=== PATIENT | female | born 1945 | race Caucasian/White ===

== ENCOUNTER 2018-11-12 18:05 | Inpatient (IN) | payer MEDICARE, OTHER ==
--- NOTE | 2018-11-12 19:01 | ED ---
Complex/Multi-Sys Presentation - HPI Summary HPI Summary: This pt is a 72 y/o female presenting [facility] c/o increased fatigue, weakness, nausea, and vomiting. Pt reports she began to feel ill since 4 days ago with an ear ache that radiated down her jaw and with fatigue. Pt saw her PCP 3 days ago where she was told it was viral syndrome and was sent home with Tylenol and ear saline solution. Since then she has been having nausea, vomiting, persistent fatigue. Today she noted to have increased nausea, vomiting, generalized weakness, fatigue. Per daughter, pt has had decreased PO intake. Denies chest pain, SOB, hematuria, bloody stools, pain with urination. PMHx includes DM, HTN. - History Of Current Complaint Chief Complaint: EDWeakness Hx Obtained From: Patient Onset/Duration: Lasting Days, Still Present Timing: Days Severity Initially: Moderate Aggravating Factor(s): nothing Alleviating Factor(s): nothing Associated Signs And Symptoms: Positive: Weakness - generalized, Nausea, Vomiting, Decreased Oral Intake, Other - POS: fatigue, ear ache. NEG: bloody stools, hematuria, painful urination.. Negative: SOB, Chest Pain, Fever - Allergies/Home Medications Allergies/Adverse Reactions: Allergies Allergy/AdvReac Type Severity Reaction Status Date / Time No Known Allergies Allergy Verified 09/30/13 07:41 Home Medications: Home Medications Furosemide TAB* [Lasix TAB*] 20 mg PO DAILY 11/12/18 [History Confirmed 11/12/18 ] Lisinopril TAB* [Prinivil TAB*] 20 mg PO DAILY 11/12/18 [History Confirmed 11/12] Metformin ER (NF) 1,000 mg PO DAILY 11/12/18 [History Confirmed 11/12/18] Metoprolol Succinate XL TAB* [Toprol XL TAB*] 25 mg PO DAILY 11/12/18 [History Confirmed 11/12/18] PMH/Surg Hx/FS Hx/Imm Hx Endocrine/Hematology History: Denies: Hx Anticoagulant Therapy, Hx Thyroid Disease Comment Only: Hx Diabetes - TYPE 2 Cardiovascular History: Reports: Hx Hypertension Denies: Hx Pacemaker/ICD, Other Cardiovascular Problems/Disorders Respiratory History: Denies: Hx Asthma, Hx Chronic Obstructive Pulmonary Disease (COPD), Other Respiratory Problems/Disorders History: Reports: Hx Kidney Stones - PASSED ON THEIR OWN Denies: Hx Renal Disease Musculoskeletal History: Reports: Hx Arthritis - LOW BACK Sensory History: Reports: Hx Cataracts - KARRIE, Hx Contacts or Glasses - GLASSES Denies: Hx Hearing Aid Opthamlomology History: Reports: Hx Cataracts - KARRIE, Hx Contacts or Glasses - GLASSES Neurological History: Denies: Hx Dementia, Hx Seizures Psychiatric History: Denies: Hx Substance Abuse - Surgical History Surgery Procedure, Year, and Place: 1974, 1978, C SECTION, [facility]. 1979, HYSTERECTOMY, [facility]. 1984, TONSILECTOMY, [facility]. 1998, LEFT HAND [facility]. 1999, RIGHT HAND CTR, [facility]. Hx Anesthesia Reactions: Yes - NAUSEA Infectious Disease History: No Infectious Disease History: Denies: Hx Hepatitis, Hx Human Immunodeficiency Virus (HIV), Traveled Outside the [place] in Last 30 Days - Social History Alcohol Use: None Substance Use Type: Reports: None Review of Systems Constitutional: Other - POS: decreased oral intake Positive: Fatigue. Negative: Fever Positive: Ear Ache Negative: Chest Pain Negative: Shortness Of Breath Positive: Vomiting, Nausea. Negative: Other - bloody stools Positive: no symptoms reported. Negative: hematuria, pain Positive: Weakness - generalized All Other Systems Reviewed And Are Negative: Yes Physical Exam - Summary Physical Exam Summary: Appearance: Patient is quite pale but no acute distress. Skin: Warm, dry, no obvious rash Eyes: sclera anicteric, no conjunctival pallor ENT: mucous membranes moist, pharynx appears normal Neck: Supple, nontender Respiratory: Clear to auscultation, no signs of respiratory distress Cardiovascular: Bradycardia. No murmurs. Normal distal pulses in tibial and radial bilaterally. Abdomen: Soft, nontender, normal active bowel sounds present Musculoskeletal: Normal, Strength/ROM Intact Neurological: A&Ox3, awake and alert, mentation is normal, speech is fluent and appropriate Psychiatric: affect is normal, does not appear anxious or depressed Triage Information Reviewed: Yes Vital Signs On Initial Exam: Initial Vitals Temp Pulse Resp BP Pulse Ox 97.4 F 37 17 121/51 99 11/12/18 18:21 11/12/18 18:21 11/12/18 18:21 11/12/18 18:21 11/12/18 18:21 Vital Signs Reviewed: Yes Diagnostics - Vital Signs Vital Signs Temp Pulse Resp BP Pulse Ox 11/12/18 18:21 97.4 F 37 17 121/51 99 - Laboratory Result Diagrams: 11/13/18 05:01 11/13/18 05:01 Lab Statement: Any lab studies that have been ordered have been reviewed, and results considered in the medical decision making process. - EKG 18:49 Cardiac Rate: Bradycardia - at 36 bpm EKG Rhythm: Sinus Bradycardia Summary of EKG Findings: acute STEMI inf/post Re-Evaluation - Re-Evaluation First Eval Re-Evaluation Time: 19:59 Comment: Pt taken to optical lab technician. Complex Multi-Symp Course/Dx Assessment/Plan: pt is a 72 y/o female who presents to the ED with increased fatigue, weakness, nausea, and vomiting. Pt reports she began to feel ill since 4 days ago with an ear ache that radiated down her jaw and with fatigue. Per daughter, pt has had decreased PO intake. Denies chest pain, SOB, hematuria, bloody stools, pain with urination. Labs remarkable for WBC of 14.8, BUN of 62 , creatinine 2.89, glucose of 196, AST of 105, ALT of 67, CPK of 502, troponin of 32.62. Discussed the case with Dr. Castellanos, interventionalist, who reports EKG shows STEMI. In the ED course the pt received aspirin, heparin, morphine, Brilinta. Pt was transported to the optical lab technician. This patient's presentation with several days of nausea, weakness and some vomiting in the absence of chest pain or other typical anginal symptoms is quite atypical, which accounted for the delay in obtaining an EKG. Once that was obtained, workup and consultation proceeded expeditiously. - Diagnoses Provider Diagnoses: STEMI (ST elevation myocardial infarction) During the Visit The Following Alert/Code Occurred: STEMI - at 19:19 - Physician Notifications Discussed Care Of Patient With: Parisa Castellanos Time Discussed With Above Provider: 19:11 Instructed by Provider To: Other - Discussed pt's case with Dr. Castellanos, interventionalist. [19:19] Dr. Castellanos reports STEMI. - Critical Care Time Critical Care Time: 30-74 min Discharge - Sign-Out/Discharge Documenting (check all that apply): Patient Departure - Admit to [facility] All imaging exams completed and their final reports reviewed: No Studies Patient Received Moderate/Deep Sedation with Procedure: No - Discharge Plan Condition: Stable Disposition: ADMITTED TO [facility] - Billing Disposition and Condition Condition: STABLE Disposition: Admitted to [facility] - Attestation Statements Document Initiated by Nigel: Yes Documenting Scribe: Johana Bravo Provider For Whom Nigel is Documenting (Include Credential): Scott Porter MD Scribe Attestation: Johana Gonzalez scribed for Scott Porter MD on 11/13/18 at 1419. Scribe Documentation Reviewed: Yes Provider Attestation: The documentation as recorded by the Johana johnston accurately reflects the service I personally performed and the decisions made by me, Scott Porter MD Status of Scribe Document: Viewed
[2018-11-12] MEDS ORDERED: Heparin for STEMI(*) 5,000 UNITS/ML 1 ML VIAL IV ONE (19:24)
[2018-11-12] MEDS ORDERED: Ticagrelor* 90 MG TAB PO ONE ×2 (19:24→19:26)
[2018-11-12] MEDS ORDERED: Aspirin 81 mg CHEW TAB* 81 MG TAB.CHEW PO ONE (19:24)
[2018-11-12] MEDS ORDERED: Heparin VIAL(*) 5000 UNITS/ML VIAL (FIVE THOUSAND) ONE (19:26)
[2018-11-12] MEDS ORDERED: Morphine 4 MG/ML VIAL (1 ml) 4 MG/ML VIAL ONE (19:26)
[2018-11-12] MEDS ORDERED: Aspirin 81 mg CHEW TAB* 81 MG TAB.CHEW ONE (19:27)
[2018-11-12 19:31] LABS: ABS Basophils 0.1 10^3/ul (0-0.2); ABS Eosinophils 0 10^3/ul (0-0.6); ABS Lymphocytes 0.6 10^3/ul (1.0-4.8); ABS Monocytes 0.9 10^3/ul (0-0.8); ABS Neutrophils 13.2 10^3/ul (1.5-7.7); ABS Nucleated RBC 0 10^3/ul; Eosinophil % 0 %; Hematocrit 33 % (33-41); Hemoglobin 10.7 g/dL (12.0-16.0); Mean Corpuscular HGB Conc 33 g/dL (31-36); Mean Corpuscular Hemoglobin 28 pg (27-31); Mean Corpuscular Volume 85 fL (80-97); Mean Platelet Volume 10.7 fL (7.4-10.4); Nucleated Red Blood Cells % 0; Platelet Count 160 10^3/uL (150-450); Red Blood Count 3.84 10^6 /uL (3.70-4.87); Red Cell Distribution Width 14 % (10.5-15); White Blood Count 14.8 10^3/uL (3.5-10.8)
[2018-11-12] MEDS ORDERED: Midazolam* 1 MG/ML 5 ML VIAL (5 MG) ONE (19:41)
[2018-11-12] MEDS ORDERED: fentaNYL* 50 MCG/ML 2 ML VIAL (100 MCG VIAL) ONE (19:41)
[2018-11-12] MEDS ORDERED: VERAPAMIL 2.5 MG/ML 2 ML VIAL ** 5 mg/2 ml ONE (19:42)
[2018-11-12] MEDS ORDERED: nitroGLYCERIN DRIP* 25,000 MCG/250 ML BTL ONE (19:42)
[2018-11-12] MEDS ORDERED: Heparin 2 UNITS/ML IVPREMIX* 2,000 UNIT/1,000 ML BAG IV ONE (19:42)
[2018-11-12] MEDS ORDERED: Iohexol 350 (CONTRAST) 200 ML MDV IV ONE (19:42)
[2018-11-12] MEDS ORDERED: Lidocaine 1% INJ* 10 MG/ML 30 ML SDV ONE ×2 (19:42→19:44)
[2018-11-12] MEDS ORDERED: Heparin(*) 1000 UNIT/ML 10 ML VIAL CATH LAB IV ONE (19:42)
[2018-11-12] MEDS ORDERED: Morphine 4 MG/ML VIAL (1 ml) 4 MG/ML VIAL IV PRN (19:45)
[2018-11-12 19:48] LABS: ALT 67 U/L (7-52); AST 105 U/L (13-39); Albumin/Globulin Ratio 1.3 (1-3); Alkaline Phosphatase 58 U/L (34-104); Anion Gap 13 mmol/L (2-11); BUN/Creatinine Ratio 21.5 (8-20); Blood Urea Nitrogen 62 mg/dL (6-24); CO2 Carbon Dioxide 21 mmol/L (22-32); Calcium 9.5 mg/dL (8.6-10.3); Chloride 103 mmol/L (101-111); Creatine Kinase 502 U/L (10-223); EGFR African American 19.3 (>60); EGFR Non-African American 15.9 (>60); Glucose 196 mg/dL (70-100); LDL Cholesterol Direct 63 mg/dL; Potassium 4.6 mmol/L (3.5-5.0); Sodium 137 mmol/L (135-145)
[2018-11-12] MEDS ORDERED: Iodixanol 320 (CONTRAST) 100 ML SDV ONE (19:52)
[2018-11-12 19:53] LABS: Myoglobin 333.5 ng/mL (14.3-65.8)
[2018-11-12 19:54] LABS: CKMB ng/mL 24.2 ng/mL (0.6-6.3)
[2018-11-12 19:59] LABS: Troponin I 32.62 ng/mL (<0.04)
[2018-11-12 20:16] LABS: INR 1.17 (0.77-1.02)
[2018-11-12 20:34] LABS: TSH (Thyroid Stimulating Horm) 2.47 mcIU/mL (0.34-5.60)
[2018-11-12 20:48] LABS: Activated Partial Thrombo Time > 212.0 seconds (26.0-36.3)
[2018-11-12] MEDS ORDERED: Eptifibatide IV (Load dose)(*) 2 MG/ML 10 ml VIAL ONE (21:41)
[2018-11-12] MEDS ORDERED: Ondansetron INJ* 2 MG/ML VIAL ONE (22:04)
[2018-11-12] MEDS ORDERED: Acetaminophen TAB* 325 MG PO PRN (22:10)
[2018-11-12] MEDS ORDERED: Nitroglycerin TAB 0.4 MG* 0.4 MG TAB SL PRN (22:10)
[2018-11-12] MEDS ORDERED: NS 0.9% 1000 ML** 1,000 ML IV SCH (22:15)
--- NOTE | 2018-11-13 00:36 | HP ---
CC: Dr. Kennedy * HISTORY AND PHYSICAL: DATE OF ADMISSION: 11/12/18 PRIMARY CARE PHYSICIAN: Dr. Kennedy. HISTORY OF PRESENT ILLNESS: A 72-year-old woman presenting to the ER with weakness and nausea, ST-elevation infarct was called because of an abnormal electrocardiogram. She has no previous cardiac history. She lives independently, is moderately active, but does not exercise regularly. She in retrospect describes significant ear and jaw pain bilaterally last and Monday, 3 days ago, that was pretty continuous for 2 days, worsened when walked in the cold, and then it resolved. Subsequently, she has continued with nausea, is profoundly weak, but has not had any recurrence of her jaw or tooth pain. She has not had chest pain, denies heart failure symptoms, palpitations or syncope. When she presented in the ER, EKG at 1849 hours reveals sinus bradycardia at 36, with injury current in III and aVF with terminal T-wave changes, no significant Q waves, poor R-wave progression, and reciprocal ST depression in I, aVL, V2 through V5. She received heparin, aspirin, and Brilinta loading dose in the ER , which brought her to the cathead worker. Even in the hindsight she has had not had any change and exercise tolerance prior to last week. She has type 2 diabetes, treated with metformin as well as hypertension. PAST MEDICAL HISTORY: Diabetes type 2, hypertension, chronic pain for which she takes Motrin. PREHOSPITAL MEDICATIONS: 1. Advil 200 q.6 p.r.n. 2. Lasix 20 mg daily. 3. Metformin 1 g daily. 4. Lisinopril 20 mg daily. 5. Toprol-XL 25 mg daily. Last dose for each today. FAMILY HISTORY: Positive for coronary disease. SOCIAL HISTORY: Nonsmoker. She is a . She is retired. REVIEW OF SYSTEMS: General: No weight loss. No fevers. CLINICAL SPECIALTY REP: No history of TI or CVA. GI: She denies any history of peptic ulcer disease or bleeding. Heme: No history of malignancy or anemia. Circulatory: No claudication. Remainder all negative. PHYSICAL EXAMINATION VITAL SIGNS: Presenting BP 121/51 in the ER with a heart rate of 37. She is afebrile. HEENT: Without xanthelasma, scleral injection or jaundice. EOMs normal. NECK: JVP not visible. Carotids palpable without bruits. LUNGS: Without rales or wheezes. CARDIAC: RV and apex not palpable, slow heart rate, no audible gallop, murmur, or rub. ABDOMEN: Soft, nontender. No bruit, I cannot feel the aorta. No masses. Femoral pulses palpable. No bruits. EXTREMITIES: Radial pulses 2+, pedal pulses 2+. She has no cyanosis, clubbing , or edema. NEUROLOGIC: Cranial nerves grossly intact. SKIN: Warm and perfused. DIAGNOSTIC STUDIES/LAB DATA: EKG as above. When she was in the cathead worker, today 's labs returned with hemoglobin of 10.7 with normal indices with a history of prior anemia, white count 14,800, consistent with her infarct. INR 1.17. Sodium 137, potassium normal at 4.6, BUN 62, creatinine 2.89, with calculated GFR 15.9. Her bilirubin is normal, her AST is high at 105, ALT is 67 with normal alkaline phospate. Her CPK is high at 502 with MB of 24.2, troponin is 32.6, BNP is high at 755. LDL 63. TSH normal. Her last creatinine available to me was 0.5 in 2010. Urinalysis in 2013 was positive for protein. IMPRESSION: 1. Inferior wall ST-elevation infract. Even though her symptoms were 3 to 4 days ago, she has Q'ed out, she has inferior ST elevation with a reciprocal ST depression, possible posterior involvement. She is persisting with weakness, nausea. We discussed catheterization and possible revascularization in an effort to salvage myocardium at jeopardy. In the cathead worker her, creatinine returned elevated, we minimized contrast loading. 2. Renal insufficiency, at least in part due to volume depletion. She has had very poor intake for the last 3 to 4 days. 3. Diabetes type 2. 4. Hypertension. 5. Sinus bradycardia vs 2:1 2nd degree AV block, consistent with her infarct, currently asymptomatic. We will hold her beta nel, observe on telemetry. [id number]/[facility] #: [id number] [facility]
[2018-11-13] MEDS: DOPamine 800 MG/250 ML IVPREM* 800 MG/250 ML ML CENTR SCH (01:28)
[2018-11-13] MEDS: Ondansetron INJ* 2 MG/ML VIAL IV PRN ×2 (01:30→06:34)
[2018-11-13] MEDS: Famotidine IV* 10 MG/ML 2 ML (20 mg) IV SLOW PU SCH (03:23)
[2018-11-13] MEDS: Pantoprazole IV* 40 MG IV SCH ×2 (03:23→07:25)
[2018-11-13 03:59] LABS: Creatine Kinase 439 U/L (10-223); Magnesium 2.2 mg/dL (1.9-2.7)
[2018-11-13 04:04] LABS: CKMB ng/mL 22.7 ng/mL (0.6-6.3)
[2018-11-13 05:12] LABS: ABS Basophils 0 10^3/ul (0-0.2); ABS Eosinophils 0 10^3/ul (0-0.6); ABS Lymphocytes 0.6 10^3/ul (1.0-4.8); ABS Monocytes 0.9 10^3/ul (0-0.8); ABS Neutrophils 14.4 10^3/ul (1.5-7.7); ABS Nucleated RBC 0 10^3/ul; Eosinophil % 0 %; Hematocrit 32 % (33-41); Hemoglobin 10.1 g/dL (12.0-16.0); Lymphocyte % 3.5 %; Mean Corpuscular HGB Conc 32 g/dL (31-36); Mean Corpuscular Hemoglobin 28 pg (27-31); Mean Corpuscular Volume 87 fL (80-97); Mean Platelet Volume 11.1 fL (7.4-10.4); Nucleated Red Blood Cells % 0; Platelet Count 153 10^3/uL (150-450); Red Blood Count 3.67 10^6 /uL (3.70-4.87); Red Cell Distribution Width 14 % (10.5-15); White Blood Count 15.9 10^3/uL (3.5-10.8)
[2018-11-13 05:29] LABS: Anion Gap 12 mmol/L (2-11); BUN/Creatinine Ratio 23.8 (8-20); Blood Urea Nitrogen 72 mg/dL (6-24); CO2 Carbon Dioxide 19 mmol/L (22-32); Calcium 8.9 mg/dL (8.6-10.3); Chloride 104 mmol/L (101-111); Cholesterol 108 mg/dL; Creatine Kinase 411 U/L (10-223); EGFR African American 18.3 (>60); EGFR Non-African American 15.1 (>60); Glucose 194 mg/dL (70-100); HDL Cholesterol 37.7 mg/dL; LDL Cholesterol 51 mg/dL; Potassium 4.8 mmol/L (3.5-5.0); Sodium 135 mmol/L (135-145); Triglycerides 97 mg/dL
[2018-11-13 05:34] LABS: CKMB ng/mL 26.3 ng/mL (0.6-6.3)
[2018-11-13 05:38] LABS: Troponin I 34.98 ng/mL (<0.04)
[2018-11-13] MEDS: Aspirin 81 mg CHEW TAB* 81 MG TAB.CHEW PO SCH (07:25)
[2018-11-13] MEDS: Ticagrelor* 90 MG TAB PO SCH ×2 (07:25→21:07)
[2018-11-13] MEDS ORDERED: Dextrose 50% Syringe 50 ML* 25 GM/50 ML SYRINGE IV PUSH PRN (08:17)
[2018-11-13] MEDS ORDERED: NS 0.9% 1000 ML** 1,000 ML IV SCH (08:30)
--- NOTE | 2018-11-13 08:31 | PN ---
<Greg Lernerlin - Last Filed: 11/13/18 08:25> Subjective Date of Service: 11/13/18 - s/p Inferior ID with symptomatic bradycardia Interval History: Patient reports ongoing nausea despite zofran, denies c/o chest pain, jaw pain, dizziness, lightheadedness, sob, right radial access pain. Last night around 0100 she was bradycardic ECG at that time revealed high degree AVB concerning for complete heart block. IV Dopamine was started. Medications Active Medications: Acetaminophen (Tylenol Tab*) 650 mg PO Q4H PRN PRN Reason: HEADACHE/PAIN Aspirin (Aspirin 81 Mg Chew Tab*) 81 mg PO DAILY [facility] Last Admin: 11/13/18 07:25 Dose: 81 mg Atorvastatin Calcium (Lipitor*) 80 mg PO 1700 [facility] Dextrose (D50w Syringe 50 Ml*) 12.5 gm IV PUSH .FOR FS < 60 - SS PRN PRN Reason: FS < 60 Famotidine (Pepcid Iv*) 20 mg IV SLOW PU DAILY [facility] Last Admin: 11/13/18 03:23 Dose: 20 mg Hydralazine HCl (Apresoline Tab*) 25 mg PO TID [facility] Dopamine HCl/Dextrose (Dopamine 800 Mg/250 Ml Ivprem*) 800 mg in 250 mls @ 6.656 mls/hr CENTR Q24H [facility]; Protocol Last Admin: 11/13/18 01:28 Dose: 6.656 mls/hr Sodium Chloride (Ns 0.9% 1000 Ml) 1,000 mls @ 100 mls/hr IV PER RATE [facility] Stop: 11/13/18 18:00 Insulin Human Lispro (Humalog*) 0 units SUBCUT FS Q6 ICU [facility]; Protocol Morphine Sulfate (Morphine 4 Mg/Ml Vial (1 Ml)) 4 mg IV Q4H PRN PRN Reason: PAIN Last Admin: 11/12/18 19:49 Dose: 4 mg Nitroglycerin (Nitroglycerin Tab 0.4 Mg*) 0.4 mg SL Q5M PRN PRN Reason: ANGINA Ondansetron HCl (Zofran Inj*) 4 mg IV Q4H PRN PRN Reason: NAUSEA Last Admin: 11/13/18 06:34 Dose: 4 mg Pantoprazole Sodium (Protonix Iv*) 40 mg IV DAILY [facility] Last Admin: 11/13/18 07:25 Dose: 40 mg Prochlorperazine Edisylate (Compazine Inj*) 5 mg IV Q6H PRN PRN Reason: NAUSEA/VOMITING Ticagrelor (Brilinta*) 90 mg PO BID [facility] Last Admin: 11/13/18 07:25 Dose: 90 mg Objective Vital Signs: Temp Pulse Resp BP Pulse Ox 97.5 F 49 18 160/78 97 11/13/18 08:03 11/13/18 08:01 11/13/18 08:01 11/13/18 08:01 11/13/18 08:01 Oxygen Devices in Use Now: None, Nasal Cannula Appearance: A+O X3, cooperative with exam, NAD Ears/Nose/Mouth/Throat: NL Teeth, Lips, Gums, Mucous Membranes Moist Neck: NL Appearance and Movements; NL JVP Respiratory: Symmetrical Chest Expansion and Respiratory Effort, Clear to Auscultation Cardiovascular: NL Sounds; No Murmurs; No JVD, RRR, No Edema, - - right radial access site is intact, strong bounding pulse, cap refill < 3 seconds. Abdominal: NL Sounds; No Tenderness; No Distention Extremities: No Edema Neurological: Alert and Oriented x 3 Lines/Tubes/Other Access: Clean, Dry and Intact Peripheral IV Laboratory Results: 11/13/18 05:01 11/13/18 05:01 INR (Anticoag Therapy) 1.17 (0.77-1.02) H 11/12/18 19:49 APTT > 212.0 seconds (26.0-36.3) H* 11/12/18 19:49 Total Bilirubin 0.40 mg/dL (0.2-1.0) 11/12/18 19:21 AST 105 U/L (13-39) H 11/12/18 19:21 ALT 67 U/L (7-52) H 11/12/18 19:21 Alkaline Phosphatase 58 U/L (34-104) 11/12/18 19:21 CK-MB (CK-2) 26.3 ng/mL (0.6-6.3) H 11/13/18 05:01 B-Natriuretic Peptide 755 pg/mL (<=100) H 11/12/18 19:21 Total Protein 7.0 g/dL (6.4-8.9) 11/12/18 19:21 Albumin 4.0 g/dL (3.2-5.2) 11/12/18 19:21 Globulin 3.0 g/dL (2-4) 11/12/18 19:21 Albumin/Globulin Ratio 1.3 (1-3) 11/12/18 19:21 Triglycerides 97 mg/dL 11/13/18 05:01 Cholesterol 108 mg/dL 11/13/18 05:01 LDL Cholesterol 51 mg/dL 11/13/18 05:01 HDL Cholesterol 37.7 mg/dL 11/13/18 05:01 TSH 2.47 mcIU/mL (0.34-5.60) 11/12/18 19:21 11/12/18 11/12/18 11/13/18 19:21 22:29 05:01 Troponin I 32.62 H* 37.60 H* 34.98 H* Laboratory Results - last 24 hr 11/12/18 11/12/18 11/12/18 19:21 19:21 19:21 WBC 14.8 H RBC 3.84 Hgb 10.7 L Hct 33 MCV 85 MCH 28 MCHC 33 RDW 14 Plt Count 160 MPV 10.7 H Neut % (Auto) 89.0 Lymph % (Auto) 4.0 [place] % (Auto) 6.3 Eos % (Auto) 0 Baso % (Auto) 0.7 Absolute Neuts (auto) 13.2 H Absolute Lymphs (auto) 0.6 L Absolute Monos (auto) 0.9 H Absolute Eos (auto) 0 Absolute Basos (auto) 0.1 Absolute Nucleated RBC 0 Nucleated RBC % 0 INR (Anticoag Therapy) APTT POC Activ Clotting Time Sodium 137 Potassium 4.6 Chloride 103 Carbon Dioxide 21 L Anion Gap 13 H BUN 62 H Creatinine 2.89 H Est GFR ( Amer) 19.3 Est GFR (Non-Af Amer) 15.9 BUN/Creatinine Ratio 21.5 H Glucose 196 H POC Glucose (mg/dL) Lactic Acid 1.6 Calcium 9.5 Magnesium Total Bilirubin 0.40 AST 105 H ALT 67 H Alkaline Phosphatase 58 Total Creatine Kinase 502 H CK-MB (CK-2) 24.2 H Myoglobin 333.5 H Troponin I 32.62 H* B-Natriuretic Peptide Total Protein 7.0 Albumin 4.0 Globulin 3.0 Albumin/Globulin Ratio 1.3 Triglycerides Cholesterol LDL Cholesterol LDL Cholesterol Direct 63 HDL Cholesterol TSH 2.47 Blood Type Antibody Screen 11/12/18 11/12/18 11/12/18 19:21 19:21 19:49 WBC RBC Hgb Hct MCV MCH MCHC RDW Plt Count MPV Neut % (Auto) Lymph % (Auto) [place] % (Auto) Eos % (Auto) Baso % (Auto) Absolute Neuts (auto) Absolute Lymphs (auto) Absolute Monos (auto) Absolute Eos (auto) Absolute Basos (auto) Absolute Nucleated RBC Nucleated RBC % INR (Anticoag Therapy) 1.17 H APTT > 212.0 H* POC Activ Clotting Time Sodium Potassium Chloride Carbon Dioxide Anion Gap BUN Creatinine Est GFR ( Amer) Est GFR (Non-Af Amer) BUN/Creatinine Ratio Glucose POC Glucose (mg/dL) Lactic Acid Calcium Magnesium Total Bilirubin AST ALT Alkaline Phosphatase Total Creatine Kinase CK-MB (CK-2) Myoglobin Troponin I B-Natriuretic Peptide 755 H Total Protein Albumin Globulin Albumin/Globulin Ratio Triglycerides Cholesterol LDL Cholesterol LDL Cholesterol Direct HDL Cholesterol TSH Blood Type A Negative Antibody Screen Negative 11/12/18 11/12/18 11/12/18 20:25 20:38 20:57 WBC RBC Hgb Hct MCV MCH MCHC RDW Plt Count MPV Neut % (Auto) Lymph % (Auto) [place] % (Auto) Eos % (Auto) Baso % (Auto) Absolute Neuts (auto) Absolute Lymphs (auto) Absolute Monos (auto) Absolute Eos (auto) Absolute Basos (auto) Absolute Nucleated RBC Nucleated RBC % INR (Anticoag Therapy) APTT POC Activ Clotting Time 184 221 241 Sodium Potassium Chloride Carbon Dioxide Anion Gap BUN Creatinine Est GFR ( Amer) Est GFR (Non-Af Amer) BUN/Creatinine Ratio Glucose POC Glucose (mg/dL) Lactic Acid Calcium Magnesium Total Bilirubin AST ALT Alkaline Phosphatase Total Creatine Kinase CK-MB (CK-2) Myoglobin Troponin I B-Natriuretic Peptide Total Protein Albumin Globulin Albumin/Globulin Ratio Triglycerides Cholesterol LDL Cholesterol LDL Cholesterol Direct HDL Cholesterol TSH Blood Type Antibody Screen 11/12/18 11/12/18 11/13/18 21:10 22:29 01:41 WBC RBC Hgb Hct MCV MCH MCHC RDW Plt Count MPV Neut % (Auto) Lymph % (Auto) [place] % (Auto) Eos % (Auto) Baso % (Auto) Absolute Neuts (auto) Absolute Lymphs (auto) Absolute Monos (auto) Absolute Eos (auto) Absolute Basos (auto) Absolute Nucleated RBC Nucleated RBC % INR (Anticoag Therapy) APTT POC Activ Clotting Time 266 Sodium Potassium Chloride Carbon Dioxide Anion Gap BUN Creatinine Est GFR ( Amer) Est GFR (Non-Af Amer) BUN/Creatinine Ratio Glucose POC Glucose (mg/dL) 199 H Lactic Acid Calcium Magnesium 2.2 Total Bilirubin AST ALT Alkaline Phosphatase Total Creatine Kinase 439 H CK-MB (CK-2) 22.7 H Myoglobin Troponin I 37.60 H* B-Natriuretic Peptide Total Protein Albumin Globulin Albumin/Globulin Ratio Triglycerides Cholesterol LDL Cholesterol LDL Cholesterol Direct HDL Cholesterol TSH Blood Type Antibody Screen 11/13/18 11/13/18 11/13/18 05:01 05:01 08:03 WBC 15.9 H RBC 3.67 L Hgb 10.1 L Hct 32 L MCV 87 MCH 28 MCHC 32 RDW 14 Plt Count 153 MPV 11.1 H Neut % (Auto) 90.6 Lymph % (Auto) 3.5 [place] % (Auto) 5.7 Eos % (Auto) 0 Baso % (Auto) 0.2 Absolute Neuts (auto) 14.4 H Absolute Lymphs (auto) 0.6 L Absolute Monos (auto) 0.9 H Absolute Eos (auto) 0 Absolute Basos (auto) 0 Absolute Nucleated RBC 0 Nucleated RBC % 0 INR (Anticoag Therapy) APTT POC Activ Clotting Time Sodium 135 Potassium 4.8 Chloride 104 Carbon Dioxide 19 L Anion Gap 12 H BUN 72 H Creatinine 3.02 H Est GFR ( Amer) 18.3 Est GFR (Non-Af Amer) 15.1 BUN/Creatinine Ratio 23.8 H Glucose 194 H POC Glucose (mg/dL) 193 H Lactic Acid Calcium 8.9 Magnesium Total Bilirubin AST ALT Alkaline Phosphatase Total Creatine Kinase 411 H CK-MB (CK-2) 26.3 H Myoglobin Troponin I 34.98 H* B-Natriuretic Peptide Total Protein Albumin Globulin Albumin/Globulin Ratio Triglycerides 97 Cholesterol 108 LDL Cholesterol 51 LDL Cholesterol Direct HDL Cholesterol 37.7 TSH Blood Type Antibody Screen Diagnostic Imaging: Echo pending today. EKG Data: EKG 11/13/2018; High degree AVB concerning for third degree AVB rate 43. with isolated PVC. Assessment/Plan #1 Inferior Stemi 11/12/2018 s/p DESx3 to RCA with known residual 90% Lcx with distal disease. She has no had recurrent jaw pain however nausea has persisted but this is likely due to bradycardia. Will continue ASA 81/day, Brilinta 90mg PO BID. No Bblocker due to bradycardia on high statin therapy. Troponin peaked 37 on 11/12/2018. Echo pending read. #2 Symptomatic bradycardia; ECG at 0100 demonstrated third degree AVB. She is on Dopamine gtt which we will up titrate given nausea is persisting with HR in 40's. She had recurrent high degree AVB at 0700 on lower dose of Dopamine but none since dose was increased. bblocker on hold. temp pacer at bedside. #3 Acute Kidney Injury, creat continues to trend up. Will D/c ACEI which was home medication. She is off of Metformin. This is likely related to volume contraction from lack of PO intake since Monday in addition to bradycardia. Will consult nephrology. Continue gentle hydration. String Intake and output. #4 HTN; Will S/C ACEI and start Hydralazine at 25mg PO TID and uptitrate as needed. Avoid AV rigoberto agents due to above #2. #5 Disposition pending course, await echo, consult nephrology. Monitor closely given ongoing symptomatic bradycardia with third degree AVB last night. Patient is full code. D/W Dr. Castellanos who agrees with plan of care. Attending: Parisa Castellanos <Parisa Castellanos - Last Filed: 11/13/18 10:20> Medications Active Medications: Acetaminophen (Tylenol Tab*) 650 mg PO Q4H PRN PRN Reason: HEADACHE/PAIN Aspirin (Aspirin 81 Mg Chew Tab*) 81 mg PO DAILY [facility] Last Admin: 11/13/18 07:25 Dose: 81 mg Atorvastatin Calcium (Lipitor*) 80 mg PO 1700 [facility] Dextrose (D50w Syringe 50 Ml*) 12.5 gm IV PUSH .FOR FS < 60 - SS PRN PRN Reason: FS < 60 Famotidine (Pepcid Iv*) 20 mg IV SLOW PU DAILY [facility] Last Admin: 11/13/18 03:23 Dose: 20 mg Hydralazine HCl (Apresoline Tab*) 25 mg PO TID [facility] Last Admin: 11/13/18 08:36 Dose: 25 mg Dopamine HCl/Dextrose (Dopamine 800 Mg/250 Ml Ivprem*) 800 mg in 250 mls @ 6.656 mls/hr CENTR Q24H [facility]; Protocol Last Admin: 11/13/18 01:28 Dose: 6.656 mls/hr Sodium Chloride (Ns 0.9% 1000 Ml) 1,000 mls @ 100 mls/hr IV PER RATE [facility] Stop: 11/13/18 18:00 Last Admin: 11/13/18 08:46 Dose: 100 mls/hr Insulin Human Lispro (Humalog*) 0 units SUBCUT FS Q6 ICU [facility]; Protocol Morphine Sulfate (Morphine 4 Mg/Ml Vial (1 Ml)) 4 mg IV Q4H PRN PRN Reason: PAIN Last Admin: 11/12/18 19:49 Dose: 4 mg Nitroglycerin (Nitroglycerin Tab 0.4 Mg*) 0.4 mg SL Q5M PRN PRN Reason: ANGINA Ondansetron HCl (Zofran Inj*) 4 mg IV Q4H PRN PRN Reason: NAUSEA Last Admin: 11/13/18 06:34 Dose: 4 mg Pantoprazole Sodium (Protonix Iv*) 40 mg IV DAILY [facility] Last Admin: 11/13/18 07:25 Dose: 40 mg Prochlorperazine Edisylate (Compazine Inj*) 5 mg IV Q6H PRN PRN Reason: NAUSEA/VOMITING Last Admin: 11/13/18 08:35 Dose: 5 mg Ticagrelor (Brilinta*) 90 mg PO BID [facility] Last Admin: 11/13/18 07:25 Dose: 90 mg Objective Vital Signs: Temp Pulse Resp BP Pulse Ox 97.5 F 49 19 153/49 98 11/13/18 08:03 11/13/18 10:01 11/13/18 10:01 11/13/18 10:01 11/13/18 10:01 Laboratory Results: 11/13/18 05:01 11/13/18 05:01 INR (Anticoag Therapy) 1.17 (0.77-1.02) H 11/12/18 19:49 APTT > 212.0 seconds (26.0-36.3) H* 04/15/19 19:49 Total Bilirubin 0.40 mg/dL (0.2-1.0) 11/12/18 19:21 AST 105 U/L (13-39) H 11/12/18 19:21 ALT 67 U/L (7-52) H 11/12/18 19:21 Alkaline Phosphatase 58 U/L (34-104) 11/12/18 19:21 CK-MB (CK-2) 26.3 ng/mL (0.6-6.3) H 11/13/18 05:01 B-Natriuretic Peptide 755 pg/mL (<=100) H 11/12/18 19:21 Total Protein 7.0 g/dL (6.4-8.9) 11/12/18 19:21 Albumin 4.0 g/dL (3.2-5.2) 11/12/18 19:21 Globulin 3.0 g/dL (2-4) 11/12/18 19:21 Albumin/Globulin Ratio 1.3 (1-3) 11/12/18 19:21 Triglycerides 97 mg/dL 11/13/18 05:01 Cholesterol 108 mg/dL 11/13/18 05:01 LDL Cholesterol 51 mg/dL 11/13/18 05:01 HDL Cholesterol 37.7 mg/dL 11/13/18 05:01 TSH 2.47 mcIU/mL (0.34-5.60) 11/12/18 19:21 11/12/18 11/12/18 11/13/18 19:21 22:29 05:01 Troponin I 32.62 H* 37.60 H* 34.98 H* Assessment/Plan Nausea better, ate some lunch. Now c/o ? orthopnea. CXR 2nd degree AV block persists but VR 50's Enzymes c/w late ID presaentation w likely recurring ischemia p ID
[2018-11-13] MEDS ORDERED: PROCHLORPERAZINE INJ 5 MG/ML 2 ML VIAL ONE (08:34)
[2018-11-13] MEDS ORDERED: hydrALAZINE TAB* 25 MG ONE (08:34)
[2018-11-13] MEDS: PROCHLORPERAZINE INJ 5 MG/ML 2 ML VIAL IV PRN (08:35)
[2018-11-13] MEDS: hydrALAZINE TAB* 25 MG PO SCH ×3 (08:36→21:07)
[2018-11-13] MEDS ORDERED: Pantoprazole IV* 40 MG IV SCH (09:00)
[2018-11-13] MEDS ORDERED: Famotidine IV* 10 MG/ML 2 ML (20 mg) IV SLOW PU SCH (09:00)
[2018-11-13] MEDS ORDERED: Lisinopril TAB* 10 MG PO SCH (09:00)
[2018-11-13 10:49] LABS: Creatine Kinase 231 U/L (10-223)
[2018-11-13] MEDS ORDERED: LORazepam INJ* 2 MG/ML 1 ML VIAL IV PUSH ONE (10:53)
[2018-11-13] MEDS ORDERED: LORazepam INJ* 2 MG/ML 1 ML VIAL ONE (10:55)
[2018-11-13 10:56] LABS: CKMB ng/mL 15.9 ng/mL (0.6-6.3)
[2018-11-13 10:58] LABS: Troponin I 20.63 ng/mL (<0.04)
[2018-11-13] MEDS: Insulin LISPRO* 1 UNITS UNIT SUBCUT SCH ×3 (11:55→21:16)
--- NOTE | 2018-11-13 12:12 | ECHO ---
Patient: OLI GANDHI [facility] Rec#: [id number] : 1945 Date: 11/13/2018 Age: 72y Weight: kg / NaN lbs Sex: F Room#: ICU-2 Admit Date#: 11/12/2018 Type: Inpatient Referring: HERMELINDO Reading: Sal Delgado MD Media Aid: Ludmila Zelaya RDCS CC: John Kennedy MD Transthoracic Echocardiogram Indication: Myocardial Infarction BP: 170/64 HR: 47 Rhythm: Bradycardia Findings History: HTN, DM II. STEMI s/p PCI 11/12/18. Technical Comments: The study quality is fair. Completed at 0840. Left Ventricle: The left ventricular chamber size is normal. Mild concentric left ventricular hypertrophy is observed. There are multiple regional wall motion abnormalities. There is mildly decreased left ventricular systolic function. The estimated ejection fraction is 40-45%. closer to 40%. Abnormal left ventricular diastolic function is observed. The left ventricular diastolic filling pattern is restrictive. The basal anterolateral, basal inferoseptal, mid anterolateral, mid inferolateral, and apical lateral wall segments are hypokinetic (score 2). The mid inferior wall segment is akinetic (score 3). The basal inferolateral, and basal inferior wall segments are dyskinetic (score 4). Overall wallmotion score index is 1.81 Left Atrium: The left atrium is severely dilated. Right Ventricle: Moderator Band present. The right ventricular cavity size is normal. The right ventricle wall thickness is mildly increased. The right ventricular global systolic function is low normal. Right Atrium: The right atrium is mildly dilated. Aortic Valve: The aortic valve is trileaflet. The aortic valve leaflets are mildly thickened. There is evidence of aortic sclerosis without stenosis. There is a trace of aortic regurgitation. There is no evidence of aortic stenosis. Mitral Valve: There is mitral annular calcification. The mitral valve leaflets are mildly thickened. Mitral valve leaflet mobility is mildly restricted.particularly the posterior leaflet. There is mild mitral regurgitation. There is mild mitral stenosis. The mean gradient across the mitral valve is 2 mmHg. The peak gradient across the mitral valve is 9 mmHg. The pressure half time of the mitral valve is 143 msec. The mitral valve area, by pressure half time, is calculated at 1.5 cm2. Tricuspid Valve: The tricuspid valve leaflets are normal. There is trace tricuspid regurgitation. Unable to estimate the right ventricular systolic pressure. There is no tricuspid stenosis. Pulmonic Valve: The pulmonic valve appears normal. There is a trace pulmonic regurgitation. There is no pulmonic stenosis. Pericardium: There is no significant pericardial effusion. A pericardial fat pad is visualized. Aorta: There is no dilatation of the ascending aorta. There is no dilatation of the aortic arch. The aortic root is normal in size. Pulmonary Artery: The main pulmonary artery appears normal. Venous: The inferior vena cava appears normal in size. There is a greater than 50% respiratory change in the inferior vena cava dimension. Summary: There was not any prior study for comparison. Conclusions Mild concentric left ventricular hypertrophy is observed. There are multiple regional wall motion abnormalities. There is mildly decreased left ventricular systolic function. The estimated ejection fraction is 40-45%, closer to 40%. The left ventricular diastolic filling pattern is restrictive. The left atrium is severely dilated. The right ventricle wall thickness is mildly increased. The right ventricular global systolic function is low normal. The right atrium is mildly dilated. The aortic valve leaflets are mildly thickened. Mitral valve leaflet mobility is mildly restricted.particularly the posterior leaflet. There is mild mitral regurgitation. There is mild mitral stenosis. Measurements Name Value Normal Range RVIDd (AP) 2D 2.3 cm (0.9 - 2.6) RVDdMajor (2D) 4.4 cm (2.2 - 4.4) RAd ISD 4CH 5.2 cm (3.4 - 4.9) RA (A4C)W 4.7 cm (2.9 - 4.6) IVSd (2D) 1.1 cm (0.6 - 1) LVPWd (2D) 1.2 cm (0.6 - 1) LVIDd (2D) 5 cm (3.6 - 5.4) LVIDs (2D) 3.3 cm - LV FS (2D) 35 % (25 - 45) Aortic Annulus 1.9 cm (1.4 - 2.6) Ao root diameter (2D) 2.8 cm (2.1 - 3.5) Ascending Ao 2.9 cm (2.1 - 3.4) Aortic arch 2.3 cm (1.8 - 3.4) LA dimension (AP) 2D 3.9 cm (2.3 - 3.8) LAd ISD 4CH 5.9 cm (2.9 - 5.3) LA ISD 4CH W 4.8 cm (2.5 - 4.5) Name Value Normal Range LA ESV BP (A/L) index 52 ml/m2 - Name Value Normal Range MV E-wave Vmax 1.46 m/sec - MV deceleration time 113 msec - MV A-wave Vmax 0.4 m/sec - MV E:A ratio 4 ratio - LV septal e' Vmax 0.08 m/sec - LV lateral e' Vmax 0.08 m/sec - LV E:e' septal ratio 18.3 ratio - LV E:e' lateral ratio 18.3 ratio - Name Value Normal Range AV Vmax 1.5 m/sec - AV VTI 31.1 cm - AV peak gradient 9 mmHg - AV mean gradient 4 mmHg - LVOT diameter 2 cm - LVOT Vmax 0.7 m/sec - LVOT VTI 16 cm - LVOT peak gradient 2 mmHg - LVOT mean gradient 1 mmHg - [place] Vmax 0.6 m/sec - Name Value Normal Range MV Vmax 1.48 m/sec - MV VTI 45 cm - MV peak gradient 9 mmHg - MV mean gradient 2 mmHg - MV PHT 143 msec - MVA (PHT) 1.5 cm2 - MVA (continuity VTI) 1.2 cm2 - Name Value Normal Range IVC diameter 2.1 cm - Name Value Normal Range PV Vmax 0.9 m/sec - PV peak gradient 3 mmHg - Wallmotion BAS Normal BA Normal BAL Hypokinetic KARRIE Dyskinetic BI Dyskinetic BIS Hypokinetic MAS Normal MA Normal MAL Hypokinetic MIL Hypokinetic UT Akinetic MIS Normal Normal AA Normal AL Hypokinetic AI Normal APEX Normal
--- NOTE | 2018-11-13 16:12 | CONS ---
CC Dr. Kennedy * NEPHROLOGY CONSULTATION: DATE OF CONSULT: 11/13/18 HISTORY OF PRESENT ILLNESS: Mrs. Simmons is a 72-year-old female with a history of diabetes mellitus type 2. Unfortunately, during my interview, she kept nodding off to sleep in mid sentence; and, as a result, I was not able to obtain a very good history from her. She could not tell me how long she had had diabetes. She could tell me that she had had some problems with her eyes from diabetes, but she was not sure what and she never actually finished telling me whether or not she had neuropathy to her feet. She was admitted for an inferior [id number]-[id number] myocardial infarction, which probably occurred few days prior to admission. She has been having ear pain and jaw pain bilaterally starting or Monday of last week, this continued for a couple of days. She had some dyspnea on exertion. She eventually presented to the emergency room where she was found to have had a myocardial infarction. She underwent cardiac catheterization earlier this morning. She has been somewhat bradycardic with the pulse rate in the 40s. Her blood pressure has been 155/63. MEDICATIONS: Her medications at the time of admission included: 1. Advil 200 mg every 6 hours p.r.n. I did not get a response to the question of how often she was taking that. 2. Lasix 20 mg daily. 3. Metformin 1 g daily. 4. Lisinopril 20 mg daily. 5. Toprol-XL 25 mg daily. SOCIAL HISTORY: She does not use tobacco. She is a . She does have a positive family history for coronary artery disease. I was not able to collect a review of systems from her. PHYSICAL EXAMINATION: On physical examination, she is a quite fatigued- appearing elderly female. She was anicteric. Her extraocular muscles are intact. Mucous membranes were moist. The chest was clear. The heart revealed a regular rhythm, although bradycardic. I was unable to hear any murmurs. The abdomen is obese, nontender. I could not palpate any organomegaly. Bones, joints and extremities revealed no cyanosis, clubbing or edema. DIAGNOSTIC STUDIES/LAB DATA: Review of her laboratory studies reveals a white count of 15.9, hemoglobin of 10, hematocrit of 32, platelet count 153,000. Sodium 135, potassium 4.8, total CO2 of 19 with a chloride of 104, BUN of 72 with a creatinine of 3.2, again she was approximately 1.8 in June 2018, and she was within normal limits 1 year ago. Glucose is 194. Myoglobin was 333.5, CK-MB was 15.9 and troponin is now 20, having been 32.6 on presentation. Urinalysis has not been performed. IMPRESSION AND PLAN: 1. Acute myocardial infarction. 2. Diabetes mellitus type 2. 3. Acute renal injury. 4. Bradycardia. 5. History of hypertension. It is not clear how much of her renal insufficiency at this time was due to a pre- renal state related to her acute myocardial infarction versus pre-existing chronic renal disease secondary to diabetes mellitus and hypertension exacerbated by ibuprofen. At the present time, she is on a dopamine drip hoping to improve her bradycardia. Obviously, I would avoid additional x-ray contrast agents, semisynthetic penicillins, aminoglycosides, and nonsteroidal anti-inflammatory agents. It is a little late in her course for any benefit of acetylcysteine. She appears to be euvolemic to me at the present time and I would probably not recommend more aggressive hydration. I would continue off MATEUS inhibitors at this point but would hope to reinitiate them cautiously at some point in the future. I will be discussing the case with Dr. Castellanos. [id number]/[facility] #: [id number] [place]
[2018-11-13] MEDS: Atorvastatin* 80 MG TAB PO SCH (17:03)
[2018-11-13] MEDS ORDERED: ALPRAZolam TAB* 0.25 MG PO PRN (17:37)
[2018-11-13] MEDS ORDERED: ALPRAZolam TAB* 0.25 MG ONE (17:39)
[2018-11-14] MEDS ORDERED: NS 0.9% 500 ML* 500 ML IV SCH (01:00)
[2018-11-14] MEDS: DOPamine 800 MG/250 ML IVPREM* 800 MG/250 ML ML CENTR SCH (02:15)
--- NOTE | 2018-11-14 04:16 | PN ---
Hospitalist Progress Note Date of Service: 11/14/18 CROSS COVER Pt with low urine output overnight, bladder scanned <100cc Trialed gentle bolus total 500cc overnight, though most likely this is 2/2 to cardiac source (cardiogenic shock remains on dopa) vs new ATN Nephrology following, cardiology as well, pt clinically well
[2018-11-14 04:36] LABS: ABS Basophils 0.1 10^3/ul (0-0.2); ABS Eosinophils 0 10^3/ul (0-0.6); ABS Lymphocytes 0.5 10^3/ul (1.0-4.8); ABS Monocytes 1.1 10^3/ul (0-0.8); ABS Neutrophils 11.8 10^3/ul (1.5-7.7); ABS Nucleated RBC 0 10^3/ul; Eosinophil % 0.2 %; Hematocrit 30 % (33-41); Hemoglobin 9.8 g/dL (12.0-16.0); Lymphocyte % 3.9 %; Mean Corpuscular HGB Conc 33 g/dL (31-36); Mean Corpuscular Hemoglobin 28 pg (27-31); Mean Corpuscular Volume 85 fL (80-97); Mean Platelet Volume 10.6 fL (7.4-10.4); Nucleated Red Blood Cells % 0; Platelet Count 173 10^3/uL (150-450); Red Blood Count 3.47 10^6 /uL (3.70-4.87); Red Cell Distribution Width 14 % (10.5-15); White Blood Count 13.5 10^3/uL (3.5-10.8)
[2018-11-14 04:56] LABS: Albumin 3.6 g/dL (3.2-5.2); Albumin/Globulin Ratio 1.4 (1-3); BUN/Creatinine Ratio 21.2 (8-20); Calcium 8.6 mg/dL (8.6-10.3); EGFR African American 13.4 (>60); EGFR Non-African American 11.1 (>60); Globulin 2.5 g/dL (2-4); Potassium 4.2 mmol/L (3.5-5.0); Total Bilirubin 0.4 mg/dL (0.2-1.0); Total Protein 6.1 g/dL (6.4-8.9)
[2018-11-14] MEDS: Pantoprazole IV* 40 MG IV SCH (08:23)
[2018-11-14] MEDS: Aspirin 81 mg CHEW TAB* 81 MG TAB.CHEW PO SCH (08:23)
[2018-11-14] MEDS: hydrALAZINE TAB* 25 MG PO SCH ×3 (08:23→21:05)
[2018-11-14] MEDS: Famotidine IV* 10 MG/ML 2 ML (20 mg) IV SLOW PU SCH (08:23)
--- NOTE | 2018-11-14 08:55 | PN ---
<Tomasa Lerner - Last Filed: 11/14/18 08:50> Subjective Date of Service: 11/14/18 - inferior STEMI, third degree AVB, RF Interval History: Patient reports improvement in nausea, I spoke with nursing staff who states she has been making < 20cc urine output per hour. She denies chest pain, jaw pain, SOB, dizziness, syncope. Luis in place. Medications Active Medications: Acetaminophen (Tylenol Tab*) 650 mg PO Q4H PRN PRN Reason: HEADACHE/PAIN Alprazolam (Xanax Tab*) 0.25 mg PO Q8H PRN PRN Reason: ANXIETY Last Admin: 11/13/18 17:41 Dose: 0.25 mg Aspirin (Aspirin 81 Mg Chew Tab*) 81 mg PO DAILY [facility] Last Admin: 11/14/18 08:23 Dose: 81 mg Atorvastatin Calcium (Lipitor*) 80 mg PO 1700 [facility] Last Admin: 11/13/18 17:03 Dose: 80 mg Dextrose (D50w Syringe 50 Ml*) 12.5 gm IV PUSH .FOR FS < 60 - SS PRN PRN Reason: FS < 60 Famotidine (Pepcid Iv*) 20 mg IV SLOW PU DAILY [facility] Last Admin: 11/14/18 08:23 Dose: 20 mg Heparin Sodium (Porcine) (Heparin Flush Picc/Ml/Cvc(*)) 1 - 3 ml FLUSH 0600, 1800 [facility]; Protocol Last Admin: 11/14/18 06:47 Dose: 1 ml Hydralazine HCl (Apresoline Tab*) 50 mg PO TID [facility] Last Admin: 11/14/18 08:23 Dose: 50 mg Dopamine HCl/Dextrose (Dopamine 800 Mg/250 Ml Ivprem*) 800 mg in 250 mls @ 6.656 mls/hr CENTR Q24H [facility]; Protocol Last Admin: 11/14/18 02:15 Dose: 10.7 mls/hr Insulin Human Lispro (Humalog*) 0 units SUBCUT ACHS [facility]; Protocol Last Admin: 11/13/18 21:16 Dose: 6 units Morphine Sulfate (Morphine 4 Mg/Ml Vial (1 Ml)) 4 mg IV Q4H PRN PRN Reason: PAIN Last Admin: 11/12/18 19:49 Dose: 4 mg Nitroglycerin (Nitroglycerin Tab 0.4 Mg*) 0.4 mg SL Q5M PRN PRN Reason: ANGINA Ondansetron HCl (Zofran Inj*) 4 mg IV Q4H PRN PRN Reason: NAUSEA Last Admin: 11/13/18 06:34 Dose: 4 mg Pantoprazole Sodium (Protonix Iv*) 40 mg IV DAILY [facility] Last Admin: 11/14/18 08:23 Dose: 40 mg Prochlorperazine Edisylate (Compazine Inj*) 5 mg IV Q6H PRN PRN Reason: NAUSEA/VOMITING Last Admin: 11/13/18 08:35 Dose: 5 mg Ticagrelor (Brilinta*) 90 mg PO BID [facility] Last Admin: 11/14/18 08:24 Dose: 90 mg Objective Vital Signs: Temp Pulse Resp BP Pulse Ox 98.1 F 44 14 157/47 98 11/14/18 08:01 11/14/18 08:01 11/14/18 08:01 11/14/18 08:01 11/14/18 08:01 Oxygen Devices in Use Now: None Appearance: A+O X3, cooperative with exam, NAD Ears/Nose/Mouth/Throat: NL Teeth, Lips, Gums, Mucous Membranes Moist Neck: NL Appearance and Movements; NL JVP Respiratory: Symmetrical Chest Expansion and Respiratory Effort, Clear to Auscultation Cardiovascular: NL Sounds; No Murmurs; No JVD, RRR, No Edema, - - right radial access site is intact, strong bounding pulse, cap refill < 3 seconds. Abdominal: NL Sounds; No Tenderness; No Distention Extremities: No Edema Neurological: Alert and Oriented x 3 Lines/Tubes/Other Access: Clean, Dry and Intact Luis, Clean, Dry and Intact Peripheral IV, Clean, Dry and Intact PICC Line Laboratory Results: 11/14/18 04:30 11/14/18 04:30 INR (Anticoag Therapy) 1.17 (0.77-1.02) H 11/12/18 19:49 APTT > 212.0 seconds (26.0-36.3) H* 11/12/18 19:49 Total Bilirubin 0.40 mg/dL (0.2-1.0) 11/14/18 04:30 AST 43 U/L (13-39) H 11/14/18 04:30 ALT 51 U/L (7-52) 11/14/18 04:30 Alkaline Phosphatase 49 U/L (34-104) 11/14/18 04:30 CK-MB (CK-2) 15.9 ng/mL (0.6-6.3) H 11/13/18 10:05 B-Natriuretic Peptide 755 pg/mL (<=100) H 11/12/18 19:21 Total Protein 6.1 g/dL (6.4-8.9) L 11/14/18 04:30 Albumin 3.6 g/dL (3.2-5.2) 11/14/18 04:30 Globulin 2.5 g/dL (2-4) 11/14/18 04:30 Albumin/Globulin Ratio 1.4 (1-3) 11/14/18 04:30 Triglycerides 97 mg/dL 11/13/18 05:01 Cholesterol 108 mg/dL 11/13/18 05:01 LDL Cholesterol 51 mg/dL 11/13/18 05:01 HDL Cholesterol 37.7 mg/dL 11/13/18 05:01 TSH 2.47 mcIU/mL (0.34-5.60) 11/12/18 19:21 11/12/18 11/12/18 11/13/18 19:21 22:29 05:01 Troponin I 32.62 H* 37.60 H* 34.98 H* 11/13/18 10:05 Troponin I 20.63 H* Laboratory Results - last 24 hr 11/13/18 11/13/18 11/13/18 10:05 11:41 16:53 WBC RBC Hgb Hct MCV MCH MCHC RDW Plt Count MPV Neut % (Auto) Lymph % (Auto) Gates % (Auto) Eos % (Auto) Baso % (Auto) Absolute Neuts (auto) Absolute Lymphs (auto) Absolute Monos (auto) Absolute Eos (auto) Absolute Basos (auto) Absolute Nucleated RBC Nucleated RBC % Sodium Potassium Chloride Carbon Dioxide Anion Gap BUN Creatinine Est GFR ( Amer) Est GFR (Non-Af Amer) BUN/Creatinine Ratio Glucose POC Glucose (mg/dL) 203 H 148 H Calcium Total Bilirubin AST ALT Alkaline Phosphatase Total Creatine Kinase 231 H CK-MB (CK-2) 15.9 H Troponin I 20.63 H* Total Protein Albumin Globulin Albumin/Globulin Ratio 11/13/18 11/14/18 11/14/18 21:10 04:30 04:30 WBC 13.5 H RBC 3.47 L Hgb 9.8 L Hct 30 L MCV 85 MCH 28 MCHC 33 RDW 14 Plt Count 173 MPV 10.6 H Neut % (Auto) 87.4 Lymph % (Auto) 3.9 Gates % (Auto) 7.8 Eos % (Auto) 0.2 Baso % (Auto) 0.7 Absolute Neuts (auto) 11.8 H Absolute Lymphs (auto) 0.5 L Absolute Monos (auto) 1.1 H Absolute Eos (auto) 0 Absolute Basos (auto) 0.1 Absolute Nucleated RBC 0 Nucleated RBC % 0 Sodium 133 L Potassium 4.2 Chloride 104 Carbon Dioxide 15 L Anion Gap 14 H BUN 84 H Creatinine 3.96 H Est GFR ( Amer) 13.4 Est GFR (Non-Af Amer) 11.1 BUN/Creatinine Ratio 21.2 H Glucose 122 H POC Glucose (mg/dL) 205 H Calcium 8.6 Total Bilirubin 0.40 AST 43 H ALT 51 Alkaline Phosphatase 49 Total Creatine Kinase CK-MB (CK-2) Troponin I Total Protein 6.1 L Albumin 3.6 Globulin 2.5 Albumin/Globulin Ratio 1.4 Diagnostic Imaging: Echo 11/13/2016 per report.; LVEF 40-45%, mild LCH, multiple regional WMA, trace AI, mild MR. Please refer to echo report for full report. [facility]; refer to report in patients paper chart. EKG Data: EKG 11/13/2018; High degree AVB concerning for third degree AVB rate 43. with isolated PVC. EKG 11/14/2018; Sinus bradycardia rate [address] depression in V2-3. + ST elevation in lead 3 consistent with prior ECG. Assessment/Plan #1 Inferior STEMI 11/12/2018; s/p DESx3 to RCA with residual 90% Lcx lesion. No c /o jaw pain and adds nauseas has improved. Troponin peaked 11/12/2018 at 37. LVEF 40-45% with multiple RWMA. On ASA 81/day Brilinta 90mg PO BID, No bblocker due to high degree AVB. On high intensity statin therapy. #2 High Degree AVB; had third degree AVB 0100 11/13/2018. On IV Dopamine. Currently in sinus bradycardia. HR 40's. Dr. Kruse to eval for possible PPM. c /o nausea but adds it has improved since yesterday. Will decrease IV dopamine and evaluate for breakthrough high degree AVB. #3 acute renal failure, appreciate nephrology consultation. Creat now 3.97, urine output is < 30cc hour per nurse. She received IV hydration. She is off of ACEI. Will check fena. #4 h/o HTN; On hydralazine. Bp controlled. #5 Disposition pending course. Patient full code. Attending: Parisa Castellanos <Parisa Castellanos - Last Filed: 11/14/18 18:52> Medications Active Medications: Acetaminophen (Tylenol Tab*) 650 mg PO Q4H PRN PRN Reason: HEADACHE/PAIN Alprazolam (Xanax Tab*) 0.25 mg PO Q8H PRN PRN Reason: ANXIETY Last Admin: 11/13/18 17:41 Dose: 0.25 mg Aspirin (Aspirin 81 Mg Chew Tab*) 81 mg PO DAILY [facility] Last Admin: 11/14/18 08:23 Dose: 81 mg Atorvastatin Calcium (Lipitor*) 80 mg PO 1700 [facility] Last Admin: 11/13/18 17:03 Dose: 80 mg Dextrose (D50w Syringe 50 Ml*) 12.5 gm IV PUSH .FOR FS < 60 - SS PRN PRN Reason: FS < 60 Famotidine (Pepcid Iv*) 20 mg IV SLOW PU DAILY [facility] Last Admin: 11/14/18 08:23 Dose: 20 mg Heparin Sodium (Porcine) (Heparin Flush Picc/Ml/Cvc(*)) 1 - 3 ml FLUSH 0600, 1800 [facility]; Protocol Last Admin: 11/14/18 06:47 Dose: 1 ml Hydralazine HCl (Apresoline Tab*) 50 mg PO TID [facility] Last Admin: 11/14/18 13:41 Dose: 50 mg Sodium Chloride (Ns 0.9% 1000 Ml) 1,000 mls @ 25 mls/hr IV PER RATE [facility] Cefazolin Sodium/Dextrose (Kefzol 1 Gm In Dextrose Duplex (*)) 1 gm in 50 mls @ 200 mls/hr IVPB Q12H [facility] Stop: 11/16/18 06:14 Sodium Chloride (Ns 0.9% 1000 Ml) 1,000 mls @ 75 mls/hr IV PER RATE [facility] Stop: 11/14/18 23:44 Insulin Human Lispro (Humalog*) 0 units SUBCUT ACHS [facility]; Protocol Last Admin: 11/14/18 12:38 Dose: Not Given Morphine Sulfate (Morphine 4 Mg/Ml Vial (1 Ml)) 4 mg IV Q4H PRN PRN Reason: PAIN Last Admin: 11/12/18 19:49 Dose: 4 mg Nitroglycerin (Nitroglycerin Tab 0.4 Mg*) 0.4 mg SL Q5M PRN PRN Reason: ANGINA Ondansetron HCl (Zofran Inj*) 4 mg IV Q4H PRN PRN Reason: NAUSEA Last Admin: 11/14/18 18:14 Dose: 4 mg Pantoprazole Sodium (Protonix Iv*) 40 mg IV DAILY [facility] Last Admin: 11/14/18 08:23 Dose: 40 mg Prochlorperazine Edisylate (Compazine Inj*) 5 mg IV Q6H PRN PRN Reason: NAUSEA/VOMITING Last Admin: 11/14/18 18:14 Dose: 5 mg Ticagrelor (Brilinta*) 90 mg PO BID [facility] Last Admin: 11/14/18 08:24 Dose: 90 mg Objective Vital Signs: Temp Pulse Resp BP Pulse Ox 99.0 F 83 18 166/61 96 11/14/18 12:01 11/14/18 18:01 11/14/18 18:01 11/14/18 18:01 11/14/18 18:01 Laboratory Results: 11/14/18 04:30 11/14/18 04:30 INR (Anticoag Therapy) 1.17 (0.77-1.02) H 11/12/18 19:49 APTT > 212.0 seconds (26.0-36.3) H* 11/12/18 19:49 Total Bilirubin 0.40 mg/dL (0.2-1.0) 11/14/18 04:30 AST 43 U/L (13-39) H 11/14/18 04:30 ALT 51 U/L (7-52) 11/14/18 04:30 Alkaline Phosphatase 49 U/L (34-104) 11/14/18 04:30 CK-MB (CK-2) 15.9 ng/mL (0.6-6.3) H 11/13/18 10:05 B-Natriuretic Peptide 755 pg/mL (<=100) H 11/12/18 19:21 Total Protein 6.1 g/dL (6.4-8.9) L 11/14/18 04:30 Albumin 3.6 g/dL (3.2-5.2) 11/14/18 04:30 Globulin 2.5 g/dL (2-4) 11/14/18 04:30 Albumin/Globulin Ratio 1.4 (1-3) 11/14/18 04:30 Triglycerides 97 mg/dL 11/13/18 05:01 Cholesterol 108 mg/dL 11/13/18 05:01 LDL Cholesterol 51 mg/dL 11/13/18 05:01 HDL Cholesterol 37.7 mg/dL 11/13/18 05:01 TSH 2.47 mcIU/mL (0.34-5.60) 11/12/18 19:21 11/12/18 11/12/18 11/13/18 19:21 22:29 05:01 Troponin I 32.62 H* 37.60 H* 34.98 H* 11/13/18 10:05 Troponin I 20.63 H* Assessment/Plan Oliguric, FENa 0.48 % with very low GFR suggest preserved tubular function. Now paced , not SOB. Family updated. Will give 500 cc NS bolus
[2018-11-14] MEDS ORDERED: ceFAZolin 2 GM PREMIX in ORs 2 GM/50 ML BAG IVPB ONE (09:12)
[2018-11-14] MEDS ORDERED: NS 0.9% 1000 ML** 1,000 ML IV SCH ×2 (09:15→18:45)
[2018-11-14 09:36] LABS: Urine Creatinine Concentration 126.34 mg/dL
[2018-11-14] MEDS: Insulin LISPRO* 1 UNITS UNIT SUBCUT SCH ×4 (10:10→21:03)
[2018-11-14] MEDS: Ticagrelor* 90 MG TAB PO SCH ×2 (12:30→21:06)
[2018-11-14] MEDS ORDERED: Iohexol 300* (CONTRAST) 10 ML SDV ONE (12:54)
[2018-11-14] MEDS ORDERED: Lidocaine 1% INJ* 10 MG/ML 30 ML SDV ONE (12:54)
--- NOTE | 2018-11-14 14:06 | CONSULT ---
Subjective Date of Service: 11/14/18 - CC: 3rd degree HB post NV Interval History: Patient reports improvement in nausea, minimal diaphoresis. No further jaw discomfort. Eating. Medications Active Medications: Acetaminophen (Tylenol Tab*) 650 mg PO Q4H PRN PRN Reason: HEADACHE/PAIN Alprazolam (Xanax Tab*) 0.25 mg PO Q8H PRN PRN Reason: ANXIETY Last Admin: 11/13/18 17:41 Dose: 0.25 mg Aspirin (Aspirin 81 Mg Chew Tab*) 81 mg PO DAILY [facility] Last Admin: 11/14/18 08:23 Dose: 81 mg Atorvastatin Calcium (Lipitor*) 80 mg PO 1700 [facility] Last Admin: 11/13/18 17:03 Dose: 80 mg Dextrose (D50w Syringe 50 Ml*) 12.5 gm IV PUSH .FOR FS < 60 - SS PRN PRN Reason: FS < 60 Famotidine (Pepcid Iv*) 20 mg IV SLOW PU DAILY [facility] Last Admin: 11/14/18 08:23 Dose: 20 mg Heparin Sodium (Porcine) (Heparin Flush Picc/Ml/Cvc(*)) 1 - 3 ml FLUSH 0600, 1800 [facility]; Protocol Last Admin: 11/14/18 06:47 Dose: 1 ml Hydralazine HCl (Apresoline Tab*) 50 mg PO TID [facility] Last Admin: 11/14/18 13:41 Dose: 50 mg Dopamine HCl/Dextrose (Dopamine 800 Mg/250 Ml Ivprem*) 800 mg in 250 mls @ 6.656 mls/hr CENTR Q24H [facility]; Protocol Last Admin: 11/14/18 02:15 Dose: 10.7 mls/hr Sodium Chloride (Ns 0.9% 1000 Ml) 1,000 mls @ 25 mls/hr IV PER RATE [facility] Insulin Human Lispro (Humalog*) 0 units SUBCUT ACHS [facility]; Protocol Last Admin: 11/14/18 12:38 Dose: Not Given Morphine Sulfate (Morphine 4 Mg/Ml Vial (1 Ml)) 4 mg IV Q4H PRN PRN Reason: PAIN Last Admin: 11/12/18 19:49 Dose: 4 mg Nitroglycerin (Nitroglycerin Tab 0.4 Mg*) 0.4 mg SL Q5M PRN PRN Reason: ANGINA Ondansetron HCl (Zofran Inj*) 4 mg IV Q4H PRN PRN Reason: NAUSEA Last Admin: 11/13/18 06:34 Dose: 4 mg Pantoprazole Sodium (Protonix Iv*) 40 mg IV DAILY [facility] Last Admin: 11/14/18 08:23 Dose: 40 mg Prochlorperazine Edisylate (Compazine Inj*) 5 mg IV Q6H PRN PRN Reason: NAUSEA/VOMITING Last Admin: 11/13/18 08:35 Dose: 5 mg Ticagrelor (Brilinta*) 90 mg PO BID [facility] Last Admin: 11/14/18 08:24 Dose: 90 mg Home Medications: Ibuprofen TAB* [Advil TAB*] 200 mg PO Q6HR PRN 09/02/13 [History Confirmed 11/12] Furosemide TAB* [Lasix TAB*] 20 mg PO DAILY 11/12/18 [History Confirmed 11/12/18 ] Lisinopril TAB* [Prinivil TAB*] 20 mg PO DAILY 11/12/18 [History Confirmed 11/12] Metformin ER (NF) 1,000 mg PO DAILY 11/12/18 [History Confirmed 11/12/18] Metoprolol Succinate XL TAB* [Toprol XL TAB*] 25 mg PO DAILY 11/12/18 [History Confirmed 11/12/18] Review of Systems - Measurements Intake and Output: Intake and Output Last 24 Hours 11/12/18 11/13/18 11/14/18 11/15/18 04:59 04:59 04:59 04:59 Intake Total 70 1979.4 900 Output Total 20 277 94 Balance 50 1702.4 806 Weight 156 lb 8.451 oz 160 lb 14.999 oz Intake: IV Fluids 1524 450 NS (0.9%) 1524 450 Medicated IV 185.4 450 CC - Dopamine 185.4 450 Oral 70 270 Output: Luis 277 94 Emesis 20 Other: Estimated Void Medium # Voids 1 - Review of Systems General Comments: Uses NSAIDs 3 x /week No recent change in functional ability pre NV, no DAVIDSON, syncope, dizziness. Chronic orthopnea. Denies constipation, diarrhea, urinary problems or coughing All other 14 point ROS negative. Review of Systems Statement: All other review of systems negative, unless stated above. Objective Vital Signs: Temp Pulse Resp BP Pulse Ox 99.0 F 46 14 140/39 96 11/14/18 12:01 11/14/18 12:32 11/14/18 12:32 11/14/18 12:32 11/14/18 12:32 Oxygen Devices in Use Now: None Appearance: Elderly female, overweight. lying 50 degrees, comfortatble. Eyes: No Scleral Icterus, PERRLA Ears/Nose/Mouth/Throat: NL Teeth, Lips, Gums, Mucous Membranes Moist Neck: NL Appearance and Movements; NL JVP Respiratory: Symmetrical Chest Expansion and Respiratory Effort, Clear to Auscultation Cardiovascular: NL Sounds; No Murmurs; No JVD, RRR, No Edema, - Abdominal: NL Sounds; No Tenderness; No Distention - centripetal obesity. Extremities: No Edema Neurological: Alert and Oriented x 3 Lines/Tubes/Other Access: Clean, Dry and Intact Luis, Clean, Dry and Intact Peripheral IV, Clean, Dry and Intact PICC Line Laboratory Results: 11/14/18 04:30 11/14/18 04:30 INR (Anticoag Therapy) 1.17 (0.77-1.02) H 11/12/18 19:49 APTT > 212.0 seconds (26.0-36.3) H* 11/12/18 19:49 Total Bilirubin 0.40 mg/dL (0.2-1.0) 11/14/18 04:30 AST 43 U/L (13-39) H 11/14/18 04:30 ALT 51 U/L (7-52) 11/14/18 04:30 Alkaline Phosphatase 49 U/L (34-104) 11/14/18 04:30 CK-MB (CK-2) 15.9 ng/mL (0.6-6.3) H 11/13/18 10:05 B-Natriuretic Peptide 755 pg/mL (<=100) H 11/12/18 19:21 Total Protein 6.1 g/dL (6.4-8.9) L 11/14/18 04:30 Albumin 3.6 g/dL (3.2-5.2) 11/14/18 04:30 Globulin 2.5 g/dL (2-4) 11/14/18 04:30 Albumin/Globulin Ratio 1.4 (1-3) 11/14/18 04:30 Triglycerides 97 mg/dL 11/13/18 05:01 Cholesterol 108 mg/dL 11/13/18 05:01 LDL Cholesterol 51 mg/dL 11/13/18 05:01 HDL Cholesterol 37.7 mg/dL 11/13/18 05:01 TSH 2.47 mcIU/mL (0.34-5.60) 11/12/18 19:21 11/12/18 11/12/18 11/13/18 19:21 22:29 05:01 Troponin I 32.62 H* 37.60 H* 34.98 H* 11/13/18 10:05 Troponin I 20.63 H* Diagnostic Imaging: Echo 11/13/2016 per report.; LVEF 40-45%, mild LCH, multiple regional WMA, trace AI, mild MR. Please refer to echo report for full report. EKG Data: EKG 11/13/2018; NSR, intermittent 3rd degree HB. Tele 11/14/18: NSR, 1:1 AV conduction alternating with 2:1 Assessment/Plan 72 yo with DM, HTN, no prior cardiac history presented with IWMI and now 3rd degree HB which hasn't completey resolved post stent. acute on chronic renal insufficiency. #1 Inferior STEMI 11/12/2018; s/p DESx3 to RCA with residual 90% Lcx lesion. On ASA 81/day Brilinta 90mg PO BID, No bblocker due to high degree AVB. On high intensity statin therapy. #2 High Degree AVB; had third degree AVB 0100 11/13/2018. Etiology is likely ischemic combined with degenerative. Not recovering post stenting. On IV Dopamine. Currently in sinus bradycardia. HR 40's. Discussed dual chamber pacer implantation, risks and benefits discussed. Bleeding risk higher due to antiplatelet agents. #3 acute renal failure, appreciate nephrology consultation. Creat now 3.97, UO low. Off ACEI and metformin. Caodaism of AV sequential rhythm might help, but I don't feel this is the primary issue, this too was communicated to the patient.,
[2018-11-14] MEDS ORDERED: fentaNYL* 50 MCG/ML 2 ML VIAL (100 MCG VIAL) ONE (14:35)
[2018-11-14] MEDS ORDERED: KETAMINE HCL* 50 MG/ML 10 ML VIAL ONE (14:35)
[2018-11-14] MEDS ORDERED: Midazolam* 1 MG/ML 5 ML VIAL (5 MG) ONE (14:35)
[2018-11-14] MEDS ORDERED: Propofol* 500 MG/50 ML BTL ONE (17:50)
[2018-11-14] MEDS: Ondansetron INJ* 2 MG/ML VIAL IV PRN (18:14)
[2018-11-14] MEDS: PROCHLORPERAZINE INJ 5 MG/ML 2 ML VIAL IV PRN (18:14)
[2018-11-14] MEDS: Atorvastatin* 80 MG TAB PO SCH (19:36)
[2018-11-15] MEDS: ceFAZolin 1 GM in Dextrose (*) 1 GM/50 ML BAG IVPB SCH ×2 (06:21→17:42)
[2018-11-15 06:29] LABS: ABS Basophils 0 10^3/ul (0-0.2); ABS Eosinophils 0 10^3/ul (0-0.6); ABS Lymphocytes 0.4 10^3/ul (1.0-4.8); ABS Monocytes 0.8 10^3/ul (0-0.8); ABS Neutrophils 7.9 10^3/ul (1.5-7.7); ABS Nucleated RBC 0 10^3/ul; Eosinophil % 0.5 %; Hematocrit 27 % (33-41); Hemoglobin 8.9 g/dL (12.0-16.0); Lymphocyte % 4.5 %; Mean Corpuscular HGB Conc 33 g/dL (31-36); Mean Corpuscular Hemoglobin 28 pg (27-31); Mean Corpuscular Volume 86 fL (80-97); Mean Platelet Volume 10.8 fL (7.4-10.4); Nucleated Red Blood Cells % 0; Platelet Count 145 10^3/uL (150-450); Red Blood Count 3.16 10^6 /uL (3.70-4.87); Red Cell Distribution Width 14 % (10.5-15); White Blood Count 9.2 10^3/uL (3.5-10.8)
[2018-11-15 06:48] LABS: Calcium 8.4 mg/dL (8.6-10.3); EGFR African American 13.1 (>60); EGFR Non-African American 10.8 (>60); Potassium 4.2 mmol/L (3.5-5.0)
[2018-11-15] MEDS: Insulin LISPRO* 1 UNITS UNIT SUBCUT SCH ×4 (08:57→20:38)
--- NOTE | 2018-11-15 09:12 | PN ---
<Tomasa Lerner - Last Filed: 11/15/18 09:04> Subjective Date of Service: 11/15/18 - inferior STEMI, s/p PPM with high degree AVB, ATN Interval History: Patient states she is feeling better, no recurrent jaw pain since PCI, no c/o SOB, dizziness, palpitations, nausea. She is sitting in chair eating breakfast. Does admit to still feeling weak. Medications Active Medications: Acetaminophen (Tylenol Tab*) 650 mg PO Q4H PRN PRN Reason: HEADACHE/PAIN Alprazolam (Xanax Tab*) 0.25 mg PO Q8H PRN PRN Reason: ANXIETY Last Admin: 11/13/18 17:41 Dose: 0.25 mg Aspirin (Aspirin 81 Mg Chew Tab*) 81 mg PO DAILY [facility] Last Admin: 11/14/18 08:23 Dose: 81 mg Atorvastatin Calcium (Lipitor*) 80 mg PO 1700 [facility] Last Admin: 11/14/18 19:36 Dose: 80 mg Dextrose (D50w Syringe 50 Ml*) 12.5 gm IV PUSH .FOR FS < 60 - SS PRN PRN Reason: FS < 60 Heparin Sodium (Porcine) (Heparin Flush Picc/Ml/Cvc(*)) 1 - 3 ml FLUSH 0600, 1800 [facility]; Protocol Last Admin: 11/15/18 06:21 Dose: 2 ml Hydralazine HCl (Apresoline Tab*) 25 mg PO TID [facility] Sodium Chloride (Ns 0.9% 1000 Ml) 1,000 mls @ 25 mls/hr IV PER RATE [facility] Cefazolin Sodium/Dextrose (Kefzol 1 Gm In Dextrose Duplex (*)) 1 gm in 50 mls @ 200 mls/hr IVPB Q12H [facility] Stop: 11/16/18 06:14 Last Admin: 11/15/18 06:21 Dose: 200 mls/hr Insulin Human Lispro (Humalog*) 0 units SUBCUT ACHS [facility]; Protocol Last Admin: 11/15/18 08:57 Dose: Not Given Metoprolol Succinate (Toprol Xl Tab*) 25 mg PO DAILY [facility] Nitroglycerin (Nitroglycerin Tab 0.4 Mg*) 0.4 mg SL Q5M PRN PRN Reason: ANGINA Ondansetron HCl (Zofran Inj*) 4 mg IV Q4H PRN PRN Reason: NAUSEA Last Admin: 11/14/18 18:14 Dose: 4 mg Pantoprazole Sodium (Protonix Tab*) 40 mg PO DAILY [facility] Prochlorperazine Edisylate (Compazine Inj*) 5 mg IV Q6H PRN PRN Reason: NAUSEA/VOMITING Last Admin: 11/14/18 18:14 Dose: 5 mg Ticagrelor (Brilinta*) 90 mg PO BID [facility] Last Admin: 11/14/18 21:06 Dose: 90 mg Objective Vital Signs: Temp Pulse Resp BP Pulse Ox 98.2 F 85 22 173/53 97 11/15/18 05:00 11/15/18 08:45 11/15/18 08:45 11/15/18 08:00 11/15/18 08:45 Oxygen Devices in Use Now: None, Nasal Cannula Appearance: Elderly female, overweight. lying 50 degrees, comfortatble. Eyes: No Scleral Icterus, PERRLA Ears/Nose/Mouth/Throat: NL Teeth, Lips, Gums, Mucous Membranes Moist Neck: NL Appearance and Movements; NL JVP Respiratory: Symmetrical Chest Expansion and Respiratory Effort, Clear to Auscultation Cardiovascular: NL Sounds; No Murmurs; No JVD, RRR, No Edema, - - left anterior chest wound site is intact with daryl in place. non tender to palpation, no evidence of hematoma. scant blood noted on dressing. no discharge. Abdominal: NL Sounds; No Tenderness; No Distention - centripetal obesity. Extremities: No Edema Neurological: Alert and Oriented x 3 Lines/Tubes/Other Access: Clean, Dry and Intact Luis, Clean, Dry and Intact Peripheral IV, Clean, Dry and Intact PICC Line Laboratory Results: 11/15/18 06:13 11/15/18 06:13 INR (Anticoag Therapy) 1.17 (0.77-1.02) H 11/12/18 19:49 APTT > 212.0 seconds (26.0-36.3) H* 11/12/18 19:49 Total Bilirubin 0.40 mg/dL (0.2-1.0) 11/14/18 04:30 AST 43 U/L (13-39) H 11/14/18 04:30 ALT 51 U/L (7-52) 11/14/18 04:30 Alkaline Phosphatase 49 U/L (34-104) 11/14/18 04:30 CK-MB (CK-2) 15.9 ng/mL (0.6-6.3) H 11/13/18 10:05 B-Natriuretic Peptide 755 pg/mL (<=100) H 11/12/18 19:21 Total Protein 6.1 g/dL (6.4-8.9) L 11/14/18 04:30 Albumin 3.6 g/dL (3.2-5.2) 11/14/18 04:30 Globulin 2.5 g/dL (2-4) 11/14/18 04:30 Albumin/Globulin Ratio 1.4 (1-3) 11/14/18 04:30 Triglycerides 97 mg/dL 11/13/18 05:01 Cholesterol 108 mg/dL 11/13/18 05:01 LDL Cholesterol 51 mg/dL 11/13/18 05:01 HDL Cholesterol 37.7 mg/dL 11/13/18 05:01 TSH 2.47 mcIU/mL (0.34-5.60) 11/12/18 19:21 11/12/18 11/12/18 11/13/18 19:21 22:29 05:01 Troponin I 32.62 H* 37.60 H* 34.98 H* 11/13/18 10:05 Troponin I 20.63 H* Diagnostic Imaging: Echo 11/13/2016 per report.; LVEF 40-45%, mild LCH, multiple regional WMA, trace AI, mild MR. Please refer to echo report for full report. EKG Data: EKG 11/15/2018; Paced rhythm rate 89 Tele 11/14/18: Paced rates 80-90's Assessment/Plan #1 s/p inferior STEMI; DESx3 to RCA with known 90% Lcx lesion. Troponin peaked on 11/12/2018 at 37. no recurrent c/o jaw pain. On ASa 81/day, Bilinta 90mg PO BID and Lipitor 80 QHS. Patient has PPM in situ thus will reduce Hydralazine to 25mg PO TID and start Toprol 25mg/day. #2 Intermittant high degree AVB and complete heart block; s/p DC PPM 11/14/[address] Kruse. Atrial pacing threshold 0.4 ms, Ventricular pacing threshold 0.4ms. normal device function this morning after implant. 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 CXR this morning per report negative for pneumothorax. Left anterior chest wound was inspected no evidence of hematoma. She is on IV Cefazolin. Given GFR is 13 it is recommended per lexicomp to reduce dose to 50% Q12H. Will speak with Dr. Kruse about reducing Cefazolin to 500mg IV Q12 H last dose 11/16/2018 at 0600. Patient is wearing arm sling. #3 ATN; creat today 4.05. Will reduce hydralazine to 25mg TID with goal of optimizing Bblocker and eventually discontinuing hydralazine. She is on IV Cefazolin. Given GFR I will speak with Dr. Kruse about reducing dose. urine output is slowing improving. #4 ICM, LVEF 40-45% appears compensated on exam. Toprol to be initiated today. No ACEI/ARB/Aldactone due to ATN. #5 Disposition pending course, patient full code. Plan is to tenatively reduce Cefazolin given GFR 13. Have patient ambulate halls and tentatively. Will transfer to . Will follow closely. Will discuss plan of care with Dr. Castellanos. Attending: Parisa Castellanos <Parisa Castellanos - Last Filed: 11/15/18 12:39> Medications Active Medications: Acetaminophen (Tylenol Tab*) 650 mg PO Q4H PRN PRN Reason: HEADACHE/PAIN Alprazolam (Xanax Tab*) 0.25 mg PO Q8H PRN PRN Reason: ANXIETY Last Admin: 11/13/18 17:41 Dose: 0.25 mg Aspirin (Aspirin 81 Mg Chew Tab*) 81 mg PO DAILY [facility] Last Admin: 11/15/18 09:40 Dose: 81 mg Atorvastatin Calcium (Lipitor*) 80 mg PO 1700 [facility] Last Admin: 11/14/18 19:36 Dose: 80 mg Dextrose (D50w Syringe 50 Ml*) 12.5 gm IV PUSH .FOR FS < 60 - SS PRN PRN Reason: FS < 60 Heparin Sodium (Porcine) (Heparin Flush Picc/Ml/Cvc(*)) 1 - 3 ml FLUSH 0600, 1800 [facility]; Protocol Last Admin: 11/15/18 06:21 Dose: 2 ml Hydralazine HCl (Apresoline Tab*) 25 mg PO TID [facility] Sodium Chloride (Ns 0.9% 1000 Ml) 1,000 mls @ 25 mls/hr IV PER RATE [facility] Cefazolin Sodium/Dextrose (Kefzol 1 Gm In Dextrose Duplex (*)) 1 gm in 50 mls @ 200 mls/hr IVPB Q12H [facility] Stop: 11/16/18 06:14 Last Admin: 11/15/18 06:21 Dose: 200 mls/hr Insulin Human Lispro (Humalog*) 0 units SUBCUT ACHS [facility]; Protocol Last Admin: 11/15/18 08:57 Dose: Not Given Metoprolol Succinate (Toprol Xl Tab*) 25 mg PO DAILY [facility] Last Admin: 11/15/18 09:40 Dose: 25 mg Nitroglycerin (Nitroglycerin Tab 0.4 Mg*) 0.4 mg SL Q5M PRN PRN Reason: ANGINA Ondansetron HCl (Zofran Inj*) 4 mg IV Q4H PRN PRN Reason: NAUSEA Last Admin: 11/14/18 18:14 Dose: 4 mg Pantoprazole Sodium (Protonix Tab*) 40 mg PO DAILY [facility] Last Admin: 11/15/18 09:40 Dose: 40 mg Prochlorperazine Edisylate (Compazine Inj*) 5 mg IV Q6H PRN PRN Reason: NAUSEA/VOMITING Last Admin: 11/14/18 18:14 Dose: 5 mg Ticagrelor (Brilinta*) 90 mg PO BID [facility] Last Admin: 11/15/18 09:41 Dose: 90 mg Objective Vital Signs: Temp Pulse Resp BP Pulse Ox 97.4 F 72 24 139/65 89 11/15/18 11:51 11/15/18 11:01 11/15/18 11:01 11/15/18 11:01 11/15/18 11:01 Laboratory Results: 11/15/18 06:13 11/15/18 06:13 INR (Anticoag Therapy) 1.17 (0.77-1.02) H 11/12/18 19:49 APTT > 212.0 seconds (26.0-36.3) H* 11/12/18 19:49 Total Bilirubin 0.40 mg/dL (0.2-1.0) 11/14/18 04:30 AST 43 U/L (13-39) H 11/14/18 04:30 ALT 51 U/L (7-52) 11/14/18 04:30 Alkaline Phosphatase 49 U/L (34-104) 11/14/18 04:30 CK-MB (CK-2) 15.9 ng/mL (0.6-6.3) H 11/13/18 10:05 B-Natriuretic Peptide 755 pg/mL (<=100) H 11/12/18 19:21 Total Protein 6.1 g/dL (6.4-8.9) L 11/14/18 04:30 Albumin 3.6 g/dL (3.2-5.2) 11/14/18 04:30 Globulin 2.5 g/dL (2-4) 11/14/18 04:30 Albumin/Globulin Ratio 1.4 (1-3) 11/14/18 04:30 Triglycerides 97 mg/dL 11/13/18 05:01 Cholesterol 108 mg/dL 11/13/18 05:01 LDL Cholesterol 51 mg/dL 11/13/18 05:01 HDL Cholesterol 37.7 mg/dL 11/13/18 05:01 TSH 2.47 mcIU/mL (0.34-5.60) 11/12/18 19:21 11/12/18 11/12/18 11/13/18 19:21 22:29 05:01 Troponin I 32.62 H* 37.60 H* 34.98 H* 11/13/18 10:05 Troponin I 20.63 H* Assessment/Plan Looks much better, in chair. Eating and drinking. No issues w R wrist, Pm site. Urine output increased with 500cc NS IV/7 hrs yest Pm. Creat approaching plateau, K ok. Will give another 500 NS slowly over day. JVP not visible, no rales, no edema. CXR better penetration, no CHF. To begin ambulstion.
[2018-11-15] MEDS: Aspirin 81 mg CHEW TAB* 81 MG TAB.CHEW PO SCH (09:40)
[2018-11-15] MEDS: Metoprolol Succinate XL TAB* 25 MG PO SCH (09:40)
[2018-11-15] MEDS: Pantoprazole TAB * 40 MG TAB PO SCH (09:40)
[2018-11-15] MEDS: Ticagrelor* 90 MG TAB PO SCH ×2 (09:41→20:38)
--- NOTE | 2018-11-15 10:17 | CONSULT ---
Cardiology Note Spoke with Dr. Kruse who recommends current Cefazolin dose.
[2018-11-15] MEDS: hydrALAZINE TAB* 25 MG PO SCH ×3 (13:57→20:38)
[2018-11-15] MEDS ORDERED: NS 0.9% 500 ML* 500 ML IV ONE (15:00)
[2018-11-15] MEDS: Atorvastatin* 80 MG TAB PO SCH (17:09)
[2018-11-15] MEDS ORDERED: Magnesium Hydroxide LIQ* 30 ML UDC PO PRN (20:59)
[2018-11-15] MEDS ORDERED: Senna TAB PO PRN (20:59)
[2018-11-15] MEDS ORDERED: Docusate CAP* 100 MG PO PRN (20:59)
--- NOTE | 2018-11-15 21:06 | CATH ---
Amended report to correct date of procedure. CC: Dr. Kennedy * STENT REPORT: DATE OF PROCEDURE: 11/12/18 - ROOM #[id number] PRIMARY CARE PHYSICIAN: Dr. Kennedy. PROCEDURES: 1. Right radial artery access. 2. Bilateral selective coronary cineangiography using a small syringe to limit contrast use given her severely depressed creatinine clearance. 3. Stent placement, RCA 2.0 x 18 Resolute [place] drug-eluting stent with a proximal overlapping 2.5 x 28 Synergy drug-eluting stent, followed by proximal overlapping 2.5 x 12 Xience Tiara drug-eluting stent. HISTORY: A 72-year-old woman presenting with acute inferior wall ST-elevation infarct. In the central lab technician, creatinine was found to be elevated with GFR of less than 20. Strategy was therefore to limit the amount of contrast utilized for culprit revascularization. MEDICATIONS: 1. Subcu lidocaine. 2. Radial cocktail with nitroglycerin 300 mcg, verapamil 3 mg. 3. Pre-central lab technician aspirin 324 mg, Brilinta 180 mg p.o. 4. IV Versed. 5. IV fentanyl. 6. Heparin total 11,000 units. 7. Double bolus IV Integrilin. HEMODYNAMICS: AO 103/35. Final BP 127/84. PROCEDURE ACCESS: Right radial artery sheath 6F slender. After diagnostic coronary angiography, a 6FR4 guide with a 14 BMW were used to revascularize the RCA. Backup support was poor. The occlusion point was easily crossed with a BMW wire, distal RCA was presumed the culprit as there was no collateral filling of the distal RCA, there was AGUSTIN 2 flow in the circumflex OM. A microcatheter over the BMW was required to assess distal vessel diameter, which was very small. I then placed a 2 x 18 Resolute [place] drug-eluting stent at the distal end of the occlusion followed by a 2.5 x 28 Synergy drug-eluting stent overlapping the proximal end of the first stent, followed by a 2.5 x 12 Xience Tiara drug-eluting stent placed overlapping the proximal end of the second stent to ensure complete lesion coverage. A 2.5 NC balloon was then used to postdilate the mid to proximal stented segment. The Resolute was deployed at 12 atmospheres for 30 seconds and was not postdilated to higher pressure because of already being oversized. She was given IV Integrilin. Hemostasis was achieved with a wrist band. ANGIOGRAPHY: Right radial. There was some resistance to the J-wire, angiogram showed no stenosis or loop, this was easily traversed with a Wholey wire. Left main. Her left main is essentially absent, she has separate ostia for the LAD and circumflex. LAD. The LAD is heavily calcified proximally, has a fairly short intermediate 40% to 50% stenosis before the first significant diagonal branch which has minor luminal irregularity. Distal LAD has scattered luminal irregularity without significant stenosis. Proximal LAD lesion was not evaluated hemodynamically. Circumflex. The circumflex is not dominant, with a separate ostium, it has proximal irregularity without significant stenosis, the mid circumflex has an 80 % stenosis after a very small marginal, before a [id number] marginal branch which has a minimal taper at the ostium. The circumflex then reconstitutes for a few millimeters and then has a 90% stenosis with slow flow into a [id number] posterolateral, which also fills by [id number] collaterals from its apical segment. The mid portion of that small posterolateral may have stenosis, was under- filled. RCA. The RCA is moderate, dominant, with irregularity proximally and calcification, it is occluded after an RV free wall branch. Distal flow is AGUSTIN 0. After balloon inflation at the occlusion point, there was still no antegrade flow, a microcatheter was therefore used for distal injection documenting patent very small PDA and posterolateral system with high-grade stenosis from the crux back to the mid RCA. After 3 overlapping drug-eluting stents from the crux back to the mid RCA, antegrade flow is AGUSTIN 3, there is no residual stenosis. There is a significant stepdown at the end of the most distal stent into a very small caliber distal right coronary, which has lengthy diffuse 70% stenosis before a very small posterolateral branch, with a reference diameter less than a millimeter and therefore, not suitable for revascularization. The PDA is occluded post stenting without any accompanying jaw pain. CONCLUSION: Two-vessel disease with culprit RCA mid occlusion, successful revascularization with 3 drug-eluting stents with a very small distal RCA. Asymptomatic PDA occlusion with stenting, it was not revascularized as reference diameter is less than 2 mm. Contrast use was minimized because of her high creatinine. 65 cc of Visipaque was utilized. Further evaluation of the proximal LAD stenosis will be performed in the future depending on clinical course. [id number]/[facility] [place] #: [id number] CL[place]
[2018-11-16] MEDS: PROCHLORPERAZINE INJ 5 MG/ML 2 ML VIAL IV PRN (01:22)
[2018-11-16] MEDS: ceFAZolin 1 GM in Dextrose (*) 1 GM/50 ML BAG IVPB SCH (04:12)
[2018-11-16 04:34] LABS: BUN/Creatinine Ratio 24.4 (8-20); Calcium 8.5 mg/dL (8.6-10.3); EGFR African American 11.9 (>60); EGFR Non-African American 9.9 (>60); Potassium 4.5 mmol/L (3.5-5.0)
[2018-11-16] MEDS: Insulin LISPRO* 1 UNITS UNIT SUBCUT SCH ×4 (07:43→20:26)
[2018-11-16] MEDS: Pantoprazole TAB * 40 MG TAB PO SCH (07:48)
[2018-11-16] MEDS: Aspirin 81 mg CHEW TAB* 81 MG TAB.CHEW PO SCH (07:48)
[2018-11-16] MEDS: Ticagrelor* 90 MG TAB PO SCH ×2 (07:48→20:26)
[2018-11-16] MEDS: hydrALAZINE TAB* 25 MG PO SCH (07:49)
[2018-11-16] MEDS: Metoprolol Succinate XL TAB* 25 MG PO SCH (07:49)
--- NOTE | 2018-11-16 08:30 | PN ---
<Tomasa Lerner - Last Filed: 11/16/18 08:25> Subjective Date of Service: 11/16/18 - s/p inferior STEMI, high degree AVB, ATN Interval History: No events last night, patient states she did not sleep well due to noise. She continues to deny chest pain, jaw pain, sob, goel, palpitations, dizziness or nausea. She is sitting in chair eating breakfast when I walked in. She states her daughter has been suggesting she go to rehab however she desires to go home if able. She does admit to needing some assistance at home due to fear of her daughter not wanting to help her anymore. Medications Active Medications: Acetaminophen (Tylenol Tab*) 650 mg PO Q4H PRN PRN Reason: HEADACHE/PAIN Alprazolam (Xanax Tab*) 0.25 mg PO Q8H PRN PRN Reason: ANXIETY Last Admin: 11/13/18 17:41 Dose: 0.25 mg Aspirin (Aspirin 81 Mg Chew Tab*) 81 mg PO DAILY [facility] Last Admin: 11/16/18 07:48 Dose: 81 mg Atorvastatin Calcium (Lipitor*) 80 mg PO 1700 [facility] Last Admin: 11/15/18 17:09 Dose: 80 mg Dextrose (D50w Syringe 50 Ml*) 12.5 gm IV PUSH .FOR FS < 60 - SS PRN PRN Reason: FS < 60 Docusate Sodium (Colace Cap*) 100 mg PO BID PRN PRN Reason: CONSTIPATION Heparin Sodium (Porcine) (Heparin Flush Picc/Ml/Cvc(*)) 1 - 3 ml FLUSH 0600, 1800 [facility]; Protocol Last Admin: 11/16/18 05:05 Dose: 3 ml Insulin Human Lispro (Humalog*) 0 units SUBCUT ACHS [facility]; Protocol Last Admin: 11/16/18 07:43 Dose: Not Given Magnesium Hydroxide (Milk Of Magnesia Liq*) 30 ml PO BID PRN PRN Reason: CONSTIPATION Last Admin: 11/15/18 21:24 Dose: 30 ml Metoprolol Succinate (Toprol Xl Tab*) 50 mg PO DAILY [facility] Nitroglycerin (Nitroglycerin Tab 0.4 Mg*) 0.4 mg SL Q5M PRN PRN Reason: ANGINA Ondansetron HCl (Zofran Inj*) 4 mg IV Q4H PRN PRN Reason: NAUSEA Last Admin: 11/14/18 18:14 Dose: 4 mg Pantoprazole Sodium (Protonix Tab*) 40 mg PO DAILY [facility] Last Admin: 11/16/18 07:48 Dose: 40 mg Prochlorperazine Edisylate (Compazine Inj*) 5 mg IV Q6H PRN PRN Reason: NAUSEA/VOMITING Last Admin: 11/16/18 01:22 Dose: 5 mg Senna (Senokot Tab*) 2 tab PO BEDTIME PRN PRN Reason: INDIGESTION Last Admin: 11/15/18 21:24 Dose: 2 tab Ticagrelor (Brilinta*) 90 mg PO BID [facility] Last Admin: 11/16/18 07:48 Dose: 90 mg Objective Vital Signs: Temp Pulse Resp BP Pulse Ox 97.6 F 75 16 141/53 100 11/16/18 03:45 11/16/18 07:32 11/16/18 07:32 11/16/18 07:32 11/16/18 07:32 Oxygen Devices in Use Now: None Appearance: Elderly female, overweight. lying 50 degrees, comfortatble. Eyes: No Scleral Icterus, PERRLA Ears/Nose/Mouth/Throat: NL Teeth, Lips, Gums, Mucous Membranes Moist Neck: NL Appearance and Movements; NL JVP Respiratory: Symmetrical Chest Expansion and Respiratory Effort, Clear to Auscultation Cardiovascular: NL Sounds; No Murmurs; No JVD, RRR, No Edema, - - left anterior chest wound site is intact with daryl in place. non tender to palpation, no evidence of hematoma. scant blood noted on dressing. no discharge. Abdominal: NL Sounds; No Tenderness; No Distention - centripetal obesity. Extremities: No Edema Neurological: Alert and Oriented x 3 Lines/Tubes/Other Access: Clean, Dry and Intact Luis, Clean, Dry and Intact Peripheral IV, Clean, Dry and Intact PICC Line Laboratory Results: 11/15/18 06:13 11/16/18 04:10 INR (Anticoag Therapy) 1.17 (0.77-1.02) H 11/12/18 19:49 APTT > 212.0 seconds (26.0-36.3) H* 11/12/18 19:49 Total Bilirubin 0.40 mg/dL (0.2-1.0) 11/14/18 04:30 AST 43 U/L (13-39) H 11/14/18 04:30 ALT 51 U/L (7-52) 11/14/18 04:30 Alkaline Phosphatase 49 U/L (34-104) 11/14/18 04:30 CK-MB (CK-2) 15.9 ng/mL (0.6-6.3) H 11/13/18 10:05 B-Natriuretic Peptide 755 pg/mL (<=100) H 11/12/18 19:21 Total Protein 6.1 g/dL (6.4-8.9) L 11/14/18 04:30 Albumin 3.6 g/dL (3.2-5.2) 11/14/18 04:30 Globulin 2.5 g/dL (2-4) 11/14/18 04:30 Albumin/Globulin Ratio 1.4 (1-3) 11/14/18 04:30 Triglycerides 97 mg/dL 11/13/18 05:01 Cholesterol 108 mg/dL 11/13/18 05:01 LDL Cholesterol 51 mg/dL 11/13/18 05:01 HDL Cholesterol 37.7 mg/dL 11/13/18 05:01 TSH 2.47 mcIU/mL (0.34-5.60) 11/12/18 19:21 11/12/18 11/12/18 11/13/18 19:21 22:29 05:01 Troponin I 32.62 H* 37.60 H* 34.98 H* 11/13/18 10:05 Troponin I 20.63 H* Laboratory Results - last 24 hr 11/15/18 11/15/18 11/15/18 12:20 16:07 20:15 Sodium Potassium Chloride Carbon Dioxide Anion Gap BUN Creatinine Est GFR ( Amer) Est GFR (Non-Af Amer) BUN/Creatinine Ratio Glucose POC Glucose (mg/dL) 140 H 119 H 176 H Calcium 11/16/18 11/16/18 04:10 07:24 Sodium 134 L Potassium 4.5 Chloride 106 Carbon Dioxide 14 L* Anion Gap 14 H BUN 107 H Creatinine 4.38 H Est GFR ( Amer) 11.9 Est GFR (Non-Af Amer) 9.9 BUN/Creatinine Ratio 24.4 H Glucose 112 H POC Glucose (mg/dL) 115 H Calcium 8.5 L Diagnostic Imaging: Echo 11/13/2016 per report.; LVEF 40-45%, mild LCH, multiple regional WMA, trace AI, mild MR. Please refer to echo report for full report. EKG Data: EKG 11/15/2018; Paced rhythm rate 89 Tele 11/14/18: Paced rates 70-80's Assessment/Plan #1 Inferior STEMI 11/12/2018 s/p DESx3 to RCA with residual 90% Lcx lesion. Troponin peaked at 37 on 11/12/2018. She denies recurrent c/o jaw pain. She is on ASA 81/day, Brilinta 90mg Po BID, Toporol 25mg/day and Lipitor 80mg QHS. Will uptitrate Toprol and D/C hydralazine. She needs to be on uninterrupted DAPT x12 months given presentation was STEMI. #2 Intermittent complete heart block and Second degree AVB; Patient is s/p DC PPM 11/14/2018. Wound site is intact today, no evidence of hematoma. Dressing changed. Scant dried blood noted but no evidence of infection. [place] will need to be removed in 7-10 days. She is compliant with left upper extremity restrictions and is wearing arm sling. #3 ATN; creat today 4.38, seems to be plateauing. Urine output for past 8 hours per nursing documents was 350cc which equates to 43 cc/hour. I would like to evaluate another day of strict intake and output given creatinine has not improved yet. She no longer requires PICC line thus will discontinue. will hold off on further IV hydration until I speak with Dr. Castellanos. She did receive another 500cc bag of NS yesterday and is increasing PO intake. #4 ICM; LVEF 40-45%; Will increase Toprol to 50mg/day. No ACEI/ARB/Entresto/ Aldactone due to above #3. She is compensated on exam. #5 Disposition pending course. Patient is full code. She voiced concern about lack of family support once she is discharged. Her daughter is advocating for rehab. She does not desire this nor do I personally think she requires this at this point however, I will ask PT to evaluate and I spoke with [facility] counseling case manager to determine if the patient would qualify for VNS or PT in home. Will speak with Dr. Castellanos. Attending: Parisa Castellanos <Parisa Castellanos - Last Filed: 11/16/18 19:24> Medications Active Medications: Acetaminophen (Tylenol Tab*) 650 mg PO Q4H PRN PRN Reason: HEADACHE/PAIN Alprazolam (Xanax Tab*) 0.25 mg PO Q8H PRN PRN Reason: ANXIETY Last Admin: 11/13/18 17:41 Dose: 0.25 mg Aspirin (Aspirin 81 Mg Chew Tab*) 81 mg PO DAILY [facility] Last Admin: 11/16/18 07:48 Dose: 81 mg Atorvastatin Calcium (Lipitor*) 80 mg PO 1700 [facility] Last Admin: 11/16/18 16:44 Dose: 80 mg Dextrose (D50w Syringe 50 Ml*) 12.5 gm IV PUSH .FOR FS < 60 - SS PRN PRN Reason: FS < 60 Docusate Sodium (Colace Cap*) 100 mg PO BID PRN PRN Reason: CONSTIPATION Heparin Sodium (Porcine) (Heparin Flush Picc/Ml/Cvc(*)) 1 - 3 ml FLUSH 0600, 1800 [facility]; Protocol Last Admin: 11/16/18 17:07 Dose: Not Given Insulin Human Lispro (Humalog*) 0 units SUBCUT [facility]; Protocol Last Admin: 11/16/18 16:44 Dose: 2 units Magnesium Hydroxide (Milk Of Magnesia Liq*) 30 ml PO BID PRN PRN Reason: CONSTIPATION Last Admin: 11/15/18 21:24 Dose: 30 ml Metoprolol Succinate (Toprol Xl Tab*) 50 mg PO DAILY [facility] Nitroglycerin (Nitroglycerin Tab 0.4 Mg*) 0.4 mg SL Q5M PRN PRN Reason: ANGINA Ondansetron HCl (Zofran Inj*) 4 mg IV Q4H PRN PRN Reason: NAUSEA Last Admin: 11/14/18 18:14 Dose: 4 mg Pantoprazole Sodium (Protonix Tab*) 40 mg PO DAILY [facility] Last Admin: 11/16/18 07:48 Dose: 40 mg Prochlorperazine Edisylate (Compazine Inj*) 5 mg IV Q6H PRN PRN Reason: NAUSEA/VOMITING Last Admin: 11/16/18 01:22 Dose: 5 mg Senna (Senokot Tab*) 2 tab PO BEDTIME PRN PRN Reason: INDIGESTION Last Admin: 11/15/18 21:24 Dose: 2 tab Ticagrelor (Brilinta*) 90 mg PO BID [facility] Last Admin: 11/16/18 07:48 Dose: 90 mg Objective Vital Signs: Temp Pulse Resp BP Pulse Ox 97.6 F 66 20 137/61 100 11/16/18 15:15 11/16/18 15:15 11/16/18 15:15 11/16/18 15:15 11/16/18 17:00 Laboratory Results: 11/15/18 06:13 11/16/18 04:10 INR (Anticoag Therapy) 1.17 (0.77-1.02) H 11/12/18 19:49 APTT > 212.0 seconds (26.0-36.3) H* 11/12/18 19:49 Total Bilirubin 0.40 mg/dL (0.2-1.0) 11/14/18 04:30 AST 43 U/L (13-39) H 11/14/18 04:30 ALT 51 U/L (7-52) 11/14/18 04:30 Alkaline Phosphatase 49 U/L (34-104) 11/14/18 04:30 CK-MB (CK-2) 15.9 ng/mL (0.6-6.3) H 11/13/18 10:05 B-Natriuretic Peptide 755 pg/mL (<=100) H 11/12/18 19:21 Total Protein 6.1 g/dL (6.4-8.9) L 11/14/18 04:30 Albumin 3.6 g/dL (3.2-5.2) 11/14/18 04:30 Globulin 2.5 g/dL (2-4) 11/14/18 04:30 Albumin/Globulin Ratio 1.4 (1-3) 11/14/18 04:30 Triglycerides 97 mg/dL 11/13/18 05:01 Cholesterol 108 mg/dL 11/13/18 05:01 LDL Cholesterol 51 mg/dL 11/13/18 05:01 HDL Cholesterol 37.7 mg/dL 11/13/18 05:01 TSH 2.47 mcIU/mL (0.34-5.60) 11/12/18 19:21 11/12/18 11/12/18 11/13/18 19:21 22:29 05:01 Troponin I 32.62 H* 37.60 H* 34.98 H* 11/13/18 10:05 Troponin I 20.63 H* Assessment/Plan Walked > 2x today, including 3 steps. Had diarrhea p lunch, will watch. ? Lipitor. Stronger today, dc planning ongoing.
[2018-11-16] MEDS ORDERED: Metoprolol Succinate XL TAB* 25 MG PO ONE (08:43)
[2018-11-16] MEDS ORDERED: Metoprolol Succinate XL TAB* 50 MG PO SCH (09:00)
[2018-11-16] MEDS: Atorvastatin* 80 MG TAB PO SCH (16:44)
[2018-11-17] MEDS: Insulin LISPRO* 1 UNITS UNIT SUBCUT SCH ×4 (07:41→20:34)
[2018-11-17] MEDS: Metoprolol Succinate XL TAB* 50 MG PO SCH (08:52)
[2018-11-17] MEDS: Ticagrelor* 90 MG TAB PO SCH ×2 (08:52→21:15)
[2018-11-17] MEDS: Pantoprazole TAB * 40 MG TAB PO SCH (08:52)
[2018-11-17] MEDS: Aspirin 81 mg CHEW TAB* 81 MG TAB.CHEW PO SCH (08:52)
[2018-11-17 15:19] LABS: BUN/Creatinine Ratio 27.4 (8-20); Calcium 8.8 mg/dL (8.6-10.3); EGFR African American 13.8 (>60); EGFR Non-African American 11.4 (>60); Potassium 4.5 mmol/L (3.5-5.0)
[2018-11-17] MEDS: Atorvastatin* 80 MG TAB PO SCH (16:49)
[2018-11-17] MEDS: Ondansetron INJ* 2 MG/ML VIAL IV PRN (17:45)
[2018-11-18 07:28] LABS: BUN/Creatinine Ratio 30.9 (8-20); Calcium 8.8 mg/dL (8.6-10.3); EGFR African American 15.1 (>60); EGFR Non-African American 12.5 (>60); Potassium 4.7 mmol/L (3.5-5.0)
[2018-11-18] MEDS: Insulin LISPRO* 1 UNITS UNIT SUBCUT SCH ×4 (07:30→21:40)
[2018-11-18] MEDS: Aspirin 81 mg CHEW TAB* 81 MG TAB.CHEW PO SCH (07:51)
[2018-11-18] MEDS: Ticagrelor* 90 MG TAB PO SCH ×2 (07:51→21:39)
[2018-11-18] MEDS: Metoprolol Succinate XL TAB* 50 MG PO SCH (07:51)
[2018-11-18] MEDS: Pantoprazole TAB * 40 MG TAB PO SCH (07:51)
[2018-11-18] MEDS: Atorvastatin* 80 MG TAB PO SCH (16:37)
[2018-11-19] MEDS: Insulin LISPRO* 1 UNITS UNIT SUBCUT SCH ×4 (07:43→20:23)
[2018-11-19 09:09] LABS: BUN/Creatinine Ratio 34.8 (8-20); Calcium 9.1 mg/dL (8.6-10.3); EGFR African American 17.6 (>60); EGFR Non-African American 14.5 (>60); Potassium 4.5 mmol/L (3.5-5.0)
[2018-11-19] MEDS: Pantoprazole TAB * 40 MG TAB PO SCH (09:51)
[2018-11-19] MEDS: Metoprolol Succinate XL TAB* 50 MG PO SCH (09:51)
[2018-11-19] MEDS: Aspirin 81 mg CHEW TAB* 81 MG TAB.CHEW PO SCH (09:51)
[2018-11-19] MEDS: Ticagrelor* 90 MG TAB PO SCH ×2 (09:52→20:23)
[2018-11-19] MEDS: Atorvastatin* 80 MG TAB PO SCH (16:57)
[2018-11-19] MEDS ORDERED: Isosorbide Mononitrate ER TAB* 30 MG PO SCH (20:00)
--- NOTE | 2018-11-20 01:19 | OP ---
CC: Dr. Kennedy; Dr. Castellanos * DATE OF OPERATION: 11/14/18 - ROOM #439 DATE OF : 41 SURGEON: Dr. Padmini Kruse. ANESTHESIA: See Anesthesia sheet. PRE-OP DIAGNOSIS: Third-degree heart block. POST-OP DIAGNOSIS: Third-degree heart block. OPERATIVE PROCEDURE: Dual-chamber pacemaker implantation. ESTIMATED BLOOD LOSS: Less than 5 cc. DESCRIPTION OF PROCEDURE: The indications, risks, and benefits had been discussed with the patient the day prior and a second time the day of the procedure in the presence of her daughter. They were amenable to proceeding. The patient is right-handed. The left subclavian fossa was prepped and draped in the usual sterile fashion. Anesthesia had sedated the patient. A time-out was called. Following this, initially ultrasound was used to locate the subclavian vein. Lidocaine was infused for local anesthesia. Using a #10 blade knife, a 2-cm incision was made at the left subclavian fossa, and then using Bovie and blunt dissection, was extended to the level of the pectoralis muscle. Ultrasound was used again to locate the vein. Using a modified Seldinger technique, the left subclavian artery was inadvertently cannulated, the needle was removed, direct pressure was obtained. I had difficulty accessing the vein. Therefore, 10 cc of radiopaque dye was injected in the left upper extremity outlining the left axillary and left subclavian veins. Following this, I had successfully accessed the left subclavian vein using fluoroscopic guidance. Guidewire was inserted into the right atrium and the procedure was repeated with the second guidewire. Using an introducer technique, the right ventricle lead was guided into the right ventricular apex, actively fixed in place. Using the second guidewire and the second introducer, the right atrial lead was guided into the right atrial appendage, actively fixed in place. Pacing and sensing thresholds were checked and found to be good. The leads were then carefully positioned ensuring there was enough slack. The leads were then sutured to the pocket using 0 silk suture. The pocket was copiously irrigated with normal saline. Following this, the leads were attached to the generator. The generator was placed in the pocket. The incision was closed using 2 layers of absorbable suture, 2-0 followed by 4-0, followed by daryl and external dressings. The patient was hemodynamically stable throughout and during recovery. FINDINGS: The system is an MRI-compatible Medtronic system. The pacemaker is Medtronic model W1D01, serial number [id number] programmed in dual chamber mode with a low rate of 60 beats a minute (attempts were made to prolong AV delay to minimize ventricular pacing, but it was too prolonged). The atrial lead is a Medtronic model 5076-45, serial number [id number]. The ventricular lead is a MedLifeOnKey model 5076-52, serial number [id number]. P-waves were sensed at 3.5 mV with an atrial lead impedance of 699 ohms and an atrial pacing threshold of 0.6 V at 0.5 msec. R-waves were sensed at 11.5 mV with a ventricular lead impedance of 1029 ohms and a ventricular pacing threshold of 1.1 V at 0.5 msec. Again, the patient was hemodynamically stable throughout the procedure and on transfer to the floor. [id number]/[facility] #: [id number] [place]
[2018-11-20 07:28] VITALS: BP 100/81
[2018-11-20] MEDS: Insulin LISPRO* 1 UNITS UNIT SUBCUT SCH (07:37)
[2018-11-20] MEDS: Ticagrelor* 90 MG TAB PO SCH (07:49)
[2018-11-20] MEDS: Pantoprazole TAB * 40 MG TAB PO SCH (07:49)
[2018-11-20] MEDS: Aspirin 81 mg CHEW TAB* 81 MG TAB.CHEW PO SCH (07:50)
[2018-11-20] MEDS: Metoprolol Succinate XL TAB* 50 MG PO SCH (07:50)
--- NOTE | 2018-11-20 10:08 | DS ---
CC: Dr. John Kennedy; Dr. Parisa Castellanos; Dr. John Cat DISCHARGE SUMMARY: DATE OF ADMISSION: 11/12/18 DATE OF DISCHARGE: 11/20/18 FINAL DIAGNOSIS: Acute ST segment elevation inferior wall myocardial infarction. SECONDARY DIAGNOSES: 1. History of type 2 diabetes. 2. Hypertension. 3. Chronic back discomfort. 4. Acute on chronic renal insufficiency PROCEDURES PERFORMED DURING THIS HOSPITALIZATION: Catheterization with placement of a 2.0 x 18 mm Resolute Jarred stent overlapped proximally with a 2.5 x 28 mm long Synergy drug-eluting stent followed by overlapping proximally with a 2.5 x 12 mm long Xience drug-eluting stent. DISCHARGE MEDICATIONS: 1. Aspirin 81 mg a day. 2. Atorvastatin 80 mg a day. 3. Metoprolol succinate 50 mg a day. 4. Ticagrelor 90 mg twice a day. 5. Sublingual nitroglycerin as needed. Condition at discharge : Stable Disposition: Home with VNA services to assess for OT/PT, meals on wheels. Follow up appts. : Dr. Castellanos , Dr. Cat, Dr. Kennedy HOSPITAL COURSE: The patient is a pleasant 72-year-old female who presented on day of admission in the throes of an acute inferior wall myocardial infarction, was subsequently taken to the cardiovascular lab for emergent catheterization and intervention to the right coronary artery. The right coronary artery was found to be totally occluded after an RV free wall branch with AGUSTIN 0 flow. Multiple stents were placed in an overlapping fashion. Of note, there was a stepdown at the end of the more distal stent into a small caliber distal right coronary artery, which had lengthy diffuse 70% stenosis before a very small posterolateral branch. The posterior descending artery was occluded after stenting without any accompanying symptoms. Her left anterior descending artery appeared to have a fairly short, intermediate 40% to 50% lesions before the first significant diagonal branch. The distal LAD had scattered luminal irregularities. The circumflex was nondominant with separate ostium from the LAD. The mid circumflex had an 80% stenosis after very small marginal branch before a [id number] marginal branch, which had minimal tapering at its ostium. The circumflex was then reconstituted for few millimeters and had a 90 % stenosis with slow flow into a [id number] posterolateral branch, which also had filling of left to left collaterals. Of note, also during the course of the hospitalization, the patient continued to show heart block, which she presented with and as such decision was made to place a permanent pacemaker. She underwent that on 11/14/18 with placement of an Merrill (XT DR MRI and W1 DR 01 pacemaker) by Dr. Kruse. The patient underwent a transthoracic echocardiogram for LV function in the light of significant renal insufficiency that was found while the cath was going on with blood work that came back showed a significantly elevated BUN and creatinine. Overall EF was 45% to 50%, perhaps closer to 40% with multiple regional wall motion abnormalities. The left atrium was severely dilated. The right ventricle had low normal function. The right atrium was mildly dilated. There was mild mitral regurgitation and mild mitral stenosis. During the course of the hospital visit, she was seen in consultation by Dr. John Cat for her renal insufficiency. At that point, the decision was made to just watch her carefully and avoid any MATEUS inhibitors of her diuretic therapy. During the course of her hospitalization, her creatinine peaked at a high of 4.38, which by the day prior to discharge was down to 3.1. Her BUN was still elevated at 109. On the day of discharge, she as up and about, stable without significant symptoms. Of note, her blood pressure was somewhat elevated on day before discharge and Imdur 30 mg in the evening was given, however, her blood pressure by the next morning was down to the range of 100 and as such the Imdur was stopped to be reevaluated as an outpatient with eventual consideration for possible MATEUS inhibitor if her renal function improves over time. PHYSICAL EXAMINATION: On day of discharge revealed blood pressure 100/81, resting in bed, pulse was 62 and regular, respirations 16, O2 saturation 100%. Neck was supple without increased JVP. Lungs were clear. Heart had a regular rate and rhythm. Abdomen was obese. Extremities heavy in nature. The right radial artery showed good antegrade flow with good pulse. Neuro was alert, oriented. Musculoskeletal: She walked with a cautious gait. Psychiatric: The patient with normal affect. LABORATORY DATA: Last laboratory results from 11/19/18 showed a sodium of 137, potassium 4.5 chloride 109, bicarb 18, BUN and creatinine 109 and 3.1. Her last EKG was from 11/15/18 and revealed atrial and ventricularly paced at a rate of 85. The patient will be discharged to home in stable condition. She has scheduled followup appointments with Dr. Parisa Castellanos as well as with Dr. John Cat and a followup scheduled appointment with Dr. Kennedy. MEDICATIONS AT THE TIME OF DISCHARGE: Include: 1. Aspirin 81 mg a day. 2. Atorvastatin 80 mg a day. 3. Metoprolol succinate 50 mg a day. 4. Ticagrelor 90 mg twice a day. 5. Sublingual nitroglycerin as needed. I have asked her to check in with Dr. Kennedy within 1 week, so he can consider how to go about treating her type 2 diabetes. Of note, her fasting glucoses during the hospitalization were in the range of 97 and 104, not on any medication. [id number]/[facility] #: [id number] [place]
== END 2018-11-20 12:00 | disposition home health service (06) | DRG 242 ==
LOC: ED 18:05 → CHICATH 20:06 → ICU 22:24 → MEDTELE 11-15 15:45
PROVIDERS: ADMIT Internal Medicine Cardiovascular Disease; ATTEND Internal Medicine Cardiovascular Disease
PROC: B2111ZZ Fluoroscopy of Multiple Coronary Arteries using Low Osmolar Contrast (ICD-10-PCS; 2018-11-12)
PROC: 027036Z Dilation of Coronary Artery, One Artery with Three Drug-eluting Intraluminal Devices, Percutaneous Approach (ICD-10-PCS; principal; 2018-11-12 20:00)
PROC: 0JH606Z Insertion of Pacemaker, Dual Chamber into Chest Subcutaneous Tissue and Fascia, Open Approach (ICD-10-PCS; 2018-11-14)
PROC: 02H63JZ Insertion of Pacemaker Lead into Right Atrium, Percutaneous Approach (ICD-10-PCS; 2018-11-14)
PROC: 02HK3JZ Insertion of Pacemaker Lead into Right Ventricle, Percutaneous Approach (ICD-10-PCS; 2018-11-14)
DX: I21.19 ST elevation (STEMI) myocardial infarction involving other coronary artery of inferior wall (principal); N17.0 Acute kidney failure with tubular necrosis; I44.2 Atrioventricular block, complete; M19.90 Unspecified osteoarthritis, unspecified site; E11.36 Type 2 diabetes mellitus with diabetic cataract; E11.22 Type 2 diabetes mellitus with diabetic chronic kidney disease; I12.9 Hypertensive chronic kidney disease with stage 1 through stage 4 chronic kidney disease, or unspecified chronic kidney disease; N18.9 Chronic kidney disease, unspecified; R00.1 Bradycardia, unspecified; G89.29 Other chronic pain; I25.10 Atherosclerotic heart disease of native coronary artery without angina pectoris; E66.3 Overweight; I08.0 Rheumatic disorders of both mitral and aortic valves; Z82.49 Family history of ischemic heart disease and other diseases of the circulatory system; Z87.442 Personal history of urinary calculi; Z90.710 Acquired absence of both cervix and uterus; Z79.82 Long term (current) use of aspirin; Z68.32 Body mass index [BMI] 32.0-32.9, adult; Z79.02 Long term (current) use of antithrombotics/antiplatelets
CPT/HCPCS: 33208; 36415; 71045; 71046; 80048; 80053; 80061; 82550; 82553; 82570; 83605; 83721; 83735; 83874; 83880; 84300; 84443; 84484; 85025; 85347; 85610; 85730; 86850; 86900; 86901; 87641; 93005; 93306; 99156; 99157; 99285; A9270-GY; C1725; C1751; C1769; C1785; C1874; C1876; C1887; C1892; C1898; C9606-RC; G8978-GP-CJ; G8979-GP-CI; J0690; J0780; J1265; J1327; J1644; J2060; J2250; J2270; J2405; J2704; J3010

== ENCOUNTER 2018-12-04 16:48 | Inpatient (IN) | payer MEDICARE ==
--- OUTSIDE RECORDS SUMMARY | 2018-12-04 17:17 | XMS REPORT | Continuity of Care Document ---
:1945 External Reference #:[id number] Author Name Ishmael Johnson Address [address] [facility] [place] [address] Care Team Providers Name Role Phone John Kennedy MD Care Team Information [facility] Unavailable John Kennedy MD Primary Care Physician Unavailable Payers Date Identification Numbers Payment Provider Subscriber Effective: 2009 Policy Number: [id number] Medicare [place] Oli Simmons PayID: [id number] [address] [place] [address] Policy Number: [id number] [facility] Number: [id number] [address] PayID: [id number] [place] [address] Effective: 2010 Policy Number: [id number] Paige Simmons Expires: 2016 Group Number: [id number] [address] Group Name: [place] [address] PayID: [id number] Advance Directives Description No Information Available Problems Active Problems Provider Date Edema John Kennedy M.D. Onset: 01/27/2014 Backache John Kennedy M.D. Onset: 03/28/2012 Essential hypertension John Kennedy M.D. Onset: 08/08/2011 Type 2 diabetes mellitus John Kennedy M.D. Onset: 08/08/2011 Family History Date Family Member(s) Observation Comments Father Ascvd Social History Type Date Description Comments Sex Unknown Marital Status Patient is Living Situation Patient lives alone Pets Household pets include a dog Tobacco Use Start: Unknown Nonsmoker Tobacco Use Start: Unknown nonsmoker Allergies, Adverse Reactions, Alerts Description No Known Drug Allergies Medications Active Medications SIG Qnty Indications Ordering Provider Date Metoprolol Succinate take 1 tablet by 30tabs John Kennedy, 2018 ER mouth once daily M.D. 25mg Tablets ER 24HR Furosemide 1 po qd For 30tabs John Kennedy, 01/27/2014 20mg Tablets Fluid M.D. Metformin HCL ER take 2 tablet by 60tabs John Kennedy, 03/14/2010 500mg mouth once daily M.D. Tablets ER 24HR Lisinopril take 1 tablet by 30tabs John Kennedy, 09/14/2009 20mg Tablets mouth once daily M.D. History Medications Cephalexin 1 by mouth bid 30caps Christa 08/12/2014 - 500mg Capsules Ishmael Munguia 11/10/2014 Zithromax Z-Ruiz as directed 1Pack John Knight 09/02/2013 - 250mg Tablets Francine Kennedy 09/11/2013 Tramadol HCL 1 po q4-6 hrs prn 40tabs John Knight 03/15/2013 - 50mg Tablets Francine Kennedy 01/23/2017 Januvia 1 po qd 30tabs John Knight 08/24/2012 - 50mg Tablets Francine Kennedy 11/23/2012 Criss 1 po qd 30tabs John Knight 03/19/2010 - 180mg Tablets Francine Kennedy 03/21/2011 Naprosyn 1 po bid with 20tabs John Knight 09/14/2009 - 375mg Tablets meals Francine Kennedy 03/21/2011 Hydrochlorothiazide take 1 capsule by 30caps John Knight 09/14/2009 - 12.5mg mouth once daily Francine Kennedy 01/27/2014 Capsules Antivert 1 po tid prn for 30tabs John Knight 01/12/2009 - 12.5mg Tablets vertigo Francine eKnnedy 03/19/2010 Work Excuse unable to work John Knight 01/12/2009 - for 2-3 days Francine Kennedy 05/04/2009 Work Excuse unable to work John Knight 10/07/2008 - this week due to Francine Kennedy 01/12/2009 bronchitis Zithromax Z-Ruiz as directed 1Pack John Knight 10/07/2008 - 250mg Tablets Francine Kennedy 01/12/2009 Zovirax use as directed 1ttoño Knight 10/07/2008 - 5% Cream Francine Kennedy 10/07/2008 Glucophage XR 2 po qd 60tabs John Knight 11/05/2007 - 500mg Tablets ER Francine Kennedy 03/21/2011 24HR Glyburide take 1 tablet by 90tabs John Knight 11/05/2007 - 2.5mg Tablets mouth every other Francine Kennedy 01/27/2017 day Glucophage 2 PO bid 60tabs John Knight 11/03/2007 - 500mg Tablets Francine Kennedy 11/05/2007 Atenolol take 1 tablet by 30tabs John Knight 11/28/2005 - 25mg Tablets mouth once daily Francine Kennedy 03/21/2018 Amoxicillin 1 PO tid 30caps John Knight 10/31/2005 - 250mg Capsules Francine Kennedy 11/28/2005 Albuterol Mdi 2 puffs q 3-4h 1units John Knight 10/31/2005 - prn wheezing Francine Kennedy 03/17/2008 prn Robitussin A-c 1-2 tsp q 4-4hr 6Floz John Knight 10/31/2005 - 100mg;10mg/5ML Francine Kennedy 11/28/2005 Syrup Micronase 1 po bid 60tabs John Knight 08/22/2005 - 2.5mg Tablets Francine Kennedy 11/05/2007 Micronase 1 po q.D 30tabs John Knight 06/08/2005 - 1.25mg Tablets Francine Kennedy 08/22/2005 Diflucan 1pill a day 1tabs John Knight 02/21/2005 - 150mg Tablets Francine Kennedy 06/06/2005 Mycolog Creme apply bid 30units John Knight 09/13/2004 - Francine Kennedy 01/02/2012 Glucophage XR 2 po q.D 30units John Knight 03/03/2003 - 1000 Francine Kennedy 11/03/2007 Avalide 1 po qd 30tabs John Knight 11/15/2002 - 300/12.5 Tabs Francine Kennedy 09/14/2009 Loprox Apply To Affected 30gm Pete HolguinKathia 03/11/1998 - Cream Area bid Francine Mcintyre 04/01/1998 Cipro 1 po bid 90tabs Unknown - Tablets 03/21/2011 Immunizations CPT Code Status Date Vaccine Lot # [id number] Given 05/10/2018 Influenza Vac, Quadriv[place], [place] [id number] Given 06/09/2017 Pneumococcal Conjugate Vacc-13 [id number] Given 05/24/2017 High-Dose, Influenza Virus Vacccine-fluzone 65 and [id number] older 68038 Given 06/03/2016 High-Dose, Influenza Virus Vacccine-fluzone 65 and older 62438 Given 05/15/2015 High-Dose, Influenza Virus Vacccine-fluzone 65 and older [id number] Given 05/08/2014 High-Dose, Influenza Virus Vacccine-fluzone 65 and older 00432 Given 05/04/2009 Zostivax [id number] 65485 Given 04/14/2009 DO Not Use Split Influenza Virus Vaccine 52092 Given 05/26/2005 DO Not Use Split Influenza Virus Vaccine 20081 Given 05/13/2003 DO Not Use Split Influenza Virus Vaccine Vital Signs Date Vital Result Comment 11/09/2018 10:40am BP Systolic 168 mmHg BP Diastolic 80 mmHg Heart Rate 96 /min Body Temperature 97.9 F Respiratory Rate 17 /min Height 58 inches 4'10" Weight 155.00 lb BMI (Body Mass Index) 32.4 kg/m2 07/16/2018 8:34am BP Systolic 166 mmHg BP Diastolic 80 mmHg Heart Rate 88 /min Body Temperature 98.3 F Respiratory Rate 18 /min Height 58 inches 4'10" Weight 156.00 lb BMI (Body Mass Index) 32.6 kg/m2 03/21/2018 11:37am BP Systolic 138 mmHg BP Diastolic 90 mmHg Heart Rate 68 /min Body Temperature 97.9 F Respiratory Rate 18 /min Height 58 inches 4'10" Weight 160.00 lb BMI (Body Mass Index) 33.4 kg/m2 09/25/2017 2:12pm BP Systolic 188 mmHg BP Diastolic 92 mmHg Heart Rate 80 /min Body Temperature 98.1 F Respiratory Rate 16 /min Height 58 inches 4'10" Weight 156.50 lb BMI (Body Mass Index) 32.7 kg/m2 05/24/2017 10:04am BP Systolic 164 mmHg BP Diastolic 80 mmHg Heart Rate 72 /min Body Temperature 98.2 F Respiratory Rate 16 /min Height 58 inches 4'10" Weight 162.38 lb BMI (Body Mass Index) 33.9 kg/m2 01/23/2017 8:58am BP Systolic 180 mmHg BP Diastolic 82 mmHg Heart Rate 72 /min Body Temperature 97.9 F Respiratory Rate 16 /min Height 58 inches 4'10" Weight 162.50 lb BMI (Body Mass Index) 34.0 kg/m2 03/25/2016 2:39pm BP Systolic 136 mmHg BP Diastolic 74 mmHg Heart Rate 72 /min Body Temperature 97.6 F Respiratory Rate 20 /min Height 58 inches 4'10" Weight 167.00 lb BMI (Body Mass Index) 34.9 kg/m2 06/08/2015 12:57pm BP Systolic 136 mmHg BP Diastolic 70 mmHg Heart Rate 66 /min Body Temperature 98.2 F Respiratory Rate 20 /min Height 58 inches 4'10" Weight 181.00 lb BMI (Body Mass Index) 37.8 kg/m2 02/09/2015 8:44am BP Systolic 140 mmHg BP Diastolic 80 mmHg Heart Rate 74 /min Body Temperature 97.9 F Respiratory Rate 18 /min Height 58 inches 4'10" Weight 177.00 lb BMI (Body Mass Index) 37.0 kg/m2 11/10/2014 12:58pm BP Systolic 140 mmHg BP Diastolic 80 mmHg Heart Rate 68 /min Body Temperature 97.0 F Respiratory Rate 18 /min Height 58 inches 4'10" Weight 172.00 lb BMI (Body Mass Index) 35.9 kg/m2 08/12/2014 10:42am BP Systolic 130 mmHg BP Diastolic 90 mmHg Heart Rate 80 /min Body Temperature 98.4 F Respiratory Rate 18 /min Height 58 inches 4'10" Weight 172.00 lb BMI (Body Mass Index) 35.9 kg/m2 06/20/2014 1:35pm BP Systolic 136 mmHg BP Diastolic 90 mmHg Heart Rate 64 /min Body Temperature 97.6 F Respiratory Rate 18 /min Height 58 inches 4'10" Weight 172.00 lb BMI (Body Mass Index) 35.9 kg/m2 01/27/2014 3:22pm BP Systolic 136 mmHg BP Diastolic 80 mmHg Heart Rate 70 /min Body Temperature 97.1 F Respiratory Rate 18 /min Height 58 inches 4'10" Weight 179.00 lb BMI (Body Mass Index) 37.4 kg/m2 09/11/2013 1:51pm BP Systolic 134 mmHg BP Diastolic 80 mmHg Heart Rate 70 /min Body Temperature 97.1 F Respiratory Rate 18 /min Height 58 inches 4'10" Weight 177.00 lb BMI (Body Mass Index) 37.0 kg/m2 08/30/2013 2:53pm BP Systolic 150 mmHg BP Diastolic 80 mmHg Heart Rate 72 /min Body Temperature 97.3 F Respiratory Rate 18 /min Height 58 inches 4'10" Weight 177.00 lb BMI (Body Mass Index) 37.0 kg/m2 03/15/2013 1:16pm BP Systolic 150 mmHg BP Diastolic 88 mmHg Heart Rate 83 /min Body Temperature 97.9 F Height 58 inches 4'10" Weight 173.00 lb BMI (Body Mass Index) 36.2 kg/m2 01/04/2013 1:30pm BP Systolic 150 mmHg BP Diastolic 90 mmHg Heart Rate 76 /min Body Temperature 97.4 F Respiratory Rate 18 /min Height 58 inches 4'10" Weight 172.00 lb BMI (Body Mass Index) 35.9 kg/m2 11/23/2012 9:13am BP Systolic 170 mmHg BP Diastolic 80 mmHg Heart Rate 72 /min Body Temperature 96.4 F Height 58 inches 4'10" Weight 172.00 lb BMI (Body Mass Index) 35.9 kg/m2 08/20/2012 8:59am BP Systolic 150 mmHg BP Diastolic 90 mmHg Heart Rate 82 /min Body Temperature 97.1 F Height 58 inches 4'10" Weight 180.00 lb BMI (Body Mass Index) 37.6 kg/m2 03/28/2012 8:02am BP Systolic 170 mmHg BP Diastolic 84 mmHg Heart Rate 84 /min Body Temperature 96.0 F Height 58 inches 4'10" Weight 171.00 lb BMI (Body Mass Index) 35.7 kg/m2 01/02/2012 8:42am BP Systolic 148 mmHg BP Diastolic 70 mmHg Heart Rate 80 /min Height 58 inches 4'10" Weight 173.00 lb BMI (Body Mass Index) 36.2 kg/m2 08/08/2011 8:27am BP Systolic 160 mmHg BP Diastolic 90 mmHg Heart Rate 80 /min Respiratory Rate 15 /min Height 58 inches 4'10" Weight 175.00 lb BMI (Body Mass Index) 36.6 kg/m2 03/21/2011 8:36am BP Systolic 162 mmHg BP Diastolic 72 mmHg Heart Rate 80 /min Body Temperature 97.6 F Height 58 inches 4'10" Weight 170.00 lb BMI (Body Mass Index) 35.5 kg/m2 03/04/2011 8:59am BP Systolic 140 mmHg BP Diastolic 82 mmHg Heart Rate 84 /min Height 58 inches 4'10" Weight 170.00 lb BMI (Body Mass Index) 35.5 kg/m2 11/17/2010 1:38pm BP Systolic 142 mmHg BP Diastolic 84 mmHg Heart Rate 84 /min Height 58 inches 4'10" Weight 174.00 lb BMI (Body Mass Index) 36.4 kg/m2 07/19/2010 8:05am BP Systolic 160 mmHg BP Diastolic 90 mmHg Heart Rate 88 /min Height 58 inches 4'10" Weight 173.00 lb BMI (Body Mass Index) 36.2 kg/m2 03/19/2010 7:59am BP Systolic 184 mmHg BP Diastolic 70 mmHg Heart Rate 84 /min Body Temperature 97.6 F Height 58 inches 4'10" Weight 175.00 lb BMI (Body Mass Index) 36.6 kg/m2 09/14/2009 8:18am BP Systolic 170 mmHg BP Diastolic 88 mmHg Heart Rate 76 /min Height 58 inches 4'10" Weight 178.00 lb BMI (Body Mass Index) 37.2 kg/m2 05/04/2009 8:38am BP Systolic 144 mmHg BP Diastolic 86 mmHg Heart Rate 72 /min Height 58 inches 4'10" Weight 180.00 lb BMI (Body Mass Index) 37.6 kg/m2 01/19/2009 9:14am BP Systolic 144 mmHg BP Diastolic 80 mmHg Heart Rate 76 /min Body Temperature 98.1 F Height 58 inches 4'10" Weight 181.00 lb BMI (Body Mass Index) 37.8 kg/m2 01/12/2009 11:26am BP Systolic 150 mmHg BP Diastolic 78 mmHg Heart Rate 84 /min Body Temperature 99.0 F Height 58 inches 4'10" Weight 177.50 lb BMI (Body Mass Index) 37.1 kg/m2 10/07/2008 11:20am BP Systolic 156 mmHg BP Diastolic 88 mmHg Heart Rate 92 /min Body Temperature 98.1 F 08/22/2008 9:24am BP Systolic 160 mmHg BP Diastolic 80 mmHg Heart Rate 76 /min Body Temperature 97.2 F Weight 182.00 lb 03/17/2008 8:14am BP Systolic 158 mmHg BP Diastolic 82 mmHg Heart Rate 88 /min Height 58 inches 4'10" Weight 182.00 lb BMI (Body Mass Index) 38.0 kg/m2 11/26/2007 8:08am BP Systolic 130 mmHg BP Diastolic 80 mmHg Heart Rate 100 /min Height 58 inches 4'10" Weight 182.00 lb BMI (Body Mass Index) 38.0 kg/m2 08/10/2007 9:14am BP Systolic 170 mmHg BP Diastolic 80 mmHg Heart Rate 68 /min Height 58 inches 4'10" Weight 184.00 lb BMI (Body Mass Index) 38.5 kg/m2 03/19/2007 7:56am BP Systolic 136 mmHg BP Diastolic 78 mmHg Heart Rate 98.4 /min Body Temperature 96.0 F Height 58 inches 4'10" Weight 188.00 lb BMI (Body Mass Index) 39.3 kg/m2 11/20/2006 10:16am BP Systolic 160 mmHg BP Diastolic 92 mmHg Heart Rate 80 /min Body Temperature 98.6 F Height 58 inches 4'10" Weight 190.00 lb BMI (Body Mass Index) 39.7 kg/m2 07/10/2006 7:58am BP Systolic 174 mmHg BP Diastolic 92 mmHg Heart Rate 88 /min Body Temperature 97.6 F Height 58 inches 4'10" Weight 188.00 lb BMI (Body Mass Index) 39.3 kg/m2 03/27/2006 7:57am BP Systolic 132 mmHg BP Diastolic 72 mmHg Heart Rate 80 /min Height 58 inches 4'10" Weight 190.00 lb BMI (Body Mass Index) 39.7 kg/m2 01/02/2006 8:23am BP Systolic 142 mmHg BP Diastolic 78 mmHg Heart Rate 76 /min Height 58 inches 4'10" Weight 190.00 lb BMI (Body Mass Index) 39.7 kg/m2 11/28/2005 8:10am BP Systolic 160 mmHg BP Diastolic 80 mmHg Heart Rate 88 /min Height 58 inches 4'10" Weight 188.00 lb BMI (Body Mass Index) 39.3 kg/m2 10/31/2005 11:35am BP Systolic 180 mmHg BP Diastolic 90 mmHg Heart Rate 88 /min Body Temperature 98.5 F Height 58 inches 4'10" Weight 185.00 lb BMI (Body Mass Index) 38.7 kg/m2 08/22/2005 8:29am BP Systolic 176 mmHg BP Diastolic 86 mmHg Heart Rate 104 /min Height 58 inches 4'10" Weight 190.00 lb BMI (Body Mass Index) 39.7 kg/m2 06/06/2005 9:55am BP Systolic 156 mmHg BP Diastolic 80 mmHg Heart Rate 88 /min Height 58 inches 4'10" Weight 183.00 lb BMI (Body Mass Index) 38.2 kg/m2 02/21/2005 8:05am BP Systolic 146 mmHg BP Diastolic 82 mmHg Heart Rate 88 /min Height 58 inches 4'10" Weight 189.00 lb BMI (Body Mass Index) 39.5 kg/m2 11/22/2004 8:03am BP Systolic 170 mmHg BP Diastolic 98 mmHg Heart Rate 120 /min Height 58 inches 4'10" Weight 192.00 lb BMI (Body Mass Index) 40.1 kg/m2 09/13/2004 7:56am BP Systolic 188 mmHg BP Diastolic 80 mmHg Heart Rate 132 /min Height 58 inches 4'10" Weight 192.00 lb BMI (Body Mass Index) 40.1 kg/m2 05/10/2004 8:02am BP Systolic 176 mmHg LG Cuff BP Diastolic 96 mmHg LG Cuff Heart Rate 112 /min Height 58 inches 4'10" Weight 193.00 lb BMI (Body Mass Index) 40.3 kg/m2 02/09/2004 8:33am BP Systolic 178 mmHg BP Diastolic 96 mmHg Heart Rate 100 /min Height 58 inches 4'10" Weight 193.00 lb BMI (Body Mass Index) 40.3 kg/m2 11/03/2003 8:07am BP Systolic 170 mmHg BP Diastolic 80 mmHg Heart Rate 104 /min Height 58 inches 4'10" Weight 193.00 lb BMI (Body Mass Index) 40.3 kg/m2 08/29/2003 9:11am BP Systolic 178 mmHg BP Diastolic 90 mmHg Heart Rate 108 /min Height 58 inches 4'10" Weight 186.00 lb BMI (Body Mass Index) 38.9 kg/m2 05/19/2003 8:03am BP Systolic 146 mmHg BP Diastolic 72 mmHg Heart Rate 88 /min Body Temperature 97.2 F Height 58 inches 4'10" Weight 182.00 lb BMI (Body Mass Index) 38.0 kg/m2 04/04/2003 9:18am BP Systolic 172 mmHg BP Diastolic 90 mmHg Heart Rate 100 /min Height 58 inches 4'10" Weight 182.00 lb BMI (Body Mass Index) 38.0 kg/m2 03/03/2003 8:20am BP Systolic 150 mmHg BP Diastolic 88 mmHg Heart Rate 92 /min Body Temperature 96.8 F Height 58 inches 4'10" Weight 191.00 lb BMI (Body Mass Index) 39.9 kg/m2 02/10/2003 9:08am BP Systolic 180 mmHg BP Diastolic 88 mmHg Heart Rate 112 /min Body Temperature 97.8 F Height 58 inches 4'10" Weight 190.00 lb BMI (Body Mass Index) 39.7 kg/m2 11/29/2002 9:22am BP Systolic 130 mmHg BP Diastolic 80 mmHg Heart Rate 88 /min Height 58 inches 4'10" Weight 191.00 lb BMI (Body Mass Index) 39.9 kg/m2 11/15/2002 1:51pm BP Systolic 190 mmHg BP Diastolic 102 mmHg Heart Rate 104 /min Body Temperature 97.4 F Height 58 inches 4'10" Weight 193.00 lb BMI (Body Mass Index) 40.3 kg/m2 01/07/2000 1:08pm BP Systolic 162 mmHg LG Cuff BP Diastolic 84 mmHg LG Cuff Body Temperature 98.0 F Height 58 inches 4'10" Weight 205.00 lb BMI (Body Mass Index) 42.8 kg/m2 11/03/1998 10:13am BP Systolic 180 mmHg LG Cuff BP Diastolic 98 mmHg LG Cuff Heart Rate 88 /min Body Temperature 99.3 F Height 58 inches 4'10" Weight 202.50 lb Results Test Date Facility Test Result H/L Range Note Flu A&B ([facility]) 11/09/2018 [facility] Influenza A negative (607)- - Influenza B negative Comprehensive Metabolic Prof 07/16/2018 [facility] Sodium 142 mEq/L 134-149 Potassium 4.4 mEq/L 3.6-5.5 Chloride 109 mEq/L 94-112 Carbon Dioxide 23 mEq/L 21-32 Glucose 123 mg/dL High 70-105 BUN 37 mg/dL High 6-26 Creatinine 1.6 mg/dL High 0.6-1.4 BUN/Creat Ratio 23.1 CALC 8.0-36.0 Calcium 9.8 mg/dL 8.6-10.2 Total Protein 6.7 g/dL 6.4-8.3 Albumin 4.6 g/dL 3.8-5.5 Globulin 2.1 g/dL 2.0-4.8 A/G Ratio 2.2 CALC 0.6-2.3 Alk. Phosphatase 58 U/L 30-110 Alt (SGPT) 18 U/L 7-35 Ast (Sgot) 21 U/L 5-34 Total Bilirubin 0.4 mg/dL 0.2-1.3 GFR Non- 33 ml/min/1.73m^ Low >=60 GFR 41 ml/min/1.73m^ Low >=60 Lipid Profile 07/16/2018 [facility] Cholesterol 179 mg/dL 120-200 Triglycerides 102 mg/dL 30-200 HDL Cholesterol 50 mg/dL 30-85 LDL (Calculated) 109 CALC 0-129 VLDL Cholesterol 20 mg/dL 0-50 HDL Risk Factor 3.6 CALC 0.0-4.4 Laboratory test 07/16/2018 [facility] Hemoglobin A1c 6.4 % % High 4.1-5.7 finding (607)- - (a) Laboratory test 03/21/2018 [facility] Hemoglobin A1c 6.7% % High 4.1 -5.7 finding (607)- - (a) Laboratory test 09/25/2017 [facility] Hemoglobin A1c 7.0 % % High 4.1-5.7 finding (607)- - (a) Comprehensive 05/24/2017 [facility] Sodium 141 mEq/L 134-149 Metabolic Prof Potassium 4.2 mEq/L 3.6-5.5 Chloride 103 mEq/L 94-112 Carbon Dioxide 24 mEq/L 21-32 Glucose 131 mg/dL High 70-105 BUN 38 mg/dL High 6-26 Creatinine 1.3 mg/dL 0.6-1.4 BUN/Creat Ratio 29.2 CALC 8.0-36.0 Calcium 9.6 mg/dL 8.6-10.2 Total Protein 6.9 g/dL 6.4-8.3 Albumin 4.3 g/dL 3.8-5.5 Globulin 2.6 g/dL 2.0-4.8 A/G Ratio 1.7 CALC 0.6-2.3 Alk. Phosphatase 54 U/L 30-110 Alt (SGPT) 23 U/L 7-35 Ast (Sgot) 22 U/L 5-34 Total Bilirubin 0.5 mg/dL 0.2-1.3 GFR Non- 43 ml/min/1.73m^ Low >=60 GFR 52 ml/min/1.73m^ Low >=60 Lipid Profile 05/24/2017 [facility] Cholesterol 158 mg/dL 120-200 Triglycerides 75 mg/dL 30-200 HDL Cholesterol 46 mg/dL 30-85 LDL (Calculated) 97 CALC 0-129 VLDL Cholesterol 15 mg/dL 0-50 HDL Risk Factor 3.4 CALC 0.0-4.4 Laboratory test 05/24/2017 [facility] Hemoglobin A1c 5.1 % 4.1-5.7 finding (607)- - (a) Laboratory test 01/23/2017 [facility] Hemoglobin A1c 6.1 % % High 4.1-5.7 finding (607)- - (a) Laboratory test 03/25/2016 [facility] Hemoglobin A1c 6.3 % % High 4.1-5.7 finding (607)- - (a) Laboratory test 06/08/2015 [facility] Hemoglobin A1c 6.0 % High 4.1- 5.7 finding (607)- - ([facility],CX) Comprehensive 02/09/2015 [facility] Sodium 137 mEq/L 134-149 Metabolic Prof Potassium 4.4 mEq/L 3.6-5.5 Chloride 102 mEq/L 94-112 Carbon Dioxide 25 mEq/L 21-32 Glucose 158 mg/dL High 70-105 BUN 34 mg/dL High 6-26 Creatinine 0.9 mg/dL 0.6-1.4 BUN/Creat Ratio 37.8 CALC High 8.0-36.0 Calcium 9.4 mg/dL 8.6-10.2 Total Protein 6.6 g/dL 6.4-8.3 Albumin 4.1 g/dL 3.8-5.5 Globulin 2.5 g/dL 2.0-4.8 A/G Ratio 1.6 CALC 0.6-2.3 Alk. Phosphatase 55 U/L 30-110 Alt (SGPT) 21 U/L 7-35 Ast (Sgot) 26 U/L 5-34 Total Bilirubin 0.4 mg/dL 0.2-1.3 Lipid Profile 02/09/2015 [facility] Cholesterol 171 mg/dL 120-200 Triglycerides 63 mg/dL 30-200 HDL Cholesterol 42 mg/dL 30-85 LDL (Calculated) 116 CALC 0-129 VLDL Cholesterol 13 mg/dL 0-50 HDL Risk Factor 4.1 CALC 0.0-4.4 Laboratory test 02/09/2015 [facility] Hemoglobin A1c 6.3 % % High 4.1-5.7 finding (607)- - ([facility],CX) Laboratory test 11/10/2014 [facility] Hemoglobin A1c 6.0% % High 4.1 -5.7 finding (607)- - ([facility],) Basic Metabolic 06/20/2014 [facility] Sodium 141 mEq/L 134-149 Profile Potassium 5.5 mEq/L 3.6-5.5 Chloride 102 mEq/L 94-112 Carbon Dioxide 27 mEq/L 21-32 Glucose 125 mg/dL High 70-105 1 BUN 31 mg/dL High 6-26 2 Creatinine 0.9 mg/dL 0.6-1.4 BUN/Creat Ratio 34.4 CALC 8.0-36.0 Calcium 10.4 mg/dL High 8.6-10.2 3 Laboratory test 06/20/2014 [facility] Hemoglobin A1c 6.1 % High 4.1- 5.7 finding (607)- - ([facility],) Basic Metabolic 01/27/2014 [facility] Sodium 141 mEq/L 134-149 Profile Potassium 4.6 mEq/L 3.6-5.5 Chloride 104 mEq/L 94-112 Carbon Dioxide 26 mEq/L 21-32 Glucose 90 mg/dL 70-105 BUN 26 mg/dL 6-26 Creatinine 0.8 mg/dL 0.6-1.4 BUN/Creat Ratio 32.5 CALC 8.0-36.0 Calcium 10.4 mg/dL High 8.6-10.2 4 Urine Culture And 01/01/2013 [facility] Urine Culture (SEE NOTE) 5 Sensitivities Urine Microscopic 01/01/2013 [facility] Urine WBC 1+ (<10 /hpf) None Seen Urine RBC 1+ (<3 /hpf) None Seen Bacteria Urine 1+ None Seen Urinalysis 01/01/2013 [facility] Urine Color Yellow Urine Appearance Turbid Urine Specific [place] 1.015 1.010-1.030 Urine Esterase Negative Negative Urine Nitrate Negative Negative Urine Urobilinogen Negative E.U./dL Negative Urine Protein 2+ mg/dL Abnormal Negative Urine pH 5.5 5-9 Urine Blood Trace Abnormal Negative Urine Ketones Negative mg/dL Negative Urine Bilirubin Negative Negative Urine Glucose Negative mg/dL Negative Laboratory test 11/23/2012 [facility] Hemoglobin A1c 8.1 % High 4.1- 5.7 finding (607)- - (a/[facility],CX) Laboratory test 08/20/2012 [facility] Hemoglobin A1c 10.1 % High 4.1 -5.7 finding (607)- - (a/[facility],CX) Microalb, Random (a/[facility]/CTX) >300.0 mg/L High 0.5-37 Comprehensive Metabolic Prof 03/28/2012 [facility] Albumin 4.7 g/dL 3.8-5.5 Alk. Phos. 61 U/L 30-110 Alt (SGPT) 28 U/L 7-35 Ast (Sgot) 23 U/L 5-34 BUN 24 mg/dL 6-26 Calcium 10.2 mg/dL 8.6-10.2 Chloride 97 mEq/L 94-112 Creatinine 0.7 mg/dL 0.6-1.4 Carbon Dioxide 23 mEq/L 21-32 Glucose 284 mg/dL High 70-105 6 Sodium 134 mEq/L 134-149 Total Bilirubin 0.4 mg/dL 0.2-1.3 Total Protein 6.9 g/dL 6.3-8.1 Potassium 4.8 mEq/L 3.6-5.5 Globulin 2.2 g/dL 2.0-4.8 A/G Ratio 2.1 Calc 0.6-2.2 BUN/Creat Ratio 36.4 Calc High 8.0-36.0 Lipid Profile 03/28/2012 [facility] Cholesterol 204 mg/dL High 120- 200 HDL 50 mg/dL 30-85 Triglycerides 122 mg/dL 30-200 HDL Risk Factor 4.1 CALC High 0.0-4.0 LDL (Calculated) 130 CALC High 0-129 VLDL (Calculated) 24 mg/dL 0-50 Laboratory test 03/28/2012 [facility] Hemoglobin A1c 10.0 % High 4.1 -5.7 finding (607)- - ([facility],CX) Laboratory test 01/02/2012 [facility] Hemoglobin A1c 9.8 % High 4.1- 5.7 finding (607)- - (a/[facility],CX) Lipid Profile 08/08/2011 [facility] Cholesterol 171 mg/dL 120-200 HDL 46 mg/dL 30-85 Triglycerides 89 mg/dL 30-200 HDL Risk Factor 3.7 CALC 0.0-4.0 LDL (Calculated) 107 CALC 0-129 VLDL (Calculated) 18 mg/dL 0-50 Laboratory test 08/08/2011 [facility] Hemoglobin A1c 10.2 % High 4.1 -5.7 finding (607)- - (a/[facility],CX) Ua - Micro (a) 03/21/2011 [facility] Appearance CLEAR (607)- - Color YELLOW Glucose 500mg/dL High Known Diabetic Bilirubin NEG Ketones NEG SP Grav <=1.005 Blood NEG PH 6.5 Protein NEG Urobil 0.2 Nitrite NEG Leukocytes (a/[facility]) NEG Hyaline - /Lpf Granular - /Lpf WBC ([facility]) 0-1 # RBC 0-1 # Mucus - /Lpf Epith OCC /Lpf # Bacteria TRACE /Hpf # Amorphous - /Lpf Crystals, Fluid (a/[facility]/CTX) - Z#Comments - Laboratory test 03/21/2011 [facility] Hemoglobin A1c 10.5 % High 4.1 -5.7 finding (607)- - (a/[facility],CX) CBC Auto Diff 03/01/2011 [facility] White Blood Count 7.5 CUMM 4.8-10.8 Red Cell Count 5.06 CUMM 4.2-5.4 Hemoglobin 14.9 g/dL 12.0-16.0 Hematocrit 42 % 35-47 Mean Corpuscular Volume 83 um3 79-97 Mean Corpuscular Hemoglob 29 pg 27-31 Mean Corpuscular HGB Cone 35 g/dL 32-36 Redcell Distribution WDTH 13 % 10.5-15 Platelet Count 181 CUMM 150-450 Mean Platelet Volume 10.8 um3 High 7.4-10.4 Gran % 77.1 % 38-83 Lymph % 15.0 % Low 25-47 Mononuclear % 5.5 % 1-9 Eosinophil % 1.9 % 0-6 Basophil % 0.5 % 0-2 Abs Lymphs 1.1 1.0-4.8 Abs Mononuclear 0.4 0-0.8 Absolute Neutrophil Count 5.8 1.5-7.7 Abs Eosinophils 0.1 0-0.6 Abs Basophils 0 0-0.2 7 Comp Metabolic Panel 03/01/2011 [facility] Sodium 137 mmol/L 135-145 Potassium 3.9 mmol/L 3.5-5.0 Chloride 102 mmol/L 101-111 Co2 (Carbon Dioxide) 27.0 mmol/L 22-32 Anion Gap 8.0 mmol/L 2-11 8 Glucose 309 mg/dL High 70-100 BUN 18 mg/dL 6-24 Creatinine 0.50 mg/dL 0.50-1.40 One Over Creatinine 2.00 BUN/Creatinine Ratio 36.0 High 8-20 Calcium 9.7 mg/dL 8.1-9.9 Total Protein 6.8 GM/DL 6.2-8.1 Albumin 4.2 GM/DL 3.2-5.2 Globulin 2.6 GM/DL 2-4 Albumin/Globulin Ratio 1.6 1-3 Bilirubin Total 0.9 mg/dL 0.4-1.5 9 Alkaline Phosphatase 48 U/L 30-110 Alt (SGPT) 34 U/L 14-54 Ast (Sgot) 29 U/L 12-42 eGFR Non- 123.1 > 60 eGFR 158.3 > 60 10 Urinalysis W/Microscopic 03/01/2011 [facility] Ua Color YELLOW Yellow Appearance-Urine CLOUDY Clear Specific [place]-Ur 1.021 1.010-1.030 Esterase-Urine 2+ Abnormal Negative Nitrite POSITIVE Abnormal Negative [id number] NEGATIVE Negative Protein-Urine 2+ Abnormal Negative PH-Urine 6.0 5-9 Blood-Urine TRACE Abnormal Negative Ketones-Urine TRACE Abnormal Negative Bilirubin-Ur NEGATIVE Negative Glucose-Urine 3+ Abnormal Negative WBC-Urine TNTC Abnormal 0-5 RBC-Urine 0-2 0-2 Epith Cells-Ur FEW None Bacteria-Urine 3+ None Urine Culture & 03/01/2011 [facility] Urine Culture ESCHERICHIA COLI 11 Sensitivi Sensitivi Sensitivities For Urine 03/01/2011 [facility] Ampicillin 4 S Culture Amikacin <=2 S Ciprofloxacin <=0.25 S Ceftriaxone <=1 S Cefazolin <=4 S Nitrofurantoin <=16 S Gentamicin <=1 S Imipenem <=1 S Levofloxacin <=0.12 S Trimeth-Sulfa <=20 S Ceftazidime <=1 S Tigecycline <=0.5 S Piperacillin/Tazobactam KB 27 S Laboratory test 11/17/2010 [facility] Hemoglobin A1c 11.9 % High 4.1 -5.7 finding (607)- - (a/CMC,CX) Laboratory test 07/19/2010 [facility] Hemoglobin A1c 10.6 % High 4.1 -5.7 finding (607)- - (a/CMC,CX) Laboratory test 03/19/2010 [facility] Microalb, Random 109.8 mg/L High 0.5-37 finding (607)- - (a/[facility]/CTX) Hemoglobin A1c (a/[facility],CX) 13.6 % High 4.1-5.7 Lipid Profile 03/19/2010 [facility] Cholesterol 206 mg/dL High 120- 200 HDL 44 mg/dL 30-85 Triglycerides 147 mg/dL 30-200 HDL Risk Factor 4.7 CALC 4.2-7.0 LDL (Calculated) 133 CALC High 0-129 VLDL (Calculated) 29 mg/dL 0-50 Comprehensive Metabolic Prof 03/19/2010 [facility] Albumin 4.7 g/dL 3.8-5.5 Alk. Phos. 36 U/L 30-110 Alt (SGPT) 33 U/L 7-35 Ast (Sgot) 23 U/L 5-34 BUN 22 mg/dL 6-26 Calcium 10.3 mg/dL High 8.6-10.2 12 Chloride 97 mEq/L 94-112 Creatinine 0.6 mg/dL 0.6-1.4 Carbon Dioxide 22 mEq/L 21-32 Glucose 327 mg/dL High 70-105 13 Sodium 139 mEq/L 134-149 Total Bilirubin 0.5 mg/dL 0.2-1.3 Total Protein 7.1 g/dL 6.3-8.1 Potassium 4.3 mEq/L 3.6-5.5 Globulin 2.4 g/dL 2.0-4.8 A/G Ratio 1.9 Calc 0.6-2.2 BUN/Creat Ratio 34.3 Calc 8.0-36.0 Laboratory test 09/14/2009 [facility] Hemoglobin A1c 11.3 % High 4.1 -5.7 finding (607)- - (a/[facility],CX) Laboratory test 05/04/2009 [facility] Hemoglobin A1c 12.0 % High 4.1 -5.7 finding (607)- - ([facility],CX) Laboratory test 01/19/2009 [facility] Hemoglobin A1c 11.8 % High 4.1 -5.7 finding (607)- - ([facility],CX) Basic Metabolic 01/12/2009 [facility] BUN 17 mg/dL 6-26 Profile Calcium 10.2 mg/dL 8.6-10.2 Chloride 102 mEq/L 94-112 Creatinine 0.7 mg/dL 0.6-1.4 Carbon Dioxide 24 mEq/L 21-32 Glucose 272 mg/dL High 70-105 14 Sodium 139 mEq/L 134-149 Potassium 4.3 mEq/L 3.6-5.5 BUN/Creat Ratio 25.7 Calc 8.0-36.0 Complete Blood Count 01/12/2009 [facility] WBC 7.8 x10^3/uL 3.6-9.6 Gran# 6.3 x10^3/uL 1.5-7.2 Gran% 80.3 % High 42.2-75.2 HCT 46 % 36-50 HGB 15.6 g/dL 12.1-17.2 Lymph# 1.3 x10^3/uL 0.7-4.9 Lymph% 16.2 % Low 20.5-51.1 MCH 27.9 pg 27.6-33.3 MCV 82.1 fL Low 82.2-97.4 MCHC 34.0 g/dL 33.0-35.5 Mo# 0.3 x10^3/uL 0.1-0.9 Mo% 3.5 % 1.7-9.3 MPV 9.7 fL 7.4-10.4 PLT 177 x10^3/uL 150-400 RBC 5.60 x10^6/uL 3.90-5.70 RDW 13.0 % 11.6-13.7 Laboratory test 08/22/2008 [facility] Hemoglobin A1c 11.5% % High 4.1-5.7 finding (607)- - (Fma/CMC,CX) Laboratory test 03/17/2008 [facility] Hemoglobin A1c 10.7 % High 4.1 -5.7 finding (607)- - (Fma/CMC,CX) Microalb, Random (Fma/CMC/CTX) 7.8 mg/L mg/L 0.5-37 Laboratory test 11/26/2007 [facility] Hemoglobin A1c 11.3 % High 4.1 -5.7 finding (607)- - (Fma/CMC,CX) Lipid Profile 11/26/2007 [facility] Cholesterol 159 mg/dL 120-200 15 HDL 46 mg/dL 30-85 Triglycerides 90 mg/dL 30-200 HDL Risk Factor 3.4 CALC Low 4.2-7.0 LDL (Calculated) 94 CALC 0-129 VLDL (Calculated) 18 mg/dL 0-50 Comprehensive Metabolic Prof 11/26/2007 [facility] Albumin 4.3 g/dL 3.8-5.5 Alk. Phos. 56 U/L 30-110 Alt (SGPT) 31 U/L 7-35 Ast (Sgot) 22 U/L 5-34 BUN 22 mg/dL 6-26 Calcium 10.1 mg/dL 8.6-10.2 Chloride 100 mEq/L 94-112 Creatinine 0.8 mg/dL 0.6-1.4 Carbon Dioxide 26 mEq/L 21-32 Glucose 258 mg/dL High 70-105 16 Sodium 135 mEq/L 134-149 Total Bilirubin 0.5 mg/dL 0.2-1.3 Total Protein 6.6 g/dL 6.3-8.1 Potassium 4.2 mEq/L 3.6-5.5 Globulin 2.3 g/dL 2.0-4.8 A/G Ratio 1.9 Calc 0.6-2.2 BUN/Creat Ratio 26.7 Calc 8.0-36.0 Laboratory test 08/10/2007 [facility] Hemoglobin A1c ERROR See Result 17, 18 finding (607)- - (Fma/CMC,CX) (CODE Note 107) % Laboratory test 03/19/2007 [facility] Hemoglobin A1c 10.7 % High 4.1 -5.7 finding (607)- - (Fma/CMC/CTX) Laboratory test 11/20/2006 [facility] Hemoglobin A1c 10.2 % High 4.1 -5.7 finding (607)- - (Fma/CMC/CTX) Laboratory test 07/10/2006 [facility] Hemoglobin A1c 10.0 % High 4.1 -5.7 finding (607)- - (Fma/CMC/CTX) Comp 07/10/2006 [facility] Glucose, Serum 194 mg/dL High 70-105 Metabolic-ALL (607)- - (Fma/CMC/CTX) Lab Compani BUN (Fma/CMC/[facility]) 21 mg/dL 6-26 Creatinine (Fma/CMC/CTX) 0.6 mg/dL 0.6-1.4 Sodium 137 134-149 Potassium 4.3 3.6-5.5 Chloride 101 mEq/L 94-112 Co2 27 21-32 Albumin (Fma/CMCC/[facility]rex) 4.5 3.8-5.5 Total Protein 7.8 g/dL 6.3-8.1 Calcium (Fma/CMC/[facility]) 9.8 mg/dL 8.6-10.2 Alkaline Phosphatase (F/C/CTX) 71 U/L 30-110 Ast (Sgot) (Fma/CMC/[facility]) 26 U/mL 5-34 Alt (SGPT) (CMC/[facility]) 33 10-40 Bilirubin, Total 0.6 mg/dL 0.2-1.3 #GFR, Calculated (CTX) - Lipid Panel-ALL 07/10/2006 [facility] Cholesterol 162 mg/dL 120- 200 [facility] (607)- - (Fma/CMC/[facility]) HDL-Chol 37 mg/dL 30-85 Triglyceride 77 mg/dL 30-200 LDL/HDL Chol. Ratio (F/C/CTX) - Chol./HDL Ratio (Fma/CMC/CTX) - Low 30-85 LDL, Calculated ([facility]) 110 mg/dL 0-129 HDL Risk Factor (Fma) 4.4 CALC 4.2-7.0 Laboratory test 03/27/2006 [facility] Hemoglobin A1c 10.0 % High 4.1 -5.7 finding (607)- - (Fma/CMC/CTX) Laboratory test 11/28/2005 [facility] Hemoglobin A1c 8.4 % High 4.1- 5.7 finding (607)- - (Fma/CMC/CTX) Laboratory test 06/06/2005 [facility] Hemoglobin A1c 9.7 % High 4.1- 5.7 finding (607)- - (F/C/CTX) Lipid Profile 02/21/2005 [facility] Cholesterol 144 mg/dL 120-200 (a) Female (607)- - Triglyceride 84 mg/dL 30-200 HDL-Chol 41 mg/dL 30-85 LDL, Calculated (a/CMC) 87 CALC 0-129 LDL Direct (FM/CMC/[facility]rex) - mg/dL 0-130 VLDL 17 0-50 HDL Risk Factor ([facility]) 3.5 CALC Low 4.2-7.0 Comp Metabolic 02/21/2005 [facility] Glucose, Serum 288 mg/dL High 70-105 (a) Female (607)- - (Fma/CMC/CTX) BUN (Fma/CMC/[facility]rex) 17 mg/dL 6-26 Creatinine, Serum 0.7 mg/dL 0.6-1.4 BUN/Creatinin Ratio 24.0 8.0-36 Sodium 139 134-149 Potassium 4.3 3.6-5.5 Chloride 95 mEq/L 94-112 Co2 24 21-32 Calcium (Fma/CMC/[facility]rex) 10.2 mg/dL 8.6-10.2 Total Protein 7.0 g/dL 6.3-8.1 Albumin (Fma/CMCC/[facility]rex) 4.5 3.8-5.5 Globulin 2.6 2.0-4.8 A/G Ratio (A/G Ratio) 1.7 0.6-2.2 Alkaline Phosphatase (F/C/CTX) 81 U/L 22-95 Alt (SGPT) (Fma/CMC/[facility]rex) 25 7-35 Ast (Sgot) (Fma/CMC/[facility]rex) 16 U/mL 5-34 Bilirubin, Total 0.5 mg/dL 0.2-1.3 Laboratory test 02/21/2005 [facility] Hemoglobin A1c 10.7 % High 4.1 -5.7 finding (607)- - (F/C/CTX) Microalb, Random (Fma/CMC/CTX) A=14.3 mg/dL Low 0.5-37 Laboratory test 11/22/2004 [facility] Hemoglobin A1c 9.6 % High 4.1- 5.7 finding (607)- - (F/C/CTX) Laboratory test 05/10/2004 [facility] Hemoglobin A1c 9.1 % High 4.1- 5.7 finding (607)- - (F/C/CTX) Laboratory test 02/09/2004 [facility] Hemoglobin A1c 8.8 % High 4.1- 5.7 finding (607)- - (F/C/CTX) Basic Metabolic 02/09/2004 [facility] Glucose, Serum 363 mg/dL High 70-118 (a) (607)- - (Fma/CMC/CTX) BUN (Fma/CMC/[facility]rex) 19 mg/dL 6-26 Creatinine (Fma/CMC/CTX) 0.7 mg/dL 0.6-1.4 BUN/Creatinin Ratio 26.8 8.0-36 Sodium 138 134-149 Potassium 4.1 3.6-5.5 Chloride 103 mEq/L 94-112 Co2 24 21-32 Calcium (Fma/CMC/[facility]rex) 10.3 VERIFIED mg/dL High 8.6-10.0 Laboratory test 11/03/2003 [facility] Hemoglobin A1c 7.2 % High 4.1- 5.7 finding (607)- - (F/C/CTX) Lipid Profile 05/19/2003 [facility] Cholesterol 141 mg/dL 120-200 ([facility]) (607)- - Triglyceride 65 mg/dL 30-200 HDL-Chol 46 30-85 LDL-Calculated (Fma/CMC) 81 CALC 0-129 VLDL 13 0-50 HDL Risk Factor ([facility]) 3.0 CALC Low 4.2-7.0 Laboratory test 05/19/2003 [facility] Hemoglobin A1c 7.0% % High 4.1 -5.7 finding (607)- - (F/C/CTX) Laboratory test 04/04/2003 [facility] Hemoglobin A1c 7.2 % High 4.1- 5.7 finding (607)- - (F/C/CTX) Laboratory test 03/03/2003 [facility] Hemoglobin A1c 8.3 % High 4.1- 5.7 finding (607)- - (F/C/CTX) Glucose/Hgaic 01/07/2003 [facility] Glucose, Serum 196 mg/dL High 70 -118 Profile (a/[facility] (607)- - (Fma/CMC/CTX) Hemoglobin A1c (F/C/CTX) 9.7 % High 4.1-5.7 Comp Metabolic 11/29/2002 [facility] Glucose, Serum 280 mg/dL High 70-118 (a) (607)- - (Fma/CMC/CTX) BUN (a/CMC/[facility]rex) 20 mg/dL 7-26 Creatinine (a/CMC/CTX) 0.8 mg/dL 0.6-1.4 BUN/Creatinin Ratio 24.5 8.0-36 Sodium 142 134-149 Potassium 4.7 3.6-5.5 Chloride 97 mEq/L 94-112 Co2 25 21-32 Calcium (a/CMC/[facility]) 9.8 mg/dL 8.6-10.0 Total Protein 6.8 g/dL 6.3-8.1 Albumin (a/CMCC/[facility]rex) 3.8 3.8-5.5 Globulin 3.1 2.0-4.8 A/G Ratio (a/CMC/[facility]) 1.2 0.6-2.2 Alkaline Phosphatase 92 U/L 30-110 Alt (SGPT) 27 10-40 Ast (Sgot) (a/CMC/[facility]rex) 18 U/mL 5-34 Bilirubin, Total 0.8 mg/dL 0.2-1.3 CBC Electronic ([facility]) 11/15/2002 [facility] WBC 7.0 CUMM 4.8-10.8 RBC 5.71 CUMM High 4.2-5.4 Hemoglobin (a/CMC/CTX) 16.5 g/dL High 12.0-16.0 Hematocrit 47 % 35-47 Mean Corpuscular Vol 83 UM3 79-97 Mean Corpuscular Hemaglobin 29 pg 27-31 Mean Corpuscular Hemo Concen 35 g/dL 32-36 RDW 12 10.5-15 Platelets 171 CUMM 150-450 Mean Platelet Volume 9.1 7.4-10.4 Granulocytes 73.7 % 38-83 Lymphocytes 19.4 % Low 20-45 Monocytes 5.6 % 1-9 Eosinophil 1.2 0-6 Basophil% 0.1 0-2 Abs Lymphs 1.4 1.0-4.8 Abs Mononuclear 0.4 0-0.8 Abs Grans 5.1 1.5-7.7 Abs Eosinophils 0.1 0-0.6 Abs Basophils 0 0-0.2 Ua - Micro (a Old) 01/07/2000 [facility] Appearance CLEAR YELLOW (607)- - SP Grav 1.005 Esterase - Nitrite - pH 6.0 Protein - Glucose - Ketones - Urobil - Bilirubin - Blood TRACE Hyaline - /Lpf Granular - /Lpf WBC'S 1-2 RBC'S 1-2 Mucus - /Lpf Epith - Bacteria - Amorphous - /Lpf Crystals - /Lpf Comments - CBC Electronic ([facility]) 08/21/1999 [facility] WBC 7.8 CUMM 4.8-10.8 RBC 5.09 CUMM 4.2-5.4 Hemoglobin 14.3 g/dL 12.0-16.0 Hematocrit 44 % 35-47 Mean Corpuscular Vol 86 um3 79-97 Mean Corpuscular Hemaglobin 28 pg 27-31 Mean Corpuscular Hemo Concen 33 g/dL 32-36 RDW 12 % 10.5-15 Platelets 210 CUMM 150-450 Mean Platelet Volume 9.2 um3 7.4-10.4 Granulocytes 66.1 % 38-83 Lymphocytes 24.5 % 20-45 Monocytes 6.3 % 1-9 Eosinophil 2.7 % 0-6 Basophil% 0.4 % 0-2 Abs Lymphs 1.9 1.0-4.8 Abs Mononuclear 0.5 0-0.8 Abs Grans 5.2 1.5-7.7 Abs Eosinophils 0.2 0-0.6 Abs Basophils 0 0-0.2 Lipid Profile ([facility]) 02/19/1999 Cholesterol 139 <200 Triglyceride 62 mg/dL <200 HDL-Chol 43 mg/dL >34 Cholesterol / HDL Ratio 3.23 (CALC) <4.45 LDL-Calculated 84 (CALC 0-130 Basic Metabolic ([facility]) 02/19/1999 BUN 20 mg/dL 7-25 Creatinine 0.8 mg/dL 0.5-1.4 Glucose 101 mg/dL 70-125 Co2 15 mEq/L Low 20-32 Sodium 143 mEq/L 135-146 Potassium 4.2 mEq/L 3.5-5.3 Chloride 105 mEq/L 95-108 BUN/Creatinin Ratio 25 (CALC) 6-25 Laboratory test finding 02/19/1999 Final Nidia Report <1:40 TITER See Detail 19 Rheumatoid Fact <20 IU/mL See Detail 20 CBC Electronic ([facility]) 01/03/1999 [facility] WBC 9.1 CUMM 4.8-10.8 RBC 5.21 CUMM 4.2-5.4 Hemoglobin 14.9 g/dL 12.0-16.0 Hematocrit 45 % 35-47 Mean Corpuscular Vol 87 um3 79-97 Mean Corpuscular Hemaglobin 29 pg 27-31 Mean Corpuscular Hemo Concen 33 g/dL 32-36 RDW 12 % 10.5-15 Platelets 202 CUMM 150-450 Mean Platelet Volume 10.2 um3 7.4-10.4 Granulocytes 74.7 % 38-83 Lymphocytes 16.4 % Low 20-45 Monocytes 5.4 % 1-9 Eosinophil 3.0 % 0-6 Basophil% 0.5 % 0-2 Abs Lymphs 1.5 1.0-4.8 Abs Mononuclear 0.5 0-0.8 Abs Grans 6.8 1.5-7.7 Abs Eosinophils 0.3 0-0.6 Abs Basophils 0 0-0.2 CBC With Diff (Fma) 11/18/1998 [facility] WBC 7.3 /Hpf 3.6 - 9.6 (607)- - Lymphocytes 22.2 % 20.5 - 51.1 Monocytes 1.9 % 1.7 - 9.3 Granulocytes 75.9 % High 42.2 - 75.2 Lymphocytes 1.6 10^3/uL 0.7 - 4.9 Monocytes 0.1 10^3/uL 0.1 - 0.9 Granulocytes 5.5 10^3/uL 1.5 - 7.2 RBC 4.95 /Hpf 3.90 - 5.70 Hemoglobin 14.4 g/dL 12.1 - 17.2 Hematocrit 42.4 % 36.1 - 50.3 Mean Corpuscular Vol 85.6 fl 82.2 - 97.4 Mean Corpuscular Hemaglobin 29.2 pg 27.6 - 33.3 Mean Corpuscular Hemo Concen 34.1 g/dL 33.0 - 34.8 RDW 13.1 % 11.6 - 13.7 Platelets 172 10^3/ul Low 202 - 386 Mean Platelet Volume 10.2 fl 7.4 - 10.4 1 RESULTS VERIFIED BY REPEAT ANALYSIS 2 RESULTS VERIFIED BY REPEAT ANALYSIS 3 RESULTS VERIFIED BY REPEAT ANALYSIS 4 RESULTS VERIFIED BY REPEAT ANALYSIS 5 RUN DATE: 01/03/13 [facility] LAB LIVE PAGE 1 RUN TIME: [address] [place] [address] Specimen Inquiry Name: OLI SIMMONS : [address]: Daren Cabral MD Acct: [id number] Unit: [id number] AGE: 67 Location: ED Re01/01/13 SEX: F Status: DEP ER SPEC: [id number] MEGAN: 01/01/130 [facility] DR: Daren Cabral MD REQ: [id number] RECD: 01/01/135 STATUS: NICOLE LIMON DR: John Kennedy MD _ SOURCE: URINE SPDES: ORDERED: Urine Culture Procedure Result Verified Site Urine Culture Final 01/03/13- 1325 ML Organism 1 NORMAL NAMRATA [place] Count 1-10,000 (Few) CFU/ML END OF REPORT * ML=Testing performed at Main Lab DEPARTMENT OF PATHOLOGY, [address] [place] [address] Kurtis Puga M.D. Director [facility] Permit #[id number] 6 result hazel'd 7 Lymphopenia % 8 Anion gap measurement may be of limited value in the presence of any alkalosis, especially in a combined acid base disorder. . 9 A metabolite of Naproxen, O-desmethylnaproxen, has been shown to interfere with the [place] method for measuring total bilirubin. Samples from patients who have taken Naproxen have shown spurious elevation in total bilirubin levels. 10 Because ethnic data is not always readily available, this report includes an eGFR for both -Americans and non- Americans. The National Kidney Disease Education Program (NKDEP) does not endorse the use of the MDRD equation for patients that are not between the ages of 18 and 70, are , have extremes of body size, muscle mass, or nutritional status, or are non- or non-. According to the National Kidney Foundation, irrespective of diagnosis, the stage of the disease is based on the level of kidney function: Stage Description GFR(mL/min/1.73 m(2)) 1 Kidney damage with normal or decreased GFR 90 2 Kidney damage with mild decrease in GFR 60-89 3 Moderate decrease in GFR 30-59 4 Severe decrease in GFR 15-29 5 Kidney failure <15 (or dialysis) 11 >100^>100,000 ORGANISMS/ML (MANY)^CCU 12 RESULT RECHECKED 13 RESULT RECHECKED 14 RESULT HAZEL'D 15 FASTING 16 RESULT HAZEL'D 17 ERROR MIGHT BE FROM HIGH HEMGLOBIN PER CODE BOOK 18 ERROR IN MACHINE SAYS IT MIGHT BE A HIGH HEMOGLOBIN 19 REFERENCE RANGE <1:40 NEGATIVE 1:40 - 1:80 LOW ANTIBODY LEVEL >1:80 ELEVATED ANTIBODY LEVEL 20 REFERENCE RANGE 0-39 NEGATIVE 40-79 WEAKLY REACTIVE >=80 POSITIVE Procedures Date Code Description Status 03/21/2018 10962 Finger Or Heel Stick Completed 09/25/2017 64598 Finger Or Heel Stick Completed 01/23/2017 35883 Finger Or Heel Stick Completed 03/25/2016 08308 Finger Or Heel Stick Completed 06/08/2015 09721 Finger Or Heel Stick Completed 11/10/2014 33455 Finger Or Heel Stick Completed 11/23/2012 91537 Finger Or Heel Stick Completed 08/20/2012 57750 Finger Or Heel Stick Completed 01/02/2012 11413 Finger Or Heel Stick Completed 03/21/2011 72764 Finger Or Heel Stick Completed 11/17/2010 94962 Finger Or Heel Stick Completed 07/31/2006 [id number] Mammogram Completed 11/03/1998 71631 Electrocardiogram Complete Completed Encounters Type Date Location Provider Dx Diagnosis Office Visit 07/16/2018 Main Office John Kennedy, E11.9 Type 2 diabetes 8:40a M.DKathia mellitus without complications I10 Essential (primary) hypertension Office Visit 03/21/2018 11:10a Main Office John Knight E11.9 Type 2 diabetes Francine Kennedy mellitus without complications I10 Essential (primary) hypertension Office Visit 09/25/2017 2:00p Main Office John Jones.9 Type 2 diabetes Francine Kennedy mellitus without complications I10 Essential (primary) hypertension Office Visit 05/24/2017 9:20a Main Office John Knight Z23 Encounter for Francine Kennedy immunization E11.9 Type 2 diabetes mellitus without complications I10 Essential (primary) hypertension Office Visit 01/23/2017 9:00a Main Office John Knight E11.9 Type 2 diabetes Francine Kennedy mellitus without complications I10 Essential (primary) hypertension Office Visit 03/25/2016 2:10p Main Office John Knight E11.9 Type 2 diabetes Francine Kennedy mellitus without complications Office Visit 06/08/2015 1:00p Main Office John Jones.9 Type 2 diabetes Francine Kennedy mellitus without complications Office Visit 02/09/2015 8:40a Main Office John Knight 250.00 Diabetes Gus Kennedy M.D. W/O Compl Type II Or Unspec Controlled 782.3 Edema Office Visit 11/10/2014 1:00p Main Office John Knight 250.00 Diabetes Gus Kennedy M.D. W/O Compl Type II Or Unspec Controlled Office Visit 08/12/2014 10:15a Main Office Christa Munguia, 466.0 Bronchitis Acute Afnp-C Office Visit 06/20/2014 1:20p Main Office John Knight 250.00 Diabetes Gus Kennedy M.D. W/O Compl Type II Or Unspec Controlled Office Visit 01/27/2014 3:00p Main Office John Knight 782.3 Edema Francine Kennedy Office Visit 09/11/2013 1:40p Main Office John Knight 250.00 Diabetes Gus Kennedy M.D. W/O Compl Type II Or Unspec Controlled Office Visit 08/30/2013 2:20p Main Office John Knight 366.9 Cataract Unspec Francine Kennedy 250.00 Diabetes Mellitus W/O Compl Type II Or Unspec Controlled 401.9 Hypertension Unspec V72.83 Examination Preoperative Other Spec Office Visit 03/15/2013 1:10p Main Office John Knight 724.5 Backache Unspec Francine Kennedy Office Visit 01/04/2013 1:20p Main Office John Knight 724.5 Backache Unspec Francine Kennedy Office Visit 11/23/2012 9:10a Main Office John Knight 250.00 Diabetes Gus Kennedy M.D. W/O Compl Type II Or Unspec Controlled 724.5 Backache Unspec Office Visit 08/20/2012 9:00a Main Office John Knight 250.00 Yoon Kennedy M.D. W/O Compl Type II Or Unspec Controlled Office Visit 03/28/2012 8:00a Main Office John Knight 250.00 Diabetes Gus Kennedy M.D. W/O Compl Type II Or Unspec Controlled 724.5 Backache Unspec Office Visit 01/02/2012 8:40a Main Office John Fox.[place]ary Diabetes Gus Kennedy M.D. W/O Compl Type II Or Unspec Controlled 401.9 Hypertension Unspec Office Visit 08/08/2011 8:20a Main Office John Fox.[place]ary Diabetes Gus Kennedy M.D. W/O Compl Type II Or Unspec Controlled 401.9 Hypertension Unspec Office Visit 03/21/2011 8:20a Main Office John Fox.Cary Kennedy M.D. W/O Compl Type II Or Unspec Controlled 599.0 UTI Urinary Tract Infection Site Not Spec Office Visit 03/04/2011 9:00a Main Office John Kennedy, 592.0 Calculus Of Kidney Francine Fox.00 Diabetes Mellitus W/O Compl Type II Or Unspec Controlled Office Visit 11/17/2010 1:10p Main Office John Fox.Cary Kennedy M.D. W/O Compl Type II Or Unspec Controlled Office Visit 07/19/2010 8:00a Main Office John Knight 250.00 Diabetes Gus Kennedy M.D. W/O Compl Type II Or Unspec Controlled Office Visit 03/19/2010 8:00a Main Office John Fox.Cary Kennedy M.D. W/O Compl Type II Or Unspec Controlled 401.9 Hypertension Unspec Office Visit 09/14/2009 8:10a Main Office John Knight 250.00 Yoon Kennedy M.D. W/O Compl Type II Or Unspec Controlled 401.9 Hypertension Unspec 272.4 Hyperlipidemia Other Unspec Office Visit 05/04/2009 8:20a Main Office John Knight 250.00 Yoon Kennedy M.D. W/O Compl Type II Or Unspec Controlled V05.8 Single Disease Spec Other Vaccination & Inoculation Office Visit 01/19/2009 9:10a Main Office John Knight 386.10 Vertigo Peripheral Francine Kennedy Unspec 250.00 Diabetes Mellitus W/O Compl Type II Or Unspec Controlled Office Visit 01/12/2009 11:10a Main Office John Knight 558.9 Gastroenteritis & Francine Kennedy Colitis Noninfectious Other 386.10 Vertigo Peripheral Unspec Office Visit 10/07/2008 11:00a [facility] Office John Knight 490 Bronchitis Acute Francine Kennedy Or Chronic Not Spec Office Visit 08/22/2008 9:10a Main Office John Knight 250.00 Diabetes Mellitus Francine Kennedy W/O Compl Type II Or Unspec Controlled 401.9 Hypertension Unspec Office Visit 03/17/2008 8:00a Main Office John Knight 250.00 Diabetes Mellitus Francine Kennedy W/O Compl Type II Or Unspec Controlled 401.9 Hypertension Unspec Office Visit 11/26/2007 8:00a Main Office John Knight 250.00 Diabetes Gus Kennedy M.D. W/O Compl Type II Or Unspec Controlled 401.9 Hypertension Unspec Office Visit 08/10/2007 9:10a Main Office John Knight 401.9 Hypertension Unspec Francine Kennedy 250.00 Diabetes Mellitus W/O Compl Type II Or Unspec Controlled 272.4 Hyperlipidemia Other Unspec 465.9 URI Upper Respiratory Infections Acute Unspec Sites Office Visit 03/19/2007 8:00a Main Office John Knight 401.9 Hypertension Unspec Francine Kennedy 250.00 Diabetes Mellitus W/O Compl Type II Or Unspec Controlled Office Visit 11/20/2006 10:10a Main Office John Knight 401.9 Hypertension Unspec Francine Kennedy 250.00 Diabetes Mellitus W/O Compl Type II Or Unspec Controlled Office Visit 07/10/2006 8:10a Main Office John Knight 401.9 Hypertension Unspec Francine Kennedy 250.00 Diabetes Mellitus W/O Compl Type II Or Unspec Controlled 272.4 Hyperlipidemia Other Unspec Office Visit 03/27/2006 8:00a Main Office John Knight 401.9 Hypertension Unspec Francine Kennedy 250.00 Diabetes Mellitus W/O Compl Type II Or Unspec Controlled Office Visit 01/02/2006 8:20a Main Office John Knight 401.9 Hypertension Unspec Francine Kennedy 250.00 Diabetes Mellitus W/O Compl Type II Or Unspec Controlled Office Visit 11/28/2005 8:00a Main Office John Knight 401.9 Hypertension Unspec Francine Kennedy 250.00 Diabetes Mellitus W/O Compl Type II Or Unspec Controlled Office Visit 10/31/2005 11:10a Main Office John Knight 490 Bronchitis Acute Francine Kennedy Or Chronic Not Spec Office Visit 08/22/2005 8:20a Main Office John Knight 250.00 Diabetes Gus Kennedy M.D. W/O Compl Type II Or Unspec Controlled Office Visit 06/06/2005 9:40a Main Office John Knight 250.00 Diabetes Gus Kennedy M.D. W/O Compl Type II Or Unspec Controlled 401.9 Hypertension Unspec Office Visit 02/21/2005 8:00a Main Office John Knight 250.00 Diabetes Gus Kennedy M.D. W/O Compl Type II Or Unspec Controlled 401.9 Hypertension Unspec Office Visit 11/22/2004 8:00a Main Office John Knight 401.9 Hypertension Unspec Francine Kennedy 250.00 Diabetes Mellitus W/O Compl Type II Or Unspec Controlled Office Visit 09/13/2004 8:00a Main Office John Knight 250.00 Diabetes Gus Kennedy M.D. W/O Compl Type II Or Unspec Controlled 401.9 Hypertension Unspec Office Visit 05/10/2004 8:00a Main Office John Knight 250.00 Diabetes Gus Kennedy M.D. W/O Compl Type II Or Unspec Controlled 401.9 Hypertension Unspec Office Visit 02/09/2004 8:20a Main Office John Knight 401.9 Hypertension Unspec Francine Kennedy 250.00 Diabetes Mellitus W/O Compl Type II Or Unspec Controlled Office Visit 11/03/2003 8:00a Main Office John Knight 401.9 Hypertension Unspec Francine Kennedy 250.00 Diabetes Mellitus W/O Compl Type II Or Unspec Controlled Office Visit 08/29/2003 9:00a Main Office John Knight 250.00 Diabetes Mellitus Francine Kennedy W/O Compl Type II Or Unspec Controlled 401.9 Hypertension Unspec Office Visit 05/19/2003 8:00a Main Office John Knight 250.00 Diabetes Gus Kennedy M.D. W/O Compl Type II Or Unspec Controlled 272.4 Hyperlipidemia Other Unspec Office Visit 04/04/2003 9:10a Main Office John Knight 250.00 Diabetes Mellitus Francine Kennedy W/O Compl Type II Or Unspec Controlled 401.1 Hypertension Benign Office Visit 03/03/2003 8:10a Main Office John Knight 250.00 Diabetes Mellitus Francine Kennedy W/O Compl Type II Or Unspec Controlled 401.9 Hypertension Unspec Office Visit 02/10/2003 9:00a Main Office John Knight 401.1 Hypertension Benign Francine Kennedy 272.4 Hyperlipidemia Other Unspec Office Visit 11/29/2002 9:30a Main Office Giselle Ramsey 401.9 Hypertension Unspec Afnp-C Office Visit 11/15/2002 1:45p Main Office Giselle Ramsey 401.9 Hypertension Unspec Afnp-C Office Visit 03/08/2000 1:00p Main Office John Kennedy M.D. Plan of Treatment Future Appointment(s):11/26/2018 1:40 pm - John Kennedy M.D. at Main Kcnuvd6611/09/2018 - Gladys Johnson-CJ06.9 Acute upper respiratory infection, unspecifiedAllComments:Medication Management Patient Understands medications she's taking? Yes No Are there Barriers to Adherence? Yes No Has the patient been asked about herbal supplements and therapies, and OTC meds? Yes No Care Plan1. Patient has been queried about patient's goals/preferences and functional/lifestyle goals at relevant visits. If relevant, describe: na2. Treatment goals as explained to the patient: abovesx resolution 3. Are there barriers to meeting treatment goals? Yes No If Yes, please describe:4. Self-Management goals as described to the patient: Yes No this appears to be a viral illness , continue sx rx : rest , vapor tylenol or advil , ok to try mucinexyou can use some softening ear gtts in your r ear for a few days , and return if sx persist / worsen keep your routine f/u with Dr Kennedy as scheduled
--- OUTSIDE RECORDS SUMMARY | 2018-12-04 17:17 | XMS REPORT | Continuity of Care Document ---
:1945 External Reference #:[id number] Author Name Yana Kay Care Team Providers Name Role Phone John Kennedy MD Primary Care Physician Unavailable Payers Date Identification Numbers Payment Provider Subscriber Policy Number: [id number] Medicare Brenda Simmons PayID: [id number] [address] [place] [address] Effective: 2018 Policy Number: [id number] [employer] Brenda Simmons PayID: [id number] [address] [place] [address] Advance Directives Description No Information Available Problems Description No Information Family History Description No Information Available Social History Type Date Description Comments Sex Unknown Marital Status Lives With Alone Occupation Retired Occupation worked at [employer] ETOH Use Denies alcohol use Tobacco Use Start: Unknown Patient has never smoked Recreational Drug Use Denies Drug Use Smoking Status Reviewed: 11/27/18 Patient has never smoked Exercise Type/Frequency Exercises rarely Allergies, Adverse Reactions, Alerts Description No Known Drug Allergies Medications Active Medications SIG Qnty Indications Ordering Provider Date Brilinta 1 tab by mouth 60tabs Parisa Castellanos, 11/19/2018 90mg Tablets twice a day ROSMERY SHORE FSCAI Aspirin 1 by mouth 90tabs Parisa Castellanos, 11/19/[address] every day ROSMERY SHORE FSCAI Atorvastatin Calcium 1 by mouth Eric Taylor M.D., 11/19/2018 80mg every day KAMRAN BOTELLO Tablets Metoprolol Succinate 1 by mouth Unknown ER every day 25mg Tablets ER 24HR Immunizations Description No Information Available Vital Signs Date Vital Result Comment 11/27/2018 3:08pm Height 59.5 inches 4'11.50" Weight 163.00 lb with shoes Heart Rate 72 /min BP Systolic Sitting 155 mmHg Lue, regular cuff BP Diastolic Sitting 90 mmHg Lue, regular cuff Respiratory Rate 16 /min BMI (Body Mass Index) 32.4 kg/m2 Results Description No Information Available Procedures Date Code Description Status 11/27/2018 60306 EKG Tracing & Interpretation Completed 11/15/2018 73284 Pace Maker Eval W/Iterative Adjment Dual Lead Completed 11/14/2018 58877 Perm Pacemaker Av Sequential Atrial And Ventricular Completed 11/13/2018 60759 ECHO Transthorasic Realtime 2D W Doppler & Color Flow Hosp Completed Encounters Type Date Location Provider Dx Diagnosis Office Visit 11/20/2018 [facility] Eirc Taylor, I21.11 Stemi involving 9:24a [facility] AT [facility] M.Radha, FACC, right coronary FSCAI artery Z98.61 Coronary angioplasty status E11.9 Type 2 diabetes mellitus without complications Office Visit 11/19/2018 2:47p [facility] Eric Taylor, I21.11 Stemi involving Of [facility] Francine, FACC, right coronary FSCAI artery Z98.61 Coronary angioplasty status Office Visit 11/17/2018 2:45p [facility] Parisa Wade I21.11 Stemi involving Of [facility] AT [facility] MD Jasmin, right coronary FACC, FSCAI artery I10 Essential (primary) hypertension Office Visit 11/16/2018 12:58p [facility] Parisa Wade I21.11 Stemi involving Of [facility] AT [facility] MD Jasmin, right coronary FACC, FSCAI artery I25.10 Athscl heart disease [place] coronary artery w/o ang pctrs I25.5 Ischemic cardiomyopathy Office Visit 11/15/2018 12:59p [facility] Parisa Wade I21.11 Stemi involving Of [facility] AT [facility] MD Jasmin, right coronary FACC, FSCAI artery I25.10 Athscl heart disease of [place] coronary artery w/o ang pctrs I25.5 Ischemic cardiomyopathy I44.1 Atrioventricular block, second degree Office Visit 11/14/2018 12:57p [facility] Tomasa Lerner I21.11 Stemi involving Of [facility] AT [facility] [employer] right coronary artery I25.10 Athscl heart disease of [place] coronary artery w/o ang pctrs I44.2 Atrioventricular block, complete R00.1 Bradycardia, unspecified N17.9 Acute kidney failure, unspecified Office Visit 11/14/2018 12:55p [facility] Padmini Kruse, I21.11 Stemi involving Of [facility] M.D. right coronary artery I25.10 Athscl heart disease of [place] coronary artery w/o ang pctrs I44.2 Atrioventricular block, complete R00.1 Bradycardia, unspecified N17.9 Acute kidney failure, unspecified Office Visit 11/13/2018 3:52p [facility] Tomasa Lerner, I21.11 Stemi involving Of [facility] AT [facility] [employer] right coronary artery I25.10 Athscl heart disease of [place] coronary artery w/o ang pctrs R00.1 Bradycardia, unspecified I44.2 Atrioventricular block, complete I10 Essential (primary) hypertension Plan of Treatment Future Appointment(s):12/18/2018 1:15 pm - Mango Eastman M.D. at [facility] AT [facility]
[2018-12-04 17:43] LABS: ABS Eosinophils 0.1 10^3/ul (0-0.6); ABS Lymphocytes 0.3 10^3/ul (1.0-4.8); ABS Monocytes 0.5 10^3/ul (0-0.8); ABS Neutrophils 6.5 10^3/ul (1.5-7.7); Eosinophil % 1.6 %; Hematocrit 30 % (35-47); Hemoglobin 10.1 g/dL (12.0-16.0); Lymphocyte % 4.4 %; Mean Corpuscular HGB Conc 33 g/dL (31-36); Mean Corpuscular Hemoglobin 28 pg (27-31); Mean Corpuscular Volume 84 fL (80-97); Mean Platelet Volume 10.4 fL (7.4-10.4); Platelet Count 173 10^3/uL (150-450); Red Blood Count 3.59 10^6 /uL (3.70-4.87); Red Cell Distribution Width 14 % (10.5-15); White Blood Count 7.5 10^3/uL (3.5-10.8)
[2018-12-04] MEDS ORDERED: Ondansetron INJ* 2 MG/ML VIAL IV ONE (17:44)
[2018-12-04] MEDS ORDERED: NS 0.9% 1000 ML** 1,000 ML IV ONE ×2 (17:44→18:16)
[2018-12-04 18:03] LABS: INR 1.24 (0.82-1.09)
[2018-12-04 18:04] LABS: ALT 23 U/L (7-52); AST 25 U/L (13-39); Albumin 3.8 g/dL (3.2-5.2); Albumin/Globulin Ratio 1.5 (1-3); Alkaline Phosphatase 79 U/L (34-104); Anion Gap 7 mmol/L (2-11); BUN/Creatinine Ratio 16.1 (8-20); Blood Urea Nitrogen 22 mg/dL (6-24); CO2 Carbon Dioxide 22 mmol/L (22-32); Calcium 9.5 mg/dL (8.6-10.3); Chloride 110 mmol/L (101-111); EGFR African American 45.6 (>60); EGFR Non-African American 37.7 (>60); Globulin 2.6 g/dL (2-4); Glucose 150 mg/dL (70-100); Magnesium 1.8 mg/dL (1.9-2.7); Potassium 4.1 mmol/L (3.5-5.0); Sodium 139 mmol/L (135-145); Total Protein 6.4 g/dL (6.4-8.9)
[2018-12-04 18:21] LABS: Troponin I 0.19 ng/mL (<0.04)
[2018-12-04 18:28] LABS: TSH (Thyroid Stimulating Horm) 3.17 mcIU/mL (0.34-5.60)
[2018-12-04] MEDS ORDERED: hydrALAZINE IV* 20 MG/ML VIAL IV SLOW PU ONE (20:23)
[2018-12-04 20:46] LABS: Troponin I 0.18 ng/mL (<0.04)
[2018-12-04] MEDS ORDERED: Nitro 2% OINT* (Nitroglycerin) 1 INCH/PAK PAK TOPICAL ONE (21:22)
[2018-12-04] MEDS: Metoclopramide IV* 5 MG/ML 2 ML VIAL IV ONE ×2 (22:00→22:53)
[2018-12-04] MEDS ORDERED: PROCHLORPERAZINE INJ 5 MG/ML 2 ML VIAL IV PRN (22:05)
[2018-12-04] MEDS ORDERED: Furosemide IV* 10 MG/ML 10 ML VIAL (100 MG) IV ONE (22:05)
[2018-12-04] MEDS ORDERED: Heparin for STEMI(*) 5,000 UNITS/ML 1 ML VIAL IV ONE (22:07)
--- NOTE | 2018-12-04 22:08 | ED ---
Nausea/Vomiting/Diarrhea HPI - HPI Summary HPI Summary: Patient complains of sudden onset nausea and persistent dry heaving starting last night. sent to the Ed by jordan worker Dr. Eastman for further evaluation. history of NSTEMI 11/12/18 with stents and pacemaker. Denies fever, cough, sore throat, headache, neck stiffness, CP, SOB, abdominal pain, N/V/D, urine symptoms , change in bowel movement. Medical history is HTN, NSTEMI. Abdominal surgical history is neo, partial hysterectomy, x2. - History of Current Complaint Chief Complaint: EDNauseaVomitDiarrh Stated Complaint: SICK,DR EASTMAN SENT PT HERE PER PT Time Seen by Provider: 12/04/18 17:04 Hx Obtained From: Patient Onset/Duration: Sudden Onset, Lasting Hours Severity Currently: None Pain Intensity: 0 Pain Scale Used: 0-10 Numeric Aggravating Factor(s): Food, Movement Alleviating Factor(s): Position Nausea/Vomiting Presence: Nauseated Vomiting Characteristics: Retching Diarrhea Presence: No - Allergies/Home Medications Allergies/Adverse Reactions: Allergies Allergy/AdvReac Type Severity Reaction Status Date / Time No Known Allergies Allergy Verified 09/30/13 07:41 PMH/Surg Hx/FS Hx/Imm Hx Endocrine/Hematology History: Denies: Hx Anticoagulant Therapy, Hx Thyroid Disease Comment Only: Hx Diabetes - TYPE 2 Cardiovascular History: Reports: Hx Angina, Hx Hypercholesterolemia, Hx Hypertension, Hx Myocardial Infarction, Hx Pacemaker/ICD Denies: Other Cardiovascular Problems/Disorders Respiratory History: Denies: Hx Asthma, Hx Chronic Obstructive Pulmonary Disease (COPD), Other Respiratory Problems/Disorders GI History: Reports: Hx Gall Bladder Disease - removed History: Reports: Hx Kidney Stones - PASSED ON THEIR OWN Denies: Hx Renal Disease Musculoskeletal History: Reports: Hx Arthritis - LOW BACK, Other Musculoskeletal History - hip arthritis Sensory History: Reports: Hx Cataracts - KARRIE, Hx Contacts or Glasses - GLASSES Denies: Hx Hearing Aid Opthamlomology History: Reports: Hx Cataracts - KARRIE, Hx Contacts or Glasses - GLASSES Neurological History: Denies: Hx Dementia, Hx Seizures Psychiatric History: Denies: Hx Substance Abuse - Surgical History Surgery Procedure, Year, and Place: 1974, 1978, C SECTION, [facility]. 1979, HYSTERECTOMY, [facility]. 1984, TONSILECTOMY, [facility]. 1998, LEFT HAND [facility]. 2000, RIGHT HAND CTR, [facility]. Hx Anesthesia Reactions: Yes - NAUSEA Infectious Disease History: No Infectious Disease History: Denies: Hx Hepatitis, Hx Human Immunodeficiency Virus (HIV), Traveled Outside the [place] in Last 30 Days - Social History Alcohol Use: None Substance Use Type: Reports: None Smoking Status (MU): Never Smoked Tobacco Review of Systems Constitutional: Negative Eyes: Negative ENT: Negative Cardiovascular: Negative Respiratory: Negative Positive: Nausea Genitourinary: Negative Musculoskeletal: Negative Skin: Negative Neurological: Negative Psychological: Normal All Other Systems Reviewed And Are Negative: Yes Physical Exam - Summary Physical Exam Summary: Abdomen soft, nontender , lung sounds clear to auscultation bilaterally. RRR. ENT exam unremarkable. Triage Information Reviewed: Yes Vital Signs On Initial Exam: Initial Vitals Temp Pulse Resp BP Pulse Ox 97.3 F 72 18 205/97 97 12/04/18 16:50 12/04/18 16:50 12/04/18 16:50 12/04/18 16:50 12/04/18 16:50 Vital Signs Reviewed: Yes Appearance: Positive: Well-Appearing Skin: Positive: Warm Head/Face: Positive: Normal Head/Face Inspection Eyes: Positive: Normal ENT: Positive: Normal ENT inspection Neck: Positive: Supple Respiratory/Lung Sounds: Positive: Clear to Auscultation Cardiovascular: Positive: Normal Abdomen Description: Positive: Nontender Musculoskeletal: Positive: Normal Neurological: Positive: Normal Psychiatric: Positive: Normal AVPU Assessment: Alert - Reid Coma Scale Best Eye Response: 4 - Spontaneous Best Motor Response: 6 - Obeys Commands Best Verbal Response: 5 - Oriented Coma Scale Total: 15 Diagnostics - Vital Signs Vital Signs Temp Pulse Resp BP Pulse Ox 12/04/18 19:38 75 21 205/93 95 12/04/18 19:08 65 12 187/82 99 12/04/18 19:00 71 18 98 12/04/18 18:38 73 22 164/118 96 12/04/18 18:08 73 23 180/111 97 12/04/18 18:00 71 24 99 12/04/18 17:38 71 31 209/106 99 12/04/18 17:37 73 19 206/85 97 12/04/18 17:12 9 184/134 12/04/18 17:08 72 21 192/87 97 12/04/18 17:07 71 32 95 12/04/18 16:50 97.3 F 72 18 205/97 97 - Laboratory Lab Results: Lab Results 12/04/18 12/04/18 12/04/18 Range/Units 17:21 17:33 17:33 WBC 7.5 (3.5-10.8) 10^3/uL RBC 3.59 L (3.70-4.87) 10^6 /uL Hgb 10.1 L (12.0-16.0) g/dL Hct 30 L (35-47) % MCV 84 (80-97) fL MCH 28 (27-31) pg MCHC 33 (31-36) g/dL RDW 14 (10.5-15) % Plt Count 173 (150-450) 10^3/uL MPV 10.4 (7.4-10.4) fL Neut % (Auto) 86.5 % Lymph % (Auto) 4.4 % [place] % (Auto) 6.9 % Eos % (Auto) 1.6 % Baso % (Auto) 0.6 % Absolute Neuts (auto) 6.5 (1.5-7.7) 10^3/ul Absolute Lymphs (auto) 0.3 L (1.0-4.8) 10^3/ul Absolute Monos (auto) 0.5 (0-0.8) 10^3/ul Absolute Eos (auto) 0.1 (0-0.6) 10^3/ul Absolute Basos (auto) 0.0 (0-0.2) 10^3/ul Absolute Nucleated RBC 0.0 10^3/ul Nucleated RBC % 0.0 INR (Anticoag Therapy) 1.24 H (0.82-1.09) Sodium 139 (135-145) mmol/L Potassium 4.1 (3.5-5.0) mmol/L Chloride 110 (101-111) mmol/L Carbon Dioxide 22 (22-32) mmol/L Anion Gap 7 (2-11) mmol/L BUN 22 (6-24) mg/dL Creatinine 1.37 H (0.51-0.95) mg/dL Est GFR ( Amer) 45.6 (>60) Est GFR (Non-Af Amer) 37.7 (>60) BUN/Creatinine Ratio 16.1 (8-20) Glucose 150 H (70-100) mg/dL Lactic Acid (0.5-2.0) mmol/L Calcium 9.5 (8.6-10.3) mg/dL Magnesium 1.8 L (1.9-2.7) mg/dL Total Bilirubin 0.80 (0.2-1.0) mg/dL AST 25 (13-39) U/L ALT 23 (7-52) U/L Alkaline Phosphatase 79 (34-104) U/L Troponin I 0.19 H* (<0.04) ng/mL C-Reactive Protein 1.60 (<8.01) mg/L B-Natriuretic Peptide (<=100) pg/mL Total Protein 6.4 (6.4-8.9) g/dL Albumin 3.8 (3.2-5.2) g/dL Globulin 2.6 (2-4) g/dL Albumin/Globulin Ratio 1.5 (1-3) Lipase 88 H (11.0-82.0) U/L TSH 3.17 (0.34-5.60) mcIU/mL 12/04/18 12/04/18 12/04/18 Range/Units 17:33 20:18 20:18 WBC (3.5-10.8) 10^3/uL RBC (3.70-4.87) 10^6 /uL Hgb (12.0-16.0) g/dL Hct (35-47) % MCV (80-97) fL MCH (27-31) pg MCHC (31-36) g/dL RDW (10.5-15) % Plt Count (150-450) 10^3/uL MPV (7.4-10.4) fL Neut % (Auto) % Lymph % (Auto) % [place] % (Auto) % Eos % (Auto) % Baso % (Auto) % Absolute Neuts (auto) (1.5-7.7) 10^3/ul Absolute Lymphs (auto) (1.0-4.8) 10^3/ul Absolute Monos (auto) (0-0.8) 10^3/ul Absolute Eos (auto) (0-0.6) 10^3/ul Absolute Basos (auto) (0-0.2) 10^3/ul Absolute Nucleated RBC 10^3/ul Nucleated RBC % INR (Anticoag Therapy) (0.82-1.09) Sodium (135-145) mmol/L Potassium (3.5-5.0) mmol/L Chloride (101-111) mmol/L Carbon Dioxide (22-32) mmol/L Anion Gap (2-11) mmol/L BUN (6-24) mg/dL Creatinine (0.51-0.95) mg/dL Est GFR ( Amer) (>60) Est GFR (Non-Af Amer) (>60) BUN/Creatinine Ratio (8-20) Glucose (70-100) mg/dL Lactic Acid 0.8 (0.5-2.0) mmol/L Calcium (8.6-10.3) mg/dL Magnesium (1.9-2.7) mg/dL Total Bilirubin (0.2-1.0) mg/dL AST (13-39) U/L ALT (7-52) U/L Alkaline Phosphatase (34-104) U/L Troponin I 0.18 H* (<0.04) ng/mL C-Reactive Protein (<8.01) mg/L B-Natriuretic Peptide > 1300 H (<=100) pg/mL Total Protein (6.4-8.9) g/dL Albumin (3.2-5.2) g/dL Globulin (2-4) g/dL Albumin/Globulin Ratio (1-3) Lipase (11.0-82.0) U/L TSH (0.34-5.60) mcIU/mL Result Diagrams: 12/04/18 17:33 12/04/18 17:33 Lab Statement: Any lab studies that have been ordered have been reviewed, and results considered in the medical decision making process. Naus/Vom/Diarrhea Course/Dx - Course Course Of Treatment: Patient complains of sudden onset nausea and persistent dry heaving starting last night. sent to the Ed by jordan worker Dr. Eastman for further evaluation. history of NSTEMI 11/12/18 with stents and pacemaker. Denies fever, cough, sore throat, headache, neck stiffness, CP, SOB, abdominal pain, N/ V/D, urine symptoms, change in bowel movement. Medical history is HTN, NSTEMI. Abdominal surgical history is neo, partial hysterectomy, x2. Physical exam: Abdomen soft, nontender , lung sounds clear to auscultation bilaterally. RRR. ENT exam unremarkable. Elevated blood pressure with SBP 200. Elevated troponins. BNP 1300. Chest x-ray positive for pulmonary edema. Elevated creatinine. EKG paced rhythm. Discussed patient with jordan worker Dr. Delgado who recommended admission, heparin and nitro paste. Admitted to hospitalist. - Differential Dx/Diagnosis Provider Diagnosis: Nausea, Elevated troponin, CHF (congestive heart failure), Elevated serum creatinine Condition At Discharge: Stable Discharge - Sign-Out/Discharge Documenting (check all that apply): Patient Departure - Discharge Plan Condition: Stable Disposition: ADMITTED TO [facility] - Billing Disposition and Condition Condition: STABLE Disposition: Admitted to [facility]
[2018-12-04] MEDS ORDERED: Magnesium Sulfate 2 GM IV* 2 GM/50 ML BAG IVPB ONE (22:09)
[2018-12-04] MEDS ORDERED: Ondansetron INJ* 2 MG/ML VIAL IV PRN (22:12)
[2018-12-04] MEDS ORDERED: Acetaminophen TAB* 325 MG PO PRN (22:12)
[2018-12-04] MEDS ORDERED: Dextrose 50% Syringe 50 ML* 25 GM/50 ML SYRINGE IV PUSH PRN (22:33)
[2018-12-04] MEDS: Ticagrelor* 90 MG TAB PO SCH (22:46)
[2018-12-04] MEDS: Atorvastatin* 80 MG TAB PO SCH (22:46)
[2018-12-04 23:46] LABS: Troponin I 0.16 ng/mL (<0.04)
--- NOTE | 2018-12-04 23:59 | HP ---
CC: John Kennedy MD; John Cat MD; Mango Eastman MD * HISTORY AND PHYSICAL: DATE OF ADMISSION: 12/04/18 TIME OF EVALUATION: 2200 PRIMARY CARE PHYSICIAN: John Kennedy MD SOCIAL AND POLITICAL STUDIES PROFESSOR: John Cat MD MACHINE WELT BUTTER: Mango Eastman MD CHIEF COMPLAINT: Nausea and dry heaving. HISTORY OF PRESENT ILLNESS: This is a 72-year-old female who recently had an inferior wall STEMI last month, status post stent placement, who presented after having 2 days of nausea and heaving. The patient states she has been weak with loss of strength and she was discharged home on 11/20/18. Yesterday, she had acute onset of nausea with dry heaving and today it got worse. She called the cardiology office and they recommended that she come here for further evaluation. The patient states when she was admitted for her heart attack on 11/12/18, she did have nausea and vomiting, but she also had exertional chest discomfort when she was walking to the mail box. She denies any chest pain. No exertional chest pain. She has been more short of breath and noted a 5 to 6 pound weight gain with lower extremity swelling. She just got compression stockings but has not yet used them. No abdominal pain. No diarrhea. No urinary symptoms. No fevers or chills. No recent cold. No rash. She tries to adhere to a low-salt diet, but she also gets meals on wheels. Otherwise, she has followed up with Dr. Kennedy, her primary and with Dr. Cat in the outpatient setting and she states she has been compliant with her medications. In the emergency room, the patient had labs and imaging. She was given 1250 L of normal saline, Zofran 4 mg, an inch of nitro paste, hydralazine 5 mg, and referred to the hospitalist service for further evaluation. PAST MEDICAL HISTORY: 1. Recent STEMI admitted from 11/12/18 to 11/20/18. Inferior wall stent placement to the RCA. Also has 80% mid and left circumflex disease. 2. Coronary artery disease. 3. Hypertension. 4. Chronic pain. 5. CKD. 6. History of heart block status post pacemaker on that admission. 7. Ejection fraction on last echo was 40% to 45% followed by Dr. Eastman. MEDICATIONS: 1. Brilinta 90 mg p.o. b.i.d. 2. Nitro sublingual as needed. 3. Metoprolol succinate 50 mg p.o. daily. 4. Atorvastatin 80 mg p.o. daily. 5. Aspirin 81 mg daily. ALLERGIES: No known drug allergies. FAMILY HISTORY: Positive for coronary artery disease. SOCIAL HISTORY: The patient is , she is retired, she does have [employer] services come. She recently fell last week, she states she over did it. She normally ambulates with a cane. No smoking, alcohol, or illicit drug use. Her healthcare proxy are both her daughters. Code status is full code. REVIEW OF SYSTEMS: A 14-point review of systems as mentioned in the HPI, otherwise negative. PHYSICAL EXAMINATION GENERAL: In no acute distress. She was dry heaving after I left the room. Her daughter is at the bedside. VITAL SIGNS: Temp 97.3, pulse rate 79, respiratory rate 20, oxygen saturation 100% on room air, blood pressure 144/88, on arrival to the emergency room it was 205/97. HEENT: Head normocephalic. Pupils are equal and reactive and anicteric. Oropharynx; mucous membranes are moist. NECK: Supple. RESPIRATORY: Bilateral rales heard throughout. No increased work of breathing. CARDIAC: Regular rate and rhythm. Soft systolic murmur heard throughout. ABDOMEN: Positive bowel sounds. Soft, nontender, and nondistended. EXTREMITIES: +2 pretibial edema. NEUROLOGIC: Alert and oriented x3. No gross focal neurologic deficits. DIAGNOSTIC STUDIES/LAB DATA: White count 7.5, hemoglobin 10, hematocrit 30, platelets 173. INR is 1.24. Sodium 139, potassium 4.1, chloride 110, bicarb 22 , BUN 22, creatinine 1.37, and glucose 150. Mag 1.8. Troponin 0.19, repeat 0.18. Lipase 88. TSH 3.17. Radiographic Data: EKG shows paced rhythm. Chest x-ray findings suggestive of pulmonary congestion. ASSESSMENT: This is a 72-year-old female with a past medical history of a recent STEMI, stent placement to the RCA with known coronary artery disease and chronic kidney disease, who presents to the emergency room with 2 days of nausea and dry retching. 1. Nausea with dry retching. Assessment: I suspect her symptoms are related to acute decompensated congestive heart failure likely related to poorly controlled hypertension and NSTEMI. She has no chest pain. Her last admission for her STEMI, she did have chest discomfort at that time and her troponins are down trending from 20. Plan: I am going to give her magnesium, Lasix 40 mg. Her blood pressure has since come down since the nitro paste has been placed. We will place her on telemetry. Continue to trend her troponin and check an echocardiogram in the morning and continue on her home cardiac medications. She may need a standing diuretic at discharge. We will also put in for a nutrition consult to discuss low salt diet and physical therapy due to her deconditioning at home and a recent fall. If her nausea and vomiting persist despite adequate treatment of her heart failure, consider further workup differential including possibly gastroparesis, may be she has underlying diabetes or consider contacting GI. Again we will repeat her lipase to rule out any pathology related to her pancreas as well. 2. Elevated lipase. I suspect this is related to her congestive heart failure presentation. Her abdominal exam is completely benign. We will repeat a lipase in the morning. 3. Hyperglycemia. We will check a hemoglobin A1c and place her on a lispro sliding scale and a carb consistent diet, low salt. 4. FEN. As mentioned low salt, carb-restricted diet. 5. DVT prophylaxis. The patient scores high risk. Place her on heparin subcu t.i.d. 6. Code status is full code. PATIENT TIME: Greater than 50 minutes spend doing the history and physical, more than half the time spent in direct patient contact. [id number]/[facility] #: [id number] [place]
[2018-12-05] MEDS: Heparin VIAL(*) 5000 UNITS/ML VIAL (FIVE THOUSAND) SUBCUT SCH ×2 (06:12→13:17)
[2018-12-05 06:14] LABS: HDL Cholesterol 31.8 mg/dL; Magnesium 2.2 mg/dL (1.9-2.7)
[2018-12-05 06:33] LABS: Albumin 3.6 g/dL (3.2-5.2); Calcium 9.1 mg/dL (8.6-10.3); Total Bilirubin 0.9 mg/dL (0.2-1.0)
[2018-12-05 06:39] LABS: Albumin/Globulin Ratio 1.4 (1-3); BUN/Creatinine Ratio 16.7 (8-20); EGFR African American 41.1 (>60); EGFR Non-African American 33.9 (>60); Globulin 2.5 g/dL (2-4); Total Protein 6.1 g/dL (6.4-8.9)
[2018-12-05 07:02] LABS: Troponin I 0.21 ng/mL (<0.04)
[2018-12-05 08:16] LABS: ABS Lymphocytes 0.2 10^3/ul (1.0-4.8); ABS Monocytes 0.3 10^3/ul (0-0.8); ABS Neutrophils 6.6 10^3/ul (1.5-7.7); Eosinophil % 0.1 %; Hematocrit 29 % (35-47); Hemoglobin 9.8 g/dL (12.0-16.0); Lymphocyte % 2.7 %; Mean Corpuscular HGB Conc 33 g/dL (31-36); Mean Corpuscular Hemoglobin 28 pg (27-31); Mean Corpuscular Volume 83 fL (80-97); Mean Platelet Volume 10.2 fL (7.4-10.4); Platelet Count 158 10^3/uL (150-450); Red Blood Count 3.53 10^6 /uL (3.70-4.87); Red Cell Distribution Width 14 % (10.5-15); White Blood Count 7.1 10^3/uL (3.5-10.8)
[2018-12-05] MEDS: Aspirin 81 mg CHEW TAB* 81 MG TAB.CHEW PO SCH (09:00)
[2018-12-05] MEDS ORDERED: Metoprolol Succinate XL TAB* 50 MG PO SCH (09:00)
[2018-12-05] MEDS: Ticagrelor* 90 MG TAB PO SCH ×3 (09:00→21:01)
[2018-12-05] MEDS: Insulin LISPRO* 1 UNITS UNIT SUBCUT SCH ×3 (09:00→17:34)
[2018-12-05] MEDS ORDERED: Furosemide IV* 10 MG/ML VIAL (40 MG) IV SCH (09:00)
[2018-12-05 10:01] LABS: Urine Appearance Clear; Urine Bacteria Absent (Absent); Urine Bilirubin Negative (Negative); Urine Blood 1+ (Negative); Urine Color Yellow; Urine Glucose Negative (Negative); Urine Ketones Negative (Negative); Urine Nitrite Negative (Negative); Urine Protein 2+(100 mg/dL) (Negative); Urine Red Blood Cell Trace(0-2/hpf) (Absent); Urine Specific Gravity 1.008 (1.010-1.030); Urine Urobilinogen Negative (Negative); Urine White Blood Cell Trace(0-5/hpf) (Absent)
--- NOTE | 2018-12-05 12:36 | CONS ---
CC: Dr. Eastman; Dr. Kennedy CARDIOLOGY CONSULTATION: DATE OF CONSULT: 12/05/18 REASON FOR CONSULT: Coronary artery disease and troponin elevation. HISTORY OF PRESENT ILLNESS: This is a very pleasant 72-year-old woman was admitted yesterday with nausea and dry heaves and shortness of breath. She had a STEMI inferior-posterior NC on 11/11/18, was evaluated, and underwent urgent catheterization with a right radial approach. She had a mid RCA occlusion that was revascularized with 2 x 18 Resolute Jarred stent, distally overlapping proximal 2.5 Synergy drug eluting stent, followed by proximal 2.5 x 12 Xience drug eluting stent. She had severe stenosis of the circumflex (not the LAD as erroneously reported in the catheter report) but she had a creatinine of 2.89 which went up to approximately 4 and it was decided to defer intervention at that time. Her first troponin was 32.6. She also had a second degree AV block and received a DDD pacemaker. Her EF was 40% to 50% on echocardiogram, troponin peaked at 37.6, it was unclear whether her presenting weakness and nausea was ischemic symptom or subsequent to infarct, several days earlier. In order to minimize contrast, the circumflex was not approached and she was treated medically. She also reports that she had exertional chest discomfort on the day prior to her presentation for the STEMI in October. She was seen by Dr. Castellanos on 11/27/17 and was doing well. She reports that she was able to walk around her house and go up and down the driveway without chest pain. She did well until yesterday when she developed waxing/waning episodes of nausea and dry heaves, somewhat similar to what she had prior to her presentation but without a chest discomfort. She came to the emergency room and was noted to be hypertensive and had elevated BNP. She was treated with Lasix and improved. She did report that she had more swelling in her legs with dependent edema after discharge and was started on compression stockings. Her weight went up about 4 to 5 pounds. She denies orthopnea but does sit up at night because of sinus congestion. She denies fevers, chills, sweats, or bleeding problems. No palpitations or lightheadedness. She does report that her energy was low yesterday when she was having the dry heaves but she feels better today. PAST MEDICAL HISTORY: Includes: 1. Hypertension. 2. Coronary artery disease with a STEMI, admitted 11/12/18 to 11/20/18 with inferior wall NC and RCA stent placement. She had an 80% midcircumflex disease. 3. History of heart block, pacemaker during her October admission. 4. Chronic renal disease followed by Dr. Cat. 5. She is being treated for hyperlipidemia. PAST SURGICAL HISTORY: Includes: 1. Two C-sections. 2. Hysterectomy. 3. Cholecystectomy. 4. Tonsillectomy at age 39. MEDICATIONS: Medications at home include: 1. Brilinta 90 mg b.i.d. 2. Metoprolol succinate 50 mg a day. 3. Atorvastatin 80 mg a day. 4. Aspirin 81 mg a day. 5. She is also on Zofran and subcutaneous heparin. 6. She gets Lasix 40 mg IV daily. ALLERGIES: She denies any drug allergies. FAMILY HISTORY: She has 6 siblings, one brother of an NC at 71. His twin sister had an NC at age 71 and is now 72. Mother at 85 with dementia; father 79, of an NC. SOCIAL HISTORY: She denies tobacco use or alcohol use. She was 2 years ago. She lives in her own house and her daughters and 2 granddaughters have joined her. 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 [place]. REVIEW OF SYSTEMS: Review of systems x10 was negative, except as above. PHYSICAL EXAM: She is a well-developed female in no apparent distress, alert and oriented x3. Atraumatic, normocephalic. Blood pressure 148/57, pulse of 77 , O2 sats 98%, temperature 98. No significant JVD. Carotids 2+ without bruits , no cervical adenopathy or thyromegaly. Extraocular muscles intact. Cardiac Exam: S1, S2 with no murmurs, gallops or rubs. Chest: Clear. Abdomen: Bowel sounds present, nontender. No hepatosplenomegaly. Extremities: Radial pulses intact, femoral pulses intact with bruits bilaterally. Distal pulses intact with trace edema. Motor strength 5/5 bilaterally. Deep tendon reflexes 2/4. DIAGNOSTIC STUDIES/LAB DATA: CBC mild anemia with hemoglobin 9.8, hematocrit of 29. Sodium 140, potassium of 4, BUN 25, creatinine of 1.5. Hemoglobin A1c 6.9. Troponin initially 0.18, 0.16 up to 0.21 today. BNP greater than 1300. Cholesterol 59, HDL 31.8. EKG reveals no evidence of active cardiopulmonary disease and EKG from 12/04/18 reveals sinus rhythm with a possible old inferior NC, atrial sensed ventricular paced and poor R wave progression, lateral ST-T depressions, possible ischemia. The EKG was similar to 12/04/[address] depressions are more pronounced compared to 11/13/18 and 11/14/18 when she had more of acute inferior-posterior ST changes, consistent with acute inferior-posterior infarct. IMPRESSION AND PLAN: Ms. Simmons has history of coronary disease status post revascularization of an RCA lesion in the setting of an acute ST elevation NC. She did well for several weeks and now had an episode of nausea and dry heaves, similar to a presentation last time with new lateral ST changes and mildly elevated troponins. It is unclear whether the troponins are due to resolution from the original insult in the setting of renal insufficiency or due to heart failure or acute coronary syndrome. Given the lateral ST changes and her known history of a critical circumflex lesion, it is possible that she needs revascularization of her circumflex. I did discuss this with the patient, plan on discussing and presenting it to Dr. Taylor, our interventionalist, for consideration. She does have history of renal insufficiency and her creatinine has improved somewhat and it was decided to defer revascularization of the circumflex until her renal function improved. For the time being I recommend the followin. Continue aspirin and Plavix. 2. Would consider adding heparin if she has recurrent symptoms. 3. Would continue metoprolol as you are doing and increase the dose as tolerated. 4. Would add nitrates to her regimen. 5. Would continue atorvastatin as you are doing. 6. We will follow serial troponins and EKGs. Further recommendation will depend on her clinical course. 7. Would avoid excessive diuresis given her appearance being euvolemic today and potential for worsening renal insufficiency. 8. Will hold iv lasix for now. MEDICAL DECISION MAKING: complex. [id number]/[facility] [place] #: [id number] addendum: d/w Dr. Taylor and Dr. Carreon. [facility]
[2018-12-05 13:00] LABS: Creatine Kinase 55 U/L (10-223)
[2018-12-05 13:00] LABS: Creatine Kinase 46 U/L (10-223)
[2018-12-05 13:03] LABS: CKMB ng/mL 2.6 ng/mL (0.6-6.3)
[2018-12-05 13:04] LABS: CKMB ng/mL 2.3 ng/mL (0.6-6.3)
[2018-12-05] MEDS: Nitro 2% OINT* (Nitroglycerin) 1 INCH/PAK PAK TOPICAL SCH (13:19)
[2018-12-05 13:58] LABS: CKMB ng/mL 4.8 ng/mL (0.6-6.3)
[2018-12-05 14:06] LABS: Creatine Kinase 112 U/L (10-223)
[2018-12-05 14:11] LABS: CKMB ng/mL 13.1 ng/mL (0.6-6.3)
[2018-12-05 14:35] LABS: Troponin I 1.48 ng/mL (<0.04)
--- NOTE | 2018-12-05 16:40 | PN ---
Subjective Date of Service: 12/05/18 Interval History: Pt is feeling quite well currently. She denies any nausea or vomiting. No CP or SOB. She really does not want to pursue cardiac catheterization but also then states she has a lot to live for currently. Objective Active Medications: Acetaminophen (Tylenol Tab*) 650 mg PO Q4H PRN PRN Reason: FEVER/PAIN Aspirin (Aspirin 81 Mg Chew Tab*) 81 mg PO DAILY [facility] Last Admin: 12/05/18 09:00 Dose: 81 mg Atorvastatin Calcium (Lipitor*) 80 mg PO 1700 [facility] Last Admin: 12/04/18 22:46 Dose: 80 mg Dextrose (D50w Syringe 50 Ml*) 12.5 gm IV PUSH .FOR FS < 60 - SS PRN PRN Reason: FS < 60 Docusate Sodium (Colace Cap*) 100 mg PO BID PRN PRN Reason: CONSTIPATION Heparin Sodium/Dextrose (Heparin Drip 25,000 Units(*)) 25,000 units in 500 mls @ 0 mls/hr IV PER RATE [facility]; Protocol Insulin Human Lispro (Humalog*) 0 units SUBCUT AC [facility]; Protocol Last Admin: 12/05/18 13:19 Dose: 4 units Metoprolol Succinate (Toprol Xl Tab*) 50 mg PO BID [facility] Nitroglycerin (Nitroglycerin 2% Oint*) 0.5 inch TOPICAL 0600,1200 [facility]; Protocol Last Admin: 12/05/18 13:19 Dose: 0.5 inch Ondansetron HCl (Zofran Inj*) 4 mg IV Q4H PRN PRN Reason: NAUSEA/VOMITING Prochlorperazine Edisylate (Compazine Inj*) 10 mg IV Q6H PRN PRN Reason: NAUSEA/VOMITING Last Admin: 12/04/18 22:13 Dose: 10 mg Senna (Senokot Tab*) 1 tab PO BID PRN PRN Reason: CONSTIPATION Ticagrelor (Brilinta*) 90 mg PO BID [facility] Last Admin: 12/05/18 09:00 Dose: 90 mg Vital Signs - 8 hr 12/05/18 12/05/18 11:44 15:06 Temperature 98.4 F 97.9 F Pulse Rate 72 71 Respiratory 16 18 Rate Blood Pressure 148/63 130/58 (mmHg) O2 Sat by Pulse 93 99 Oximetry Oxygen Devices in Use Now: None Appearance: Elderly female sitting up in a chair, NAD Eyes: No Scleral Icterus Ears/Nose/Mouth/Throat: Mucous Membranes Moist Respiratory: Symmetrical Chest Expansion and Respiratory Effort, Clear to Auscultation Cardiovascular: NL Sounds; No Murmurs; No JVD, RRR, No Edema Abdominal: NL Sounds; No Tenderness; No Distention Extremities: No Clubbing, Cyanosis Skin: No Nodules or Sclerosis Neurological: Alert and Oriented x 3 Result Diagrams: 12/05/18 08:01 12/05/18 05:09 Additional Lab and Data: Lab Results 12/04/18 12/04/18 12/04/18 Range/Units 17:21 17:33 17:33 WBC 7.5 (3.5-10.8) 10^3/uL RBC 3.59 L (3.70-4.87) 10^6 /uL Hgb 10.1 L (12.0-16.0) g/dL Hct 30 L (35-47) % MCV 84 (80-97) fL MCH 28 (27-31) pg MCHC 33 (31-36) g/dL RDW 14 (10.5-15) % Plt Count 173 (150-450) 10^3/uL MPV 10.4 (7.4-10.4) fL Neut % (Auto) 86.5 % Lymph % (Auto) 4.4 % [place]cc[place]och % (Auto) 6.9 % Eos % (Auto) 1.6 % Baso % (Auto) 0.6 % Absolute Neuts (auto) 6.5 (1.5-7.7) 10^3/ul Absolute Lymphs (auto) 0.3 L (1.0-4.8) 10^3/ul Absolute Monos (auto) 0.5 (0-0.8) 10^3/ul Absolute Eos (auto) 0.1 (0-0.6) 10^3/ul Absolute Basos (auto) 0.0 (0-0.2) 10^3/ul Absolute Nucleated RBC 0.0 10^3/ul Nucleated RBC % 0.0 INR (Anticoag Therapy) 1.24 H (0.82-1.09) Sodium 139 (135-145) mmol/L Potassium 4.1 (3.5-5.0) mmol/L Chloride 110 (101-111) mmol/L Carbon Dioxide 22 (22-32) mmol/L Anion Gap 7 (2-11) mmol/L BUN 22 (6-24) mg/dL Creatinine 1.37 H (0.51-0.95) mg/dL Est GFR ( Amer) 45.6 (>60) Est GFR (Non-Af Amer) 37.7 (>60) BUN/Creatinine Ratio 16.1 (8-20) Glucose 150 H (70-100) mg/dL Lactic Acid (0.5-2.0) mmol/L Calcium 9.5 (8.6-10.3) mg/dL Magnesium 1.8 L (1.9-2.7) mg/dL Total Bilirubin 0.80 (0.2-1.0) mg/dL AST 25 (13-39) U/L ALT 23 (7-52) U/L Alkaline Phosphatase 79 (34-104) U/L Troponin I 0.19 H* (<0.04) ng/mL C-Reactive Protein 1.60 (<8.01) mg/L B-Natriuretic Peptide (<=100) pg/mL Total Protein 6.4 (6.4-8.9) g/dL Albumin 3.8 (3.2-5.2) g/dL Globulin 2.6 (2-4) g/dL Albumin/Globulin Ratio 1.5 (1-3) Lipase 88 H (11.0-82.0) U/L TSH 3.17 (0.34-5.60) mcIU/mL 12/04/18 12/04/18 12/04/18 Range/Units 17:33 20:18 20:18 WBC (3.5-10.8) 10^3/uL RBC (3.70-4.87) 10^6 /uL Hgb (12.0-16.0) g/dL Hct (35-47) % MCV (80-97) fL MCH (27-31) pg MCHC (31-36) g/dL RDW (10.5-15) % Plt Count (150-450) 10^3/uL MPV (7.4-10.4) fL Neut % (Auto) % Lymph % (Auto) % [place] % (Auto) % Eos % (Auto) % Baso % (Auto) % Absolute Neuts (auto) (1.5-7.7) 10^3/ul Absolute Lymphs (auto) (1.0-4.8) 10^3/ul Absolute Monos (auto) (0-0.8) 10^3/ul Absolute Eos (auto) (0-0.6) 10^3/ul Absolute Basos (auto) (0-0.2) 10^3/ul Absolute Nucleated RBC 10^3/ul Nucleated RBC % INR (Anticoag Therapy) (0.82-1.09) Sodium (135-145) mmol/L Potassium (3.5-5.0) mmol/L Chloride (101-111) mmol/L Carbon Dioxide (22-32) mmol/L Anion Gap (2-11) mmol/L BUN (6-24) mg/dL Creatinine (0.51-0.95) mg/dL Est GFR ( Amer) (>60) Est GFR (Non-Af Amer) (>60) BUN/Creatinine Ratio (8-20) Glucose (70-100) mg/dL Lactic Acid 0.8 (0.5-2.0) mmol/L Calcium (8.6-10.3) mg/dL Magnesium (1.9-2.7) mg/dL Total Bilirubin (0.2-1.0) mg/dL AST (13-39) U/L ALT (7-52) U/L Alkaline Phosphatase (34-104) U/L Troponin I 0.18 H* (<0.04) ng/mL C-Reactive Protein (<8.01) mg/L B-Natriuretic Peptide > 1300 H (<=100) pg/mL Total Protein (6.4-8.9) g/dL Albumin (3.2-5.2) g/dL Globulin (2-4) g/dL Albumin/Globulin Ratio (1-3) Lipase (11.0-82.0) U/L TSH (0.34-5.60) mcIU/mL Assess/Plan/Problems-Billing Ms Simmons is a 72 yo F who has a h/o CAD, s/p STEMI approximately 3 weeks ago, HTN and CKD who presented to the ER with c/o N/V and was admitted for evaluation of possible CHF and NSTEMI. - Patient Problems (1) NSTEMI (non-ST elevated myocardial infarction) Current Visit: Yes Status: Acute Code(s): I21.4 - NON-ST ELEVATION (NSTEMI) MYOCARDIAL INFARCTION SNOMED Code(s): 76093650 Comment: Troponin continues to climb. Will start heparin drip per Dr. Delgado' s recommendation. Continue current medication regimen. Dr. Taylor to talk with the patient again about proceeding with cardiac catheterization tomorrow. It is likely the tight circumflex lesion seen on catheterization last hospitalization is the culprit lesion now and needs to be addressed. (2) HTN (hypertension) Current Visit: Yes Status: Acute Code(s): I10 - ESSENTIAL (PRIMARY) HYPERTENSION SNOMED Code(s): 19203657 Comment: BP under fair control. Continue current medication reigmen- monitor with the addition of NTG paste and higher dose metoprolol XL. (3) Stage III chronic kidney disease Current Visit: Yes Status: Acute Code(s): N18.3 - CHRONIC KIDNEY DISEASE, STAGE 3 (MODERATE) SNOMED Code(s): 525798667 Comment: Creatinine improved from last hospitalization but not in normal range. Pt has appointment with nephrology next week. She should be gently hydrated prior to catheterization. (4) DVT prophylaxis Current Visit: Yes Status: Acute Code(s): Z29.9 - ENCOUNTER FOR PROPHYLACTIC MEASURES, UNSPECIFIED SNOMED Code(s): 632303870 Comment: heparin drip (5) Full code status Current Visit: Yes Status: Acute Code(s): Z78.9 - OTHER SPECIFIED HEALTH STATUS SNOMED Code(s): 990925343
[2018-12-05] MEDS ORDERED: Heparin DRIP 25,000 UNITS(*) 25,000 UNITS/500 ML BAG IV SCH (16:45)
[2018-12-05] MEDS ORDERED: Heparin VIAL(*) 5000 UNITS/ML VIAL (FIVE THOUSAND) IV PRN (17:00)
[2018-12-05] MEDS: Atorvastatin* 80 MG TAB PO SCH (17:33)
[2018-12-05] MEDS: Metoprolol Succinate XL TAB* 50 MG PO SCH (20:10)
[2018-12-05] MEDS ORDERED: diPHENhydraMINE PO* 25 MG PO PRN (20:26)
[2018-12-05] MEDS: Acetylcysteine CAP (RENAL)* 600 MG PO SCH (21:01)
[2018-12-05] MEDS ORDERED: NS 0.9% 1000 ML** 1,000 ML IV SCH (23:00)
[2018-12-06] MEDS: Acetylcysteine CAP (RENAL)* 600 MG PO SCH ×2 (06:22→20:12)
[2018-12-06] MEDS: Nitro 2% OINT* (Nitroglycerin) 1 INCH/PAK PAK TOPICAL SCH ×2 (06:25→15:33)
[2018-12-06 06:35] LABS: BUN/Creatinine Ratio 20.8 (8-20); Calcium 8.8 mg/dL (8.6-10.3); EGFR African American 38.4 (>60); EGFR Non-African American 31.7 (>60); Potassium 3.7 mmol/L (3.5-5.0)
[2018-12-06] MEDS: Insulin LISPRO* 1 UNITS UNIT SUBCUT SCH ×3 (07:22→18:09)
[2018-12-06] MEDS: Aspirin 81 mg CHEW TAB* 81 MG TAB.CHEW PO SCH (07:32)
[2018-12-06] MEDS: Metoprolol Succinate XL TAB* 50 MG PO SCH ×2 (07:32→20:32)
[2018-12-06] MEDS: Ticagrelor* 90 MG TAB PO SCH ×2 (07:32→20:32)
[2018-12-06 08:05] LABS: ABS Basophils 0.1 10^3/ul (0-0.2); ABS Eosinophils 0.5 10^3/ul (0-0.6); ABS Lymphocytes 0.4 10^3/ul (1.0-4.8); ABS Monocytes 0.6 10^3/ul (0-0.8); Eosinophil % 6.1 %; Hematocrit 30 % (35-47); Lymphocyte % 5.3 %; Mean Corpuscular HGB Conc 33 g/dL (31-36); Mean Corpuscular Hemoglobin 28 pg (27-31); Mean Corpuscular Volume 84 fL (80-97); Mean Platelet Volume 10.2 fL (7.4-10.4); Platelet Count 173 10^3/uL (150-450); Red Blood Count 3.62 10^6 /uL (3.70-4.87); Red Cell Distribution Width 14 % (10.5-15); White Blood Count 7.6 10^3/uL (3.5-10.8)
[2018-12-06] MEDS ORDERED: VERAPAMIL 2.5 MG/ML 2 ML VIAL ** 5 mg/2 ml ONE (09:25)
[2018-12-06] MEDS ORDERED: Heparin 2 UNITS/ML IVPREMIX* 2,000 UNIT/1,000 ML BAG IV ONE (09:25)
[2018-12-06] MEDS ORDERED: nitroGLYCERIN DRIP* 25,000 MCG/250 ML BTL ONE ×2 (09:25→09:56)
[2018-12-06] MEDS ORDERED: Iodixanol 320 (CONTRAST) 100 ML SDV ONE (09:25)
[2018-12-06] MEDS ORDERED: Heparin(*) 1000 UNIT/ML 10 ML VIAL CATH LAB IV ONE (09:25)
[2018-12-06] MEDS ORDERED: Lidocaine 1% INJ* 10 MG/ML 30 ML SDV ONE (09:26)
[2018-12-06] MEDS ORDERED: Midazolam* 1 MG/ML 5 ML VIAL (5 MG) ONE (09:47)
[2018-12-06] MEDS ORDERED: fentaNYL* 50 MCG/ML 2 ML VIAL (100 MCG VIAL) ONE (09:47)
[2018-12-06] MEDS ORDERED: Bivalirudin(*) 250 MG VIAL ONE (10:10)
[2018-12-06] MEDS ORDERED: Nitroglycerin TAB 0.4 MG* 0.4 MG TAB SL PRN (11:09)
[2018-12-06] MEDS ORDERED: NS 0.9% 1000 ML** 1,000 ML IV SCH (11:15)
[2018-12-06] MEDS: Isosorbide Mononitrate ER TAB* 30 MG PO SCH (16:52)
[2018-12-06] MEDS: Atorvastatin* 80 MG TAB PO SCH (16:52)
--- NOTE | 2018-12-06 18:43 | PN ---
Subjective Date of Service: 12/06/18 Interval History: Patient seen and examined in ICU, after cath/PCI completed. Patient states she feels well, no chest pain, some fatigue, no SOB, no n/v, no further complaints. Objective Active Medications: Acetaminophen (Tylenol Tab*) 650 mg PO Q4H PRN PRN Reason: FEVER/PAIN Acetylcysteine (Acetylcysteine Cap (Renal)*) 600 mg PO 0900,1800 [facility] Stop: 12/07/18 09:01 Amlodipine Besylate (Norvasc Tab*) 5 mg PO DAILY [facility] Aspirin (Aspirin 81 Mg Chew Tab*) 81 mg PO DAILY [facility] Last Admin: 12/06/18 07:32 Dose: 81 mg Atorvastatin Calcium (Lipitor*) 80 mg PO 1700 [facility] Last Admin: 12/06/18 16:52 Dose: 80 mg Dextrose (D50w Syringe 50 Ml*) 12.5 gm IV PUSH .FOR FS < 60 - SS PRN PRN Reason: FS < 60 Docusate Sodium (Colace Cap*) 100 mg PO BID PRN PRN Reason: CONSTIPATION Insulin Human Lispro (Humalog*) 0 units SUBCUT [facility]; Protocol Last Admin: 12/06/18 18:09 Dose: Not Given Isosorbide Mononitrate (Imdur Er Tab*) 30 mg PO DAILY [facility] Last Admin: 12/06/18 16:52 Dose: 30 mg Metoprolol Succinate (Toprol Xl Tab*) 50 mg PO BID [facility] Last Admin: 12/06/18 07:32 Dose: 50 mg Nitroglycerin (Nitroglycerin Tab 0.4 Mg*) 0.4 mg SL Q5M PRN PRN Reason: ANGINA Ondansetron HCl (Zofran Inj*) 4 mg IV Q4H PRN PRN Reason: NAUSEA/VOMITING Prochlorperazine Edisylate (Compazine Inj*) 10 mg IV Q6H PRN PRN Reason: NAUSEA/VOMITING Last Admin: 12/04/18 22:13 Dose: 10 mg Senna (Senokot Tab*) 1 tab PO BID PRN PRN Reason: CONSTIPATION Ticagrelor (Brilinta*) 90 mg PO BID [facility] Last Admin: 12/06/18 07:32 Dose: 90 mg Vital Signs - 8 hr 12/06/18 12/06/18 12/06/18 11:48 11:49 12:00 Temperature Pulse Rate 68 66 62 Respiratory 16 24 19 Rate Blood Pressure 171/77 (mmHg) O2 Sat by Pulse 97 97 98 Oximetry 12/06/18 12/06/18 12/06/18 12:03 12:19 12:33 Temperature Pulse Rate 65 60 63 Respiratory 21 17 17 Rate Blood Pressure 178/77 174/75 166/79 (mmHg) O2 Sat by Pulse 96 97 97 Oximetry 12/06/18 12/06/18 12/06/18 12:49 13:00 13:03 Temperature Pulse Rate 69 70 71 Respiratory 23 22 23 Rate Blood Pressure 196/112 199/112 (mmHg) O2 Sat by Pulse 97 97 96 Oximetry 12/06/18 12/06/18 12/06/18 13:19 13:34 13:49 Temperature Pulse Rate 70 68 67 Respiratory 22 24 21 Rate Blood Pressure 161/103 155/77 157/67 (mmHg) O2 Sat by Pulse 94 94 96 Oximetry 12/06/18 12/06/18 12/06/18 14:00 14:04 14:41 Temperature Pulse Rate 63 64 65 Respiratory 21 21 18 Rate Blood Pressure 159/72 127/61 (mmHg) O2 Sat by Pulse 96 96 99 Oximetry 12/06/18 12/06/18 12/06/18 14:45 14:46 15:00 Temperature 98.3 F Pulse Rate 61 60 Respiratory 16 12 16 Rate Blood Pressure 132/88 149/70 (mmHg) O2 Sat by Pulse 99 98 Oximetry 12/06/18 12/06/18 12/06/18 15:01 15:15 15:30 Temperature Pulse Rate 60 63 Respiratory 18 15 18 Rate Blood Pressure 158/67 178/68 173/73 (mmHg) O2 Sat by Pulse 97 97 Oximetry 12/06/18 12/06/18 12/06/18 16:00 16:31 17:00 Temperature Pulse Rate 60 60 62 Respiratory 18 14 16 Rate Blood Pressure 160/67 164/69 144/82 (mmHg) O2 Sat by Pulse 98 97 96 Oximetry 12/06/18 12/06/18 12/06/18 17:31 18:00 18:31 Temperature Pulse Rate 68 67 70 Respiratory 25 21 22 Rate Blood Pressure 162/68 163/73 (mmHg) O2 Sat by Pulse 98 98 96 Oximetry 12/06/18 18:34 Temperature Pulse Rate 74 Respiratory 31 Rate Blood Pressure 151/79 (mmHg) O2 Sat by Pulse 96 Oximetry Oxygen Devices in Use Now: None Appearance: alert, NAD Eyes: No Scleral Icterus, PERRLA Ears/Nose/Mouth/Throat: NL Teeth, Lips, Gums, Mucous Membranes Moist Neck: NL Appearance and Movements; NL JVP, Trachea Midline Respiratory: Symmetrical Chest Expansion and Respiratory Effort, Clear to Auscultation Cardiovascular: NL Sounds; No Murmurs; No JVD, RRR - paced Abdominal: NL Sounds; No Tenderness; No Distention Extremities: No Edema, No Clubbing, Cyanosis, - - compression device right radial access with small ecchymosis/hematoma Skin: No Nodules or Sclerosis Neurological: Alert and Oriented x 3 Nutrition: Taking PO's Result Diagrams: 12/06/18 07:42 12/06/18 05:19 Additional Lab and Data: Lab Results 12/04/18 12/04/18 12/04/18 Range/Units 17:21 17:33 17:33 WBC 7.5 (3.5-10.8) 10^3/uL RBC 3.59 L (3.70-4.87) 10^6 /uL Hgb 10.1 L (12.0-16.0) g/dL Hct 30 L (35-47) % MCV 84 (80-97) fL MCH 28 (27-31) pg MCHC 33 (31-36) g/dL RDW 14 (10.5-15) % Plt Count 173 (150-450) 10^3/uL MPV 10.4 (7.4-10.4) fL Neut % (Auto) 86.5 % Lymph % (Auto) 4.4 % [place] % (Auto) 6.9 % Eos % (Auto) 1.6 % Baso % (Auto) 0.6 % Absolute Neuts (auto) 6.5 (1.5-7.7) 10^3/ul Absolute Lymphs (auto) 0.3 L (1.0-4.8) 10^3/ul Absolute Monos (auto) 0.5 (0-0.8) 10^3/ul Absolute Eos (auto) 0.1 (0-0.6) 10^3/ul Absolute Basos (auto) 0.0 (0-0.2) 10^3/ul Absolute Nucleated RBC 0.0 10^3/ul Nucleated RBC % 0.0 INR (Anticoag Therapy) 1.24 H (0.82-1.09) Sodium 139 (135-145) mmol/L Potassium 4.1 (3.5-5.0) mmol/L Chloride 110 (101-111) mmol/L Carbon Dioxide 22 (22-32) mmol/L Anion Gap 7 (2-11) mmol/L BUN 22 (6-24) mg/dL Creatinine 1.37 H (0.51-0.95) mg/dL Est GFR ( Amer) 45.6 (>60) Est GFR (Non-Af Amer) 37.7 (>60) BUN/Creatinine Ratio 16.1 (8-20) Glucose 150 H (70-100) mg/dL Lactic Acid (0.5-2.0) mmol/L Calcium 9.5 (8.6-10.3) mg/dL Magnesium 1.8 L (1.9-2.7) mg/dL Total Bilirubin 0.80 (0.2-1.0) mg/dL AST 25 (13-39) U/L ALT 23 (7-52) U/L Alkaline Phosphatase 79 (34-104) U/L Troponin I 0.19 H* (<0.04) ng/mL C-Reactive Protein 1.60 (<8.01) mg/L B-Natriuretic Peptide (<=100) pg/mL Total Protein 6.4 (6.4-8.9) g/dL Albumin 3.8 (3.2-5.2) g/dL Globulin 2.6 (2-4) g/dL Albumin/Globulin Ratio 1.5 (1-3) Lipase 88 H (11.0-82.0) U/L TSH 3.17 (0.34-5.60) mcIU/mL 12/04/18 12/04/18 12/04/18 Range/Units 17:33 20:18 20:18 WBC (3.5-10.8) 10^3/uL RBC (3.70-4.87) 10^6 /uL Hgb (12.0-16.0) g/dL Hct (35-47) % MCV (80-97) fL MCH (27-31) pg MCHC (31-36) g/dL RDW (10.5-15) % Plt Count (150-450) 10^3/uL MPV (7.4-10.4) fL Neut % (Auto) % Lymph % (Auto) % [place] % (Auto) % Eos % (Auto) % Baso % (Auto) % Absolute Neuts (auto) (1.5-7.7) 10^3/ul Absolute Lymphs (auto) (1.0-4.8) 10^3/ul Absolute Monos (auto) (0-0.8) 10^3/ul Absolute Eos (auto) (0-0.6) 10^3/ul Absolute Basos (auto) (0-0.2) 10^3/ul Absolute Nucleated RBC 10^3/ul Nucleated RBC % INR (Anticoag Therapy) (0.82-1.09) Sodium (135-145) mmol/L Potassium (3.5-5.0) mmol/L Chloride (101-111) mmol/L Carbon Dioxide (22-32) mmol/L Anion Gap (2-11) mmol/L BUN (6-24) mg/dL Creatinine (0.51-0.95) mg/dL Est GFR ( Amer) (>60) Est GFR (Non-Af Amer) (>60) BUN/Creatinine Ratio (8-20) Glucose (70-100) mg/dL Lactic Acid 0.8 (0.5-2.0) mmol/L Calcium (8.6-10.3) mg/dL Magnesium (1.9-2.7) mg/dL Total Bilirubin (0.2-1.0) mg/dL AST (13-39) U/L ALT (7-52) U/L Alkaline Phosphatase (34-104) U/L Troponin I 0.18 H* (<0.04) ng/mL C-Reactive Protein (<8.01) mg/L B-Natriuretic Peptide > 1300 H (<=100) pg/mL Total Protein (6.4-8.9) g/dL Albumin (3.2-5.2) g/dL Globulin (2-4) g/dL Albumin/Globulin Ratio (1-3) Lipase (11.0-82.0) U/L TSH (0.34-5.60) mcIU/mL Microbiology and Other Data: Microbiology 12/06/18 15:00 Nasal Screen MRSA (PCR) - Final Nasal Mrsa Not Detected 12/05/18 09:21 Urine Culture - Final Urine No Growth (<1,000 CFU/mL) Assess/Plan/Problems-Billing This is a 72 yo female with hx of CAD, s/p STEMI and PM insertion approximately 3 weeks ago, HTN and CKD who presented to the ER with c/o N/V and was admitted for evaluation of possible CHF and NSTEMI. - Patient Problems (1) NSTEMI (non-ST elevated myocardial infarction) Code(s): I21.4 - NON-ST ELEVATION (NSTEMI) MYOCARDIAL INFARCTION SNOMED Code(s ): 73698699 Comment: - Elevated trop at admission and continued to rise with max at 1.48 - There was circumflex lesion noted at last cath that was stented today by Dr. Taylor - Continue brillinta, metoprolol, isosorbide mono, statin, ASA, NTG PRN - Monitor radial site for hematoma (2) HTN (hypertension) Code(s): I10 - ESSENTIAL (PRIMARY) HYPERTENSION SNOMED Code(s): 13192406 Comment: - Metoprolol increased - Imdur added today, some additional HTN noted post cath, will add norvasc in AM - Continue to monitor closely (3) Stage III chronic kidney disease Code(s): N18.3 - CHRONIC KIDNEY DISEASE, STAGE 3 (MODERATE) SNOMED Code(s): 700897402 Comment: - Creatinine improved from last hospitalization but not in normal range - Monitor renal fx post cath and continue IV hydration - Outpatient follow up with nephrology next week (4) DVT prophylaxis Code(s): Z29.9 - ENCOUNTER FOR PROPHYLACTIC MEASURES, UNSPECIFIED SNOMED Code( s): 804959690 Comment: - Off heparin drip, continue SCDs (5) Full code status Code(s): Z78.9 - OTHER SPECIFIED HEALTH STATUS SNOMED Code(s): 978896249 Status and Disposition: Inpatient, likely downgrade from ICU tomorrow.
[2018-12-06] MEDS ORDERED: nitroGLYCERIN DRIP* 25,000 MCG/250 ML BTL IV SCH (21:00)
[2018-12-07 03:47] LABS: ABS Basophils 0.1 10^3/ul (0-0.2); ABS Eosinophils 0.4 10^3/ul (0-0.6); ABS Lymphocytes 0.6 10^3/ul (1.0-4.8); ABS Monocytes 0.5 10^3/ul (0-0.8); ABS Neutrophils 4.8 10^3/ul (1.5-7.7); Eosinophil % 6.9 %; Hematocrit 25 % (35-47); Hemoglobin 8.4 g/dL (12.0-16.0); Lymphocyte % 9.4 %; Mean Corpuscular HGB Conc 33 g/dL (31-36); Mean Corpuscular Hemoglobin 28 pg (27-31); Mean Corpuscular Volume 83 fL (80-97); Mean Platelet Volume 9.9 fL (7.4-10.4); Platelet Count 155 10^3/uL (150-450); Red Blood Count 3.01 10^6 /uL (3.70-4.87); Red Cell Distribution Width 14 % (10.5-15); White Blood Count 6.4 10^3/uL (3.5-10.8)
[2018-12-07 04:05] LABS: BUN/Creatinine Ratio 27.6 (8-20); Calcium 8.7 mg/dL (8.6-10.3); EGFR African American 39.3 (>60); EGFR Non-African American 32.4 (>60)
[2018-12-07] MEDS: Isosorbide Mononitrate ER TAB* 30 MG PO SCH (07:59)
[2018-12-07] MEDS: Aspirin 81 mg CHEW TAB* 81 MG TAB.CHEW PO SCH (08:00)
[2018-12-07] MEDS: Metoprolol Succinate XL TAB* 50 MG PO SCH ×2 (08:00→21:46)
[2018-12-07] MEDS: Ticagrelor* 90 MG TAB PO SCH ×2 (08:01→21:47)
[2018-12-07] MEDS: Acetylcysteine CAP (RENAL)* 600 MG PO SCH (08:02)
--- NOTE | 2018-12-07 08:35 | PN ---
<EduardaTomasa - Last Filed: 12/07/18 09:10> Subjective Date of Service: 12/07/18 - NSTEMI s/p YULISSA/Lcx 12/06/2018 Interval History: No events last night, patient states she slept well after procedure yesterday. Denies LUE pain, chest pain, sob, dizziness, nausea or palpitations. She is sitting in chair eating breakfast when I entered the room. Medications Active Medications: Acetaminophen (Tylenol Tab*) 650 mg PO Q4H PRN PRN Reason: FEVER/PAIN Acetylcysteine (Acetylcysteine Cap (Renal)*) 600 mg PO 0900,1800 [facility] Stop: 12/07/18 09:01 Last Admin: 12/07/18 08:02 Dose: 600 mg Amlodipine Besylate (Norvasc Tab*) 5 mg PO DAILY [facility] Last Admin: 12/07/18 08:00 Dose: 5 mg Aspirin (Aspirin 81 Mg Chew Tab*) 81 mg PO DAILY [facility] Last Admin: 12/07/18 08:00 Dose: 81 mg Atorvastatin Calcium (Lipitor*) 80 mg PO 1700 [facility] Last Admin: 12/06/18 16:52 Dose: 80 mg Dextrose (D50w Syringe 50 Ml*) 12.5 gm IV PUSH .FOR FS < 60 - SS PRN PRN Reason: FS < 60 Docusate Sodium (Colace Cap*) 100 mg PO BID PRN PRN Reason: CONSTIPATION Nitroglycerin/Dextrose (Nitroglycerin Drip*) 25,000 mcg in 250 mls @ 9 mls/hr IV .(Initial Rate) [facility]; Protocol Last Admin: 12/06/18 19:00 Dose: 9 mls/hr Insulin Human Lispro (Humalog*) 0 units SUBCUT AC [facility]; Protocol Last Admin: 12/06/18 18:09 Dose: Not Given Isosorbide Mononitrate (Imdur Er Tab*) 30 mg PO DAILY [facility] Last Admin: 12/07/18 07:59 Dose: 30 mg Metoprolol Succinate (Toprol Xl Tab*) 50 mg PO BID [facility] Last Admin: 12/07/18 08:00 Dose: 50 mg Nitroglycerin (Nitroglycerin Tab 0.4 Mg*) 0.4 mg SL Q5M PRN PRN Reason: ANGINA Ondansetron HCl (Zofran Inj*) 4 mg IV Q4H PRN PRN Reason: NAUSEA/VOMITING Prochlorperazine Edisylate (Compazine Inj*) 10 mg IV Q6H PRN PRN Reason: NAUSEA/VOMITING Last Admin: 12/04/18 22:13 Dose: 10 mg Senna (Senokot Tab*) 1 tab PO BID PRN PRN Reason: CONSTIPATION Ticagrelor (Brilinta*) 90 mg PO BID [facility] Last Admin: 12/07/18 08:01 Dose: 90 mg Objective Vital Signs: Temp Pulse Resp BP Pulse Ox 97.5 F 60 19 149/67 98 12/07/18 07:33 12/07/18 06:16 12/07/18 06:16 12/07/18 06:16 12/07/18 06:16 Oxygen Devices in Use Now: None Appearance: sitting in chair, offers no complaints. A+O x3 Ears/Nose/Mouth/Throat: NL Teeth, Lips, Gums, Mucous Membranes Moist Neck: NL Appearance and Movements; NL JVP, Trachea Midline Respiratory: Clear to Auscultation Cardiovascular: NL Sounds; No Murmurs; No JVD, - - + pretibial edema but non pitting. Right radial access site is intact, non tender to palpation. strong palpable pulse. Extremities: - - non pitting bilateral lower extremity edema and edema in hands Neurological: Alert and Oriented x 3 Lines/Tubes/Other Access: Clean, Dry and Intact Peripheral IV Laboratory Results: 12/07/18 03:40 12/07/18 03:40 INR (Anticoag Therapy) 1.24 (0.82-1.09) H 12/04/18 17:21 APTT 73.1 seconds (26.0-36.3) H 12/06/18 05:19 Total Bilirubin 0.90 mg/dL (0.2-1.0) 12/05/18 05:09 AST 22 U/L (13-39) 12/05/18 05:09 ALT 21 U/L (7-52) 12/05/18 05:09 Alkaline Phosphatase 79 U/L (34-104) 12/05/18 05:09 CK-MB (CK-2) 13.1 ng/mL (0.6-6.3) H 12/05/18 13:31 B-Natriuretic Peptide > 1300 pg/mL (<=100) H 12/04/18 20:18 Total Protein 6.1 g/dL (6.4-8.9) L 12/05/18 05:09 Albumin 3.6 g/dL (3.2-5.2) 12/05/18 05:09 Globulin 2.5 g/dL (2-4) 12/05/18 05:09 Albumin/Globulin Ratio 1.4 (1-3) 12/05/18 05:09 Triglycerides 56 mg/dL 12/05/18 05:09 Cholesterol 59 mg/dL 12/05/18 05:09 LDL Cholesterol 16 mg/dL 12/05/18 05:09 HDL Cholesterol 31.8 mg/dL 12/05/18 05:09 TSH 3.17 mcIU/mL (0.34-5.60) 12/04/18 17:33 12/04/18 12/04/18 12/04/18 17:33 20:18 23:12 Troponin I 0.19 H* 0.18 H* 0.16 H* 12/05/18 12/05/18 05:09 13:31 Troponin I 0.21 H* 1.48 H* Laboratory Results - last 24 hr 12/06/18 12/06/18 12/06/18 10:03 12:56 16:52 WBC RBC Hgb Hct MCV MCH MCHC RDW Plt Count MPV Neut % (Auto) Lymph % (Auto) [place] % (Auto) Eos % (Auto) Baso % (Auto) Absolute Neuts (auto) Absolute Lymphs (auto) Absolute Monos (auto) Absolute Eos (auto) Absolute Basos (auto) Absolute Nucleated RBC Nucleated RBC % POC Activ Clotting Time 164 Sodium Potassium Chloride Carbon Dioxide Anion Gap BUN Creatinine Est GFR ( Amer) Est GFR (Non-Af Amer) BUN/Creatinine Ratio Glucose POC Glucose (mg/dL) 135 H 154 H Calcium 12/07/18 12/07/18 03:40 03:40 WBC 6.4 RBC 3.01 L Hgb 8.4 L Hct 25 L MCV 83 MCH 28 MCHC 33 RDW 14 Plt Count 155 MPV 9.9 Neut % (Auto) 75.2 Lymph % (Auto) 9.4 [place] % (Auto) 7.7 Eos % (Auto) 6.9 Baso % (Auto) 0.8 Absolute Neuts (auto) 4.8 Absolute Lymphs (auto) 0.6 L Absolute Monos (auto) 0.5 Absolute Eos (auto) 0.4 Absolute Basos (auto) 0.1 Absolute Nucleated RBC 0.0 Nucleated RBC % 0.0 POC Activ Clotting Time Sodium 138 Potassium 4.0 Chloride 111 Carbon Dioxide 20 L Anion Gap 7 BUN 43 H Creatinine 1.56 H Est GFR ( Amer) 39.3 Est GFR (Non-Af Amer) 32.4 BUN/Creatinine Ratio 27.6 H Glucose 113 H POC Glucose (mg/dL) Calcium 8.7 Diagnostic Imaging: Echo 11/13/2018 per report LVEF 40-45% ( closer to 40%) [facility] [place] 12/06/2018 please refer to report in chart. Patient had YULISSA/Lcx EKG Data: 12/08/2018; [employer] rate 68. Underlying rhythm sinus Telemetry; paced 60's Assessment/Plan #1 Inferior STEMI 11/12/2018 resulted in YULISSA/RCA course complicated at that time by CHB which resulted in PPM on 11/19/2018. Came back in with recurrent nausea and SOB. Ruled in for NSTEMI. Troponin peaked on 12/05/2018 at 1.48 prior to this troponin was trending down from previous [place]. She is s/p YULISSA/Lcx and is doing well with no recurrent symptoms. Recommend continuing Brilinta 90mg PO BID, ASA 81/day. ( Needs uninterrupted DAPT x12 months given prior presentation of STEMI 11/12/2018). Continue Toprol 50mg PO BID and Lipitor therapy. f/u with Dr. Taylor on 12/11/18 at 3pm at our medical office building. Keep 12/18/[address] Eastman at the medical office building. #2 ICM; LVEF 40-45% via echo 10/2018. Patient appears compensated.Will continue Toprol 50mg PO BID. D'c Norvasc. Start Hydralazine 25mg Po TID in combination with isosorbide dinitrate 10mg PO TID( consider discharging patient on combination drug to simplify medication regimen. I spoke with [facility] inpatient pharmacy unfortunately we do not have combo drug on formulary). No ACEI/ARB/ Aldactone or Entresto due to ARF 10/2018. Creat continues to improve since PPm was implanted. #3 CKD; unclear how long renal disease has been occurring but it certainly worsened during october admission due to bradycardia. since PPM implanted renal function has improved. She is to keep f/u appointment on 12/13/[address] Cat. Needs outpatient BMP . given dye load yesterday for [facility] [place]. Creat today is stable. will update BMP tomorrow morning. #4 Uncontrolled HTN; Continue toprol 50mg Po BID, D/X Norvasc. RX Hydralazine and Isosorbide dinitrate therapy and follow. #5 h/o HLD on statin therapy, LDL goal < 70 given h/o CAD. #6 Disposition pending course, patient full code. will d/w Dr. Cruz. Patient to be transferred to [address] [place] [address] today. Attending: Niesha Cruz <Niesha Cruz - Last Filed: 12/07/18 11:25> Medications Active Medications: Acetaminophen (Tylenol Tab*) 650 mg PO Q4H PRN PRN Reason: FEVER/PAIN Aspirin (Aspirin 81 Mg Chew Tab*) 81 mg PO DAILY [facility] Last Admin: 12/07/18 08:00 Dose: 81 mg Atorvastatin Calcium (Lipitor*) 80 mg PO 1700 [facility] Last Admin: 12/06/18 16:52 Dose: 80 mg Dextrose (D50w Syringe 50 Ml*) 12.5 gm IV PUSH .FOR FS < 60 - SS PRN PRN Reason: FS < 60 Docusate Sodium (Colace Cap*) 100 mg PO BID PRN PRN Reason: CONSTIPATION Hydralazine HCl (Apresoline Tab*) 25 mg PO TID [facility] Last Admin: 12/07/18 09:16 Dose: 25 mg Insulin Human Lispro (Humalog*) 0 units SUBCUT [facility]; Protocol Last Admin: 12/07/18 09:07 Dose: Not Given Isosorbide Dinitrate (Isordil Tab*) 10 mg PO TID [facility] Last Admin: 12/07/18 09:16 Dose: 10 mg Metoprolol Succinate (Toprol Xl Tab*) 50 mg PO BID [facility] Last Admin: 12/07/18 08:00 Dose: 50 mg Nitroglycerin (Nitroglycerin Tab 0.4 Mg*) 0.4 mg SL Q5M PRN PRN Reason: ANGINA Ondansetron HCl (Zofran Inj*) 4 mg IV Q4H PRN PRN Reason: NAUSEA/VOMITING Prochlorperazine Edisylate (Compazine Inj*) 10 mg IV Q6H PRN PRN Reason: NAUSEA/VOMITING Last Admin: 12/04/18 22:13 Dose: 10 mg Senna (Senokot Tab*) 1 tab PO BID PRN PRN Reason: CONSTIPATION Ticagrelor (Brilinta*) 90 mg PO BID [facility] Last Admin: 12/07/18 08:01 Dose: 90 mg Objective Vital Signs: Temp Pulse Resp BP Pulse Ox 97.5 F 65 16 113/55 97 12/07/18 07:33 12/07/18 10:02 12/07/18 10:00 12/07/18 10:00 12/07/18 10:02 Laboratory Results: 12/07/18 03:40 12/07/18 03:40 INR (Anticoag Therapy) 1.24 (0.82-1.09) H 12/04/18 17:21 APTT 73.1 seconds (26.0-36.3) H 12/06/18 05:19 Total Bilirubin 0.90 mg/dL (0.2-1.0) 12/05/18 05:09 AST 22 U/L (13-39) 12/05/18 05:09 ALT 21 U/L (7-52) 12/05/18 05:09 Alkaline Phosphatase 79 U/L (34-104) 12/05/18 05:09 CK-MB (CK-2) 13.1 ng/mL (0.6-6.3) H 12/05/18 13:31 B-Natriuretic Peptide > 1300 pg/mL (<=100) H 12/04/18 20:18 Total Protein 6.1 g/dL (6.4-8.9) L 12/05/18 05:09 Albumin 3.6 g/dL (3.2-5.2) 12/05/18 05:09 Globulin 2.5 g/dL (2-4) 12/05/18 05:09 Albumin/Globulin Ratio 1.4 (1-3) 12/05/18 05:09 Triglycerides 56 mg/dL 12/05/18 05:09 Cholesterol 59 mg/dL 12/05/18 05:09 LDL Cholesterol 16 mg/dL 12/05/18 05:09 HDL Cholesterol 31.8 mg/dL 12/05/18 05:09 TSH 3.17 mcIU/mL (0.34-5.60) 12/04/18 17:33 12/04/18 12/04/18 12/04/18 17:33 20:18 23:12 Troponin I 0.19 H* 0.18 H* 0.16 H* 12/05/18 12/05/18 05:09 13:31 Troponin I 0.21 H* 1.48 H* Assessment/Plan Points of Discussion: 12.07.18 11 :24 am . pt seen and examined. and above plan d/w DOMINICK Randolph and agree .
[2018-12-07] MEDS ORDERED: ISOSORBIDE DINITRATE 40 MG PO SCH (09:00)
[2018-12-07] MEDS ORDERED: amLODIPine TAB* 5 MG PO SCH (09:00)
--- NOTE | 2018-12-07 09:01 | CATH ---
CC: Dr. John Kennedy, Dr. John Cat; Dr. Mango Eastman* [facility] CATHETERIZATION AND INTERVENTIONAL REPORT: DATE OF PROCEDURE: 12/06/18 INDICATION FOR THE PROCEDURE: The patient with a non-ST elevation myocardial infarction with critical circumflex mid and distal lesions for revascularization attempt. The procedure was coronary arteriography, balloon angioplasty, and placement of a 2.0 x 30 mm long Resolute [place] drug-eluting stent postdilated to 2.5 to 2.65 in the mid proximal area. CONSENT: The patient was interviewed and examined on the floor of the hospital with risks and benefits were explained. She understood them and wished to proceed. APPROACH: Right radial artery approach. PRECARDIAC CATHETERIZATION LABORATORY RESULTS: Hemoglobin and hematocrit of 9.8 and 29, platelet 158,000, BUN and creatinine of 33 and 1.59. Sodium 139, potassium 3.7, chloride 109, bicarb 22. INR 1.24. EQUIPMENT UTILIZED: 1. Right radial artery sheath: A 6-Filipino Glidesheath slender. 2. Diagnostic guidewire was a 260 length Mccormick curved guidewire. 3. Diagnostic right coronary catheter - a TIG4 5-Filipino. 4. Interventional guide catheter, 6-Filipino VL3. 5. Interventional wires utilized: A 300 length All Star wire and a 300 length Whisper wire. 6. Guidewire support catheter: A 150 length Finecross catheter. 7. Balloon angioplasty catheters: A 1.5 x 12 mm long Emerge [id number] balloon. 8. Stent utilized: A 2.0 x 30 mm long Resolute [place] drug-eluting stent. 9. Post deployment balloon inflation catheters: 2.5 x 12 and 2.5 x 12 NC Emerge balloon. 10. Closure device utilized: A Vasc Band by [employer] (a second Vasc Band was used because of question of mild swelling more proximally). MEDICATIONS GIVEN: Radial artery cocktail including 300 mcg of nitroglycerin and 3 mg of verapamil. An Angiomax bolus and an Angiomax drip was given for a subtherapeutic ACP on heparin. The patient had already received aspirin 81 mg and her Brilinta before coming to the cardiovascular laboratory in addition to her metoprolol. DESCRIPTION OF PROCEDURE: The patient was brought to the cardiovascular laboratory were formal time-out was performed. The patient was prepped and draped in sterile fashion. The right radial artery area was anesthetized with 1 % lidocaine and under ultrasound-guidance of the right radial artery was cannulated and the sheath was placed. The patient received a radial artery cocktail. A diagnostic injection to the right coronary artery was made. It should be noted that because of her history of significant renal insufficiency, a 5 cc, which used for all injections to keep the dye to a minimum. Following this, the guiding catheter was placed into the circumflex artery, which was a separate ostium with no real left main. Guiding views were obtained. A 0.014 All Star wire with support from a Finecross catheter was advanced down the circumflex and unfortunately could not cross the second lesion. This wire exchanged for Whisper wire, which was eventually able to cross and the Finecross catheter was advanced and injected into to confirm intraluminal position. Following this, the All Star wire was reintroduced. Balloon angioplasty was then performed utilizing the 1.5 x 12 mm long Emerge over-the- wire balloon. Following this, the Resolute 2.0 x 30 mm long stent was advanced and deployed with postdeployment inflation utilizing 2.25 x 12 and 2.5 x 12 both dilated to high pressure. Following this, the artery was assessed for results. The total contrast use was 45 cc of Visipaque dye. The radiation exposure included 17.5 minutes of fluoro time. The air kerma radiation was 2916 mGy. The DAP radiation was 14,229 microgray/meter squared. A radial artery band was placed and a reverse Barbeau was an A. Of note, after the first wrist band placed, there was a question of swelling more proximally and as such initially the first band was repositioned, but a second radial artery band was placed for hemostasis. RESULTS: CORONARY ARTERIOGRAPHY: A. Right coronary artery - the prior stents noted from last month were widely patent. The distal vessel showed an abrupt decrease in caliber after it turned onto the inferior surface of the heart with a long segment, which appeared to be 50% reduced leading to PDA and posterior ventricular branch. Of note, the stump of the acute marginal branch prior to the PDA was noted. B. Circumflex artery - a nondominant vessel supplying a thin first, second, and third obtuse marginal branch. Following the third obtuse marginal branch was a significant 85% lesion leading to the third obtuse marginal branch. After the third obtuse marginal branch, there was a dissected area with a 95% to 99% stenosis seen. After this, it supplied a low lying posterior left ventricular branch. INTERVENTION INTO CIRCUMFLEX MID AND DISTAL AREA: - Successful balloon angioplasty and placement of a 2.0 x 30 mm long Resolute [place] drug-eluting stent postdilated to 2.25 to 2.6 proximally with high pressure balloon inflations with residual stenosis of 5% AGUSTIN-3 flow and no dissection seen. OVERALL ASSESSMENT: Successful intervention into circumflex mid segment as described above. The patient will be maintained on dual antiplatelet therapy. Continue hydration, postcardiac catheterization will be maintained. The patient will follow up with me in less than 1 week and then with Dr. Mango Eastman, who the patient already has an appointment scheduled for 12/18/18. The patient will also follow up with Dr. John Cat for her renal insufficiency. Consideration at some point for either MATEUS inhibition or starting hydralazine may need to be made given the fact that she has moderate left ventricular systolic dysfunction. [id number]/[facility] #: [id number] [facility] HOSPITALJoe
[2018-12-07] MEDS: Insulin LISPRO* 1 UNITS UNIT SUBCUT SCH ×3 (09:07→18:11)
[2018-12-07] MEDS: hydrALAZINE TAB* 25 MG PO SCH ×3 (09:16→21:47)
[2018-12-07] MEDS: Isosorbide Dinitrate TAB* 10 MG PO SCH ×3 (09:16→21:47)
[2018-12-07] MEDS: Atorvastatin* 80 MG TAB PO SCH (18:59)
[2018-12-07] MEDS: Docusate CAP* 100 MG PO PRN (19:17)
[2018-12-07] MEDS: Senna TAB PO PRN (19:17)
--- NOTE | 2018-12-07 19:52 | PN ---
Subjective Date of Service: 12/07/18 Interval History: Patient seen and examined in ICU, feeling well, ambulated, denies chest pain, no SOB, no n/v. Tolerating meals. Nitro drip discontinued. Objective Active Medications: Acetaminophen (Tylenol Tab*) 650 mg PO Q4H PRN PRN Reason: FEVER/PAIN Aspirin (Aspirin 81 Mg Chew Tab*) 81 mg PO DAILY [facility] Last Admin: 12/07/18 08:00 Dose: 81 mg Atorvastatin Calcium (Lipitor*) 80 mg PO 1700 [facility] Last Admin: 12/07/18 18:59 Dose: 80 mg Dextrose (D50w Syringe 50 Ml*) 12.5 gm IV PUSH .FOR FS < 60 - SS PRN PRN Reason: FS < 60 Docusate Sodium (Colace Cap*) 100 mg PO BID PRN PRN Reason: CONSTIPATION Last Admin: 12/07/18 19:17 Dose: 100 mg Hydralazine HCl (Apresoline Tab*) 25 mg PO TID [facility] Last Admin: 12/07/18 14:41 Dose: 25 mg Insulin Human Lispro (Humalog*) 0 units SUBCUT [facility]; Protocol Last Admin: 12/07/18 18:11 Dose: Not Given Isosorbide Dinitrate (Isordil Tab*) 10 mg PO TID [facility] Last Admin: 12/07/18 14:42 Dose: 10 mg Metoprolol Succinate (Toprol Xl Tab*) 50 mg PO BID [facility] Last Admin: 12/07/18 08:00 Dose: 50 mg Nitroglycerin (Nitroglycerin Tab 0.4 Mg*) 0.4 mg SL Q5M PRN PRN Reason: ANGINA Ondansetron HCl (Zofran Inj*) 4 mg IV Q4H PRN PRN Reason: NAUSEA/VOMITING Prochlorperazine Edisylate (Compazine Inj*) 10 mg IV Q6H PRN PRN Reason: NAUSEA/VOMITING Last Admin: 12/04/18 22:13 Dose: 10 mg Senna (Senokot Tab*) 1 tab PO BID PRN PRN Reason: CONSTIPATION Last Admin: 12/07/18 19:17 Dose: 1 tab Ticagrelor (Brilinta*) 90 mg PO BID [facility] Last Admin: 12/07/18 08:01 Dose: 90 mg Vital Signs - 8 hr 12/07/18 12/07/18 14:51 15:36 Temperature 96.5 F 97.7 F Pulse Rate 59 63 Respiratory 18 16 Rate Blood Pressure 136/58 143/56 (mmHg) O2 Sat by Pulse 99 100 Oximetry Oxygen Devices in Use Now: None Appearance: alert, NAD Eyes: No Scleral Icterus, PERRLA Ears/Nose/Mouth/Throat: NL Teeth, Lips, Gums, Mucous Membranes Moist Neck: NL Appearance and Movements; NL JVP, Trachea Midline Respiratory: Symmetrical Chest Expansion and Respiratory Effort, Clear to Auscultation Cardiovascular: NL Sounds; No Murmurs; No JVD, RRR, No Edema Abdominal: NL Sounds; No Tenderness; No Distention Extremities: No Edema, No Clubbing, Cyanosis Skin: No Rash or Ulcers Neurological: Alert and Oriented x 3, NL Muscle Strength and Tone Nutrition: Taking PO's Result Diagrams: 12/07/18 03:40 12/07/18 03:40 Additional Lab and Data: Lab Results 12/04/18 12/04/18 12/04/18 Range/Units 17:21 17:33 17:33 WBC 7.5 (3.5-10.8) 10^3/uL RBC 3.59 L (3.70-4.87) 10^6 /uL Hgb 10.1 L (12.0-16.0) g/dL Hct 30 L (35-47) % MCV 84 (80-97) fL MCH 28 (27-31) pg MCHC 33 (31-36) g/dL RDW 14 (10.5-15) % Plt Count 173 (150-450) 10^3/uL MPV 10.4 (7.4-10.4) fL Neut % (Auto) 86.5 % Lymph % (Auto) 4.4 % [place] % (Auto) 6.9 % Eos % (Auto) 1.6 % Baso % (Auto) 0.6 % Absolute Neuts (auto) 6.5 (1.5-7.7) 10^3/ul Absolute Lymphs (auto) 0.3 L (1.0-4.8) 10^3/ul Absolute Monos (auto) 0.5 (0-0.8) 10^3/ul Absolute Eos (auto) 0.1 (0-0.6) 10^3/ul Absolute Basos (auto) 0.0 (0-0.2) 10^3/ul Absolute Nucleated RBC 0.0 10^3/ul Nucleated RBC % 0.0 INR (Anticoag Therapy) 1.24 H (0.82-1.09) Sodium 139 (135-145) mmol/L Potassium 4.1 (3.5-5.0) mmol/L Chloride 110 (101-111) mmol/L Carbon Dioxide 22 (22-32) mmol/L Anion Gap 7 (2-11) mmol/L BUN 22 (6-24) mg/dL Creatinine 1.37 H (0.51-0.95) mg/dL Est GFR ( Amer) 45.6 (>60) Est GFR (Non-Af Amer) 37.7 (>60) BUN/Creatinine Ratio 16.1 (8-20) Glucose 150 H (70-100) mg/dL Lactic Acid (0.5-2.0) mmol/L Calcium 9.5 (8.6-10.3) mg/dL Magnesium 1.8 L (1.9-2.7) mg/dL Total Bilirubin 0.80 (0.2-1.0) mg/dL AST 25 (13-39) U/L ALT 23 (7-52) U/L Alkaline Phosphatase 79 (34-104) U/L Troponin I 0.19 H* (<0.04) ng/mL C-Reactive Protein 1.60 (<8.01) mg/L B-Natriuretic Peptide (<=100) pg/mL Total Protein 6.4 (6.4-8.9) g/dL Albumin 3.8 (3.2-5.2) g/dL Globulin 2.6 (2-4) g/dL Albumin/Globulin Ratio 1.5 (1-3) Lipase 88 H (11.0-82.0) U/L TSH 3.17 (0.34-5.60) mcIU/mL 12/04/18 12/04/18 12/04/18 Range/Units 17:33 20:18 20:18 WBC (3.5-10.8) 10^3/uL RBC (3.70-4.87) 10^6 /uL Hgb (12.0-16.0) g/dL Hct (35-47) % MCV (80-97) fL MCH (27-31) pg MCHC (31-36) g/dL RDW (10.5-15) % Plt Count (150-450) 10^3/uL MPV (7.4-10.4) fL Neut % (Auto) % Lymph % (Auto) % [place] % (Auto) % Eos % (Auto) % Baso % (Auto) % Absolute Neuts (auto) (1.5-7.7) 10^3/ul Absolute Lymphs (auto) (1.0-4.8) 10^3/ul Absolute Monos (auto) (0-0.8) 10^3/ul Absolute Eos (auto) (0-0.6) 10^3/ul Absolute Basos (auto) (0-0.2) 10^3/ul Absolute Nucleated RBC 10^3/ul Nucleated RBC % INR (Anticoag Therapy) (0.82-1.09) Sodium (135-145) mmol/L Potassium (3.5-5.0) mmol/L Chloride (101-111) mmol/L Carbon Dioxide (22-32) mmol/L Anion Gap (2-11) mmol/L BUN (6-24) mg/dL Creatinine (0.51-0.95) mg/dL Est GFR ( Amer) (>60) Est GFR (Non-Af Amer) (>60) BUN/Creatinine Ratio (8-20) Glucose (70-100) mg/dL Lactic Acid 0.8 (0.5-2.0) mmol/L Calcium (8.6-10.3) mg/dL Magnesium (1.9-2.7) mg/dL Total Bilirubin (0.2-1.0) mg/dL AST (13-39) U/L ALT (7-52) U/L Alkaline Phosphatase (34-104) U/L Troponin I 0.18 H* (<0.04) ng/mL C-Reactive Protein (<8.01) mg/L B-Natriuretic Peptide > 1300 H (<=100) pg/mL Total Protein (6.4-8.9) g/dL Albumin (3.2-5.2) g/dL Globulin (2-4) g/dL Albumin/Globulin Ratio (1-3) Lipase (11.0-82.0) U/L TSH (0.34-5.60) mcIU/mL Microbiology and Other Data: Microbiology 12/06/18 15:00 Nasal Screen MRSA (PCR) - Final Nasal Mrsa Not Detected 12/05/18 09:21 Urine Culture - Final Urine No Growth (<1,000 CFU/mL) Assess/Plan/Problems-Billing This is a 72 yo female with hx of CAD, s/p STEMI and PM insertion approximately 3 weeks ago, HTN and CKD who presented to the ER with c/o N/V and was admitted for evaluation of possible CHF and NSTEMI. - Patient Problems (1) NSTEMI (non-ST elevated myocardial infarction) Code(s): I21.4 - NON-ST ELEVATION (NSTEMI) MYOCARDIAL INFARCTION SNOMED Code(s ): 58429499 Comment: - Elevated trop at admission and continued to rise with max at 1.48 - There was circumflex lesion noted at last cath that was stented today by Dr. Taylor - Continue brillinta, metoprolol, isosorbide mono, statin, ASA, NTG PRN - Monitor radial site for hematoma - No arrhythmias on tele (2) HTN (hypertension) Code(s): I10 - ESSENTIAL (PRIMARY) HYPERTENSION SNOMED Code(s): 84758522 Comment: - Metoprolol increased - Continue imdur, nitro drip discontinued, on hydralazine - Continue to monitor closely (3) Stage III chronic kidney disease Code(s): N18.3 - CHRONIC KIDNEY DISEASE, STAGE 3 (MODERATE) SNOMED Code(s): 478512104 Comment: - Creatinine improved from last hospitalization but not in normal range, 1.56 today - Outpatient follow up with nephrology next week (4) DVT prophylaxis Code(s): Z29.9 - ENCOUNTER FOR PROPHYLACTIC MEASURES, UNSPECIFIED SNOMED Code( s): 106054712 Comment: - Off heparin drip, continue SCDs (5) Full code status Code(s): Z78.9 - OTHER SPECIFIED HEALTH STATUS SNOMED Code(s): 733934625 Status and Disposition: Inpatient, downgraded from ICU today, likely DC to home tomorrow if clear by cardiology.
[2018-12-08 05:55] LABS: ABS Basophils 0.1 10^3/ul (0-0.2); ABS Eosinophils 0.4 10^3/ul (0-0.6); ABS Lymphocytes 0.5 10^3/ul (1.0-4.8); ABS Monocytes 0.5 10^3/ul (0-0.8); ABS Neutrophils 4.9 10^3/ul (1.5-7.7); Eosinophil % 5.6 %; Hematocrit 26 % (35-47); Hemoglobin 8.7 g/dL (12.0-16.0); Lymphocyte % 7.3 %; Mean Corpuscular HGB Conc 33 g/dL (31-36); Mean Corpuscular Hemoglobin 27 pg (27-31); Mean Corpuscular Volume 83 fL (80-97); Mean Platelet Volume 10.4 fL (7.4-10.4); Platelet Count 143 10^3/uL (150-450); Red Blood Count 3.17 10^6 /uL (3.70-4.87); Red Cell Distribution Width 14 % (10.5-15); White Blood Count 6.3 10^3/uL (3.5-10.8)
[2018-12-08 06:03] LABS: BUN/Creatinine Ratio 23.7 (8-20); Calcium 8.7 mg/dL (8.6-10.3); EGFR African American 33.9 (>60); Potassium 3.9 mmol/L (3.5-5.0)
[2018-12-08] MEDS: Insulin LISPRO* 1 UNITS UNIT SUBCUT SCH ×2 (08:59→13:22)
[2018-12-08] MEDS: Metoprolol Succinate XL TAB* 50 MG PO SCH (09:01)
[2018-12-08] MEDS: Ticagrelor* 90 MG TAB PO SCH (09:01)
[2018-12-08] MEDS: hydrALAZINE TAB* 25 MG PO SCH ×2 (09:02→13:24)
[2018-12-08] MEDS: Isosorbide Dinitrate TAB* 10 MG PO SCH ×2 (09:02→13:24)
[2018-12-08] MEDS: Aspirin 81 mg CHEW TAB* 81 MG TAB.CHEW PO SCH (09:02)
[2018-12-08 12:15] VITALS: BP 148/58
[2018-12-08] MEDS: Docusate CAP* 100 MG PO PRN (13:24)
[2018-12-08] MEDS: Senna TAB PO PRN (13:24)
--- NOTE | 2018-12-09 05:43 | DS ---
CC: John Kennedy MD; Dr. Mango Eastman, Cardiology; Dr. John Cat, Nephrology; Dr. Taylor; Dr. Castellanos of Interventional Cardiology DISCHARGE SUMMARY: DATE OF ADMISSION: 12/04/18 DATE OF DISCHARGE: 12/08/18 PRIMARY CARE PROVIDER: John Kennedy MD MY ATTENDING FOR TODAY: Dr. Dolan * (DICTATED BY DAY ZUÑIGA NP) HOSPITAL COURSE: Please refer to admitting H and P on 12/04/18; but in short, Ms. Simmons is a 72-year-old female patient known to our service from previous admission in October for NSTEMI with PCI. The patient presented after having been discharged home on 11/20/18. After having previous OH with PCI, the patient states that she had been recuperating and trying to regain some strength after being discharged. She felt progressively weak over the last few days prior to admission and then started with some progressive nausea and vomiting. The patient along with this progressive weakness and the extensive nausea and vomiting, became concerned because of her recent OH and also had no chest heaviness but increased dry heaving and anorexia. She called the Cardiology office and they recommended that she come to the emergency department for evaluation. Again, she had some similar vague symptoms when she had her last OH. She had also noted a 5 to 6-pound weight gain with some lower extremity edema in the last 24 hours. The patient was admitted for decompensated heart failure in the setting of volume overload given her chronic renal disease. She was also profoundly hypertensive. Given her chronic renal disease and hypertension, she was admitted for acutely decompensated heart failure and for fluid management. She did have elevated troponin; however, it was lower than her last troponin, but part of the issue is that on her EKG, she had some changes in the lateral leads, which seemed different than her previous admission. It was known that she did have a circumflex lesion that was not addressed on her previous cardiac catheterization, it was an RCA lesion that was cast prior to this admission. In the setting of these issues, the patient was referred to Dr. Taylor for consideration of revascularizing the circumflex lesion given her heart failure and possibly equivocal troponins that were either left over from her previous OH or continuing to climb from a new infarct. Dr. Taylor saw the patient shortly thereafter and did recommend cardiac catheterization. She underwent that procedure on 12/06/18 and did receive PCI intervention to that lesion. The patient was sent to the ICU postcath on a nitroglycerin drip. She did remain hypertensive, also significant note on her previous PCI, she did have her renal arteries evaluated angiographically, which did not show any significant stenosis at that time to also rule that out considering her hypertensive episodes, so that does not seem to be the issue in her hypertension. However, she did do well on the nitroglycerin drip. Nitroglycerin drip was discontinued and she was sent to telemetry floor, where she was ambulatory. She did not have any more chest pain , no shortness of breath. No more nausea and vomiting and has been progressing very well. Her telemetry strips have not shown any significant ectopy. She has paced rhythm and has progressed very well throughout the course of this hospitalization. The patient was ready for discharge on 12/08/18. Today, she denies any fever, fatigue, no chills, no dizziness, no chest pain, no shortness of breath. No nausea, vomiting, or diarrhea. No urinary complaints. She does complain of minor constipation, but no diarrhea. No arthralgias or myalgias. No neuro complaints and no further constitutional complaints. PHYSICAL EXAM: Her physical exam reveals a well-appearing older female, in no acute distress. Vital signs are blood pressure 148/58, heart rate 57, paced rhythm, respiratory rate 16, O2 saturation 100% on room air, temperature 97.6. HEENT: The patient is atraumatic, normocephalic. PERRLA. Nonicteric sclerae. Oral mucosa is moist. Tongue is midline. Neck: Supple, nontender. No JVD. No carotid bruit auscultated. Cardiovascular: S1, S2 present. Rate and rhythm are regular. No murmurs, gallops, or rubs noted. Chest wall is essentially benign. There is a healing wound of the left anterior chest where her pacemaker insertion was. She does have some scabbing noted. The fresh surgical scar is approximated. There is no erythema or exudate noted and appears to be healing well. Lungs are clear bilaterally to auscultation with no wheezing, rhonchi, or rales. Abdomen is soft, nontender, and nondistended. Positive bowel sounds in all 4 quadrants. is deferred. Musculoskeletal: There is no clubbing, no cyanosis, no edema. She has brisk cap refill. Full range of motion. Steady gait. Gross motor and sensation are intact. Neurologic: Grossly intact. No focal deficits. Psychiatric: She is cooperative and appropriate. DIAGNOSTIC STUDIES/LABORATORY DATA: WBC 6.3, RBC is 3.17, hemoglobin 8.7, hematocrit 26, platelets 143. Sodium 140, potassium 3.9, chloride 110, BUN 42, creatinine 1.77. GFR 28. Glucose 117. Calcium 8.7. Imaging: Chest x-ray dated 12/04/18 shows no evidence for active cardiopulmonary disease. There is a dual chamber transvenous pacemaker present. DISCHARGE DIAGNOSES: 1. Non-ST elevation myocardial infarction status post left heart cath and percutaneous coronary intervention to the circumflex. 2. Hypertension, now controlled. 3. Stage 3 chronic kidney disease. 4. Mild anemia. 5. Diabetes mellitus. 6. Hyperlipidemia. DISCHARGE MEDICATIONS: Include: 1. Brilinta 90 mg p.o. b.i.d. 2. Nitroglycerin 0.4 mg sublingual q.5 minutes as needed. 3. Atorvastatin 80 mg p.o. in the evening. 4. Aspirin 81 mg p.o. daily. 5. Hydralazine 25 mg p.o. 3 times daily. 6. Metoprolol succinate XL 50 mg p.o. b.i.d. 7. Isosorbide dinitrate 10 mg p.o. t.i.d. 8. Docusate 100 mg p.o. b.i.d. as needed. DISPOSITION: The patient was discharged to home in the care of her daughter in stable condition. All questions were answered. The patient stated her understanding of the discharge instructions, medications, and followups. FOLLOWUPS: The patient was instructed to follow up with Dr. Mango Eastman on at 1:00 p.m., Dr. Eric Taylor on 12/11/18 at 3:00 p.m., Dr. John Kennedy, primary care provider, call for an appointment in 1 to 2 weeks. Also instructed to follow up with Dr. John Cat from Nephrology, please call for an appointment. ACTIVITY: Progress activity as tolerated. For the right radial wrist access site for PCI, printed instructions have been provided in discharge packet. DISPOSITION: Discharge to home in stable condition. TIME SPENT: Approximately, 45 minutes developing discharge plan of care. DAY ZUÑIGA NP [id number]/[facility] #: [id number] [place]
== END 2018-12-08 16:35 | disposition home or self-care (01) | DRG 247 ==
LOC: ED 16:48 → MEDTELE 22:12 → ICU 12-06 12:20 → MEDTELE 12-07 09:47
PROVIDERS: ADMIT Pediatrics; ATTEND Hospitalist
PROC: B2111ZZ Fluoroscopy of Multiple Coronary Arteries using Low Osmolar Contrast (ICD-10-PCS; 2018-12-06)
PROC: 027034Z Dilation of Coronary Artery, One Artery with Drug-eluting Intraluminal Device, Percutaneous Approach (ICD-10-PCS; principal; 2018-12-06 09:30)
DX: I21.4 Non-ST elevation (NSTEMI) myocardial infarction (principal); E78.00 Pure hypercholesterolemia, unspecified; I22.1 Subsequent ST elevation (STEMI) myocardial infarction of inferior wall; I12.9 Hypertensive chronic kidney disease with stage 1 through stage 4 chronic kidney disease, or unspecified chronic kidney disease; N18.3 Chronic kidney disease, stage 3 (moderate); M16.10 Unilateral primary osteoarthritis, unspecified hip; R40.2362 Coma scale, best motor response, obeys commands, at arrival to emergency department; R40.2142 Coma scale, eyes open, spontaneous, at arrival to emergency department; R40.2252 Coma scale, best verbal response, oriented, at arrival to emergency department; G89.29 Other chronic pain; I25.10 Atherosclerotic heart disease of native coronary artery without angina pectoris; I25.5 Ischemic cardiomyopathy; I44.1 Atrioventricular block, second degree; E78.5 Hyperlipidemia, unspecified; M46.90 Unspecified inflammatory spondylopathy, site unspecified; D64.9 Anemia, unspecified; E11.22 Type 2 diabetes mellitus with diabetic chronic kidney disease; E11.36 Type 2 diabetes mellitus with diabetic cataract; E11.65 Type 2 diabetes mellitus with hyperglycemia; Z79.02 Long term (current) use of antithrombotics/antiplatelets; Z87.442 Personal history of urinary calculi; Z95.0 Presence of cardiac pacemaker; Z90.49 Acquired absence of other specified parts of digestive tract; Z82.49 Family history of ischemic heart disease and other diseases of the circulatory system; Z90.710 Acquired absence of both cervix and uterus; Z79.82 Long term (current) use of aspirin
CPT/HCPCS: 36415; 71046; 80048; 80053; 80061; 81003; 81015; 82550; 82553; 83036; 83605; 83690; 83735; 83880; 84443; 84484; 85025; 85347; 85610; 85730; 86140; 87086; 87641; 93005; 93306; 93454; 99284; A9270-GY; C1725; C1769; C1874; C1887; C9600-LC; J0360; J0583; J0780; J1644; J1940; J2250; J2405; J2765; J3010; J3475

== ENCOUNTER 2019-05-10 06:53 | Inpatient (IN) | payer MEDICARE, OTHER ==
--- OUTSIDE RECORDS SUMMARY | 2019-05-10 07:05 | XMS REPORT | Continuity of Care Document ---
:1945 External Reference #:[id number] Author Name Fatmata Carrion MD (transmitted by agent of provider Cassie Pasucal) Address [address], [address] [place] [address] Care Team Providers Name Role Phone Gagan Kennedy MD - Family Medicine Care Team Information Machine Worker [facility] - Clinic/Center Care Team Information Machine Worker [phone] Problems Active Problems Provider Date Acute ST segment elevation myocardial Parisa Castellanos MD, [facility], Onset: infarction due to right coronary [facility] artery occlusion Acute subendocardial infarction Eric Taylor M.D., [facility], Onset: 12/11/2018 [facility] Chronic kidney disease Eric Taylor M.D., [facility], Onset: 12/11/2018 [facility] Encounter for planned postprocedural Eric Taylor M.D., [facility], Onset: 2018 wound closure [facility] Hyperlipidemia Padmini Kruse M.D. Onset: 12/14/2018 Coronary arteriosclerosis after Padmini Kruse M.D. Onset: 12/14/2018 percutaneous coronary angioplasty Cardiac pacemaker in situ Padmini Kruse M.D. Onset: 12/14/2018 Chronic diastolic heart failure Padmini Kruse M.D. Onset: 04/30/2019 Social History Type Date Description Comments Sex Unknown ETOH Use Denies alcohol use Tobacco Use Start: Unknown Patient has never smoked Recreational Drug Use Denies Drug Use Smoking Status Reviewed: 05/06/19 Patient has never smoked Exercise Type/Frequency Exercises regularly Allergies, Adverse Reactions, Alerts Description No Known Drug Allergies Medications Active Medications SIG Qnty Indications Ordering Date Provider Potassium Chloride ER 1 by mouth every 90caps Padmini Kruse, 04/30/2019 day and as M.D. 10Meq Capsules ER directed. Oxygen 2l via nasal 1units Amy Christensen, 02/22/2019 Misc cannula at night N.P. Eliquis 1 by mouth twice 180tabs I48.0 Amy Althea Chrsitensen, 02/11/2019 5mg Tablets a day N.P. Clopidogrel Bisulfate 1 by mouth every 90tabs Amytaye Christensen, 02/11/2019 day N.P. 75mg Tablets Hydralazine HCL 1 by mouth three 90tabs Amy SKathia Fermin, 12/08/2018 25mg times a day N.P. Tablets Isosorbide Dinitrate 1 by mouth three 90tabs Amy Christensen, 12/08/2018 10mg times a day N.P. Tablets Nitroglycerin 1 sl q5mins x3 60tabs Eric Taylor, 12/08/2018 0.4mg as needed for M.D., FACC, Tablets Sub chest pain FSCAI Atorvastatin Calcium 1 by mouth every Eric Taylor, 11/19/2018 80mg day M.D., FACC, Tablets FSCAI Metoprolol Succinate Take 1 Tablet By Unknown ER Mouth Once Daily 50mg Tablets ER 24HR Torsemide 1 by mouth every 90tabs Amy Christensen, 20mg Tablets day and as N.P. directed. History Medications Multaq 1 by mouth twice a 180tabs Amy Althea Fermin, 03/05/2019 - 400mg day N.P. 03/12/2019 Tablets Lasix 1 by mouth Monday 45tabs R60.0 Padmini Kruse, 12/14/2018 - 20mg Tablets Monday M.D. 03/28/2019 Metoprolol 1 by mouth bid Parisa Wade 12/03/2018 - Succinate ER MD Jasmin, 02/17/2019 50mg ROSMERY, KAMRAN Tablets ER 24HR Brilinta 1 tab by mouth 60tabs Parisa Wade 11/19/2018 - 90mg twice a day MD Jasmin, 02/11/2019 Tablets KAMRAN BOTELLO Aspirin 1 by mouth every 90tabs Parisa Wade 11/19/2018 - 81mg day MD Jasmin, 02/11/[address] BOTELLO, [facility] Immunizations Description No Information Available Vital Signs Date Vital Result Comment 05/06/2019 1:44pm Height 59 inches 4'11" Weight 180.00 lb per pt in wheelchair Heart Rate 88 /min BP Systolic Sitting 140 mmHg BP Diastolic Sitting 80 mmHg O2 % BldC Oximetry 98 % BMI (Body Mass Index) 36.4 kg/m2 Neck Circumference in inches 15 04/30/2019 10:12am Height 59 inches 4'11" Weight 183.00 lb Heart Rate 80 /min irregular. BP Systolic Sitting 138 mmHg Lue reg cuff BP Diastolic Sitting 78 mmHg Lue reg cuff Respiratory Rate 14 /min BMI (Body Mass Index) 37.0 kg/m2 Ejection Fraction 50-55% ECHO 02/28/2019 Results Test Date Facility Test Result H/L Range Note Laboratory test 05/04/2019 [facility] Blood Urea <pending> finding [address] Nitrogen BUN [place], [place] [id number] [phone] Creatine Kinase(CK) 73 U/L Normal 10-223 CBC Auto 05/04/2019 [facility] White Blood 9.3 10^3/uL Normal 3.5-10.[address] Count [place], [place] [id number] [phone] Red Blood Count 3.58 10^6/uL Low 3.70-4.87 Hemoglobin 8.5 g/dL Low 12.0-16.0 Hematocrit 27 % Low 35-47 Mean Corpuscular Volume 75 fL Low 80-97 Mean Corpuscular Hemoglobin 24 pg Low 27-31 Mean Corpuscular HGB Conc 32 g/dL Normal 31-36 Red Cell Distribution Width 21 % High 10-15 Platelet Count 286 10^3/uL Normal 150-450 Mean Platelet Volume 8.2 fL Normal 7.4-10.4 Abs Neutrophils 8.4 10^3/uL High 1.5-7.7 Abs Lymphocytes 0.4 10^3/uL Low 1.0-4.8 Abs Monocytes 0.4 10^3/uL Normal 0-0.8 Abs Eosinophils 0.0 10^3/uL Normal 0-0.6 Abs Basophils 0.1 10^3/uL Normal 0-0.2 Abs Nucleated RBC 0.0 10^3/uL Granulocyte % 90.3 % Lymphocyte % 4.1 % Monocyte % 4.7 % Eosinophil % 0.2 % Basophil % 0.7 % Nucleated Red Blood Cells % 0.0 Laboratory test 05/04/2019 [facility] Prealbumin 11 mg/dL Low 18-38 finding [address] [place] [address] [phone] Comp Metabolic 05/04/2019 [facility] Sodium 135 mmol/L Normal 135-145 Panel [address] [place] [address] [phone] Potassium 4.3 mmol/L Normal 3.5-5.0 Chloride 100 mmol/L Low 101-111 Co2 Carbon Dioxide 25 mmol/L Normal 22-32 Anion Gap 10 mmol/L Normal 2-11 Glucose 155 mg/dL High 70-100 Blood Urea Nitrogen 58 mg/dL High 6-24 Creatinine 2.09 mg/dL High 0.51-0.95 BUN/Creatinine Ratio 27.8 High 8-20 Calcium 9.2 mg/dL Normal 8.6-10.3 Total Protein 6.0 g/dL Low 6.4-8.9 Albumin 3.5 g/dL Normal 3.2-5.2 Globulin 2.5 g/dL Normal 2-4 Albumin/Globulin Ratio 1.4 Normal 1-3 Total Bilirubin 0.70 mg/dL Normal 0.2-1.0 Alkaline Phosphatase 74 U/L Normal 34-104 Alt 16 U/L Normal 7-52 Ast 22 U/L Normal 13-39 Egfr Non- 23.1 >60 Egfr 27.9 >60 1 Laboratory test 05/04/2019 [facility] Magnesium 1.9 mg/dL Normal 1.9-2.7 finding [address] [place] [address] [phone] Laboratory test 04/30/2019 [facility] Magnesium 1.8 mg/dL Low 1.9-2.7 2 finding [address] [place] [address] [phone] Comp Metabolic 04/30/2019 [facility] Sodium 137 mmol/L Normal 135-145 Panel [address] [place] [address] [phone] Potassium 4.0 mmol/L Normal 3.5-5.0 Chloride 102 mmol/L Normal 101-111 Co2 Carbon Dioxide 28 mmol/L Normal 22-32 Anion Gap 7 mmol/L Normal 2-11 Glucose 152 mg/dL High 70-100 Blood Urea Nitrogen 50 mg/dL High 6-24 Creatinine 2.02 mg/dL High 0.51-0.95 BUN/Creatinine Ratio 24.8 High 8-20 Calcium 8.8 mg/dL Normal 8.6-10.3 Total Protein 5.9 g/dL Low 6.4-8.9 Albumin 3.3 g/dL Normal 3.2-5.2 Globulin 2.6 g/dL Normal 2-4 Albumin/Globulin Ratio 1.3 Normal 1-3 Total Bilirubin 0.60 mg/dL Normal 0.2-1.0 Alkaline Phosphatase 61 U/L Normal 34-104 Alt 17 U/L Normal 7-52 Ast 20 U/L Normal 13-39 Egfr Non- 24.0 >60 Egfr 29.1 >60 3 Basic Metabolic 04/05/2019 [facility] Sodium 137 mmol/L Normal 135-145 Panel [address] [place] [address] [phone] Potassium 3.7 mmol/L Normal 3.5-5.0 Chloride 102 mmol/L Normal 101-111 Co2 Carbon Dioxide 25 mmol/L Normal 22-32 Anion Gap 10 mmol/L Normal 2-11 Glucose 173 mg/dL High 70-100 Blood Urea Nitrogen 46 mg/dL High 6-24 Creatinine 1.84 mg/dL High 0.51-0.95 BUN/Creatinine Ratio 25.0 High 8-20 Calcium 8.6 mg/dL Normal 8.6-10.3 Egfr Non- 26.7 >60 Egfr 32.4 >60 4 Comp Metabolic 03/12/2019 [facility] Sodium 136 mmol/L Normal 135-145 Panel [address] [place] [address] [phone] Potassium 4.0 mmol/L Normal 3.5-5.0 Chloride 105 mmol/L Normal 101-111 Co2 Carbon Dioxide 19 mmol/L Low 22-32 Anion Gap 12 mmol/L High 2-11 Glucose 120 mg/dL High 70-100 Blood Urea Nitrogen 53 mg/dL High 6-24 Creatinine 2.20 mg/dL High 0.51-0.95 BUN/Creatinine Ratio 24.1 High 8-20 Calcium 9.0 mg/dL Normal 8.6-10.3 Total Protein 5.6 g/dL Low 6.4-8.9 Albumin 3.5 g/dL Normal 3.2-5.2 Globulin 2.1 g/dL Normal 2-4 Albumin/Globulin Ratio 1.7 Normal 1-3 Total Bilirubin 0.60 mg/dL Normal 0.2-1.0 Alkaline Phosphatase 65 U/L Normal 34-104 Alt 27 U/L Normal 7-52 Ast 22 U/L Normal 13-39 Egfr Non- 21.8 >60 Egfr 26.3 >60 5 Thyroid Panel 03/12/2019 [facility] Free T4 (Free 1.41 ng/dL High 0.61-1.[address] Thyroxine) [place] [address] [phone] Thyroxine 9.81 g/dL Normal 6.09-12.23 TSH (Thyroid Stim Horm) 2.14 mcIU/mL Normal 0.34-5.60 Basic Metabolic 12/13/2018 [facility] Sodium 141 mmol/L Normal 135-[address] [place] [address] [phone] Potassium 4.4 mmol/L Normal 3.5-5.0 Co2 Carbon Dioxide 22 mmol/L Normal 22-32 Glucose 216 mg/dL High 70-100 Blood Urea Nitrogen 46 mg/dL High 6-24 Creatinine 1.64 mg/dL High 0.51-0.95 BUN/Creatinine Ratio 28.0 High 8-20 Calcium 9.3 mg/dL Normal 8.6-10.3 Egfr Non- 30.6 >60 Egfr 37.1 >60 6 Chloride 112 mmol/L High 101-111 Anion Gap 7 mmol/L Normal 2-11 1 Because ethnic data is not always readily [...] 15-29 5 Kidney failure <15 (or dialysis) 2 Copy Result to: GAGAN KENNEDY ([id number]) 3 Because ethnic data is not always readily [...] 15-29 5 Kidney failure <15 (or dialysis) 4 Because ethnic data is not always readily [...] 15-29 5 Kidney failure <15 (or dialysis) 5 Because ethnic data is not always readily [...] 15-29 5 Kidney failure <15 (or dialysis) 6 Because ethnic data is not always readily [...] 15-29 5 Kidney failure <15 (or dialysis) Procedures Date Code Description Status 02/28/2019 75799 ECHO Transthoracic, Real-Time 2D With Doppler And Color Completed Flow 02/28/2019 67904 ECHO Transthoracic, Real-Time 2D With Doppler And Color Completed Flow 02/08/2019 29578 EKG Tracing & Interpretation Completed 12/31/2018 15320 Pace Maker Eval W/Iterative Adjment Dual Lead Completed 12/31/2018 67193 Pace Maker Eval W/Iterative Adjment Dual Lead Completed 12/11/2018 55585 EKG Tracing & Interpretation Completed 12/08/2018 40395 EKG, Interpretation Only Completed 12/07/2018 98243 EKG, Interpretation Only Completed 12/06/2018 70865 Cath PLMT&NJX L Ventriculog Img S&I Completed 12/06/2018 43192 EKG, Interpretation Only Completed 12/06/2018 48471 Percutaneous Transcatheter Placement Of Intracoronary Completed Stent 12/05/2018 53603 EKG, Interpretation Only Completed 12/05/2018 58320 ECHO Transthorasic Realtime 2D W Doppler & Color Flow Hosp Completed 11/27/2018 66641 EKG Tracing & Interpretation Completed 11/15/2018 11765 Pace Maker Eval W/Iterative Adjment Dual Lead Completed 11/15/2018 79278 EKG, Interpretation Only Completed 11/14/2018 64196 EKG, Interpretation Only Completed 11/14/2018 45505 Perm Pacemaker Av Sequential Atrial And Ventricular Completed 11/13/2018 44415 ECHO Transthorasic Realtime 2D W Doppler & Color Flow Hosp Completed 11/13/2018 95480 EKG, Interpretation Only Completed 11/13/2018 20101 EKG, Interpretation Only Completed 11/12/2018 70741 Left Heart Cath. Incl S/I Coronaries, Angio S/I V Gram If Completed Done 11/12/2018 89525 EKG, Interpretation Only Completed 11/12/2018 05653 EKG, Interpretation Only Completed 11/12/2018 14998 Revascularization Acute Total/Subtotal Occlusion Completed Medical Devices Description No Information Available Encounters Type Date Location Provider Dx Diagnosis Office Visit 05/06/2019 Pulmonology And Fatmata Carrion, G47.9 Sleep disorder, 2:30p [facility] MD unspecified [employer] R09.02 Hypoxemia Office Visit 04/30/2019 10:15a [facility] Padmini Kruse, R60.0 Localized edema Of [employer] Operator M.D. N18.3 Chronic kidney disease, stage 3 (moderate) I25.10 Athscl heart disease of yocha dehe coronary artery w/o ang pctrs I50.32 Chronic diastolic (congestive) heart failure Office Visit 03/29/2019 1:30p [facility] Amy S. I48.0 Paroxysmal atrial Of [employer] Foster, N.P. fibrillation I50.23 Acute on chronic systolic (congestive) heart failure I25.10 Athscl heart disease of yocha dehe coronary artery w/o ang pctrs Z95.0 Presence of cardiac pacemaker I12.9 Hypertensive chronic kidney disease w stg 1-4/unsp chr kdny E78.5 Hyperlipidemia, unspecified N18.9 Chronic kidney disease, unspecified Office Visit 03/20/2019 3:34p [facility] Tomasa Lerner, I48.0 Paroxysmal atrial Of [employer] AITCHBONE BREAKER fibrillation I50.23 Acute on chronic systolic (congestive) heart failure I25.10 Athscl heart disease of yocha dehe coronary artery w/o ang pctrs I25.2 Old myocardial infarction Office Visit 02/18/2019 3:00p [facility] Padmini Kruse, Z95.0 Presence of Of [facility] M.DKathia cardiac pacemaker I25.10 Athscl heart disease of yocha dehe coronary artery w/o ang pctrs I25.5 Ischemic cardiomyopathy I48.0 Paroxysmal atrial fibrillation R53.83 Other fatigue Office Visit 02/08/2019 1:30p [facility] Amy SKathia Z95.0 Presence of Yogesh Christensen.Nithya cardiac pacemaker I44.2 Atrioventricular block, complete I25.10 Athscl heart disease of yocha dehe coronary artery w/o ang pctrs E78.5 Hyperlipidemia, unspecified I25.2 Old myocardial infarction I48.0 Paroxysmal atrial fibrillation Office Visit 12/14/2018 11:00a [facility] Padmini Kruse, I25.10 Athscl heart Of [facility].D. disease of yocha dehe coronary artery w/o ang pctrs I12.9 Hypertensive chronic kidney disease w stg 1-4/unsp chr kdny N18.3 Chronic kidney disease, stage 3 (moderate) E78.5 Hyperlipidemia, unspecified R60.0 Localized edema I44.2 Atrioventricular block, complete Z95.0 Presence of cardiac pacemaker Office Visit 12/11/2018 3:20p [facility] Eric Taylor, I21.4 Non- St elevation Of [employer] AT [facility].D., FACC, (Nstemi) FSCAI myocardial infarction Z48.1 Encounter for planned postprocedural wound closure N18.9 Chronic kidney disease, unspecified Z98.61 Coronary angioplasty status Office Visit 12/08/2018 9:50a [facility] Lizette I21.4 Non-St elevation Assoc,pc Chetan Cain, (Nstemi) Hospitalists AITCHBONE BREAKER myocardial infarction I10 Essential (primary) hypertension N18.3 Chronic kidney disease, stage 3 (moderate) D64.9 Anemia, unspecified E11.69 Type 2 diabetes mellitus with other specified complication E78.5 Hyperlipidemia, unspecified Z98.61 Coronary angioplasty status Office Visit 12/07/2018 4:13p [facility] Niesha SKathia I21.11 Stemi involving Maghaydah, M.D. right coronary artery I25.5 Ischemic cardiomyopathy I12.9 Hypertensive chronic kidney disease w stg 1-4/unsp chr kdny N18.9 Chronic kidney disease, unspecified E78.5 Hyperlipidemia, unspecified Office Visit 12/07/2018 9:50a [facility] I21.4 Non-St elevation Assoc,pc [facility] Doto, (Nstemi) Hospitalists AITCHBONE BREAKER myocardial infarction I10 Essential (primary) hypertension N18.3 Chronic kidney disease, stage 3 (moderate) Office Visit 12/06/2018 9:49a [facility] Lizette I21.4 Non-St elevation Assoc,pc [facility] Doto, (Nstemi) Hospitalists AITCHBONE BREAKER myocardial infarction I10 Essential (primary) hypertension N18.3 Chronic kidney disease, stage 3 (moderate) Office Visit 12/05/2018 9:47a [facility] Elma I21.4 Non-St elevation Assoc,pc Lauri, D.O. (Nstemi) Hospitalists myocardial infarction I10 Essential (primary) hypertension N18.3 Chronic kidney disease, stage 3 (moderate) Office Visit 12/05/2018 4:05p [facility] Sal Barakat I25.10 Athscl heart Janie Delgado. disease of yocha dehe coronary artery w/o ang pctrs R79.89 Other specified abnormal findings of blood chemistry R11.0 Nausea I50.9 Heart failure, unspecified R94.31 Abnormal electrocardiogram [ECG] [EKG] I25.2 Old myocardial infarction Office Visit 12/04/2018 9:46a [facility] Bea R11.2 Nausea with Assoc,pc Rooth, DO vomiting, Hospitalists unspecified R74.8 Abnormal levels of other serum enzymes R73.9 Hyperglycemia, unspecified Z95.0 Presence of cardiac pacemaker Office Visit 11/27/2018 3:00p [facility] Parisa Wade I21.11 Stemi involving Of [employer] AT [facility] [place] Jasmin, right coronary FACC, FSCAI artery I25.5 Ischemic cardiomyopathy I44.1 Atrioventricular block, second degree Office Visit 11/20/2018 9:24a [facility] Eric Taylor, I21.11 Stemi involving Of [employer] AT [facility] Francine, FACC, right coronary FSCAI artery Z98.61 Coronary angioplasty status E11.9 Type 2 diabetes mellitus without complications Office Visit 11/19/2018 2:47p [facility] Eric Taylor, I21.11 Stemi involving Of [employer] AT [facility] M.D., FACC, right coronary FSCAI artery Z98.61 Coronary angioplasty status Office Visit 11/18/2018 2:47p [facility] Parisa Wade I21.11 Stemi involving Of [employer] AT [facility] MD Jasmin, right coronary FACC, FSCAI artery I10 Essential (primary) hypertension Office Visit 11/17/2018 2:45p [facility] Parisa Wade I21.11 Stemi involving Of [employer] AT [facility] MD Jasmin, right coronary FACC, FSCAI artery I10 Essential (primary) hypertension Office Visit 11/16/2018 12:58p [facility] Parisa Wade I21.11 Stemi involving Of [employer] AT [facility] MD Jasmin, right coronary FACC, FSCAI artery I25.10 Athscl heart disease of yocha dehe coronary artery w/o ang pctrs I25.5 Ischemic cardiomyopathy Office Visit 11/15/2018 12:59p [facility] Parisa Wade I21.11 Stemi involving Of [employer] AT [facility] MD Jasmin, right coronary FACC, FSCAI artery I25.10 Athscl heart disease of yocha dehe coronary artery w/o ang pctrs I25.5 Ischemic cardiomyopathy I44.1 Atrioventricular block, second degree Office Visit 11/14/2018 12:57p [facility] Tomasa Lerner, I21.11 Stemi involving Of [employer] AT [facility] AITCHBONE BREAKER right coronary artery I25.10 Athscl heart disease of yocha dehe coronary artery w/o ang pctrs I44.2 Atrioventricular block, complete R00.1 Bradycardia, unspecified N17.9 Acute kidney failure, unspecified Office Visit 11/14/2018 12:55p [facility] Padmini Kruse, I21.11 Stemi involving Of [employer] Operator M.D. right coronary artery I25.10 Athscl heart disease of yocha dehe coronary artery w/o ang pctrs I44.2 Atrioventricular block, complete R00.1 Bradycardia, unspecified N17.9 Acute kidney failure, unspecified Office Visit 11/13/2018 3:52p [facility] Tomasa Lerner, I21.11 Stemi involving Of [employer] Operator AT [facility] AITCHBONE BREAKER right coronary artery I25.10 Athscl heart disease of yocha dehe coronary artery w/o ang pctrs R00.1 Bradycardia, unspecified I44.2 Atrioventricular block, complete I10 Essential (primary) hypertension Office Visit 11/12/2018 3:48p [facility] Parisa Wade I21.11 Stemi involving Of [employer] Operator AT [facility] MD Jasmin, right coronary FACC, FSCAI artery N28.9 Disorder of kidney and ureter, unspecified E11.9 Type 2 diabetes mellitus without complications I10 Essential (primary) hypertension I25.10 Athscl heart disease of yocha dehe coronary artery w/o [facility] pctrs Assessments Date Code Description Provider 05/06/2019 G47.9 Sleep disorder, unspecified Fatmata Carrion MD 05/06/2019 R09.02 Hypoxemia Fatmata Carrion MD 05/03/2019 E11.622 Type 2 diabetes mellitus with other Luann Johnson DNP , RN, skin ulcer PRODUCT SUPPORT ANALYST-BC 05/03/2019 E46 Unspecified protein-calorie Luann Johnson DNP, RN, malnutrition PRODUCT SUPPORT ANALYST-BC 05/03/2019 R09.89 Other specified symptoms and signs Luann Johnson DNP RN, involving the circulatory and [facility]- respiratory systems 04/30/2019 R60.0 Localized edema Padmini Kruse M.D. 04/30/2019 N18.3 Chronic kidney disease, stage 3 Padmini Kurse M.D. (moderate) 04/30/2019 I25.10 Atherosclerotic heart disease of Padmini Kruse M.D. yocha dehe coronary artery without angina pectoris 04/30/2019 I50.32 Chronic diastolic (congestive) heart Padmini Kruse M.D. failure 03/29/2019 I48.0 Paroxysmal atrial fibrillation Amy S. Fermin, N.P. 03/29/2019 I50.23 Acute on chronic systolic Amy S. Fermin, N.P. (congestive) heart failure 03/29/2019 I25.10 Atherosclerotic heart disease of Amy Christensen, N.P. yocha dehe coronary artery without angina pectoris 03/29/2019 Z95.0 Presence of cardiac pacemaker Amy Olson. Fermin, N.P. 03/29/2019 I12.9 Hypertensive chronic kidney disease Amy S. Foster, N.P. with stage 1 through sta 03/29/2019 E78.5 Hyperlipidemia, unspecified Amy S. Fermin, N.P. 03/29/2019 N18.9 Chronic kidney disease, unspecified Amy S. Fermin, N.P. 03/20/2019 I48.0 Paroxysmal atrial fibrillation Tomasa Lerner, AITCHBONE BREAKER 03/20/2019 I50.23 Acute on chronic systolic Tomasa Lerner NP (congestive) heart failure 03/20/2019 I25.10 Atherosclerotic heart disease of Tomasa Lerner NP yocha dehe coronary artery without angina pectoris 03/20/2019 I25.2 Old myocardial infarction Tomasa Lerner, AITCHBONE BREAKER 02/28/2019 I25.5 Ischemic cardiomyopathy Padmini Kruse M.D. 02/28/2019 I25.5 Ischemic cardiomyopathy [place] [facility] Schedule 02/18/2019 Z95.0 Presence of cardiac pacemaker Padmini Kruse M.D. 02/18/2019 I25.10 Atherosclerotic heart disease of Padmini Kruse M.D. yocha dehe coronary artery with 02/18/2019 I25.5 Ischemic cardiomyopathy Padmini Kruse M.D. 02/18/2019 I48.0 Paroxysmal atrial fibrillation Padmini Kruse M.D. 02/18/2019 R53.83 Other fatigue Padmini Kruse M.D. 02/08/2019 R94.31 Abnormal electrocardiogram [ECG] Padmini Kruse M.D. [EKG] 02/08/2019 Z95.0 Presence of cardiac pacemaker Amy S. Fermin, N.P. 02/08/2019 I44.2 Atrioventricular block, complete Amy S. Fermin, N.P. 02/08/2019 I25.10 Atherosclerotic heart disease of Amy Christensen, N.P. yocha dehe coronary artery with 02/08/2019 E78.5 Hyperlipidemia, unspecified Amy S. Foster, N.P. 02/08/2019 I25.2 Old myocardial infarction Amy S. Fermin, N.P. 02/08/2019 I48.0 Paroxysmal atrial fibrillation Amy S. Fermin, N.P. 12/31/2018 Z95.0 Presence of cardiac pacemaker Padmini Kruse M.D. 12/31/2018 Z95.0 Presence of cardiac pacemaker Ica Pacer Schedule 12/31/2018 I44.2 Atrioventricular block, complete Ica Pacer Schedule 12/14/2018 I25.10 Atherosclerotic heart disease of Padmini Kruse M.D. yocha dehe coronary artery with 12/14/2018 I12.9 Hypertensive chronic kidney disease Padmini Kruse M.D. with stage 1 through sta 12/14/2018 N18.3 chronic kidney disease, or Padmini Kruse M.D. unspecified chronic kidney diseas 12/14/2018 E78.5 Hyperlipidemia, unspecified Padmini Kruse M.D. 12/14/2018 R60.0 Localized edema Padmini Kruse M.D. 12/14/2018 I44.2 Atrioventricular block, complete Padmini Kruse M.D. 12/14/2018 Z95.0 Presence of cardiac pacemaker Padmini Kruse M.D. 12/11/2018 I21.4 Non-St elevation (Nstemi) myocardial Eric Taylor M.D., [facility], infarction [facility] 12/11/2018 Z48.1 Encounter for planned postprocedural Eric Taylor M.D., [facility], wound closure [facility] 12/11/2018 N18.9 Chronic kidney disease, unspecified Eric Taylor M.D., [facility] , [facility] 12/11/2018 Z98.61 Coronary angioplasty status Eric Taylor M.D., [facility], [facility] 12/08/2018 R94.31 Abnormal electrocardiogram [ECG] Niesha Cruz M.D. [EKG] 12/08/2018 I21.4 Non-St elevation (Nstemi) myocardial Lizette Cain NP infarction 12/08/2018 I25.10 Atherosclerotic heart disease of Niesha Cruz M.D. yocha dehe coronary artery with 12/08/2018 I10 Essential (primary) hypertension Lizette Cain NP 12/08/2018 I42.9 Cardiomyopathy, unspecified Niesha Cruz M.D. 12/08/2018 N18.3 Chronic kidney disease, stage 3 Lizette Cain NP (moderate) 12/08/2018 Z95.0 Presence of cardiac pacemaker Niesha Cruz M.D. 12/08/2018 D64.9 Anemia, unspecified Lizette Cain NP 12/08/2018 E11.69 Type 2 diabetes mellitus with other Lizette Cain NP specified complication 12/08/2018 E78.5 Hyperlipidemia, unspecified Lizette Cain NP 12/08/2018 Z98.61 Coronary angioplasty status Lizette Cain NP 12/07/2018 R94.31 Abnormal electrocardiogram [ECG] Niesha Cruz M.D. [EKG] 12/07/2018 I21.4 Non-St elevation (Nstemi) myocardial Lizette Cain [employer] infarction 12/07/[address] elevation (Stemi) myocardial Niesha Cruz M.D. infarction involving right c 12/07/2018 I10 Essential (primary) hypertension Lizette Cain, [employer] 12/07/2018 I25.5 Ischemic cardiomyopathy Niesha Cruz M.D. 12/07/2018 N18.3 Chronic kidney disease, stage 3 Lizette Cain DOMINICK (moderate) 12/07/2018 I12.9 Hypertensive chronic kidney disease Niesha Cruz M.D. with stage 1 through stage 4 chronic kidney disease, or unspecified chronic kidney disease 12/07/2018 N18.9 Chronic kidney disease, unspecified Niesha Cruz M.D. 12/07/2018 E78.5 Hyperlipidemia, unspecified Niesha Cruz M.D. 12/06/2018 R94.31 Abnormal electrocardiogram [ECG] Mango Eastman M.D. [EKG] 12/06/2018 I21.4 Non-St elevation (Nstemi) myocardial Eric Taylor M.D., [facility], infarction [facility] 12/06/2018 I25.10 Atherosclerotic heart disease of Eric Taylor M.D., [facility], yocha dehe coronary artery with [facility] 12/06/2018 I21.4 Non-St elevation (Nstemi) myocardial Lizette Cain [employer] infarction 12/06/2018 I10 Essential (primary) hypertension Lizette Cain, [employer] 12/06/2018 N18.3 Chronic kidney disease, stage 3 Lizette Cain, [employer] (moderate) 12/05/2018 R94.31 Abnormal electrocardiogram [ECG] Mango Eastman M.D. 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 yocha dehe coronary artery without angina pectoris 12/05/2018 R79.89 Other specified abnormal findings of Sal Delgado M.D. blood chemistry 12/05/2018 I21.4 Non-St elevation (Nstemi) myocardial Elma Carreon D.O. infarction 12/05/2018 R11.0 Nausea Sal Delgado M.D. 12/05/2018 I50.9 Heart failure, unspecified Sal Delgado M.D. 12/05/2018 I10 Essential (primary) hypertension Elma Carreon D.O. 12/05/2018 R94.31 Abnormal electrocardiogram [ECG] Sal Delgado M.D. [EKG] 12/05/2018 I25.2 Old myocardial infarction Sal Delgado M.D. 12/05/2018 N18.3 Chronic kidney disease, stage 3 Elma Carreon D.OKathia (moderate) 12/04/2018 R11.2 Nausea with vomiting, unspecified Bea Rooth, DO 12/04/2018 R74.8 Abnormal levels of other serum Bea Rooth, DO enzymes 12/04/2018 R73.9 Hyperglycemia, unspecified Bea Rooth, DO 12/04/2018 Z95.0 Presence of cardiac pacemaker Bea Rooth, DO 11/27/[address] elevation (Stemi) myocardial Parisa Castellanos MD, FAC , infarction involving right c [facility] 11/27/2018 I25.5 Ischemic cardiomyopathy Parisa Castellanos MD, FACC, [facility] 11/27/2018 I44.1 Atrioventricular block, second degree Parisa Castellanos MD , FACC, [facility] 11/20/2018 Z95.0 Presence of cardiac pacemaker Mango Eastman M.D. 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 Eric Taylor M.D., [facility], [facility] 11/19/2018 Z98.61 Coronary angioplasty status Eric Taylor M.D., [facility], [facility] 11/18/[address] elevation (Stemi) myocardial Parisa Castellanos MD, ROSMERY , infarction involving right c [facility] 11/18/2018 I10 Essential (primary) hypertension Parisa Castellanos MD, FACC, [facility] 11/17/2018 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 Parisa Catsellanos MD, FACC, [facility] 11/17/2018 I10 Essential (primary) hypertension Parisa Castellanos MD, FACC, [facility] 11/16/2018 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 11/14/2018 I25.10 Atherosclerotic heart disease of Tomasa Lerner, [employer] yocha dehe coronary artery with 11/14/2018 I25.10 Atherosclerotic heart disease of Padmini Kruse M.D. yocha dehe coronary artery with 11/14/2018 I44.2 Atrioventricular block, complete Tomasa Thuman, [employer] 11/14/2018 I44.2 Atrioventricular block, complete Padmini Kruse M.D. 11/14/2018 R00.1 Bradycardia, unspecified Tomasa Thuman, [employer] 11/14/2018 R00.1 Bradycardia, unspecified Padmini Kruse M.D. 11/14/2018 N17.9 Acute kidney failure, unspecified Tomasa Thuman, [employer] 11/14/2018 N17.9 Acute kidney failure, unspecified Padmini Kruse M.D. 11/13/2018 R94.31 Abnormal electrocardiogram [ECG] Bradford Johnson DO FACC [EKG] 11/13/[address] elevation (Stemi) myocardial Sal Delgado M.D. infarction of [facility] site 11/13/2018 Z95.0 Presence of cardiac pacemaker Sal Delgado M.D. 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 Tomasa Thuman, [employer] 11/13/2018 I25.10 Atherosclerotic heart disease of Tomasa Lerner, [employer] yocha dehe coronary artery with 11/13/2018 R00.1 Bradycardia, unspecified Tomasa Thuman, [employer] 11/13/2018 I44.2 Atrioventricular block, complete Tomasa Thuman, [employer] 11/13/2018 I10 Essential (primary) hypertension Tomasa Thuman, [employer] 11/12/2018 R94.31 Abnormal electrocardiogram [ECG] Bradford Johnson DO FACC [EKG] 11/12/[address] elevation (Stemi) myocardial Parisa Castellanos MD, FACC , infarction involving right c [facility] 11/12/2018 N28.9 Disorder of kidney and ureter, Parisa Castellanos MD, FACElmo, unspecified [facility] 11/12/2018 E11.9 Type 2 diabetes mellitus without Parisa Castellanos MD, FACElmo , complications [facility] 11/12/2018 I10 Essential (primary) hypertension Parisa Castellanos MD, ROSMERY, [facility] 11/12/2018 I25.10 Atherosclerotic heart disease of Parisa Castellanos MD, FACElmo, yocha dehe coronary artery with [facility] Plan of Treatment Future Appointment(s):05/28/2019 1:45 pm - Fatmata Carrion MD at [facility]05/08/2019 1:30 pm - Drew Hairston MD at [facility]01/17/2019 1:50 pm - Padmini Kruse M.D. at [facility] 1:00 pm - Ica Pacer Schedule at [facility]05/06/2019 - Fatmata Carrion MDG47.9 Sleep disorder, unspecifiedFollow up:2 pagafP08.02 HypoxemiaNew Orders:Overnight Oximetry, Scheduled: 05/06/19 Functional Status Description No Information Available Mental Status Description No Information Available Referrals Refer to Reason for Referral Status Appt Date [facility] CKD, diastolic CHF, LE edema and oozing ulcers. Sent 05/03/[address] [place] [address] [phone] Fatmata Carrion MD hypoxemia, hx of pAF sleep study ordered already Sent [address] [place] [id number] [phone] [facility] [place] and stents October and November Sent 04/03/2019 [address] [place] [address] [phone]
--- OUTSIDE RECORDS SUMMARY | 2019-05-10 07:06 | XMS REPORT | Continuity of Care Document ---
:1945 External Reference #:[id number] Author Name Padmini Kruse M.D. (transmitted by agent of provider Catrachita Hutson) Address [address] [place] [address] Care Team Providers Name Role Phone John Kennedy MD - Family Medicine Care Team Information Advertisement Distributor [phone] [facility] - Clinic/Center Care Team Information Advertisement Distributor [phone] Problems Active Problems Provider Date Acute ST segment elevation myocardial Parisa Castellanos MD, [facility], Onset: infarction due to right coronary [facility] occlusion Acute subendocardial infarction Eric Taylor M.D., [facility], Onset: 12/11/2018 [facility] Chronic kidney disease Eric Taylor M.D., [facility], Onset: 12/11/2018 [facility] Encounter for planned postprocedural Eric Taylor M.D., [facility], Onset: 2018 wound closure [facility] Hyperlipidemia Padmini Kruse M.D. Onset: 12/14/2018 Coronary [...] Use Denies Drug Use Smoking Status Reviewed: 04/30/19 Patient has never smoked Exercise Type/Frequency Exercises [...] by mouth twice 180tabs I48.0 Amy Althea Christensen, 02/11/2019 5mg Tablets a day N.P. Clopidogrel Bisulfate 1 by mouth every 90tabs Amytaye Christensen, 02/11/2019 day N.P. 75mg Tablets Hydralazine HCL 1 by mouth three 90tabs Amy Christensen, 12/08/2018 25mg times a day N.P. Tablets Isosorbide Dinitrate 1 by mouth three 90tabs Amy OlsonKathia Fermin, 12/08/2018 10mg times a day N.P. Tablets [...] by mouth twice a 180tabs Amy Althea Christensen, 03/05/2019 - 400mg day N.P. 03/12/2019 Tablets Lasix 1 by mouth Monday 45tabs R60.0 Padmini Kruse, 12/14/2018 - 20mg Tablets Monday M.D. 03/28/2019 Metoprolol 1 by mouth bid Parisa Wade 12/03/2018 - Succinate ER MD Jasmin, 02/17/2019 50mg ROSMERY, [facility] Tablets ER 24HR Brilinta 1 tab by mouth 60tabs Parisa Wade 11/19/2018 - 90mg twice a day MD Jasmin, 02/11/2019 Tablets ROSMERY, [facility] Aspirin 1 by mouth every 90tabs Parisa Wade 11/19/2018 - 81mg day MD Jasmin, 02/11/[address] BOTELLO, [facility] Immunizations Description No Information Available Vital Signs Date Vital Result Comment 04/30/2019 10:12am Height 59 inches 4'11" Weight 183.00 lb Heart Rate 80 /min irregular. BP Systolic Sitting 138 mmHg Lue reg cuff BP Diastolic Sitting 78 mmHg Lue reg cuff Respiratory Rate 14 /min BMI (Body Mass Index) 37.0 kg/m2 Ejection Fraction 50-55% ECHO 02/28/2019 03/29/2019 1:28pm Height 59.5 inches 4'11.50" Weight 172.75 lb with shoes Heart Rate 72 /min BP Systolic Sitting 140 mmHg lue reg cuff BP Diastolic Sitting 78 mmHg lue reg cuff BP Systolic Standing 134 mmHg lue reg cuff BP Diastolic Standing 74 mmHg lue reg cuff Respiratory Rate 14 /min BMI (Body Mass Index) 34.3 kg/m2 Ejection Fraction 50-55% echo. 02/28/19 Results Test Date Facility Test Result H/L Range Note Basic Metabolic 04/05/2019 [facility] Sodium 137 mmol/L Normal 135-145 [address] [place] [address] [phone] Potassium 3.7 mmol/L Normal 3.5-5.0 Chloride 102 mmol/L Normal 101-111 Co2 Carbon Dioxide 25 mmol/L Normal 22-32 Anion Gap 10 mmol/L Normal 2-11 Glucose 173 mg/dL High 70-100 Blood Urea Nitrogen 46 mg/dL High 6-24 Creatinine 1.84 mg/dL High 0.51-0.95 BUN/Creatinine Ratio 25.0 High 8-20 Calcium 8.6 mg/dL Normal 8.6-10.3 Egfr Non- 26.7 >60 Egfr 32.4 >60 1 Comp Metabolic 03/12/2019 [facility] Sodium 136 mmol/L Normal 135-145 Panel [address] [place] [address] [phone] Potassium 4.0 mmol/L Normal 3.5-5.0 Chloride 105 [...] Egfr Non- 21.8 >60 Egfr 26.3 >60 2 Thyroid Panel 03/12/2019 [facility] Free T4 (Free 1.41 ng/dL High 0.61-1.[address] Thyroxine) [place] [address] [phone] Thyroxine 9.81 g/dL Normal 6.09-12.23 TSH (Thyroid Stim Horm) 2.14 mcIU/mL Normal 0.34-5.60 Basic Metabolic 12/13/2018 [facility] Sodium 141 mmol/L Normal 135-[address] [place] [address] [phone] Potassium 4.4 mmol/L Normal 3.5-5.0 Co2 Carbon Dioxide 22 mmol/L Normal 22-32 Glucose 216 mg/dL High 70-100 Blood Urea Nitrogen 46 mg/dL High 6-24 Creatinine 1.64 mg/dL High 0.51-0.95 BUN/Creatinine Ratio 28.0 High 8-20 Calcium 9.3 mg/dL Normal 8.6-10.3 Egfr Non- 30.6 >60 Egfr 37.1 >60 3 Chloride 112 mmol/L High 101-111 Anion Gap [...] 5 Kidney failure <15 (or dialysis) 2 Because ethnic data is not always readily [...] 15-29 5 Kidney failure <15 (or dialysis) 3 Because ethnic data is not always [...] dialysis) Procedures Date Code Description Status 02/28/2019 93738 ECHO Transthoracic, Real-Time 2D With Doppler And Color Completed Flow 02/28/2019 18296 ECHO Transthoracic, Real-Time 2D With Doppler And Color Completed Flow 02/08/2019 38565 EKG Tracing & Interpretation Completed 12/31/2018 79659 Pace Maker Eval W/Iterative Adjment Dual Lead Completed 12/31/2018 19998 Pace Maker Eval W/Iterative Adjment Dual Lead Completed 12/11/2018 31448 EKG Tracing & Interpretation Completed 12/08/2018 19860 EKG, Interpretation Only Completed 12/07/2018 49592 EKG, Interpretation Only Completed 12/06/2018 51567 Cath PLMT&NJX L Ventriculog Img S&I Completed 12/06/2018 94521 EKG, Interpretation Only Completed 12/06/2018 20431 Percutaneous Transcatheter Placement Of Intracoronary Completed Stent 12/05/2018 13266 EKG, Interpretation Only Completed 12/05/2018 91161 ECHO Transthorasic Realtime 2D W Doppler & Color Flow Hosp Completed 11/27/2018 92908 EKG Tracing & Interpretation Completed 11/15/2018 68081 Pace Maker Eval W/Iterative Adjment Dual Lead Completed 11/15/2018 26061 EKG, Interpretation Only Completed 11/14/2018 21125 EKG, Interpretation Only Completed 11/14/2018 63899 Perm Pacemaker Av Sequential Atrial And Ventricular Completed 11/13/2018 73897 ECHO Transthorasic Realtime 2D W Doppler & Color Flow Hosp Completed 11/13/2018 30287 EKG, Interpretation Only Completed 11/13/2018 48175 EKG, Interpretation Only Completed 11/12/2018 77093 Left Heart Cath. 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 I48.0 Paroxysmal atrial Of Jazzy Christensen, N.P. 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 E78.5 Hyperlipidemia, unspecified I25.2 Old myocardial infarction I48.0 Paroxysmal atrial fibrillation Office Visit 12/14/2018 11:00a [facility] Padmini Kruse, I25.10 Athscl heart Of [facility] AT [facility] disease of stebbins coronary artery w/o ang pctrs I12.9 Hypertensive chronic kidney disease w stg 1-4/unsp chr kdny N18.3 Chronic kidney disease, stage 3 (moderate) E78.5 Hyperlipidemia, unspecified R60.0 Localized edema I44.2 Atrioventricular block, complete Z95.0 Presence of cardiac pacemaker Office Visit 12/11/2018 3:20p [facility] Eric Taylor, I21.4 Non- St elevation Of Production Solderer AT [facility].D., FACC, (Nstemi) FSCAI myocardial infarction Z48.1 Encounter for planned postprocedural wound closure N18.9 Chronic kidney disease, unspecified Z98.61 Coronary angioplasty status Office Visit 12/08/2018 9:50a [facility] Lizette I21.4 Non-St elevation Assoc,pc Chetan Doto, (Nstemi) Hospitalists NETWORKING TECHNOLOGY INSTRUCTOR myocardial infarction I10 Essential (primary) hypertension N18.3 Chronic kidney disease, stage 3 (moderate) D64.9 Anemia, unspecified E11.69 Type 2 diabetes mellitus with other specified complication E78.5 Hyperlipidemia, unspecified Z98.61 Coronary angioplasty status Office Visit 12/07/2018 4:13p [facility] Niesha Oh I21.11 Stemi involving Francine Cruz right coronary artery I25.5 Ischemic cardiomyopathy I12.9 Hypertensive chronic kidney disease w stg 1-4/unsp chr kdny N18.9 Chronic kidney disease, unspecified E78.5 Hyperlipidemia, unspecified Office Visit 12/07/2018 9:50a [facility] I21.4 Non-St elevation Assoc,[facility], (Nstemi) Hospitalists NETWORKING TECHNOLOGY INSTRUCTOR myocardial infarction I10 Essential (primary) hypertension N18.3 Chronic kidney disease, stage 3 (moderate) Office Visit 12/06/2018 9:49a [facility] I21.4 Non-St elevation Assoc,[facility], (Nstemi) Hospitalists NETWORKING TECHNOLOGY INSTRUCTOR myocardial infarction I10 Essential (primary) hypertension N18.3 Chronic kidney disease, stage 3 (moderate) Office Visit 12/05/2018 9:47a [facility] Elma I21.4 Non-St elevation Assoc, Laura Carreon (Nstemi) Hospitalists myocardial infarction I10 Essential (primary) hypertension N18.3 Chronic kidney disease, stage 3 (moderate) Office Visit 12/05/2018 4:05p [facility] Sal Barakat I25.10 [facility]mu heart Janie Delgado. disease of stebbins coronary artery w/o ang pctrs R79.89 Other specified abnormal findings of blood chemistry R11.0 Nausea I50.9 Heart failure, unspecified R94.31 Abnormal electrocardiogram [ECG] [EKG] I25.2 Old myocardial infarction Office Visit 12/04/2018 9:46a [facility] Bea R11.2 Nausea with Assoc,pc Rootloraine, DO vomiting, Hospitalists unspecified R74.8 Abnormal levels of other serum enzymes R73.9 Hyperglycemia, unspecified Z95.0 Presence of cardiac pacemaker Office Visit 11/27/2018 3:00p [facility] Parisa Wade I21.11 Stemi involving Of [employer] [facility] MD Jasmin, right coronary FACC, FSCAI artery I25.5 Ischemic cardiomyopathy I44.1 Atrioventricular block, second degree Office Visit 11/20/2018 9:24a [facility] Eric Taylor, I21.11 Stemi involving Of [employer] [facility] M.D., FACC, right coronary FSCAI artery Z98.61 Coronary angioplasty status E11.9 Type 2 diabetes mellitus without complications Office Visit 11/19/2018 2:47p [facility] Eric Taylor, I21.11 Stemi involving Of [employer] Sol[employer] AT [facility] M.D., FACC, right coronary FSCAI artery Z98.61 Coronary angioplasty status Office Visit 11/18/2018 2:47p [facility] Parisa Wade I21.11 Stemi involving Of [employer] Sol[employer] AT [facility] MD Jasmin, right coronary FACC, FSCAI artery I10 Essential (primary) hypertension Office Visit 11/17/2018 2:45p [facility] Parisa Wade I21.11 Stemi involving Of [employer] AT [facility] MD Jasmin, right coronary FACC, FSCAI artery I10 Essential (primary) hypertension Office Visit 11/16/2018 12:58p [facility] Parisa Wade I21.11 Stemi involving Of [employer] AT [facility] MD Jasmin, right coronary FACC, FSCAI artery 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 I25.5 Ischemic cardiomyopathy Office Visit 11/15/2018 12:59p [facility] Parisa Wade I21.11 Stemi involving Of [employer] Sol[employer] AT [facility] MD Jasmin, right coronary FACC, FSCAI artery 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 R00.1 Bradycardia, unspecified I44.2 Atrioventricular block, complete I10 Essential (primary) hypertension Office Visit 11/12/2018 3:48p [facility] Parisa Wade I21.11 Stemi involving Of Production Solderer AT [facility] MD Jasmin, right coronary FACC, FSCAI artery N28.9 Disorder of kidney and ureter, unspecified E11.9 Type 2 diabetes mellitus without complications I10 Essential (primary) hypertension 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 04/30/2019 N18.3 Chronic kidney disease, stage 3 Padmini Kruse M.D. (moderate) 04/30/2019 I25.10 Atherosclerotic heart disease of Padmini Kruse M.D. stebbins coronary artery without angina pectoris 04/30/2019 I50.32 Chronic diastolic (congestive) heart Padmini Kruse M.D. failure 03/29/2019 I48.0 Paroxysmal atrial fibrillation Amy Christensen, N.P. 03/29/2019 I50.23 Acute on chronic systolic (congestive) Amy Christensen, N.P. heart failure 03/29/2019 I25.10 Atherosclerotic heart disease of Amy Christensen, N.P. stebbins coronary artery without angina pectoris 03/29/2019 Z95.0 Presence of cardiac pacemaker Amy Olson. Fermin, N.P. 03/29/2019 I12.9 Hypertensive chronic kidney disease Amy S. Fermin, N.P. with stage 1 through sta 03/29/2019 E78.5 Hyperlipidemia, unspecified Amy S. Fermin, N.P. 03/29/2019 N18.9 Chronic kidney disease, unspecified Amy Christensen, N.P. 03/20/2019 I48.0 Paroxysmal atrial fibrillation Tomasa Lerner, NETWORKING TECHNOLOGY INSTRUCTOR 03/20/2019 I50.23 Acute on chronic systolic (congestive) Tomasa Lerner NP heart failure 03/20/2019 I25.10 Atherosclerotic heart disease of Tomasa Lerner NP stebbins coronary artery without angina pectoris 03/20/2019 I25.2 Old myocardial infarction Tomasa Lerner NP 02/28/2019 I25.5 Ischemic cardiomyopathy Padmini Kruse M.D. 02/28/2019 I25.5 Ischemic cardiomyopathy [facility] Schedule 02/18/2019 Z95.0 Presence of cardiac pacemaker Padmini Kruse M.D. 02/18/2019 I25.10 Atherosclerotic heart disease of Padmini Kruse M.D. stebbins coronary artery with 02/18/2019 I25.5 Ischemic cardiomyopathy Padmini Kruse M.D. 02/18/2019 I48.0 Paroxysmal atrial fibrillation Padmini Kruse M.D. 02/18/2019 R53.83 Other fatigue Padmini Kruse M.D. 02/08/2019 R94.31 Abnormal electrocardiogram [ECG] [EKG] Padmini Kruse M.D. 02/08/2019 Z95.0 Presence of cardiac pacemaker Amy Christensen, N.P. 02/08/2019 I44.2 Atrioventricular block, complete Amy Christensen, N.P. 02/08/2019 I25.10 Atherosclerotic heart disease of Amy Christensen, N.P. stebbins coronary artery with 02/08/2019 E78.5 Hyperlipidemia, unspecified Amy Olson. Fermin, N.P. 02/08/2019 I25.2 Old myocardial infarction Amy SKathia Christensen, N.P. 02/08/2019 I48.0 Paroxysmal atrial fibrillation Amy Christensen, N.P. 12/31/2018 Z95.0 Presence of cardiac pacemaker Padmini Kruse M.D. 12/31/2018 Z95.0 Presence of cardiac pacemaker Ica Pacer Schedule 12/31/2018 I44.2 Atrioventricular block, complete Ica Pacer Schedule 12/14/2018 I25.10 Atherosclerotic heart disease of Padmini Kruse M.D. stebbins coronary artery with 12/14/2018 I12.9 Hypertensive chronic kidney disease Padmini Kruse M.D. with stage 1 through sta 12/14/2018 N18.3 chronic kidney disease, or unspecified Padmini Kruse M.D. chronic kidney diseas 12/14/2018 E78.5 Hyperlipidemia, unspecified Padmini Kruse M.D. 12/14/2018 R60.0 Localized edema Padmini Kruse M.D. 12/14/2018 I44.2 Atrioventricular block, complete Padmini Kruse M.D. 12/14/2018 Z95.0 Presence of cardiac pacemaker Padmini Kruse M.D. 12/11/2018 I21.4 Non-St elevation (Nstemi) myocardial Eric Taylor M.D., [facility], infarction [facility] 12/11/2018 Z48.1 Encounter for planned postprocedural Eric Taylor M.D., [facility], wound closure [facility] 12/11/2018 N18.9 Chronic kidney disease, unspecified Eric Taylor M.D., [facility] , [facility] 12/11/2018 Z98.61 Coronary angioplasty status Eric Taylor M.D., [facility], [facility] 12/08/2018 R94.31 Abnormal electrocardiogram [ECG] [EKG] Niesha Cruz M.D. 12/08/2018 I21.4 Non-St elevation (Nstemi) myocardial Lizettestaci Cain NP infarction 12/08/2018 I25.10 Atherosclerotic heart disease of Niesha Cruz M.D. stebbins coronary artery with 12/08/2018 I10 Essential (primary) hypertension Lizette Cain NP 12/08/2018 I42.9 Cardiomyopathy, unspecified Niesha Cruz M.D. 12/08/2018 N18.3 Chronic kidney disease, stage 3 Lizette Cain NP (moderate) 12/08/2018 Z95.0 Presence of cardiac pacemaker Niesha Cruz M.D. 12/08/2018 D64.9 Anemia, unspecified Lizette Cain NP 12/08/2018 E11.69 Type 2 diabetes mellitus with other Lizette Cain NP specified complication 12/08/2018 E78.5 Hyperlipidemia, unspecified Lizette Cain, NETWORKING TECHNOLOGY INSTRUCTOR 12/08/2018 Z98.61 Coronary angioplasty status Lizette Cain NP 12/07/2018 R94.31 Abnormal electrocardiogram [ECG] [EKG] Niesha Cruz M.D. 12/07/2018 I21.4 Non-St elevation (Nstemi) myocardial Lizette Cain DOMINICK infarction 12/07/[address] elevation (Stemi) myocardial Niesha Cruz M.D. infarction involving right c 12/07/2018 I10 Essential (primary) hypertension Lizette CainDOMINICK 12/07/2018 I25.5 Ischemic cardiomyopathy Niesha Cruz M.D. 12/07/2018 N18.3 Chronic kidney disease, stage 3 Lizette CainDOMINICK (moderate) 12/07/2018 I12.9 Hypertensive chronic kidney disease Niesha Cruz M.D. with stage 1 through stage 4 chronic kidney disease, or unspecified chronic kidney disease 12/07/2018 N18.9 Chronic kidney disease, unspecified Niesha Cruz M.D. 12/07/2018 E78.5 Hyperlipidemia, unspecified Niesha Cruz M.D. 12/06/2018 R94.31 Abnormal electrocardiogram [ECG] [EKG] Mango Eastman M.D. 12/06/2018 I21.4 Non-St elevation (Nstemi) myocardial Eric Taylor M.D., [facility], infarction [facility] 12/06/2018 I25.10 Atherosclerotic heart disease of Eric Taylor M.D., [facility], stebbins coronary artery with FSCAI 12/06/2018 I21.4 Non-St elevation (Nstemi) myocardial Lizette Cain DOMINICK infarction 12/06/2018 I10 Essential (primary) hypertension Lizette Cain, DOMINICK 12/06/2018 N18.3 Chronic kidney disease, stage 3 Lizette Cain, NETWORKING TECHNOLOGY INSTRUCTOR (moderate) 12/05/2018 R94.31 Abnormal electrocardiogram [ECG] [EKG] Mango Eastman M.D. 12/05/2018 I25.10 Atherosclerotic heart disease of Sal Delgado M.D. stebbins coronary artery without angina pectoris 12/05/2018 R79.89 Other specified abnormal findings of Sal Delgado M.D. blood chemistry 12/05/2018 I21.4 Non-St elevation (Nstemi) myocardial Elma Carreon D.O. infarction 12/05/2018 R11.0 Nausea Sal Delgado M.D. 12/05/2018 I50.9 Heart failure, unspecified Sal Delgado M.D. 12/05/2018 I10 Essential (primary) hypertension Elma Carreon D.O. 12/05/2018 R94.31 Abnormal electrocardiogram [ECG] [EKG] Sal Delgado M.D. 12/05/2018 I25.2 Old myocardial infarction Sal Delgado M.D. 12/05/2018 N18.3 Chronic kidney disease, stage 3 Elma Carreon D.O. (moderate) 12/04/2018 R11.2 Nausea with vomiting, unspecified Bea Rooth, DO 12/04/2018 R74.8 Abnormal levels of other serum enzymes Bea Rooth, DO 12/04/2018 R73.9 Hyperglycemia, unspecified Bea Rooth, DO 12/04/2018 Z95.0 Presence of cardiac pacemaker Bea Forrest, DO 11/27/[address] elevation (Stemi) myocardial Parisa Castellanos MD, [facility] , infarction involving right c [facility] 11/27/2018 I25.5 Ischemic cardiomyopathy Parisa Castellanos MD, ROSMERY, [facility] 11/27/2018 I44.1 Atrioventricular block, second degree Parisa Castellanos MD , [facility], [facility] 11/20/2018 Z95.0 Presence of cardiac pacemaker Mango Eastman M.D. 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 Eric Taylor M.D., [facility], [facility] 11/20/2018 Z98.61 Coronary angioplasty status Eric Taylor M.D., [facility], [facility] 11/20/2018 E11.9 Type 2 diabetes mellitus without Eric Taylor M.D., [facility], complications [facility] 11/19/2018 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 Eric Taylor M.D., [facility], [facility] 11/19/2018 Z98.61 Coronary angioplasty status Eric Taylor M.D., [facility], [facility] 11/18/[address] elevation (Stemi) myocardial Parisa Castellanos MD, ROSMERY , infarction involving right c [facility] 11/18/2018 I10 Essential (primary) hypertension Parisa Castellanos MD, FACC, [facility] 11/17/2018 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 Parisa Castellanos MD, FACC, [facility] 11/17/2018 I10 Essential (primary) hypertension Parisa Castellanos MD, FACC, [facility] 11/16/2018 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 Parisa Castellanos MD, FACC, [facility] 11/16/2018 I25.10 Atherosclerotic heart disease of Parisa Castellanos MD, FACC, stebbins coronary artery with [facility] 11/16/2018 I25.5 Ischemic cardiomyopathy Parisa Castellanos MD, FACC, [facility] 11/15/2018 R94.31 Abnormal electrocardiogram [ECG] [EKG] Bradford Johnson, [facility] 11/15/2018 Z95.0 Presence of cardiac pacemaker Padmini Kruse M.D. 11/15/2018 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 Parisa Castellanos MD, FACC, [facility] 11/15/2018 I25.10 Atherosclerotic heart disease of Parisa Castellanos MD, FACC, stebbins coronary artery with [facility] 11/15/2018 I25.5 Ischemic cardiomyopathy Parisa Castellanos MD, FACC, [facility] 11/15/2018 I44.1 Atrioventricular block, second degree Parisa Castellanos MD, FACC, [facility] 11/14/2018 R94.31 Abnormal electrocardiogram [ECG] [EKG] Bradford Johnson DO [facility] 11/14/2018 I44.2 Atrioventricular block, complete Padmini Kruse M.D. 11/14/2018 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 Tomasa Lerner, NETWORKING TECHNOLOGY INSTRUCTOR 11/14/2018 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 Padmini Kruse M.D. 11/14/2018 I25.10 Atherosclerotic heart disease of Tomasa Lerner, NETWORKING TECHNOLOGY INSTRUCTOR [place] coronary artery with 11/14/2018 I25.10 Atherosclerotic heart disease of Padmini Kruse M.D. [place] coronary artery with 11/14/2018 I44.2 Atrioventricular block, complete Tomasa Lerner, NETWORKING TECHNOLOGY INSTRUCTOR 11/14/2018 I44.2 Atrioventricular block, complete Padmini Kruse M.D. 11/14/2018 R00.1 Bradycardia, unspecified Tomasa Thuman, NETWORKING TECHNOLOGY INSTRUCTOR 11/14/2018 R00.1 Bradycardia, unspecified Padmini Kruse M.D. 11/14/2018 N17.9 Acute kidney failure, unspecified Tomasa Thuman, NETWORKING TECHNOLOGY INSTRUCTOR 11/14/2018 N17.9 Acute kidney failure, unspecified Padmini Kruse M.D. 11/13/2018 R94.31 Abnormal electrocardiogram [ECG] [EKG] Bradford Johnson, DO FAC 11/13/[address] elevation (Stemi) myocardial Sal Delgado M.D. infarction of [facility] site 11/13/2018 Z95.0 Presence of cardiac pacemaker Sal Delgado M.D. 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 Tomasa Calvinuman, NETWORKING TECHNOLOGY INSTRUCTOR 11/13/2018 I25.10 Atherosclerotic heart disease of Tomasa Lerner, NETWORKING TECHNOLOGY INSTRUCTOR [place] coronary artery with 11/13/2018 R00.1 Bradycardia, unspecified Tomasa Thuman, NETWORKING TECHNOLOGY INSTRUCTOR 11/13/2018 I44.2 Atrioventricular block, complete Tomasa Thuman, NETWORKING TECHNOLOGY INSTRUCTOR 11/13/2018 I10 Essential (primary) hypertension Tomasa Thuman, NETWORKING TECHNOLOGY INSTRUCTOR 11/12/2018 R94.31 Abnormal electrocardiogram [ECG] [EKG] Bradford Johnson, DO FACC 11/12/[address] elevation (Stemi) myocardial Parisa Castellanos MD, FAC , infarction involving right c [facility] 11/12/2018 N28.9 Disorder of kidney and ureter, Parisa Castellanos MD, [facility], unspecified [facility] 11/12/2018 E11.9 Type 2 diabetes mellitus without Parisa Castellanos MD, [facility] , complications [facility] 11/12/2018 I10 Essential (primary) hypertension Parisa Castellanos MD, [facility], [facility] 11/12/2018 I25.10 Atherosclerotic heart disease of Parisa Castellanos MD, [facility], [place] coronary artery with [facility] Plan of Treatment Future Appointment(s):05/10/2019 2:00 pm - Amy Christensen NKaylah. at [facility]05/16/2019 1:50 pm - Padmini Kruse M.D. at [facility] 1:00 pm - Ica Pacer Schedule at [facility]05/06/2019 2: 30 pm - Fatmata Carrion MD at [facility]04/30/2019 - Padmini Kruse M.D.R60.0 Localized edemaComments:4+ edema to thighs.Agree low salt diet implementation.Referral:Wound Clinic, Clinic/CenterFollow up:1 week NPRecommendations:Double Torsemide to 40 mg in AM Start potassium pills today: 20 meq today, tomorrow, Thrusday then 10 meq daily.N18.3 Chronic kidney disease , stage 3 (moderate)Comments:Aleve will hurt the kidneys (and relatives)Tylenol is OKI25.10 Atherosclerotic heart disease of [place] coronary artery without angina ntwfaoueK45.32 Chronic diastolic (congestive) heart failure Functional Status Description No Information Available Mental Status Description No Information Available Referrals Refer to Reason for Referral Status Appt Date Wound Clinic CKD, diastolic CHF, LE edema and oozing ulcers. Sent 05/03/[address] [place] [address] [phone] Fatmata Carrion MD hypoxemia, hx of pAF sleep study ordered already Sent [address] [place] [address] [phone] [facility] [place] and stents October and November Sent 04/03/2019 [address] [place] [address] [phone]
--- OUTSIDE RECORDS SUMMARY | 2019-05-10 07:06 | XMS REPORT | Continuity of Care Document ---
:1945 External Reference #:[id number] Author Name Amy Christensen N.Nithya (transmitted by agent of provider Santa Brown) Address [address] [place] [address] Care Team Providers Name Role Phone John Kennedy MD - Family Medicine Care Team Information Visual Merchandise Manager [phone] Problems Active Problems Provider Date Acute ST segment elevation myocardial Parisa Castellanos MD, [facility], Onset: [facility] due to [facility] Acute subendocardial infarction Eric Taylor M.D., [facility], Onset: 12/11/2018 [facility] Chronic kidney disease Eric Taylor M.D., [facility], Onset: 12/11/2018 [facility] Encounter for planned postprocedural Eric Taylor M.D., [facility], Onset: 2018 wound closure [facility] Hyperlipidemia Padmini Kruse M.D. Onset: 12/14/2018 Coronary arteriosclerosis after Padmini Kruse M.D. Onset: 12/14/2018 percutaneous coronary angioplasty Cardiac pacemaker in situ Padmini Kruse M.D. Onset: 12/14/2018 Social History Type Date Description Comments Sex Unknown ETOH Use Denies alcohol use Tobacco Use Start: Unknown Patient has never smoked Recreational Drug Use Denies Drug Use Smoking Status Reviewed: 03/29/19 Patient has never smoked Exercise Type/Frequency Exercises rarely Allergies, Adverse Reactions, Alerts Description No Known Drug Allergies Medications Active Medications SIG Qnty Indications Ordering Date Provider Oxygen 2l via nasal 1units Amy Christensen, 02/22/2019 Misc cannula at night N.P. Eliquis 1 by mouth twice 180tabs I48.0 Amy Christensen, 02/11/2019 5mg Tablets a day N.P. Clopidogrel Bisulfate 1 by mouth every 90tabs Amy Christensen, 02/11/2019 day N.P. 75mg Tablets Hydralazine [...] Atorvastatin Calcium 1 by mouth every Eric [facility], 11/19/2018 80mg day M.D., FACC, Tablets FSCAI Metoprolol Succinate Take 1 Tablet By Unknown ER Mouth Once Daily 50mg Tablets ER 24HR Torsemide 1 by mouth every Unknown 20mg Tablets day History Medications Multaq 1 by mouth twice a 180tabs Amy Christensen, 03/05/2019 - 400mg day N.P. 03/12/2019 Tablets Lasix 1 by mouth Monday 45tabs R60.0 Padmini Kruse, 12/14/2018 - 20mg Tablets Monday M.D. 03/28/2019 Metoprolol 1 by mouth bid Parisa Wade 12/03/2018 - Succinate ER MD Jasmin, 02/17/2019 50mg ROSMERY, FSCAI Tablets ER 24HR Brilinta 1 tab by mouth 60tabs Parisa Wade 11/19/2018 - 90mg twice a day MD Jasmin, 02/11/2019 Tablets ROSMERY, FSCAI Aspirin 1 by mouth every 90tabs Parisa Wade 11/19/2018 - 81mg day MD Jasmin, 02/11/[address] BOTELLO, KAMRAN Immunizations Description No Information Available Vital Signs Date Vital Result Comment 03/29/2019 1:28pm Height 59.5 inches 4'11.50" Weight 172.75 lb with shoes Heart Rate 72 /min BP Systolic Sitting 140 mmHg lue reg cuff BP Diastolic Sitting 78 mmHg lue reg cuff BP Systolic Standing 134 mmHg lue reg cuff BP Diastolic Standing 74 mmHg lue reg cuff Respiratory Rate 14 /min BMI (Body Mass Index) 34.3 kg/m2 Ejection Fraction 50-55% echo. 02/28/19 03/29/2019 1:19pm Height 59.5 inches 4'11.50" Weight 172.00 lb with shoes BMI (Body Mass Index) 34.2 kg/m2 Results Test Date Facility Test Result H/L Range Note Comp Metabolic 03/12/2019 [facility] Sodium 136 mmol/L Normal 135-[address] [place] [address] [phone] Potassium 4.0 mmol/L Normal 3.5-5.0 Chloride 105 [...] Egfr Non- 21.8 >60 Egfr 26.3 >60 1 Thyroid Panel 03/12/2019 [facility] Free T4 (Free 1.41 ng/dL High 0.61-1.12 DRIVE Thyroxine) [place] [address] [phone] Thyroxine 9.81 g/dL Normal 6.09-12.23 TSH (Thyroid Stim Horm) 2.14 mcIU/mL Normal 0.34-5.60 Basic Metabolic 12/13/2018 [facility] Sodium 141 mmol/L Normal 135-[address] [place] [address] [phone] Potassium 4.4 mmol/L Normal 3.5-5.0 Co2 Carbon Dioxide 22 mmol/L Normal 22-32 Glucose 216 mg/dL High 70-100 Blood Urea Nitrogen 46 mg/dL High 6-24 Creatinine 1.64 mg/dL High 0.51-0.95 BUN/Creatinine Ratio 28.0 High 8-20 Calcium 9.3 mg/dL Normal 8.6-10.3 Egfr Non- 30.6 >60 Egfr 37.1 >60 2 Chloride 112 mmol/L High 101-111 Anion Gap [...] dialysis) Procedures Date Code Description Status 02/28/2019 10755 ECHO Transthoracic, Real-Time 2D With Doppler And Color Completed Flow 02/28/2019 60688 ECHO Transthoracic, Real-Time 2D With Doppler And Color Completed Flow 02/08/2019 24931 EKG Tracing & Interpretation Completed 12/31/2018 83471 Pace Maker Eval W/Iterative Adjment Dual Lead Completed 12/31/2018 67030 Pace Maker Eval W/Iterative Adjment Dual Lead Completed 12/11/2018 95704 EKG Tracing & Interpretation Completed 12/08/2018 60123 EKG, Interpretation Only Completed 12/07/2018 90244 EKG, Interpretation Only Completed 12/06/2018 24683 Cath PLMT&NJX L Ventriculog Img S&I Completed 12/06/2018 75309 EKG, Interpretation Only Completed 12/06/2018 71562 Percutaneous Transcatheter Placement Of Intracoronary Completed Stent 12/05/2018 14250 EKG, Interpretation Only Completed 12/05/2018 11341 ECHO Transthorasic Realtime 2D W Doppler & Color Flow Hosp Completed 11/27/2018 50982 EKG Tracing & Interpretation Completed 11/15/2018 89093 Pace Maker Eval W/Iterative Adjment Dual Lead Completed 11/15/2018 28214 EKG, Interpretation Only Completed 11/14/2018 37045 EKG, Interpretation Only Completed 11/14/2018 64169 Perm Pacemaker Av Sequential Atrial And Ventricular Completed 11/13/2018 70801 ECHO Transthorasic Realtime 2D W Doppler & Color Flow Hosp Completed 11/13/2018 85379 EKG, Interpretation Only Completed 11/13/2018 85123 EKG, Interpretation Only Completed 11/12/2018 27637 Left Heart Cath. Incl S/I Coronaries, Angio S/I V Gram If Completed Done 11/12/2018 66119 EKG, Interpretation Only Completed 11/12/2018 02432 EKG, Interpretation Only Completed 11/12/2018 92932 Revascularization Acute Total/Subtotal Occlusion Completed Medical Devices Description No Information Available Encounters Type Date Location Provider Dx Diagnosis Office Visit 03/20/2019 [facility] Tomasa Lerner, I48.0 Paroxysmal atrial 3:34p Of Property Loss Insurance Claim Adjuster TRAY DRIER OPERATOR fibrillation I50.23 Acute on chronic systolic (congestive) heart failure I25.10 Athscl heart disease of [place] coronary artery w/o ang pctrs I25.2 Old myocardial infarction Office Visit 02/18/2019 3:00p [facility] Padmini Kruse, Z95.0 Presence of Of Property Loss Insurance Claim Adjuster M.D. cardiac pacemaker I25.10 Athscl heart disease of [place] coronary artery w/o ang pctrs I25.5 Ischemic cardiomyopathy I48.0 Paroxysmal atrial fibrillation R53.83 Other fatigue Office Visit 02/08/2019 1:30p [facility] Amy S. Z95.0 Presence of Fermin N.P. cardiac pacemaker I44.2 Atrioventricular block, complete I25.10 Athscl heart disease of [place] coronary artery w/o ang pctrs E78.5 Hyperlipidemia, unspecified I25.2 Old myocardial infarction I48.0 Paroxysmal atrial fibrillation Office Visit 12/14/2018 11:00a [facility] Padmini Kruse, I25.10 Athscl heart Of [facility] AT [facility].D disease of [place] coronary artery w/o ang pctrs I12.9 Hypertensive chronic kidney disease w stg 1-4/unsp chr kdny N18.3 Chronic kidney disease, stage 3 (moderate) E78.5 Hyperlipidemia, unspecified R60.0 Localized edema I44.2 Atrioventricular block, complete Z95.0 Presence of cardiac pacemaker Office Visit 12/11/2018 3:20p [facility] Eric Taylor, I21.4 Non- St elevation Of Property Loss Insurance Claim Adjuster AT [facility].DKathia, FACC, (Nstemi) FSCAI myocardial infarction Z48.1 Encounter for planned postprocedural wound closure N18.9 Chronic kidney disease, unspecified Z98.61 Coronary angioplasty status Office Visit 12/08/2018 9:50a [facility] Lizette I21.4 Non-St [facility]stem[facility] Hospitalists TRAY DRIER OPERATOR myocardial infarction I10 Essential (primary) hypertension N18.3 Chronic kidney disease, stage 3 (moderate) D64.9 Anemia, unspecified E11.69 Type 2 diabetes mellitus with other specified complication E78.5 Hyperlipidemia, unspecified Z98.61 Coronary angioplasty status Office Visit [facility]07[facility] I[facility].4 Non-St elevation Assoc,[facility] Ant, (Nstemi) Hospitalists TRAY DRIER OPERATOR myocardial infarction I10 Essential (primary) hypertension N18.3 Chronic kidney disease, stage 3 (moderate) Office Visit 12/07/2018 4:13p [facility] Niesha SKathia I21.11 Stemi involving Francine Cruz right coronary artery I25.5 Ischemic cardiomyopathy I12.9 Hypertensive chronic kidney disease w stg 1-4/unsp chr kdny N18.9 Chronic kidney disease, unspecified E78.5 Hyperlipidemia, unspecified Office Visit 12/06/2018 9:49a [facility] Lizette I21.4 Non-St elevation Assoc,pc Chetan Cain, (Nstemi) Hospitalists TRAY DRIER OPERATOR myocardial infarction I10 Essential (primary) hypertension N18.3 Chronic kidney disease, stage 3 (moderate) Office Visit 12/05/2018 9:47a [facility] Elma I21.4 Non-St elevation Assoc,pc Laura Carreon (Nstemi) Hospitalists myocardial infarction I10 Essential (primary) hypertension N18.3 Chronic kidney disease, stage 3 (moderate) Office Visit 12/05/2018 4:05p [facility] Sal Barakat I25.10 Athscl heart Francine Delgado disease of [place] coronary artery w/o ang pctrs R79.89 Other specified abnormal findings of blood chemistry R11.0 Nausea I50.9 Heart failure, unspecified R94.31 Abnormal electrocardiogram [ECG] [EKG] I25.2 Old myocardial infarction Office Visit 12/04/2018 9:46a [facility] Bea R11.2 Nausea with Assoc,pc Rooth, DO vomiting, Hospitalists unspecified R74.8 Abnormal levels of other serum enzymes R73.9 Hyperglycemia, unspecified Z95.0 Presence of cardiac pacemaker Office Visit 11/27/2018 3:00p [facility] Parisa Wade I21.11 Stemi involving Of Property Loss Insurance Claim Adjuster AT [facility] MD Jasmin, right coronary FACC, FSCAI artery I25.5 Ischemic cardiomyopathy I44.1 Atrioventricular block, second degree Office Visit 11/20/2018 9:24a [facility] Eric Taylor I21.11 Stemi involving Of Property Loss Insurance Claim Adjuster AT [facility] Francine, FACC, right coronary FSCAI artery Z98.61 Coronary angioplasty status E11.9 Type 2 diabetes mellitus without complications Office Visit 11/19/2018 2:47p [facility] Eric Taylor, I21.11 Stemi involving Of Property Loss Insurance Claim Adjuster AT [facility] Francine, FACC, right coronary FSCAI artery Z98.61 Coronary angioplasty status Office Visit 11/18/2018 2:47p [facility] Parisa Wade I21.11 Stemi involving Of Property Loss Insurance Claim Adjuster AT [facility] MD Jasmin, right coronary FACC, FSCAI artery I10 Essential (primary) hypertension Office Visit 11/17/2018 2:45p [facility] Parisa Wade I21.11 Stemi involving Of Property Loss Insurance Claim Adjuster AT [facility] MD Jasmin, right coronary FACC, FSCAI artery I10 Essential (primary) hypertension Office Visit 11/16/2018 12:58p [facility] Parisa Wade I21.11 Stemi involving Of Property Loss Insurance Claim Adjuster AT [facility] MD Jasmin, right coronary FACC, FSCAI artery I25.10 Athscl heart disease of [place] coronary artery w/o ang pctrs I25.5 Ischemic cardiomyopathy Office Visit 11/15/2018 12:59p [facility] Parisa Wade I21.11 Stemi involving Of Property Loss Insurance Claim Adjuster AT [facility] MD Jasmin, right coronary FACC, FSCAI artery I25.10 Athscl heart disease of [place] coronary artery w/o ang pctrs I25.5 Ischemic cardiomyopathy I44.1 Atrioventricular block, second degree Office Visit 11/14/2018 12:57p [facility] Tomasa Lerner, I21.11 Stemi involving Of Property Loss Insurance Claim Adjuster AT [facility] TRAY DRIER OPERATOR right coronary artery I25.10 Athscl heart disease of [place] coronary artery w/o ang pctrs I44.2 Atrioventricular block, complete R00.1 Bradycardia, unspecified N17.9 Acute kidney failure, unspecified Office Visit 11/14/2018 12:55p [facility] Padmini Kruse I21.11 Stemi involving Of Property Loss Insurance Claim Adjuster M.D. right coronary artery I25.10 Athscl heart disease of [place] coronary artery w/o ang pctrs I44.2 Atrioventricular block, complete R00.1 Bradycardia, unspecified N17.9 Acute kidney failure, unspecified Office Visit 11/13/2018 3:52p [facility] Tomasa Lerner, I21.11 Stemi involving Of Property Loss Insurance Claim Adjuster AT [facility] TRAY DRIER OPERATOR right coronary artery I25.10 Athscl heart disease of [place] coronary artery w/o ang pctrs R00.1 Bradycardia, unspecified I44.2 Atrioventricular block, complete I10 Essential (primary) hypertension Office Visit 11/12/2018 3:48p [facility] Parisa Wade I21.11 Stemi involving Of Property Loss Insurance Claim Adjuster AT [facility] MD Jasmin, right coronary FACC, FSCAI artery N28.9 Disorder of kidney and ureter, unspecified E11.9 Type 2 diabetes mellitus without complications I10 Essential (primary) hypertension I25.10 Athscl heart disease of [place] coronary artery w/o ang pctrs Assessments Date Code Description Provider 03/29/2019 I48.0 Paroxysmal atrial fibrillation Amy S. Foster, N.P. 03/29/2019 I50.23 Acute on chronic systolic (congestive) Amy S. Foster, N.P. heart failure 03/29/2019 I25.10 Atherosclerotic heart disease of Amy S. Foster, N.P. [place] coronary artery without angina pectoris 03/29/2019 Z95.0 Presence of cardiac pacemaker Amy S. Foster, N.P. 03/29/2019 I12.9 Hypertensive chronic kidney disease Amy S. Foster, N.P. with stage 1 through sta 03/29/2019 E78.5 Hyperlipidemia, unspecified Amy S. Foster, N.P. 03/20/2019 I48.0 Paroxysmal atrial fibrillation Tomasa Lerner NP 03/20/2019 I50.23 Acute on chronic systolic (congestive) Tomasa Lerner NP heart failure 03/20/2019 I25.10 Atherosclerotic heart disease of Tomasa LernerDOMINICK [place] coronary artery without angina pectoris 03/20/2019 I25.2 Old myocardial infarction Tomasa Lerner NP 02/28/2019 I25.5 Ischemic cardiomyopathy Padmini Kruse M.D. 02/28/2019 I25.5 Ischemic cardiomyopathy [place] [facility] Schedule 02/18/2019 Z95.0 Presence of cardiac pacemaker Padmini Kruse M.D. 02/18/2019 I25.10 Atherosclerotic heart disease of Padmini Kruse M.D. [place] coronary artery with 02/18/2019 I25.5 Ischemic cardiomyopathy Padmini Kruse M.D. 02/18/2019 I48.0 Paroxysmal atrial fibrillation Padmini Kruse M.D. 02/18/2019 R53.83 Other fatigue Padmini Kruse M.D. 02/08/2019 R94.31 Abnormal electrocardiogram [ECG] [EKG] Padmini Kruse M.D. 02/08/2019 Z95.0 Presence of cardiac pacemaker Amy S. Fermin, N.P. 02/08/2019 I44.2 Atrioventricular block, complete Amy Christensen, N.P. 02/08/2019 I25.10 Atherosclerotic heart disease of Amy Christensen, N.P. [place] coronary artery with 02/08/2019 E78.5 Hyperlipidemia, unspecified Amy Christensen, N.P. 02/08/2019 I25.2 Old myocardial infarction Amy Christensen, N.P. 02/08/2019 I48.0 Paroxysmal atrial fibrillation Amy Christensen, N.P. 12/31/2018 Z95.0 Presence of cardiac pacemaker Padmini Kruse M.D. 12/31/2018 Z95.0 Presence of cardiac pacemaker Ica Pacer Schedule 12/31/2018 I44.2 Atrioventricular block, complete Ica Pacer Schedule 12/14/2018 I25.10 Atherosclerotic heart disease of Padmini Kruse M.D. [place] coronary artery with 12/14/2018 I12.9 Hypertensive chronic [...] Non-St elevation (Nstemi) myocardial Eric Taylor M.D., [facility], infarction [facility] 12/11/2018 Z48.1 Encounter for planned postprocedural Eric Taylor M.D., [facility], wound closure [facility] 12/11/2018 N18.9 Chronic kidney disease, unspecified Eric Taylor M.D., [facility] , [facility] 12/11/2018 Z98.61 Coronary angioplasty status Eric Taylor M.D., [facility], [facility] 12/08/2018 R94.31 Abnormal electrocardiogram [ECG] [EKG] Niesha Cruz M.D. 12/08/2018 I21.4 Non-St elevation (Nstemi) myocardial Lizette Cain , TRAY DRIER OPERATOR infarction 12/08/2018 I25.10 Atherosclerotic heart disease of Niesha Cruz M.D. [place] coronary artery with 12/08/2018 I10 Essential (primary) hypertension Lizette Cain, TRAY DRIER OPERATOR 12/08/2018 I42.9 Cardiomyopathy, unspecified Niesha Cruz M.D. 12/08/2018 N18.3 Chronic kidney disease, stage 3 Lizette CainDOMINICK (moderate) 12/08/2018 Z95.0 Presence of cardiac pacemaker Niesha Cruz M.D. 12/08/2018 D64.9 Anemia, unspecified Lizette Cain, TRAY DRIER OPERATOR 12/08/2018 E11.69 Type 2 diabetes mellitus with other Lizette Chetan Ant TRAY DRIER OPERATOR specified complication 12/08/2018 E78.5 Hyperlipidemia, unspecified Lizette Cain, DOMINICK 12/08/2018 Z98.61 Coronary angioplasty status Lizette Cain, TRAY DRIER OPERATOR 12/07/2018 R94.31 Abnormal electrocardiogram [ECG] [EKG] Niesha Cruz M.D. 12/07/2018 I21.4 Non-St elevation (Nstemi) myocardial Lizette Cain TRAY DRIER OPERATOR infarction 12/07/[address] elevation (Stemi) myocardial Niesha Cruz M.D. infarction involving right c 12/07/2018 I10 Essential (primary) hypertension Lizette Cain, TRAY DRIER OPERATOR 12/07/2018 I25.5 Ischemic cardiomyopathy Niesha Cruz M.D. 12/07/2018 N18.3 Chronic kidney disease, stage 3 Lizette SierraDOMINICK yuen (moderate) 12/07/2018 I12.9 Hypertensive chronic kidney disease Niesha Cruz M.D. with stage 1 through stage 4 chronic kidney disease, or unspecified chronic kidney disease 12/07/2018 N18.9 Chronic kidney disease, unspecified Niesha Cruz M.D. 12/07/2018 E78.5 Hyperlipidemia, unspecified Qutaybeh Althea Cruz M.D. 12/06/2018 R94.31 Abnormal electrocardiogram [ECG] [EKG] Mango Eastman M.D. 12/06/2018 I21.4 Non-St elevation (Nstemi) myocardial Eric Taylor M.D., [facility], infarction FSCAI 12/06/2018 I25.10 Atherosclerotic heart disease of Eric Taylor M.D., [facility], [place] coronary artery with FSCAI 12/06/2018 I21.4 Non-St elevation (Nstemi) myocardial Lizette Cain , TRAY DRIER OPERATOR infarction 12/06/2018 I10 Essential (primary) hypertension Lizette Cain, TRAY DRIER OPERATOR 12/06/2018 N18.3 Chronic kidney disease, stage 3 Lizette Cain, TRAY DRIER OPERATOR (moderate) 12/05/2018 R94.31 Abnormal electrocardiogram [ECG] [EKG] Mango Eastman M.D. 12/05/2018 I25.10 Atherosclerotic heart disease of Sal Delgado M.D. [place] coronary artery without angina pectoris 12/05/2018 R79.89 Other specified abnormal findings of Sal Delgado M.D. blood chemistry 12/05/2018 I21.4 Non-St elevation (Nstemi) myocardial Elma Carreon D.O. infarction 12/05/2018 R11.0 Nausea Sal Delgado M.D. 12/05/2018 I50.9 Heart failure, unspecified Sal Delgado M.D. 12/05/2018 I10 Essential (primary) hypertension Joe Carter.O. 12/05/2018 R94.31 Abnormal electrocardiogram [ECG] [EKG] Sal Delgado M.D. 12/05/2018 I25.2 Old myocardial infarction Sal Delgado M.D. 12/05/2018 N18.3 Chronic kidney disease, stage 3 Elma Carreon D.O. (moderate) 12/04/2018 R11.2 Nausea with vomiting, unspecified Bea Rooth, DO 12/04/2018 R74.8 Abnormal levels of other serum enzymes Bea Forrest, DO 12/04/2018 R73.9 Hyperglycemia, unspecified Bea Forrest, DO 12/04/2018 Z95.0 Presence of cardiac pacemaker Bea Forrest, DO 11/27/[address] elevation (Stemi) myocardial Parisa Castellanos MD, [facility] , infarction involving right c [facility] 11/27/2018 I25.5 Ischemic cardiomyopathy Parisa Castellanos MD, [facility], [facility] 11/27/2018 I44.1 Atrioventricular block, second degree Parisa Castellanos MD , [facility], [facility] 11/20/2018 Z95.0 Presence of cardiac pacemaker Mango Eastman M.D. 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 Eric Taylor M.D., [facility], [facility] 11/20/2018 Z98.61 Coronary angioplasty status Eric Taylor M.D., [facility], [facility] 11/20/2018 E11.9 Type 2 diabetes mellitus without Eric Taylor M.D., [facility], [facility] 11/19/2018 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 Eric Taylor M.D., [facility], [facility] 11/19/2018 Z98.61 Coronary angioplasty status Eric Taylor M.D., [facility], [facility] 11/18/[address] elevation (Stemi) myocardial Parisa Castellanos MD, [facility] , infarction involving right c [facility] 11/18/2018 I10 Essential (primary) hypertension [facility], [facility] 11/17/2018 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 Parisa [facility]anos MD , [facility] 11/17/2018 I10 Essential (primary) hypertension Parisa [facility]ellanos MD, [facility], [facility] 11/16/2018 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 Parisa Castellanos MD , [facility], [facility] 11/16/2018 I25.10 Atherosclerotic heart disease of Parisa Castellanos MD, [facility], [place] coronary artery with [facility] 11/16/2018 I25.5 Ischemic cardiomyopathy Parisa Castellanos MD, [facility], [facility] 11/15/2018 R94.31 Abnormal electrocardiogram [ECG] [EKG] Bradford Johnson, DO [facility] 11/15/2018 Z95.0 Presence of cardiac pacemaker Padmini Kruse M.D. 11/15/2018 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 Parisa Castellanos MD , [facility], [facility] 11/15/2018 I25.10 Atherosclerotic heart disease of Parisa Castellanos MD, [facility], [place] coronary artery with [facility] 11/15/2018 I25.5 Ischemic cardiomyopathy Parisa Castellanos MD, [facility], [facility] 11/15/2018 I44.1 Atrioventricular block, second degree Parisa Castellanos MD , [facility], [facility] 11/14/2018 R94.31 Abnormal electrocardiogram [ECG] [EKG] Bradford Johnson, DO [facility] 11/14/2018 I44.2 Atrioventricular block, complete Padmini Kruse M.D. 11/14/2018 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 Tomasa Thuman, TRAY DRIER OPERATOR 11/14/2018 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 Padmini Kruse M.D. 11/14/2018 I25.10 Atherosclerotic heart disease of Tomasa Thuman, TRAY DRIER OPERATOR [place] coronary artery with 11/14/2018 I25.10 Atherosclerotic heart disease of Padmini Kruse M.D. [place] coronary artery with 11/14/2018 I44.2 Atrioventricular block, complete Tomasa Eduarda, TRAY DRIER OPERATOR 11/14/2018 I44.2 Atrioventricular block, complete Padmini Kruse M.D. 11/14/2018 R00.1 Bradycardia, unspecified Tomasa Thuman, TRAY DRIER OPERATOR 11/14/2018 R00.1 Bradycardia, unspecified Padmini Kruse M.D. 11/14/2018 N17.9 Acute kidney failure, unspecified Tomasa Thuman, TRAY DRIER OPERATOR 11/14/2018 N17.9 Acute kidney failure, unspecified Padmini Kruse M.D. 11/13/2018 R94.31 Abnormal electrocardiogram [ECG] [EKG] Bradford Johnson, DO [facility] [facility] 11/13/[address] elevation (Stemi) myocardial Sal Delgado M.D. infarction of [facility] site 11/13/2018 Z95.0 Presence of cardiac pacemaker Sal Delgado M.D. 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 Tomasa Lerner, [employer]ATOR 11/13/2018 I25.10 Atherosclerotic heart disease of Tomasa Lerner, T[employer] DRI[employer] OPERATOR [place] coronary artery with 11/13/2018 R00.1 Bradycardia, unspecified Tomasa Lerner, T[employer] OPERATOR 11/13/2018 I44.2 Atrioventricular block, complete Tomasa Lerner, T[employer] OPERATOR 11/13/2018 I10 Essential (primary) hypertension Tomasa Lerner, T[employer] D[employer] OPERATOR 11/12/2018 R94.31 Abnormal electrocardiogram [ECG] [EKG] Bradford Johnson, DO [facility] 11/12/[address] elevation (Stemi) myocardial Parisa Castellanos MD, FAC , infarction involving right c [facility] 11/12/2018 N28.9 Disorder of kidney and ureter, Parisa Castellanos MD, FACC, unspecified [facility] 11/12/2018 E11.9 Type 2 diabetes mellitus without Parisa Castellanos MD, FACC , complications [facility] 11/12/2018 I10 Essential (primary) hypertension Parisa Castellanos MD, FACC, [facility] 11/12/2018 I25.10 Atherosclerotic heart disease of Parisa Castellanos MD, FACC, [place] coronary artery with [facility] Plan of Treatment Future Appointment(s):05/16/2019 1:50 pm - Padmini Kruse M.D. at [facility]05/16/2019 1:00 pm - Ica Pacer Schedule at [facility]05/06/2019 2:30 pm - Fatmata Carrion MD at [facility]03/29/2019 - Amy Christensen, N.P.I48.0 Paroxysmal atrial cubginjahgjzF25.23 Acute on chronic systolic (congestive) heart failureNew Labs: Basic Metabolic Panel, Ordered: 03/29/19Follow up:OV LS 04/2019Recommendations: Continue Torsemide at 20mg daily Continue to weight yourself If you have weight gain > 3lbs call us and we may increase diuretic.I25.10 Atherosclerotic heart disease of [place] coronary artery without angina cofslywoR32.0 Presence of cardiac dpqykevalU59.9 Hypertensive chronic kidney disease with stage 1 through staE78.5 Hyperlipidemia, unspecified Functional Status Description No Information Available Mental Status Description No Information Available Referrals Refer to Reason for Referral Status Appt Date Fatmata Carrion MD hypoxemia, hx of pAF sleep study ordered Sent already [address] [place] [address] [phone] [facility] MD and stents October and November Sent 04/03/2019 [address] [place] [address] [phone]
--- OUTSIDE RECORDS SUMMARY | 2019-05-10 07:06 | XMS REPORT | Continuity of Care Document ---
:1945 External Reference #:[id number] Author Name Amy Christensen N.Nithya (transmitted by agent of provider [place] Brown) Address [address] [place] [address] Care Team Providers Name Role Phone John Kennedy MD - Family Medicine Care Team Information Seo Team Lead [phone] Problems Active Problems Provider Date Acute ST segment elevation myocardial Parisa Castellanos MD, [facility], Onset: infarction due to right coronary [facility] artery occlusion Acute subendocardial infarction Eric Taylor M.D., [facility], Onset: 12/11/2018 [facility] Chronic kidney disease Eric Taylor M.D., [facility], Onset: 12/11/2018 [facility] Encounter for planned postprocedural Eric Taylor M.D., [facility], Onset: 2018 wound closure [facility] Hyperlipidemia Padmini Kruse M.D. Onset: 12/14/2018 Coronary [...] Atorvastatin Calcium 1 by mouth every Eric [facility], 11/19/2018 80mg day M.D., FACC, Tablets FSCAI [...] Result H/L Range Note Comp Metabolic 03/12/2019 [facility] Sodium 136 mmol/L Normal 135-[address] [place] [address] [phone] Potassium 4.0 mmol/L Normal 3.5-5.0 Chloride 105 [...] Egfr 26.3 >60 1 Thyroid Panel 03/12/2019 [facility] Free T4 (Free 1.41 ng/dL High 0.61-1.12 DRIVE Thyroxine) [place] [address] [phone] Thyroxine 9.81 g/dL Normal 6.09-12.23 TSH (Thyroid Stim Horm) 2.14 mcIU/mL Normal 0.34-5.60 Basic Metabolic 12/13/2018 [facility] Sodium 141 mmol/L Normal 135-[address] [place] [address] [phone] Potassium 4.4 mmol/L Normal 3.5-5.0 Co2 Carbon [...] dialysis) Procedures Date Code Description Status 02/28/2019 55701 ECHO Transthoracic, Real-Time 2D With Doppler And Color Completed Flow 02/28/2019 17996 ECHO Transthoracic, Real-Time 2D With Doppler And Color Completed Flow 02/08/2019 54758 EKG Tracing & Interpretation Completed 12/31/2018 20240 Pace Maker Eval W/Iterative Adjment Dual Lead Completed 12/31/2018 76578 Pace Maker Eval W/Iterative Adjment Dual Lead Completed 12/11/2018 60064 EKG Tracing & Interpretation Completed 12/08/2018 53423 EKG, Interpretation Only Completed 12/07/2018 24933 EKG, Interpretation Only Completed 12/06/2018 59290 Cath PLMT&NJX L Ventriculog Img S&I Completed 12/06/2018 05176 EKG, Interpretation Only Completed 12/06/2018 08041 Percutaneous Transcatheter Placement Of Intracoronary Completed Stent 12/05/2018 55446 EKG, Interpretation Only Completed 12/05/2018 53272 ECHO Transthorasic Realtime 2D W Doppler & Color Flow Hosp Completed 11/27/2018 88006 EKG Tracing & Interpretation Completed 11/15/2018 29796 Pace Maker Eval W/Iterative Adjment Dual Lead Completed 11/15/2018 45691 EKG, Interpretation Only Completed 11/14/2018 90973 EKG, Interpretation Only Completed 11/14/2018 89301 Perm Pacemaker Av Sequential Atrial And Ventricular Completed 11/13/2018 50428 ECHO Transthorasic Realtime 2D W Doppler & Color Flow Hosp Completed 11/13/2018 42266 EKG, Interpretation Only Completed 11/13/2018 99793 EKG, Interpretation Only Completed 11/12/2018 88653 Left Heart Cath. Incl S/I Coronaries, Angio S/I V Gram If Completed Done 11/12/2018 64982 EKG, Interpretation Only Completed 11/12/2018 22896 EKG, Interpretation Only Completed 11/12/2018 76629 Revascularization Acute Total/Subtotal Occlusion Completed Medical Devices Description No Information Available Encounters Type Date Location Provider Dx Diagnosis Office Visit 03/29/2019 [facility] Amy Christensen, I48.0 Paroxysmal atrial 1:30p Of Party Supply Specialist N.P. fibrillation I50.23 Acute on chronic systolic (congestive) heart failure I25.10 Athscl heart disease of [place] coronary artery w/o ang pctrs Z95.0 Presence of cardiac pacemaker I12.9 Hypertensive chronic kidney disease w stg 1-4/unsp chr kdny E78.5 Hyperlipidemia, unspecified Office Visit 03/20/2019 3:34p [facility] Tomasa Eduarda, I48.0 Paroxysmal atrial Of [facility] LIMOUSINE AND HEARSE UPHOLSTERER fibrillation I50.23 Acute on chronic systolic (congestive) heart failure I25.10 Athscl heart disease of [place] coronary artery w/o ang pctrs I25.2 Old myocardial infarction Office Visit 02/18/2019 3:00p [facility] Padmini Kruse, Z95.0 Presence of Of [facility] M.D. cardiac pacemaker I25.10 Athscl heart disease of [place] coronary artery w/o ang pctrs I25.5 Ischemic cardiomyopathy I48.0 Paroxysmal atrial fibrillation R53.83 Other fatigue Office Visit 02/08/2019 1:30p [facility] Amy Oh Z95.0 Presence of Fermin N.Nithya cardiac pacemaker I44.2 Atrioventricular block, complete I25.10 Athscl heart disease of [place] coronary artery w/o ang pctrs E78.5 Hyperlipidemia, unspecified I25.2 Old myocardial infarction I48.0 Paroxysmal atrial fibrillation Office Visit 12/14/2018 11:00a [facility] Padmini Kruse, I25.10 Athscl heart Of [facility] AT [facility] disease of [place] coronary artery w/o ang pctrs I12.9 Hypertensive chronic kidney disease w stg 1-4/unsp chr kdny N18.3 Chronic kidney disease, stage 3 (moderate) E78.5 Hyperlipidemia, unspecified R60.0 Localized edema I44.2 Atrioventricular block, complete Z95.0 Presence of cardiac pacemaker Office Visit 12/11/2018 3:20p [facility] Eric Taylor, I21.4 Non- St elevation Of Party Supply Specialist AT [facility].D., FACC, (Nstemi) FSCAI myocardial infarction Z48.1 Encounter for planned postprocedural wound closure N18.9 Chronic kidney disease, unspecified Z98.61 Coronary angioplasty status Office Visit 12/08/2018 9:50a [facility] Lizette I21.4 Non-St elevation Assoc, Chetan Cain, (Nstemi) Hospitalists LIMOUSINE AND HEARSE UPHOLSTERER myocardial infarction I10 Essential (primary) hypertension N18.3 Chronic kidney disease, stage 3 (moderate) D64.9 Anemia, unspecified E11.69 Type 2 diabetes mellitus with other specified complication E78.5 Hyperlipidemia, unspecified Z98.61 Coronary angioplasty status Office Visit 12/07/2018 9:50a [facility] Lizette I21.4 Non-St elevation Assoc,pc [facility] Ant, (Nstemi) Hospitalists LIMOUSINE AND HEARSE UPHOLSTERER myocardial infarction I10 Essential (primary) hypertension N18.3 Chronic kidney disease, stage 3 (moderate) Office Visit 12/07/2018 4:13p [facility] Niesha Oh I21.11 Stemi involving Francine Cruz right coronary artery I25.5 Ischemic cardiomyopathy I12.9 Hypertensive chronic kidney disease w stg 1-4/unsp chr kdny N18.9 Chronic kidney disease, unspecified E78.5 Hyperlipidemia, unspecified Office Visit 12/06/2018 9:49a [facility] Lizette I21.4 Non-St elevation Assoc,pc [facility] Ant, (Nstemi) Hospitalists LIMOUSINE AND HEARSE UPHOLSTERER myocardial infarction I10 Essential (primary) hypertension N18.3 Chronic kidney disease, stage 3 (moderate) Office Visit 12/05/2018 9:47a [facility] Elma I21.4 Non-St elevation Assoc,pc Lauri DMaryann (Nstemi) Hospitalists myocardial infarction I10 Essential (primary) hypertension N18.3 Chronic kidney disease, stage 3 (moderate) Office Visit 12/05/2018 4:05p [facility] Sal Barakat I25.10 Umu heart Francine Delgado disease of [place] coronary artery w/o ang pctrs R79.89 Other specified abnormal findings of blood chemistry R11.0 Nausea I50.9 Heart failure, unspecified R94.31 Abnormal electrocardiogram [ECG] [EKG] I25.2 Old myocardial infarction Office Visit 12/04/2018 9:46a [facility] Bea R11.2 Nausea with Assoc,pc Rooth, DO vomiting, Hospitalists unspecified R74.8 Abnormal levels of other serum enzymes R73.9 Hyperglycemia, unspecified Z95.0 Presence of cardiac pacemaker Office Visit 11/27/2018 3:00p [facility] Parisa Wade I21.11 Stemi involving Of Party Supply Specialist AT [facility] MD Jasmin, right coronary FACC, FSCAI artery I25.5 Ischemic cardiomyopathy I44.1 Atrioventricular block, second degree Office Visit 11/20/2018 9:24a [facility] Eric Taylor, I21.11 Stemi involving Of Party Supply Specialist AT [facility] M.D., FACC, right coronary FSCAI artery Z98.61 Coronary angioplasty status E11.9 Type 2 diabetes mellitus without complications Office Visit 11/19/2018 2:47p [facility] Eric Taylor, I21.11 Stemi involving Of Party Supply Specialist AT [facility] M.D., FACC, right coronary FSCAI artery Z98.61 Coronary angioplasty status Office Visit 11/18/2018 2:47p [facility] Parisa Wade I21.11 Stemi involving Of Party Supply Specialist AT [facility] MD Jasmin, right coronary FACC, FSCAI artery I10 Essential (primary) hypertension Office Visit 11/17/2018 2:45p [facility] Parisa Wade I21.11 Stemi involving Of Party Supply Specialist AT [facility] MD Jasmin, right coronary FACC, FSCAI artery I10 Essential (primary) hypertension Office Visit 11/16/2018 12:58p [facility] Parisa Wade I21.11 Stemi involving Of Party Supply Specialist AT [facility] MD Jasmin, right coronary FACC, FSCAI artery I25.10 Athscl heart disease of [place] coronary artery w/o ang pctrs I25.5 Ischemic cardiomyopathy Office Visit 11/15/2018 12:59p [facility] Parisa Wade I21.11 Stemi involving Of Party Supply Specialist AT [facility] MD Jasmin, right coronary FACC, FSCAI artery I25.10 Athscl heart disease of [place] coronary artery w/o ang pctrs I25.5 Ischemic cardiomyopathy I44.1 Atrioventricular block, second degree Office Visit 11/14/2018 12:57p [facility] Tomasa Lerner, I21.11 Stemi involving Of Party Supply Specialist AT [facility] LIMOUSINE AND HEARSE UPHOLSTERER right coronary artery I25.10 Athscl heart disease of [place] coronary artery w/o ang pctrs I44.2 Atrioventricular block, complete R00.1 Bradycardia, unspecified N17.9 Acute kidney failure, unspecified Office Visit 11/14/2018 12:55p [facility] Padmini rKuse I21.11 Stemi involving Of Party Supply Specialist M.D. right coronary artery I25.10 Athscl heart disease of [place] coronary artery w/o ang pctrs I44.2 Atrioventricular block, complete R00.1 Bradycardia, unspecified N17.9 Acute kidney failure, unspecified Office Visit 11/13/2018 3:52p [facility] I21.11 Stemi involving Of Party Supply Specialist AT [facility] LIMOUSINE AND HEARSE UPHOLSTERER right coronary artery I25.10 Athscl heart disease of [place] coronary artery w/o ang pctrs R00.1 Bradycardia, unspecified I44.2 Atrioventricular block, complete I10 Essential (primary) hypertension Office Visit 11/12/2018 3:48p [facility] Parisa Wade I21.11 Stemi involving Of Party Supply Specialist AT [facility] MD Jasmin, right coronary FACC, FSCAI artery N28.9 Disorder of kidney and ureter, unspecified E11.9 Type 2 diabetes mellitus without complications I10 Essential (primary) hypertension I25.10 Athscl heart disease of [place] coronary artery w/o ang pctrs Assessments Date Code Description Provider 03/29/2019 I48.0 Paroxysmal atrial fibrillation Amy S. Fermin, N.P. 03/29/2019 I50.23 Acute on chronic systolic (congestive) Amy S. Fermin, N.P. heart failure 03/29/2019 I25.10 Atherosclerotic heart disease of Amy Christensen, N.P. [place] coronary artery without angina pectoris 03/29/2019 Z95.0 Presence of cardiac pacemaker Amy S. Fermin, N.P. 03/29/2019 I12.9 Hypertensive chronic kidney disease Amy S. Fermin, N.P. with stage 1 through sta 03/29/2019 E78.5 Hyperlipidemia, unspecified Amy S. Fermin, N.P. 03/20/2019 I48.0 Paroxysmal atrial fibrillation Tomasa Lerner, [employer]INE [employer] HEARSE UPHOLSTERER 03/20/2019 I50.23 Acute on chronic systolic (congestive) Tomasa Lerner, LIM[employer]INE AND HEARSE UPHOLSTERER heart failure 03/20/2019 I25.10 Atherosclerotic heart disease of Tomasa Lerner LIMOUSINE AND HEARSE UPHOLSTERER [place] coronary artery without angina pectoris 03/20/2019 I25.2 Old myocardial infarction Tomasa Lerner, LIM[employer]INE [employer] HEARSE UPHOLSTERER 02/28/2019 I25.5 Ischemic cardiomyopathy Padmini Kruse M.D. 02/28/2019 I25.5 Ischemic cardiomyopathy [facility] Schedule 02/18/2019 Z95.0 Presence of cardiac pacemaker Padmini Kruse M.D. 02/18/2019 I25.10 Atherosclerotic heart disease of Padmini Kruse M.D. [place] coronary artery with 02/18/2019 I25.5 Ischemic cardiomyopathy Padmini Kruse M.D. 02/18/2019 I48.0 Paroxysmal atrial fibrillation Padmini Kruse M.D. 02/18/2019 R53.83 Other fatigue Padmini Kruse M.D. 02/08/2019 R94.31 Abnormal electrocardiogram [ECG] [EKG] Padmini Kruse M.D. 02/08/2019 Z95.0 Presence of cardiac pacemaker Amy S. Foster, N.P. 02/08/2019 I44.2 Atrioventricular block, complete Amy S. Foster, N.P. 02/08/2019 I25.10 Atherosclerotic heart disease of Amy S. Fermin, N.P. [place] coronary artery with 02/08/2019 E78.5 Hyperlipidemia, unspecified Amy S. Foster, N.P. 02/08/2019 I25.2 Old myocardial infarction Amy S. Foster, N.P. 02/08/2019 I48.0 Paroxysmal atrial fibrillation Amy S. Foster, N.P. 12/31/2018 Z95.0 Presence of cardiac pacemaker Padmini Kruse M.D. 12/31/2018 Z95.0 Presence of cardiac pacemaker Ica Pacer Schedule 12/31/2018 I44.2 Atrioventricular block, complete Ica Pacer Schedule 12/14/2018 I25.10 Atherosclerotic heart disease of Padmini Kruse M.D. [place] coronary artery with 12/14/2018 I12.9 Hypertensive chronic [...] Non-St elevation (Nstemi) myocardial Eric Taylor M.D., FACC, infarction FSCAI 12/11/2018 Z48.1 Encounter for planned postprocedural Eric Taylor M.D., [facility], wound closure [facility] 12/11/2018 N18.9 Chronic kidney disease, unspecified Eric Taylor M.D., [facility] , [facility] 12/11/2018 Z98.61 Coronary angioplasty status Eric Taylor M.D., [facility], [facility] 12/08/2018 R94.31 Abnormal electrocardiogram [ECG] [EKG] Niesha Cruz M.D. 12/08/2018 I21.4 Non-St elevation (Nstemi) myocardial Lizette Benton DOMINICK Cain infarction 12/08/2018 I25.10 Atherosclerotic heart disease of Niesha Cruz M.D. [place] coronary artery with 12/08/2018 I10 Essential (primary) hypertension Lizette [place], LIM[employer]INE [employer] HEARSE UPHOLSTERER 12/08/2018 I42.9 Cardiomyopathy, unspecified Niesha Cruz M.D. 12/08/2018 N18.3 Chronic kidney disease, stage 3 Lizette Benton DOMINICK Cain (moderate) 12/08/2018 Z95.0 Presence of cardiac pacemaker Niesha Cruz M.D. 12/08/2018 D64.9 Anemia, unspecified Lizette [place], [employer] HEARSE UPHOLSTERER 12/08/2018 E11.69 Type 2 diabetes mellitus with other Lizette Cain DOMINICK specified complication 12/08/2018 E78.5 Hyperlipidemia, unspecified Lizette [place], [employer] HEARSE UPHOLSTERER 12/08/2018 Z98.61 Coronary angioplasty status Lizette Benton DOMINICK Cain 12/07/2018 R94.31 Abnormal electrocardiogram [ECG] [EKG] Niesha Cruz M.D. 12/07/2018 I21.4 Non-St elevation (Nstemi) myocardial Lizette [place] Ant NP infarction 12/07/[address] elevation (Stemi) myocardial Niesha Cruz M.D. infarction involving right c 12/07/2018 I10 Essential (primary) hypertension Lizette [place] Cain, LIMOUSINE AND HEARSE UPHOLSTERER 12/07/2018 I25.5 Ischemic cardiomyopathy Niesha Cruz M.D. 12/07/2018 N18.3 Chronic kidney disease, stage 3 Lizette Cain, LIMOUSINE AND HEARSE UPHOLSTERER (moderate) 12/07/2018 I12.9 Hypertensive chronic kidney disease Niesha Cruz M.D. with stage 1 through stage 4 chronic kidney disease, or unspecified chronic kidney disease 12/07/2018 N18.9 Chronic kidney disease, unspecified Niesha Cruz M.D. 12/07/2018 E78.5 Hyperlipidemia, unspecified Niesha Cruz M.D. 12/06/2018 R94.31 Abnormal electrocardiogram [ECG] [EKG] Mango Eastman M.D. 12/06/2018 I21.4 Non-St elevation (Nstemi) myocardial Eric Taylor M.D., [facility], infarction FSCAI 12/06/2018 I25.10 Atherosclerotic heart disease of Eric Taylor M.D., [facility], [place] coronary artery with FSCAI 12/06/2018 I21.4 Non-St elevation (Nstemi) myocardial Lizette Cain , [employer]PHOLSTER[employer] infarction 12/06/2018 I10 Essential (primary) hypertension Lizette Cain, LIM[employer]INE [employer] HEARSE UPHOLSTERER 12/06/2018 N18.3 Chronic kidney disease, stage 3 Lizette Cain, LIMOUSINE AND HEARSE UPHOLSTERER (moderate) 12/05/2018 R94.31 Abnormal electrocardiogram [ECG] [EKG] Mango Eastman M.D. 12/05/2018 I25.10 Atherosclerotic heart disease of Sal Delgado M.D. [place] coronary artery without angina pectoris 12/05/2018 R79.89 [...] (moderate) 12/04/2018 R11.2 Nausea with vomiting, unspecified Beajunie Forrest, DO 12/04/2018 R74.8 Abnormal levels of other serum enzymes Bea Rooth, DO 12/04/2018 R73.9 Hyperglycemia, unspecified Bea Rooth, DO 12/04/2018 Z95.0 Presence of cardiac pacemaker Bea Forrest, DO 11/27/[address] elevation (Stemi) myocardial Parisa Castellanos MD, [facility] , infarction involving right c [facility] 11/27/2018 I25.5 Ischemic cardiomyopathy Parisa Castellanos MD, [facility], [facility] 11/27/2018 I44.1 Atrioventricular block, second degree Parisa Castellanos MD , [facility], [facility] 11/20/2018 Z95.0 Presence of cardiac pacemaker Mango Eastman M.D. 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 Eric Taylor M.D., [facility], [facility] 11/20/2018 Z98.61 Coronary angioplasty status Eric Taylor M.D., [facility], [facility] 11/20/2018 E11.9 Type 2 diabetes mellitus without Eric Taylor M.D., [facility], complications [facility] 11/19/2018 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 Eric Taylor M.D., [facility], [facility] 11/19/2018 Z98.61 Coronary angioplasty status Eric Taylor M.D., [facility], [facility] 11/18/[address] elevation (Stemi) myocardial Parisa Castellanos MD, [facility] , infarction involving right c [facility] 11/18/2018 I10 Essential (primary) hypertension Parisa Castellanos MD, [facility], [facility] 11/17/2018 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 Parisa Castellanos MD , [facility], [facility] 11/17/2018 I10 Essential (primary) hypertension Parisa Castellanos MD, [facility], [facility] 11/16/2018 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 Parisa Castellanos MD [facility], [facility] 11/16/2018 I25.10 Atherosclerotic heart disease of Parisa Castellanos MD, [facility], [place] coronary artery with [facility] 11/16/2018 I25.5 Ischemic cardiomyopathy Parisa Castellanos MD [facility], [facility] 11/15/2018 R94.31 Abnormal electrocardiogram [ECG] [EKG] Bradford Johnson, DO [facility] 11/15/2018 Z95.0 Presence of cardiac pacemaker Padmini Kruse M.D. 11/15/2018 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 Parisa Castellanos MD [facility], [facility] 11/15/2018 I25.10 Atherosclerotic heart disease of Parisa Castellanos MD [facility], [place] coronary artery with [facility] 11/15/2018 I25.5 Ischemic cardiomyopathy Parisa Castellanos MD [facility], [facility] 11/15/2018 I44.1 Atrioventricular block, second degree Parisa Castellanos MD [facility], [facility] 11/14/2018 R94.31 Abnormal electrocardiogram [ECG] [EKG] Bradford Johnson, DO [facility] 11/14/2018 I44.2 Atrioventricular block, complete Padmini Kruse M.D. 11/14/2018 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 Tomasa Lerner NP 11/14/2018 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 Padmini Kruse M.D. 11/14/2018 I25.10 Atherosclerotic heart disease of Tomasa Lerner NP [place] coronary artery with 11/14/2018 I25.10 Atherosclerotic heart disease of Padmini Kruse M.D. [place] coronary artery with 11/14/2018 I44.2 Atrioventricular block, complete Tomasa Lerner, [employer]PH[employer] 11/14/2018 I44.2 Atrioventricular block, complete Padmini Kruse M.D. 11/14/2018 R00.1 Bradycardia, unspecified Tomasa Lerner, [employer] UPHOL[employer]ER 11/14/2018 R00.1 Bradycardia, unspecified Padmini Kruse M.D. 11/14/2018 N17.9 Acute kidney failure, unspecified Tomasa Thuman, [employer]INE [employer] HEARSE UPHOLSTERER 11/14/2018 N17.9 Acute kidney failure, unspecified Padmini Kruse M.D. 11/13/2018 R94.31 Abnormal electrocardiogram [ECG] [EKG] Bradford Johnson, DO FACC 11/13/[address] elevation (Stemi) myocardial Sal Delgado M.D. infarction of [facility] 11/13/2018 Z95.0 Presence of cardiac pacemaker Sal Delgado M.D. 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 Tomasa Thuman, [employer] HEARSE UPHOLSTERER 11/13/2018 I25.10 Atherosclerotic heart disease of [facility] Eduarda, LIMOUSINE AND HEARSE UPHOLSTERER [place] coronary artery with 11/13/2018 R00.1 Bradycardia, unspecified Tomasa Thuman, [employer] HEARSE UPHOLSTERER 11/13/2018 I44.2 Atrioventricular block, complete Tomasa Thuman, [employer]PH[employer] 11/13/2018 I10 Essential (primary) hypertension Tomasa Thuman, [employer]PHOLSTERER 11/12/2018 R94.31 Abnormal electrocardiogram [ECG] [EKG] Bradford Johnson, DO FAC 11/12/[address] elevation (Stemi) myocardial Parisa Castellanos MD, FACC , infarction involving right c [facility] 11/12/2018 N28.9 Disorder of kidney and ureter, Parisa Castellanos MD, FACC, unspecified [facility] 11/12/2018 E11.9 Type 2 diabetes mellitus without Parisa Castellanos MD, FACC , complications [facility] 11/12/2018 I10 Essential (primary) hypertension Parisa Castellanos MD, FACC, [facility] 11/12/2018 I25.10 Atherosclerotic heart disease of Parisa Castellanos MD, FACC, [place] coronary artery with [facility] Plan of Treatment Future Appointment(s):05/16/2019 1:50 pm - Padmini Kruse M.D. at [facility]05/06/2019 2:30 pm - Fatmata Carrion MD at [facility]05/20/2019 2:40 pm - Padmini Kruse M.D. at [facility]05/20/2019 2:00 pm - Ica Pacer Schedule at [facility]03/29/2019 - Amy Christensen, N.P.I48.0 Paroxysmal atrial jrerzyjnujfsM29.23 Acute on chronic systolic (congestive) heart failureNew Labs: Basic Metabolic Panel, Ordered: 03/29/19Follow up:OV LS 04/2019Recommendations: Continue Torsemide at 20mg daily Continue to weight yourself If you have weight gain > 3lbs call us and we may increase diuretic.I25.10 Atherosclerotic heart disease of [place] coronary artery without angina eqluncrzR95.0 Presence of cardiac mmykniyraQ81.9 Hypertensive chronic kidney disease with stage 1 through staE78.5 Hyperlipidemia, unspecified Functional Status Description No Information Available Mental Status Description No Information Available Referrals Refer to Reason for Referral Status Appt Date Fatmata Carrion MD hypoxemia, hx of pAF sleep study ordered Sent already [address] [place] [address] [phone] [facility] [employer] [place] and stents October and November Sent 04/03/2019 [address] [place] [address] [phone]
--- NOTE | 2019-05-10 07:37 | ED ---
Lower Extremity - HPI Summary HPI Summary: Patient is a 73 y/o F presenting to [facility] with chief complaint of BLE edema and bilateral foot pain (worse at left). Sx have been present for the past day. She notes that she has an appointment with wound clinic at 1300 today, 05/10/19 but states that she came in for evaluation due to severity of her pain. She reports no discrete injury but makes note of weight gain that she attributes to fluid retention. Swelling to both legs is noted. Patient denies chest pain, SOB, fever , and vomiting but endorses some nausea. PMHx of CHF, diabetes, KS, pacemaker, and kidney issues are reported. PSHx of four cardiac stents is endorsed. She denies Hx of DVT. Patient is on Turosemide, 40 mg. Daughter reports that this medication was increased from 20 to 40 mg by hadoop software engineer in the past few weeks. She additionally notes that the patient had compression stockings but had stopped wearing them. Patient is scheduled for US as well. In room, vitals are BP 128/64, o2 99, pulse 80s. Daughter reports that the patient took her medications this morning. Patient had attempted to eat rice-krispies with skim milk this morning. - History of Current Complaint Chief Complaint: EDExtremityLower Stated Complaint: FOOT PAIN PER PT Time Seen by Provider: 05/10/19 07:26 Hx Obtained From: Patient Mechanism Of Injury: Other - no discrete injury noted Onset of Pain: Days, Prior to Arrival Onset/Duration: Still Present Severity Currently: Severe Pain Intensity: 10 Pain Scale Used: 0-10 Numeric Timing: Constant, Lasting Days Location: Is Discrete @ Associated Signs And Symptoms: Positive: Swelling, Other - denies chest pain, SOB, fever, and vomiting but endorses some nausea. Negative: Fever - Allergies/Home Medications Allergies/Adverse Reactions: Allergies Allergy/AdvReac Type Severity Reaction Status Date / Time No Known Allergies Allergy Verified 05/10/19 07:00 Home Medications: Home Medications Apixaban* [Eliquis*] 5 mg PO BID 05/10/19 [History Confirmed 05/10/19] Atorvastatin* [Lipitor*] 80 mg PO 1700 05/10/19 [History Confirmed 05/10/19] Clopidogrel TAB* [Plavix TAB*] 75 mg PO DAILY 05/10/19 [History Confirmed ] Isosorbide Dinitrate TAB* [Isordil TAB*] 10 mg PO TID 05/10/19 [History Confirmed 05/10/19] Metoprolol Succinate XL TAB* [Toprol XL TAB*] 50 mg PO DAILY 05/10/19 [History Confirmed 05/10/19] Potassium Chlor TAB (NF) [Kaon-Cl-10 TAB (NF)] 10 meq PO DAILY 05/10/19 [ History Confirmed 05/10/19] Torsemide TAB* [Demadex*] 40 mg PO DAILY 05/10/19 [History Confirmed 05/10/19] hydrALAZINE TAB* [Apresoline TAB*] 25 mg PO TID 05/10/19 [History Confirmed 06/18] PMH/Surg Hx/FS Hx/Imm Hx Endocrine/Hematology History: Reports: Hx Diabetes - TYPE 2 Denies: Hx Anticoagulant Therapy, Hx Thyroid Disease Cardiovascular History: Reports: Hx Angina, Hx Coronary Artery Disease, Hx Hypercholesterolemia, Hx Hypertension, Hx Myocardial Infarction, Hx Pacemaker/ ICD Denies: Hx Valvular Heart Disease, Other Cardiovascular Problems/Disorders Respiratory History: Denies: Hx Asthma, Hx Chronic Obstructive Pulmonary Disease (COPD), Other Respiratory Problems/Disorders GI History: Reports: Hx Gall Bladder Disease - removed History: Reports: Hx Kidney Stones - PASSED ON THEIR OWN Denies: Hx Renal Disease Musculoskeletal History: Reports: Hx Arthritis - LOW BACK, Other Musculoskeletal History - hip arthritis Sensory History: Reports: Hx Cataracts - KARRIE, Hx Contacts or Glasses Denies: Hx Hearing Aid Opthamlomology History: Reports: Hx Cataracts - KARRIE, Hx Contacts or Glasses Neurological History: Denies: Hx Dementia, Hx Seizures Psychiatric History: Denies: Hx Substance Abuse - Surgical History Surgery Procedure, Year, and Place: 1974, 1978, C SECTION, [facility]. 1979, HYSTERECTOMY, [facility] [place]. 1984, TONSILECTOMY, [facility] [place]. 1999, LEFT HAND CTR. 1999, RIGHT HAND CTR, [facility]. Hx Anesthesia Reactions: Yes - NAUSEA Infectious Disease History: No Infectious Disease History: Denies: Hx Hepatitis, Hx Human Immunodeficiency Virus (HIV), Traveled Outside the [place] in Last 30 Days - Social History Alcohol Use: None Substance Use Type: Reports: None Smoking Status (MU): Never Smoked Tobacco Review of Systems Negative: Fever Negative: Chest Pain Negative: Shortness Of Breath Positive: Nausea. Negative: Vomiting Musculoskeletal: Other - bilateral foot pain Positive: Edema - BLE All Other Systems Reviewed And Are Negative: Yes Physical Exam - Summary Physical Exam Summary: Constitutional: Well-developed, Well-nourished, Alert. (-) Distressed Skin: Warm, Dry HENT: Normocephalic; Atraumatic Eyes: Conjunctiva normal Neck: Musculoskeletal ROM normal neck. (-) JVD, (-) Stridor, (-) Tracheal deviation Cardio: Rhythm regular, rate normal, Heart sounds normal; Intact distal pulses; The pedal pulses are 2+ and symmetric. Radial pulses are 2+ and symmetric. (-) Murmur Pulmonary/Chest wall: Effort normal. (-) Respiratory distress, (-) Wheezes, (-) Rales Abd: Soft, (-) tenderness, (-) Distension, (-) Guarding, (-) Rebound Musculoskeletal: BLE edema, greater on left; there is tenderness of left calf and foot throughout Lymph: (-) Cervical adenopathy Neuro: Alert, Oriented x3 Psych: Mood and affect Normal Triage Information Reviewed: Yes Vital Signs On Initial Exam: Initial Vitals Temp Pulse Resp BP Pulse Ox 96.6 F 80 16 125/58 94 05/10/19 06:55 05/10/19 06:55 05/10/19 06:55 05/10/19 06:55 05/10/19 06:55 Vital Signs Reviewed: Yes Procedures - Sedation Patient Received Moderate/Deep Sedation with Procedure: No Diagnostics - Vital Signs Vital Signs Temp Pulse Resp BP Pulse Ox 05/10/19 06:55 96.6 F 80 16 125/58 94 - Laboratory Result Diagrams: 05/10/19 07:55 05/10/19 07:55 Lab Statement: Any lab studies that have been ordered have been reviewed, and results considered in the medical decision making process. - Ultrasound LLE US Ultrasound Interpretation Completed By: Radiologist Summary of Ultrasound Findings: IMPRESSION: LIMITED EXAM OF THE CALF, NO EVIDENCE FOR DEEP VENOUS THROMBOSIS. THIS REPORT WAS REVIEWED BY DR. MILLER. - EKG 0844 Cardiac Rate: NL - rate EKG Rhythm: Sinus Rhythm ST Segment: Normal Ectopy: None Summary of EKG Findings: Borderline T wave abnormality. 0942 Cardiac Rate: NL - rate EKG Rhythm: Atrial Fibrillation Summary of EKG Findings: T wave inversions in lead II and lateral leads. Re-Evaluation - Re-Evaluation First Eval Re-Evaluation Time: 09:20 Comment: Patient reports that she still has pain. Disposition was discussed with patient, she will be admitted. Lower Extremity Course/Dx - Course Course Of Treatment: Patient is a 73 y/o F w/ Hx of CHF, diabetes, KS, four cardiac stents, pacemaker, and kidney issues who presents to [facility] with chief complaint of BLE edema and bilateral foot pain (worse at left). Sx have been present for the past day. She reports no discrete injury but makes note of weight gain that she attributes to fluid retention. Swelling to both legs is noted. Patient denies chest pain, SOB, fever, and vomiting but endorses some nausea. She had recent increase of Turosemide from 20 to 40 mgs. On physical exam, BLE edema, greater on left; there is tenderness of left calf and foot throughout. Bloodwork was obtained. Abnormal values include WBC 12.8, RBC 3.33 , Hgb 7.8, Hct 25, MCV 75, MCH 23, RDW 21, absolute neuts 11.9, absolute lymphs 0.2, sodium 134, chloride 99, BUN 65, creatinine 2.33, BUN/creatinine ratio 27.9 , glucose 150, BNP 1139, total protein 5.8. LLE US IMPRESSION: LIMITED EXAM OF THE CALF, NO EVIDENCE FOR DEEP VENOUS THROMBOSIS. During ED course, patient received Zofran 4 mg IV and 2 mg IV. Patient had complaints of pain still, she was given Morphine 2 mg IV and Lasix 40 mg IV. Disposition was discussed, she was agreeable with admission. Patient's case was discussed with Dr. Smith, Dr. Smith accepts for admission. - Diagnoses Provider Diagnoses: Leg pain, Peripheral edema, Chronic anemia, Chronic renal insufficiency - Physician Notifications Discussed Care Of Patient With: Alf Smith Time Discussed With Above Provider: 21:29 Instructed by Provider To: Other - Patient's case was discussed with Dr. Smith , Dr. Smith accepts for admission. Discharge ED - Sign-Out/Discharge Documenting (check all that apply): Patient Departure - admit - Discharge Plan Condition: Stable Disposition: ADMITTED TO [facility] Referrals: John Kennedy MD [Primary Care Provider] - - Billing Disposition and Condition Condition: STABLE Disposition: Admitted to [facility] - Attestation Statements Document Initiated by Bhavanaibhector: Yes Documenting Scribe: JEOVANNY DE SANTIAGO Provider For Whom Nigel is Documenting (Include Credential): MEAGAN MILLER DO Scribhector Attestation: IJEOVANNY, scribed for MEAGAN MILLER DO on 05/10/19 at 1133. Scribe Documentation Reviewed: Yes Provider Attestation: The documentation as recorded by the bhavanaibJEOVANNY young accurately reflects the service I personally performed and the decisions made by , MEAGAN MILLER DO Status of Scribe Document: Viewed
[2019-05-10] MEDS ORDERED: Ondansetron INJ* 2 MG/ML VIAL IV ONE (07:58)
[2019-05-10] MEDS ORDERED: Morphine 4 MG/ML VIAL (1 ml) 4 MG/ML VIAL IV ONE ×2 (07:58→09:25)
[2019-05-10 08:03] LABS: ABS Lymphocytes 0.2 10^3/ul (1.0-4.8); ABS Monocytes 0.6 10^3/ul (0-0.8); ABS Neutrophils 11.9 10^3/ul (1.5-7.7); Eosinophil % 0.2 %; Hematocrit 25 % (35-47); Hemoglobin 7.8 g/dL (12.0-16.0); Lymphocyte % 1.8 %; Mean Corpuscular HGB Conc 31 g/dL (31-36); Mean Corpuscular Hemoglobin 23 pg (27-31); Mean Corpuscular Volume 75 fL (80-97); Mean Platelet Volume 8.1 fL (7.4-10.4); Platelet Count 234 10^3/uL (150-450); Red Blood Count 3.33 10^6 /uL (3.70-4.87); Red Cell Distribution Width 21 % (10-15); White Blood Count 12.8 10^3/uL (3.5-10.8)
[2019-05-10 08:21] LABS: Albumin 3.2 g/dL (3.2-5.2); Albumin/Globulin Ratio 1.2 (1-3); BUN/Creatinine Ratio 27.9 (8-20); Calcium 8.9 mg/dL (8.6-10.3); EGFR African American 24.6 (>60); EGFR Non-African American 20.4 (>60); Globulin 2.6 g/dL (2-4); Potassium 4.2 mmol/L (3.5-5.0); Total Bilirubin 0.7 mg/dL (0.2-1.0); Total Protein 5.8 g/dL (6.4-8.9)
[2019-05-10] MEDS ORDERED: Furosemide IV* 10 MG/ML VIAL (40 MG) IV ONE (09:28)
[2019-05-10 10:40] LABS: Troponin I 0.03 ng/mL (<0.04)
--- NOTE | 2019-05-10 12:37 | HP ---
CC: Dr. Arlene Dolan; Dr. John Kennedy; Dr. Padmini Kruse; Dr. Hairston HISTORY AND PHYSICAL: DATE OF ADMISSION: 05/10/19 PRIMARY CARE PROVIDER: Dr. John Kennedy. NEW PRINTER HELPER: Dr. Hairston. OTR REFRIGERATED CDL TRUCK DRIVER: Dr. Padmini Kruse. CHIEF COMPLAINT: Bilateral leg swelling and pain. HISTORY OF PRESENT ILLNESS: This is a 73-year-old female with past medical history of coronary artery disease, status post recent cath and MN, most recently in November 2018 had a drug-eluting stent placed in the circumflex as well as a stent placed in the right coronary artery in October 2018; congestive heart failure, ejection fraction of 30% to 35%; atrial fibrillation; chronic kidney disease; diabetes; history of heart block, status post pacemaker; history of nocturnal oxygen use at 2 L, who presents to the emergency room because of bilateral leg swelling. She states that the leg swelling has been ongoing for the past 2 to 3 days and most recently yesterday she started experiencing excruciating sharp pain at the left leg. There are no fevers, no chills. She does not have any shortness of breath, no chest pain, no recent fevers or chills. No sick contacts. No recent trauma or injury. However, she reports that she did fall on her buttock region about a week ago. This resulted in a bruise. In the emergency room, the patient was seen and evaluated. The patient was given Lasix 40 mg in the emergency room. Of note, the patient also takes torsemide 40 mg daily, which she took this morning as well. PAST MEDICAL HISTORY: 1. Coronary artery disease, status post MN/cath in November 2018 as well as October 2018. 2. Atrial fibrillation. 3. Congestive heart failure with ejection fraction of 30% to 35%. 4. Chronic kidney disease. 5. Diabetes. 6. Chronic oxygen use at night. 7. History of heart block, status post pacemaker. PAST SURGICAL HISTORY: 1. . 2. Hysterectomy. 3. Gallbladder surgery. 4. Tonsillectomy. HOME MEDICATIONS: Include: 1. Hydralazine 25 mg 3 times a day. 2. Torsemide 40 mg daily. 3. Plavix 75 mg daily. 4. Metoprolol 50 mg daily. 5. Eliquis 5 mg b.i.d. 6. Lipitor 80 mg daily. 7. Potassium supplement 10 mEq daily. 8. Isosorbide dinitrate 10 mg t.i.d. ALLERGIES: Include no known drug allergies. FAMILY HISTORY: Father, diabetes. SOCIAL HISTORY: The patient lives at home with her daughter, who helps out with taking care of her. She does not smoke. No alcohol use. CODE STATUS: The patient is full code, they are working on establishing a healthcare proxy. REVIEW OF SYSTEMS: She does not have any fevers, no chills, no recent infection. HEENT: She does not have any changes in her hearing or vision. No sore throat. She does not have any chest pain, no shortness of breath, no palpitations. She does not have any abdominal pain, no nausea, no vomiting, no diarrhea. Last bowel movement was yesterday. She does have bilateral leg pain and swelling. She does not have any headaches, no changes in her mentation. She does have bruising at the left buttock region, otherwise no other lesions. PHYSICAL EXAMINATION GENERAL: This is an elderly female, well developed, well nourished, lying in bed, in no acute distress. VITAL SIGNS: Blood pressure 125/58, O2 sat of 94% on room air, respiratory rate of 16, heart rate of 80, temperature of 96.6 Fahrenheit. HEENT: Pupils are equal, round, reactive to light. Atraumatic, normocephalic. There is no JVD. There is no oropharyngeal erythema. LUNGS: There is no tachypnea, no use of accessory muscles. Bibasilar crackles appreciated. HEART: There is no chest wall tenderness. Regular rate and rhythm. Soft systolic murmur at the right upper sternal border. ABDOMEN: Bowel sounds are normoactive in all 4 quadrants. Abdomen is soft, nontender, nondistended. EXTREMITIES: There is 3+ pitting edema at the left lower extremity, right lower extremity has 2+ pitting edema. There is no calf tenderness. There is mild erythema at the left foot. The right foot does not have any erythema. NEUROLOGICAL: Alert and oriented x3 with no focal neurological deficits. DIAGNOSTIC STUDIES: The patient had lower extremity Doppler, which did not show any acute DVT. EKG shows atrial fibrillation. Labs: WBC: 12.8, Hb: 7,8, BUN: 65, Cr. 2.33, BNP: 1130. IMPRESSION AND PLAN: 1. Systolic Congestive heart failure with exacerbation. The patient is having lower extremity edema. BNP is elevated. At this point, the patient has taken torsemide 40 mg this morning as well as was given 40 mg of IV Lasix in the emergency room. I have consulted Nephrology regarding help with diuresis and management regarding that. We will obtain an echocardiogram, monitor the patient on telemetry. Monitor I's and O's, fluid restriction. Ordered a Chest x -ray, will follow up on that. Regarding leg swelling, mild left leg erythema, will give rocephin empirically. 2. History of chronic kidney disease with slightly elevated BUN and creatinine. This likely is secondary to congestive heart failure exacerbation as well as decreased effect of circulating volume caused by congestive heart failure. We will get input from Nephrology. 3. Atrial fibrillation. Heart rate is controlled. Continue metoprolol, continue Eliquis. 4. History of coronary artery disease. Continue the patient's home Plavix, Lipitor, and metoprolol. 5. Nocturnal oxygen use at 2 Liters- continue same. 6. DVT Prophylaxis: She is on eliquis for atrial fibrillation, continue same. [id number]/[facility] #: [id number] [place]
[2019-05-10] MEDS: cefTRIAXone(*) 1 GM in NS 0.9% 50 ML* 50 ML IVPB SCH (15:43)
[2019-05-10] MEDS: hydrALAZINE TAB* 25 MG PO SCH ×2 (15:43→20:34)
[2019-05-10] MEDS ORDERED: Ondansetron INJ* 2 MG/ML VIAL IV PRN (16:26)
[2019-05-10] MEDS ORDERED: BUMETANIDE IV ONE (16:30)
--- NOTE | 2019-05-10 16:30 | ECHO ---
*[facility]* [place] [address] Fax #: [phone] Transthoracic Echocardiogram Patient: Brenda Simmons : 1945 Study Date: 05/10/2019 Age: 73 Gender: F HR: 84 bpm Height: 60 in /152.4 cm BSA: 1.78 m^2 Weight: 179.6 lb /81.6 kg BMI: 35.2 kg/m^2 *Corporate Strategy Intern: * Coral Amin [facility] *Referring Physician: * Alf Smith *Reading Physician: * Sal Delgado MD Indications: Edema. History: CKD, s/p pacer insert. Coronary artery disease. PMH: Myocardial infarction. Cardiomyopathy. Risk factors: Diabetes mellitus. Labs, prior tests, procedures, and surgery: Catheterization. There was a stenosis which was treated with a stent. Conclusions Summary: - Left ventricle: Systolic function is normal. The estimated ejection fraction is 55-60%. Systolic function is unchanged from the study of November 2018 when it was 30-35%.. - Regional wall motion abnormality: Dyskinesis of the basal inferior myocardium; hypokinesis of the mid inferior myocardium; mild hypokinesis of the basal inferolateral myocardium. - Right ventricle: The cavity size is normal. Wall thickness is mildly increased. Systolic function is mildly reduced. - Left atrium: The atrium is mildly to moderately dilated. - Mitral valve: Mobility is restricted. The findings are consistent with mild stenosis. There is mild regurgitation. - Tricuspid valve: There is mild-moderate regurgitation. Study data: Transthoracic echocardiogram. Procedure: Transthoracic echocardiography was performed. Image quality was good. Complete 2D, spectral Doppler, and color flow Doppler. Patient status: Observation. Patient room number: 443-01. The previous study was not available, so comparison is made to the report of November 2018. Rhythm: Atrial fibrillation. Findings Left ventricle: The cavity size is normal. Wall thickness is normal. Systolic function is normal. The estimated ejection fraction is 55-60%. Systolic function is unchanged from the study of November 2018 when it was 30-35%.. Regional wall motion abnormalities: Dyskinesis of the basal inferior myocardium; hypokinesis of the mid inferior myocardium; mild hypokinesis of the basal inferolateral myocardium. Left ventricular diastolic function parameters are indeterminate. Right ventricle: Well visualized. The cavity size is normal. Wall thickness is mildly increased. Pacer wire noted in the right ventricle. Systolic function is mildly reduced. Ventricular septum: Well visualized. There is abnormal interventricular septal wall motion consistent with an RV pacemaker. Left atrium: Well visualized. The atrium is mildly to moderately dilated. Right atrium: Well visualized. The atrium is normal in size. Pacer wire noted in right atrium. Atrial septum: Well visualized. Mitral valve: Well visualized. Appears calcified. The leaflets are normal thickness. Mobility is restricted. No echocardiographic evidence for prolapse. The findings are consistent with mild stenosis. There is mild regurgitation. Aortic valve: Well visualized. The valve is trileaflet. The leaflets are mildly thickened. There is no evidence of stenosis. There is no significant regurgitation. Tricuspid valve: Well visualized. The leaflets are normal thickness. There is no evidence of stenosis. There is mild-moderate regurgitation. Hepatic amira flow reversal is absent Pulmonic valve: Well visualized. The leaflets are normal thickness. There is no evidence of stenosis. There is no significant regurgitation. Aorta: The aorta is well visualized and normal size. The aortic root appears normal. The aortic arch appears normal. Pericardium: There is no pericardial effusion. No evidence of pleural fluid accumulation. Pulmonary arteries: Well visualized. The main pulmonary artery is normal-sized. Systolic pressure is within the normal range. Systemic veins: Inferior vena cava: The vessel is normal in size. There is (< 50%) respiratory change in the IVC dimension. Pulmonary veins: Visualization of the pulmonary venous anatomy is incomplete, but a significant abnormality is unlikely. Measurements Left ventricle Value Ref Aortic valve Value Ref MATTHEW, LAX 4.6 cm 3.8 - 5.2 Candice diam, ED 1.5 cm ----- ESD, LAX 3.4 cm 2.2 - 3.5 Peak v, S 1.02 m/sec ----- FS, LAX 27 % 27 - 45 VTI, S 21.5 cm ----- PW, ED, LAX (H) 1.0 cm 0.6 - 0.9 Mean grad, S 3.0 mm Hg ----- E', lat candice, TDI 80.6 cm/sec >=10.0 Peak grad, S 4.0 mm Hg -- --- E/e', lat candice, 1 LVOT/AV, VTI ratio 0.74 ----- TDI E', med candice, TDI 70.9 cm/sec >=7.0 Mitral valve Value Re f E/e', med candice, 2 Peak E 1.09 m/sec ----- TDI Decel time 123 ms ----- E', avg, TDI 75.8 cm/sec Peak grad, D 4.8 mm Hg ----- E/e', avg, TDI 1 <=14 Pulmonic valve Value Ref LVOT Value Ref Peak v, S 0.58 m/sec ----- Peak usha, S 0.64 m/sec Peak grad, S 1.0 mm Hg ----- VTI, S 16.0 cm Mean grad, S 1 mm Hg Tricuspid valve Value Ref TR peak v (H) 3.25 m/sec <=2.8 Ventricular septum Value Ref Peak RV-RA grad, S 42 mm Hg ----- IVS, ED 0.9 cm 0.6 - 0.9 Max TR usha 3.2 m/sec ----- Right ventricle Value Ref Aortic root Value Ref AW thickness, ED (H) 0.6 cm 0.1 - 0.5 Root diam 1.9 cm <4.0 MATTHEW, LAX 2.5 cm MATTHEW minor ax, A4C 3.2 cm 1.9 - 3.5 Ascending aorta Value Ref mid AAo AP diam, S 2.3 cm ----- Left atrium Value Ref Aortic arch Value Ref AP dim, ES (H) 4.40 cm 2.70 - Arch diam 2.1 cm ----- 3.80 ML dim, A4C 4.7 cm Decending aorta Value Ref SI dim, A4C 6.5 cm Jorje peak usha 0.47 m/sec ----- Vol/bsa, ES, 1-p (H) 43 ml/m^2 11 - 40 A4C Inferior vena cava Value Ref Vol/bsa, ES, A/L (H) 51 ml/m^2 16 - 34 Diam 1.9 cm ----- Right atrium Value Ref SI dim, ES 4.8 cm 3.4 - 5.3 ML dim, ES, A4C 4.2 cm 2.6 - 4.4 SI dim, ES, A4C 4.8 cm 3.4 - 5.3 Estimated RAP 8 mm Hg Legend: (L) and (H) fredo values outside specified reference range. Prepared and electronically signed by Sal Delgado MD 05/10/2019 16:29
[2019-05-10] MEDS ORDERED: Bumetanide IV* 0.25 MG/ML 4 ML VIAL ONE (16:31)
--- NOTE | 2019-05-10 16:56 | CONS ---
CONSULTATION REPORT: ADDENDUM: On second thoughts, we will attempt the patient on a Bumex drip and assess her response to diuresis and then decide if she needs further adjustment. Anticipate that the creatinine would get w orse, but will follow closely with the medical team. [id number]/[facility] #: [id number]
[2019-05-10] MEDS: Morphine INJ* 2 MG/ML 1 ML SYRINGE (TWO MG - NEW SYRINGE VERSION) IV PRN (17:01)
--- NOTE | 2019-05-10 17:05 | CONS ---
CONSULTATION REPORT: DATE OF CONSULT: 05/10/19 REQUESTING PHYSICIAN: Dr. Trujillo. SERVICE: [facility] Nephrology. REASON FOR CONSULT: Worsening renal failure/cardiorenal syndrome/diuresis management. HISTORY OF PRESENT ILLNESS: A 73-year-old female with past medical history of coronary artery disease, status post recent cath and WA most recently in November 2018, congestive heart failure with ejection fraction of 30% to 35%, atrial fibrillation, chronic kidney disease, diabetes, history of heart block status post pacemaker, history of nocturnal oxygen use at 2 L, came into the emergency room because of bilateral leg swelling, but significant left leg swelling and pain, reports that she is unable to lift her left leg secondary to significant pain. The [facility]. The patient had WA in October and November of 2018 and prior to that reports that she was in good health and did not know that she had kidney disease. The patient was started to have cardiorenal syndrome and after that was initially seeing Dr. Cat and currently seeing Dr. Hairston in the Nephrology office. The patient was on torsemide 20 mg which was recently increased to 40 mg and received 40 mg of Lasix in the ER. PAST MEDICAL HISTORY: 1. Coronary artery disease, status post WA and cardiac catheterization in October and November 2018. 2. Atrial fibrillation. 3. Congestive heart failure with ejection fraction of 30% to 35%. 4. Chronic kidney disease, stage 3. 5. Diabetes. 6. Chronic oxygen use at night. 7. Heart block, status post pacemaker. PAST SURGICAL HISTORY: 1. . 2. Hysterectomy. 3. Gallbladder surgery. 4. Tonsillectomy. HOME MEDICATIONS: 1. Hydralazine 25 mg 3 times a day. 2. Torsemide 40 mg daily. 3. Plavix 75 mg daily. 4. Metoprolol 50 mg daily. 5. Eliquis 5 mg b.i.d. 6. Lipitor 80 mg daily. 7. Potassium supplement 10 mEq daily. 8. Isosorbide dinitrate 10 mg b.i.d. FAMILY HISTORY: Father with diabetes. Denies any kidney disease in the family. SOCIAL HISTORY: The patient lives at home with her daughter, who helps take care of her. Does not smoke. Does not use alcohol. No recreational drug use. CODE STATUS: Currently full code. REVIEW OF SYSTEMS: Denies any fevers, chills. Denies any shortness of breath. Reports significant lower extremity edema and edema in her abdomen and significant pain in her left leg. PHYSICAL EXAM: General: Elderly female, well developed, well nourished, no acute distress. Vital Signs: Blood pressure 125/58, oxygen saturation 94% on room air, respiratory rate 16, heart rate of 80, temperature 96.6. HEENT: NCAT. Heart: S1, S2 present. Regular at the time of exam. Lungs: No accessory muscle use. No tachypnea. Minimal crackles bilaterally. Abdomen: Bowel sounds normoactive. No rebound. No guarding. Nontender. Extremities: Noted to have 3+ pitting edema in bilateral lower extremity. No calf tenderness. Noted to have some erythema of the left foot. Noted to have anasarca. Neuro: Alert and oriented x3. No focal deficits. DIAGNOSTIC STUDIES/LAB DATA: Lower extremity Doppler was done, which did not show any DVT. EKG showed atrial fibrillation. Chest x-ray, right greater than left bibasilar airspace opacification, favoring congestive heart failure with pulmonary edema, infiltrate can have similar experience. Small bilateral pleural effusions, cardiomegaly. Labs: WBC 12.8, hemoglobin 7.8, hematocrit 25, platelets noted to be 234. Sodium 134, potassium 4.2, chloride 99, CO2 of 26, BUN 65, creatinine 2.33, glucose noted to be 150. BNP noted to be 1139. Albumin noted to be 3.2. In review of prior labs, recently her creatinine had been in the 2 range. The patient's creatinine in October was 4.38 in the setting of cardiorenal syndrome and her coronary artery disease and WA and this has improved. ASSESSMENT AND PLAN: A 73-year-old female with history of significant coronary artery disease, ischemic cardiomyopathy, congestive heart failure systolic type with ejection fraction of 30% to 35%, recent myocardial infarction status post angioplasty and chronic kidney disease, here for volume overload and diuresis management and some worsening in her kidney function. 1. Chronic kidney disease secondary to cardiorenal syndrome with some decompensation. The patient at this time unfortunately is volume overloaded, but is one of those patients where it would be important to manage and find the right diuretic dose to keep her heart and kidneys happy. The patient does not want to end up on dialysis in the future, but it will also be important to manage her symptoms and volume in the setting of her cardiomyopathy and cardiorenal syndrome. 2. Agree with getting a repeat echocardiogram to evaluate her heart function. 3. We will rule out any other etiology that could be causing anasarca including nephrotic syndrome or other conditions that could predispose her to volume overload. While she is in the hospital, recommend getting a 24-hour urine for protein, creatinine and we will also add serum electrophoresis, urine electrophoresis and kappa lambda light chains to rule out paraproteinemia and other conditions. 4. With respect to diuresis, recommend placing her on a Bumex drip today and evaluate her kidney function.Suspect that it may worsen a little with her cardiorenal syndrome but patient is volume overloaded and have to treat. 5. If the patient continues to be volume overloaded tomorrow, can consider giving her 1 g/kg albumin bolus followed by 3 g an hour albumin continuous infusion with Lasix 60 or 80 mg 3 times a day.But she may not benefit from albumin infusion as her albumin even though on the low side, it is still in the 3 range. We will decide further based on her clinical progress. 7. Also recommend leg elevation and compression with stockings to improve venous return and help with her edema. 8. Pain control and management per the primary care team. 9. As the patient seems to be sensitive to diuretics, it would also be prudent to check the renal artery duplex to rule out renal artery stenosis. If this cannot be done as an inpatient, this can be pursued as an outpatient. 10. Also recommend checking urine electrolytes including urine sodium, creatinine and urea to evaluate further etiology. 11. Will follow with the medical team and be available for any questions. We will put in the orders above. [id number]/[facility] #: [id number] [facility]
[2019-05-10] MEDS: Atorvastatin* 80 MG TAB PO SCH (17:20)
[2019-05-10 19:20] LABS: % Iron Saturation 6 % (15-55); Iron 23 ug/dL (50-212); Total Iron Binding Capacity 381 mcg/dL (250-450); Transferrin 272 mg/dL (203-362)
[2019-05-10] MEDS: Isosorbide Dinitrate TAB* 10 MG PO SCH ×2 (19:26→20:34)
[2019-05-10 19:39] LABS: Ferritin 43.9 ng/mL (11-307)
[2019-05-10] MEDS ORDERED: Docusate CAP* 100 MG PO PRN (19:52)
[2019-05-10] MEDS: Apixaban* 5 MG TAB PO SCH (20:34)
[2019-05-11 05:47] LABS: ABS Lymphocytes 0.2 10^3/ul (1.0-4.8); ABS Monocytes 0.7 10^3/ul (0-0.8); Hematocrit 25 % (35-47); Hemoglobin 7.7 g/dL (12.0-16.0); Lymphocyte % 1.7 %; Mean Corpuscular HGB Conc 31 g/dL (31-36); Mean Corpuscular Hemoglobin 24 pg (27-31); Mean Corpuscular Volume 76 fL (80-97); Mean Platelet Volume 8.5 fL (7.4-10.4); Platelet Count 227 10^3/uL (150-450); Red Blood Count 3.29 10^6 /uL (3.70-4.87); Red Cell Distribution Width 21 % (10-15); White Blood Count 14.9 10^3/uL (3.5-10.8)
[2019-05-11 06:02] LABS: Albumin 3.3 g/dL (3.2-5.2); BUN/Creatinine Ratio 27.5 (8-20); Calcium 9.3 mg/dL (8.6-10.3); EGFR African American 23.8 (>60); EGFR Non-African American 19.7 (>60); Potassium 4.4 mmol/L (3.5-5.0)
[2019-05-11] MEDS ORDERED: Torsemide TAB* 20 MG PO SCH (09:00)
[2019-05-11] MEDS ORDERED: Influenza VAC *QUAD* 2019-20* 0.5 ML SYRINGE IM ONE (09:00)
[2019-05-11] MEDS: Clopidogrel TAB* 75 MG PO SCH (09:38)
[2019-05-11] MEDS: Potassium Chlor TAB* 10 MEQ TAB.ER PO SCH (09:38)
[2019-05-11] MEDS: Metoprolol Succinate XL TAB* 50 MG PO SCH (09:39)
[2019-05-11] MEDS: Isosorbide Dinitrate TAB* 10 MG PO SCH ×3 (09:39→19:57)
[2019-05-11] MEDS: Ferrous Sulfate TAB* 325 MG PO SCH (09:39)
[2019-05-11] MEDS: hydrALAZINE TAB* 25 MG PO SCH ×3 (09:39→19:57)
[2019-05-11] MEDS: Apixaban* 5 MG TAB PO SCH ×2 (09:40→19:57)
[2019-05-11] MEDS: Acetaminophen TAB* 325 MG PO PRN ×2 (11:51→19:52)
[2019-05-11] MEDS ORDERED: BUMETANIDE IV ONE (13:00)
[2019-05-11] MEDS: cefTRIAXone(*) 1 GM in NS 0.9% 50 ML* 50 ML IVPB SCH (13:10)
[2019-05-11] MEDS ORDERED: Bumetanide IV* 0.25 MG/ML 4 ML VIAL ONE (13:32)
--- NOTE | 2019-05-11 13:34 | PN ---
Subjective Date of Service: 05/11/19 Interval History: Reports improvement in edema and some improvement in foot pain Objective Active Medications: Acetaminophen (Tylenol Tab*) 650 mg PO Q6H PRN PRN Reason: MILD PAIN or TEMP > 100.4 Last Admin: 05/11/19 11:51 Dose: 650 mg Apixaban (Eliquis*) 5 mg PO BID [facility] Last Admin: 05/11/19 09:40 Dose: 5 mg Atorvastatin Calcium (Lipitor*) 80 mg PO 1700 [facility] Last Admin: 05/10/19 17:20 Dose: 80 mg Clopidogrel Bisulfate (Plavix Tab*) 75 mg PO DAILY [facility] Last Admin: 05/11/19 09:38 Dose: 75 mg Docusate Sodium (Colace Cap*) 100 mg PO BID PRN PRN Reason: CONSTIPATION Ferrous Sulfate (Ferrous Sulfate Tab*) 325 mg PO DAILY [facility] Last Admin: 05/11/19 09:39 Dose: 325 mg Hydralazine HCl (Apresoline Tab*) 25 mg PO TID [facility] Last Admin: 05/11/19 09:39 Dose: 25 mg Bumetanide 5 mg/ IV Solution 20 mls @ 4 mls/hr IV ONCE ONE; Protocol Stop: 05/11/19 17:59 Iron Sucrose 200 mg/ Sodium (Chloride) 110 mls @ 110 mls/hr IVPB Q48H [facility] Stop: 05/19/19 14:59 Piperacillin Sod/Tazobactam (Sod 3.375 gm/ Sodium Chloride) 100 mls @ 200 mls/ hr IVPB ONCE ONE Stop: 05/11/19 13:56 Isosorbide Dinitrate (Isordil Tab*) 10 mg PO TID [facility] Last Admin: 05/11/19 09:39 Dose: 10 mg Metoprolol Succinate (Toprol Xl Tab*) 50 mg PO DAILY [facility] Last Admin: 05/11/19 09:39 Dose: 50 mg Morphine Sulfate (Morphine Inj (Syringe))*) 1 mg IV Q4H PRN PRN Reason: PAIN - SEVERE Last Admin: 05/10/19 17:01 Dose: 1 mg Mupirocin (Bactroban 2 % Oint*) 1 applic TOPICAL BID [facility] Ondansetron HCl (Zofran Inj*) 4 mg IV Q6H PRN PRN Reason: NAUSEA Pharmacy Consult (Zosyn Per Pharmacy*) 1 note FOLLOW UP .ZOSYN PER PHARMACY [facility] Potassium Chloride (Klor Con Er Tab*) 10 meq PO DAILY [facility] Last Admin: 05/11/19 09:38 Dose: 10 meq Vital Signs - 8 hr 05/11/19 05/11/19 05/11/19 07:15 08:00 11:01 Temperature 98.2 F 97.6 F Pulse Rate 90 76 Respiratory 20 20 20 Rate Blood Pressure 110/55 105/46 (mmHg) O2 Sat by Pulse 92 98 Oximetry Oxygen Devices in Use Now: None Eyes: No Scleral Icterus Neck: NL Appearance and Movements; NL JVP Respiratory: - - basal crackles Cardiovascular: NL Sounds; No Murmurs; No JVD Abdominal: NL Sounds; No Tenderness; No Distention Extremities: - - 3+ bilateral edema. Echymossis L foot. R ankle with venous stasis wounds erythema,tenderness Result Diagrams: 05/11/19 05:21 05/11/19 05:21 Assess/Plan/Problems-Billing Assessment: - Patient Problems (1) CHF exacerbation Current Visit: Yes Status: Acute Code(s): I50.9 - HEART FAILURE, UNSPECIFIED SNOMED Code(s): 796822019 Comment: Bumex drip Echo with EF improvement 20-30 pounds weight gain in last few weeks Recent OK in October/November (2) CKD (chronic kidney disease) Current Visit: Yes Status: Acute Code(s): N18.9 - CHRONIC KIDNEY DISEASE, UNSPECIFIED SNOMED Code(s): 761031583 Comment: See below (3) Cardiorenal syndrome with renal failure Current Visit: Yes Status: Acute Code(s): I13.10 - HYP HRT & CHR KDNY DIS W/ O HRT FAIL, W STG 1-4/UNSP CHR KDNY SNOMED Code(s): 639851950 Comment: Bumex drip Monitored diuresis Please see my consult note Other w/u in progress Renal duplex to r/o ANA (4) Volume overload Current Visit: Yes Status: Acute Code(s): E87.70 - FLUID OVERLOAD, UNSPECIFIED SNOMED Code(s): 17364182 Comment: Anasarca Improving with bumex drip Repeat Bumex drip today (5) Cellulitis Current Visit: Yes Status: Acute Code(s): L03.90 - CELLULITIS, UNSPECIFIED SNOMED Code(s): 057824439 Comment: Vito stop ceftriaxone Switch to Zosyn Leukocytosis (6) Inability to ambulate due to ankle or foot Current Visit: Yes Status: Acute Code(s): R26.2 - DIFFICULTY IN WALKING, NOT ELSEWHERE CLASSIFIED SNOMED Code(s): 836895875 Comment: Pt/OT (7) Iron deficiency anemia Current Visit: Yes Status: Acute Code(s): D50.9 - IRON DEFICIENCY ANEMIA, UNSPECIFIED SNOMED Code(s): 00581563 Comment: Will start on Venofer 200 mg Iv every other day for total of 5 doses/1000 mg Rest can be completed as outpt Severe iron def, tsat 6%
[2019-05-11] MEDS: Iron Sucrose* 200 MG in NS 0.9% 100 ML* 100 ML IVPB SCH (13:43)
[2019-05-11] MEDS ORDERED: Zosyn per Pharmacy* NOTE FOLLOW UP SCH (14:00)
[2019-05-11] MEDS ORDERED: Piperacillin/Tazobac ADVAN(*) 3.375 GM in NS 0.9% 100 ML* 100 ML IVPB ONE (14:00)
[2019-05-11] MEDS: Atorvastatin* 80 MG TAB PO SCH (15:47)
[2019-05-11] MEDS: ZOSYN 3.375 GM Q12H per EXTENDED INFUSION IVPB SCH ×2 (19:56)
[2019-05-11] MEDS: Mupirocin 2% OINT* TUBE TOPICAL SCH (19:58)
[2019-05-11] MEDS: Morphine INJ* 2 MG/ML 1 ML SYRINGE (TWO MG - NEW SYRINGE VERSION) IV PRN ×2 (20:50→23:43)
[2019-05-11 23:32] LABS: Urine Creatinine Concentration 54.1 mg/dL
[2019-05-12] LABS: Creatinine, Serum 2.49 mg/dL (0.51-0.95)
[2019-05-12 06:05] LABS: ABS Lymphocytes 0.3 10^3/ul (1.0-4.8); ABS Monocytes 0.8 10^3/ul (0-0.8); ABS Neutrophils 12.1 10^3/ul (1.5-7.7); Eosinophil % 0.2 %; Hematocrit 25 % (35-47); Hemoglobin 7.5 g/dL (12.0-16.0); Lymphocyte % 2.6 %; Mean Corpuscular HGB Conc 31 g/dL (31-36); Mean Corpuscular Hemoglobin 23 pg (27-31); Mean Corpuscular Volume 76 fL (80-97); Mean Platelet Volume 8.7 fL (7.4-10.4); Platelet Count 223 10^3/uL (150-450); Red Blood Count 3.25 10^6 /uL (3.70-4.87); Red Cell Distribution Width 21 % (10-15); White Blood Count 13.3 10^3/uL (3.5-10.8)
[2019-05-12 06:21] LABS: Calcium 8.8 mg/dL (8.6-10.3); EGFR African American 21.2 (>60); EGFR Non-African American 17.6 (>60); Potassium 4.3 mmol/L (3.5-5.0)
[2019-05-12 07:46] LABS: Urine TP Concentration 383 mg/dL
[2019-05-12 08:00] LABS: Urine Creatinine 41.41 mg/dL
[2019-05-12] MEDS ORDERED: NS 0.9% 100 ML* 100 ML ONE (08:18)
[2019-05-12] MEDS: Acetaminophen TAB* 325 MG PO PRN ×2 (08:28→20:49)
[2019-05-12] MEDS: Isosorbide Dinitrate TAB* 10 MG PO SCH ×3 (08:29→20:48)
[2019-05-12] MEDS: Potassium Chlor TAB* 10 MEQ TAB.ER PO SCH (08:30)
[2019-05-12] MEDS: hydrALAZINE TAB* 25 MG PO SCH ×3 (08:30→20:48)
[2019-05-12] MEDS: Clopidogrel TAB* 75 MG PO SCH (08:30)
[2019-05-12] MEDS: Apixaban* 5 MG TAB PO SCH ×2 (08:30→20:49)
[2019-05-12] MEDS: ZOSYN 3.375 GM Q12H per EXTENDED INFUSION IVPB SCH ×4 (08:30→20:48)
[2019-05-12] MEDS: Ferrous Sulfate TAB* 325 MG PO SCH (08:30)
[2019-05-12] MEDS: Metoprolol Succinate XL TAB* 50 MG PO SCH (08:30)
[2019-05-12 09:13] LABS: Urine Microalbumin/Creatinine 4897.3 (<31)
[2019-05-12] MEDS: Mupirocin 2% OINT* TUBE TOPICAL SCH ×2 (11:11→20:50)
--- NOTE | 2019-05-12 13:25 | PN ---
Subjective Date of Service: 05/12/19 Interval History: Reports improvement in leg swelling and pain.No sob Family History: Unchanged from Admission Social History: Unchanged from Admission Past Medical History: Unchanged from Admission Objective Active Medications: Acetaminophen (Tylenol Tab*) 650 mg PO Q6H PRN PRN Reason: MILD PAIN or TEMP > 100.4 Last Admin: 05/12/19 08:28 Dose: 650 mg Apixaban (Eliquis*) 5 mg PO BID [facility] Last Admin: 05/12/19 08:30 Dose: 5 mg Atorvastatin Calcium (Lipitor*) 80 mg PO 1700 [facility] Last Admin: 05/11/19 15:47 Dose: 80 mg Clopidogrel Bisulfate (Plavix Tab*) 75 mg PO DAILY [facility] Last Admin: 05/12/19 08:30 Dose: 75 mg Docusate Sodium (Colace Cap*) 100 mg PO BID PRN PRN Reason: CONSTIPATION Last Admin: 05/12/19 11:11 Dose: 100 mg Ferrous Sulfate (Ferrous Sulfate Tab*) 325 mg PO DAILY [facility] Last Admin: 05/12/19 08:30 Dose: 325 mg Hydralazine HCl (Apresoline Tab*) 25 mg PO TID [facility] Last Admin: 05/12/19 08:30 Dose: 25 mg Iron Sucrose 200 mg/ Sodium (Chloride) 110 mls @ 110 mls/hr IVPB Q48H [facility] Stop: 05/19/19 14:59 Last Admin: 05/11/19 13:43 Dose: 110 mls/hr Piperacillin Sod/Tazobactam (Sod 3.375 gm/ Sodium Chloride) 100 mls @ 25 mls/ hr IVPB Q12H [facility] Last Admin: 05/12/19 08:30 Dose: 25 mls/hr Isosorbide Dinitrate (Isordil Tab*) 10 mg PO TID [facility] Last Admin: 05/12/19 08:29 Dose: 10 mg Metoprolol Succinate (Toprol Xl Tab*) 50 mg PO DAILY [facility] Last Admin: 05/12/19 08:30 Dose: 50 mg Morphine Sulfate (Morphine Inj (Syringe))*) 1 mg IV Q2H PRN PRN Reason: PAIN - SEVERE Last Admin: 05/11/19 23:43 Dose: 1 mg Mupirocin (Bactroban 2 % Oint*) 1 applic TOPICAL BID [facility] Last Admin: 05/12/19 11:11 Dose: 1 applic Ondansetron HCl (Zofran Inj*) 4 mg IV Q6H PRN PRN Reason: NAUSEA Last Admin: 05/11/19 15:30 Dose: 4 mg Pharmacy Consult (Zosyn Per Pharmacy*) 1 note FOLLOW UP .ZOSYN PER PHARMACY [facility] Potassium Chloride (Klor Con Er Tab*) 10 meq PO DAILY [facility] Last Admin: 05/12/19 08:30 Dose: 10 meq Torsemide (Demadex*) 40 mg PO BID [facility] Vital Signs - 8 hr 05/12/19 05/12/19 05/12/19 06:39 07:38 08:00 Temperature 97.1 F Pulse Rate 85 Respiratory 16 16 16 Rate Blood Pressure 130/69 (mmHg) O2 Sat by Pulse 97 Oximetry 05/12/19 11:53 Temperature 97.3 F Pulse Rate 84 Respiratory 16 Rate Blood Pressure 118/53 (mmHg) O2 Sat by Pulse 97 Oximetry Oxygen Devices in Use Now: None Eyes: No Scleral Icterus Ears/Nose/Mouth/Throat: NL Teeth, Lips, Gums Neck: NL Appearance and Movements; NL JVP Respiratory: Symmetrical Chest Expansion and Respiratory Effort, - - crackles improving Cardiovascular: NL Sounds; No Murmurs; No JVD Abdominal: NL Sounds; No Tenderness; No Distention Extremities: - - LE edema improved significantly. Erythema improved.Less tender to palpation Neurological: Alert and Oriented x 3 Result Diagrams: 05/12/19 05:19 05/12/19 05:19 Assess/Plan/Problems-Billing Assessment: - Patient Problems (1) CHF exacerbation Current Visit: Yes Status: Acute Code(s): I50.9 - HEART FAILURE, UNSPECIFIED SNOMED Code(s): 404693807 Comment: s/p Bumex drip 5 mg over 5h on 05/10 and 05/11 with improvement Echo with EF improvement 20-30 pounds weight gain in last few weeks Recent ME in Strict I/O Will attempt on torsemide 40 mg po bid today and then can decide if 20 mg bid or 40 mg po bid needed at time of discharge based on response and renal fx (2) CKD (chronic kidney disease) Current Visit: Yes Status: Acute Code(s): N18.9 - CHRONIC KIDNEY DISEASE, UNSPECIFIED SNOMED Code(s): 079095228 Comment: See below (3) Cardiorenal syndrome with renal failure Current Visit: Yes Status: Acute Code(s): I13.10 - HYP HRT & CHR KDNY DIS W/ O HRT FAIL, W STG 1-4/UNSP CHR KDNY SNOMED Code(s): 136084870 Comment: Bumex drip* 2 with improvement in anasarca and edema Monitored diuresis Please see my consult note Other w/u in progress Renal duplex to r/o ANA Expect some worsening of her Cr in the setting of her CRS but needed the diuresis in the setting of edema and volume overload Will monitor carefilly Will start torsemide 40 mg po bid and then decide if she can go back on 20 mg bid F/u with Dr Hairston/ Nephrology as outpt and will s.o to him as he cash applications associate tomorrow Other w/u 24h urine, proteinuria ,electrophoreis w/u in progress. Pl see initial consult (4) Volume overload Current Visit: Yes Status: Acute Code(s): E87.70 - FLUID OVERLOAD, UNSPECIFIED SNOMED Code(s): 90598873 Comment: Anasarca Improved with bumex drip Strict I/O and weights (5) Cellulitis Current Visit: Yes Status: Acute Code(s): L03.90 - CELLULITIS, UNSPECIFIED SNOMED Code(s): 115129984 Comment: Vito stop ceftriaxone Switched to Zosyn Leukocytosis improving Erythema improved (6) Inability to ambulate due to ankle or foot Current Visit: Yes Status: Acute Code(s): R26.2 - DIFFICULTY IN WALKING, NOT ELSEWHERE CLASSIFIED SNOMED Code(s): 816863685 Comment: Pt/OT (7) Iron deficiency anemia Current Visit: Yes Status: Acute Code(s): D50.9 - IRON DEFICIENCY ANEMIA, UNSPECIFIED SNOMED Code(s): 19689489 Comment: Will start on Venofer 200 mg Iv every other day for total of 5 doses/1000 mg Rest can be completed as outpt as Venofer or Feraheme Severe iron def, tsat 6%
[2019-05-12] MEDS: Torsemide TAB* 20 MG PO SCH ×2 (13:51→20:48)
[2019-05-12] MEDS ORDERED: Benzocaine/Menthol LOZ* 1 LOZENGE PO PRN (14:05)
[2019-05-12] MEDS: Atorvastatin* 80 MG TAB PO SCH (16:36)
[2019-05-13] MEDS: Acetaminophen TAB* 325 MG PO PRN ×2 (03:46→20:18)
[2019-05-13 05:49] LABS: ABS Eosinophils 0.1 10^3/ul (0-0.6); ABS Lymphocytes 0.3 10^3/ul (1.0-4.8); ABS Monocytes 0.6 10^3/ul (0-0.8); Eosinophil % 0.7 %; Hematocrit 24 % (35-47); Hemoglobin 7.5 g/dL (12.0-16.0); Lymphocyte % 2.3 %; Mean Corpuscular HGB Conc 31 g/dL (31-36); Mean Corpuscular Hemoglobin 23 pg (27-31); Mean Corpuscular Volume 75 fL (80-97); Mean Platelet Volume 8.7 fL (7.4-10.4); Platelet Count 240 10^3/uL (150-450); Red Blood Count 3.26 10^6 /uL (3.70-4.87); Red Cell Distribution Width 20 % (10-15); White Blood Count 12.1 10^3/uL (3.5-10.8)
[2019-05-13 06:06] LABS: BUN/Creatinine Ratio 25.7 (8-20); Calcium 8.8 mg/dL (8.6-10.3); EGFR African American 18.1 (>60); Potassium 4.2 mmol/L (3.5-5.0)
--- NOTE | 2019-05-13 08:11 | PN ---
Progress Note - Progress Note Date of Service: 05/13/19 Note: Nephro f/u Note by: Dr. Angeles ANTHONY, [facility] Nephrology 05/13/2019 She was admitted with c/c massive LE edema, and Lt LE pain, on torsemide 40 mg daily. Admitted 05/10 with BUN/sCr 65/2.33 s/p IV Loop in ED, then Bumex drip! BUN/sCr slowly worse 65/2.33--->66/2.4--->69/2.65--->78/3.04 Has HFpEF. LVEF 55-65%, was 30-35%~11/2018. BNP on admisson 1100, was >1300 in 11/2018. Of note, UOP is poor ~ 400 cc/d and 650 cc/d the last 2 days. Admission CXR reviewed, Cardiomegally & BL Infiltrates. No evidence of significant Hypotension since admission, with lowest BP 103/67~ & 105/46~05/11. Hx of KT, sCr 4.4~10/2018, in a setting of ACS & LHC. sCr 2.0-2.2 since 02/2019. eGFR 20-25. CKD stage IV Cardio-Renal Syndrome. s/p PPM. Of note, worsening anemia Hb 10.5--->8.5---->But since admission, Hb dropped 7.5-7.7/24-25 s/o IV Fe Denied NSAIDs Last UPCR Significant Ptnuria 5 g/d Myeloma seroogy sent! Home Meds: Atorvastatin Clopidogrel Eliquis Hydralazine Isosorbide Metoprolol Nitroglycerin Oxygen Potassium Torsemide Hospital Meds; Acetaminophen Apixaban 5 twice daily Atorvastatin Clopidogrel Docusate Ferrous Sulfate daily Iron Sucrose 200 mg IVPB Q48H til 05/19/19 14:59 Piperacillin Sod/Tazobactam 3.375 q12H Isosorbide 10 TID Metoprolol 50 daily Morphine Ondansetron Klor Con 10 qd Torsemide 40 Q12H PMH: HFpEF PPM CAD CKD as above Hypercholesterolemia Exam: Vitals: Temp Pulse Resp BP Pulse Ox 97.5 F 76 18 148/68 100 05/13/19 03:49 05/13/19 03:49 05/13/19 03:49 05/13/19 03:49 05/13/19 03:49 Resp: B/L Crackles CV: Extremities: 3+ pretibial edema of the legs bilaterally. Lt>Rt Labs: Sodium 135 mmol/L (135-145) 05/13/19 04:50 Potassium 4.2 mmol/L (3.5-5.0) 05/13/19 04:50 BUN 78 mg/dL (6-24) H 05/13/19 04:50 Creatinine 3.04 mg/dL (0.51-0.95) H 05/13/19 04:50 Calcium 8.8 mg/dL (8.6-10.3) 05/13/19 04:50 Magnesium 2.0 mg/dL (1.9-2.7) 05/10/19 18:49 AST 22 U/L (13-39) 05/10/19 07:55 ALT 15 U/L (7-52) 05/10/19 07:55 Assessment: Progressive CKD Significant Proteinuria KT on CKD HFpEF Massive fluid overload on torsemide 40 Q12H Cardio-Renal Syndrome. Worsening anemia 1. Hold Diuretics, allow refill x 24Hr 2. GN serology in order 3. UA in order 4. Lytes Ok 6. BP Ok 5. IV Loop drip has no additional benefit compared to IV boluses as long as BP is Ok. She's currently on PO 5. Consider restarting PO loop tomorrow plus Metolazone 1.25 mg every other day ~ from tomorrow 6. F/U BNP 7. Adjust Zosyn & Eliquis for dropping eGFR
[2019-05-13] MEDS ORDERED: NS 0.9% 100 ML* 100 ML ONE ×2 (09:17→13:58)
[2019-05-13] MEDS: Metoprolol Succinate XL TAB* 50 MG PO SCH (09:22)
[2019-05-13] MEDS: Ferrous Sulfate TAB* 325 MG PO SCH (09:22)
[2019-05-13] MEDS: hydrALAZINE TAB* 25 MG PO SCH ×3 (09:22→20:18)
[2019-05-13] MEDS: Potassium Chlor TAB* 10 MEQ TAB.ER PO SCH (09:22)
[2019-05-13] MEDS: Apixaban* 5 MG TAB PO SCH (09:22)
[2019-05-13] MEDS: Clopidogrel TAB* 75 MG PO SCH (09:22)
[2019-05-13] MEDS: Mupirocin 2% OINT* TUBE TOPICAL SCH ×2 (09:23→20:18)
[2019-05-13] MEDS: ZOSYN 3.375 GM Q12H per EXTENDED INFUSION IVPB SCH ×4 (09:23→20:19)
[2019-05-13] MEDS: Isosorbide Dinitrate TAB* 10 MG PO SCH ×3 (09:23→20:17)
[2019-05-13] MEDS: Torsemide TAB* 20 MG PO SCH (09:49)
[2019-05-13] MEDS: Iron Sucrose* 200 MG in NS 0.9% 100 ML* 100 ML IVPB SCH (14:09)
--- NOTE | 2019-05-13 15:58 | PN ---
Subjective Date of Service: 05/13/19 Interval History: Ms. Simmons is feeling well today. She offers no complaints. Admits to occasional leg pain, but is otherwise comfortable. Denies CP, SOB, N/V. She is hoping that she can avoid dialysis. No concerns from nursing. Family History: Unchanged from Admission Social History: Unchanged from Admission Past Medical History: Unchanged from Admission Objective Active Medications: Acetaminophen (Tylenol Tab*) 650 mg PO Q6H PRN MILD PAIN or TEMP > 100.4 Apixaban (Eliquis*) 2.5 mg PO BID [facility] Atorvastatin Calcium (Lipitor*) 80 mg PO 1700 [facility] Clopidogrel Bisulfate (Plavix Tab*) 75 mg PO DAILY [facility] Docusate Sodium (Colace Cap*) 100 mg PO BID PRN CONSTIPATION Ferrous Sulfate (Ferrous Sulfate Tab*) 325 mg PO DAILY [facility] Hydralazine HCl (Apresoline Tab*) 25 mg PO TID [facility] Iron Sucrose 200 mg/ Sodium (Chloride) 110 mls @ 110 mls/hr IVPB Q48H [facility] Piperacillin Sod/Tazobactam (Sod 3.375 gm/ Sodium Chloride) 100 mls @ 25 mls/ hr IVPB Q12H [facility] Isosorbide Dinitrate (Isordil Tab*) 10 mg PO TID [facility] Metoprolol Succinate (Toprol Xl Tab*) 50 mg PO DAILY [facility] Morphine Sulfate (Morphine Inj (Syringe))*) 1 mg IV Q2H PRN PAIN - SEVERE Mupirocin (Bactroban 2 % Oint*) 1 applic TOPICAL BID [facility] Ondansetron HCl (Zofran Inj*) 4 mg IV Q6H PRN NAUSEA Potassium Chloride (Klor Con Er Tab*) 10 meq PO DAILY [facility] Throat Lozenges (Chloraseptic Janessa*) 1 janessa PO Q6H PRN SORE THROAT Vital Signs - 8 hr 05/13/19 05/13/19 08:00 15:15 Temperature 97.5 F Pulse Rate 72 Respiratory 16 16 Rate Blood Pressure 131/54 (mmHg) O2 Sat by Pulse 96 Oximetry Oxygen Devices in Use Now: None Appearance: Elderly female lying in bed in NAD Ears/Nose/Mouth/Throat: Mucous Membranes Moist Neck: NL Appearance and Movements; NL JVP, Trachea Midline Respiratory: Symmetrical Chest Expansion and Respiratory Effort, Clear to Auscultation Cardiovascular: RRR Abdominal: NL Sounds; No Tenderness; No Distention Extremities: - - +2 generalized Neurological: Alert and Oriented x 3 Lines/Tubes/Other Access: Clean, Dry and Intact Peripheral IV Nutrition: Taking PO's Result Diagrams: 05/13/19 04:50 05/13/19 04:50 Assess/Plan/Problems-Billing Assessment: Ms. Simmons is a 73 yo F with PMH of CAD, afib, systolic CHF, CKD, DM, chronic respiratory failure on nighttime oxygen; who presented to the ED with BLE edema and was found to be in CHF exacerbation. - Patient Problems (1) CHF exacerbation Code(s): I50.9 - HEART FAILURE, UNSPECIFIED Comment: - Acute on chronic systolic - Reported 20-30 pounds weight gain in last few weeks - Echo shows EF 55-60% (previously 30-35%) - Strict I&O, daily weights - S/p Bumex drip on 05/10 and 05/11 with improvement - Hold diuretics today (2) Cardiorenal syndrome with renal failure Code(s): I13.10 - HYP HRT & CHR KDNY DIS W/O HRT FAIL, W STG 1-4/UNSP CHR KDNY Comment: - Baseline CKD stage 4 - Renal duplex today was a poor study, but no significant findings - Appreciate Nephrology consult - Strict I&O, daily weights - Renally dose all medications - Hold diuretics today per Nephrology; consider restarting diuresis tomorrow (3) Cellulitis Code(s): L03.90 - CELLULITIS, UNSPECIFIED Comment: - Left foot - Wound consult tomorrow - Continue Zosyn (4) Inability to ambulate due to ankle or foot Code(s): R26.2 - DIFFICULTY IN WALKING, NOT ELSEWHERE CLASSIFIED Comment: - Secondary to pain - PT/OT evals (5) Iron deficiency anemia Code(s): D50.9 - IRON DEFICIENCY ANEMIA, UNSPECIFIED Comment: - Superimposed on anemia of chronic disease - TSAT 6%, ferritin low normal - Continue iron sucrose (dose 2/5), ferrous sulfate (6) Afib Code(s): I48.91 - UNSPECIFIED ATRIAL FIBRILLATION Comment: - Rate controlled - Continue metoprolol, Eliquis (changed to renal dosing) (7) CAD (coronary artery disease) Code(s): I25.10 - ATHSCL HEART DISEASE OF [place] CORONARY ARTERY W/O ANG PCTRS Comment: - Continue atorvastatin, Plavix, metoprolol (8) HTN (hypertension) Code(s): I10 - ESSENTIAL (PRIMARY) HYPERTENSION Comment: - Normotensive - Continue Imdur, metoprolol, hydralazine PRN (9) Diabetes Code(s): E11.9 - TYPE 2 DIABETES MELLITUS WITHOUT COMPLICATIONS Comment: - Not on outpatient medication - Check A1c (previous in November was 6.9%) (10) DVT prophylaxis Code(s): Z29.9 - ENCOUNTER FOR PROPHYLACTIC MEASURES, UNSPECIFIED Comment: - Gena (11) DNR (do not resuscitate) Comment: Status and Disposition: Inpatient. Anticipate d/c home vs [facility] when medically stable. Attending: Robin Weber
[2019-05-13] MEDS: Atorvastatin* 80 MG TAB PO SCH (16:25)
[2019-05-13 17:32] LABS: Hepatitis B Surface Antigen Nonreactive (Nonreactive)
[2019-05-13 17:37] LABS: Kappa Free Light Chain 15.5 mg/dL; Lambda Free Light Chain 7.05 mg/dL
[2019-05-13 17:49] LABS: Hepatitis C Antibody Negative (Negative)
[2019-05-13] MEDS: Apixaban* 2.5 MG TAB PO SCH (20:18)
[2019-05-14] MEDS ORDERED: Metolazone TAB* 5 MG PO ONE (09:30)
[2019-05-14] MEDS ORDERED: Torsemide TAB* 20 MG PO SCH (10:00)
[2019-05-14 10:36] LABS: ABS Lymphocytes 0.3 10^3/ul (1.0-4.8); ABS Monocytes 0.4 10^3/ul (0-0.8); ABS Neutrophils 7.8 10^3/ul (1.5-7.7); Eosinophil % 0.6 %; Hematocrit 27 % (35-47); Hemoglobin 8.7 g/dL (12.0-16.0); Lymphocyte % 3.3 %; Mean Corpuscular HGB Conc 32 g/dL (31-36); Mean Corpuscular Hemoglobin 24 pg (27-31); Mean Corpuscular Volume 76 fL (80-97); Mean Platelet Volume 8.3 fL (7.4-10.4); Platelet Count 249 10^3/uL (150-450); Red Blood Count 3.59 10^6 /uL (3.70-4.87); Red Cell Distribution Width 21 % (10-15); White Blood Count 8.5 10^3/uL (3.5-10.8)
[2019-05-14] MEDS: hydrALAZINE TAB* 25 MG PO SCH ×3 (10:43→20:10)
[2019-05-14] MEDS: Apixaban* 2.5 MG TAB PO SCH ×2 (10:44→20:10)
[2019-05-14] MEDS: Potassium Chlor TAB* 10 MEQ TAB.ER PO SCH (10:44)
[2019-05-14] MEDS: Ferrous Sulfate TAB* 325 MG PO SCH (10:44)
[2019-05-14] MEDS: Metoprolol Succinate XL TAB* 50 MG PO SCH (10:44)
[2019-05-14] MEDS: Acetaminophen TAB* 325 MG PO PRN ×2 (10:44→16:26)
[2019-05-14] MEDS: Clopidogrel TAB* 75 MG PO SCH (10:45)
[2019-05-14] MEDS: ZOSYN 3.375 GM Q12H per EXTENDED INFUSION IVPB SCH ×4 (10:45→20:08)
[2019-05-14] MEDS: Isosorbide Dinitrate TAB* 10 MG PO SCH ×3 (10:49→22:17)
[2019-05-14 10:56] LABS: Calcium 9.1 mg/dL (8.6-10.3)
[2019-05-14 11:01] LABS: BUN/Creatinine Ratio 25.8 (8-20); EGFR African American 17.2 (>60); EGFR Non-African American 14.2 (>60)
[2019-05-14] MEDS: Mupirocin 2% OINT* TUBE TOPICAL SCH ×2 (11:27→22:18)
--- NOTE | 2019-05-14 12:20 | PN ---
Progress Note - Progress Note Date of Service: 05/14/19 Note: Progress Note Date of Service: 05/14/19 Nephro f/u Note by: Dr. Angeles ANTHONY, [facility] Nephrology Admitted with massive LE edema, and Lt LE pain, s/p Bumex drip! Worsening BUN/sCr 65/2.33--->66/2.4--->69/2.65--->78/3.04--->82/3.18 Of note, was started on Torsemide 40 qd & Metolazone 1.25 mg q48H today HFpEF, LVEF 55-65%. BNP 829, was 1100 on admission Of note, Hx of KT, sCr 4.4~10/2018, in a setting of ACS & LHC. CKD with baseline sCr 2.0-2.2 since 02/2019. eGFR 20-25. CKD stage IV Chronic Cardio-Renal Syndrome. Severe anemia. Hb 7.5-7.7/24-25 s/p IV Fe and Hb today 8.7/27 Myeloma serology FLC 2.2. SPEP pending. Cant r/o Myeloma. Hospital Meds: Acetaminophen Apixaban Atorvastatin Clopidogrel Docusate Ferrous Hydralazine 25 ID Iron Sucroser Piperacillin/Tazobactam Isosorbide Metoprolol Morphine Mupirocin Ondansetron KCl 10 qd Torsemide 40 qd Metolazone 1.25 mg q48H O/E: Temp Pulse Resp BP Pulse Ox 97 F 86 20 116/57 95 05/14/19 07:50 05/14/19 07:50 05/14/19 07:50 05/14/19 07:50 05/14/19 07:50 Vital Signs Temp 97 F 05/14/19 07:50 Pulse 86 05/14/19 07:50 Resp 20 05/14/19 07:50 BP 116/57 05/14/19 07:50 Pulse Ox 95 05/14/19 07:50 Intake & Output 05/13/19 05/14/19 05/14/19 18:59 06:59 18:59 Intake Total 590 425 480 Output Total 300 0 Balance 290 425 480 Intake: IV Fluids 30 125 ABX - ZOSYN 110 NS (0.9%) 30 15 IVPB 200 NS (0.9%) 200 Oral 360 300 480 Output: Urine 300 0 Other: Estimated Void Small Resp: B/L Crackles CV: Extremities: 3+ pretibial edema of the legs bilaterally. Lt>Rt Labs: Sodium 137 mmol/L (135-145) 05/14/19 10:18 Potassium 4.0 mmol/L (3.5-5.0) 05/14/19 10:18 BUN 82 mg/dL (6-24) H 05/14/19 10:18 Creatinine 3.18 mg/dL (0.51-0.95) H 05/14/19 10:18 Hemoglobin A1c 6.4 % (4.0-5.6) H 05/13/19 04:50 Calcium 9.1 mg/dL (8.6-10.3) 05/14/19 10:18 Magnesium 2.0 mg/dL (1.9-2.7) 05/10/19 18:49 AST 22 U/L (13-39) 05/10/19 07:55 ALT 15 U/L (7-52) 05/10/19 07:55 Assessment: Progressive CKD. BUN/sCr is worse, s/ restarting Torsemide & Metolazone. Can't r/o Myeloma, borderline FLC, pending SPEP. luid overload off diuretics Cardio-Renal Syndrome. Anemia 1. BNP improved, recommend holding Diuretics as BUN/Cr worse 2. GN serology pending 3. UA in order 4. Lytes Ok 5. BP Ok
[2019-05-14 13:21] LABS: Albumin/Globulin Ratio 0.91; Gamma Globulin 0.9 g/dL (0.6-1.6); Total Protein(PEP) 6.3 g/dL (6.3 - 7.9)
[2019-05-14] MEDS: Morphine INJ* 2 MG/ML 1 ML SYRINGE (TWO MG - NEW SYRINGE VERSION) IV PRN ×2 (13:58→16:26)
[2019-05-14 14:48] LABS: Myeloperoxidase Antibody <0.2 U; Proteinase 3 <0.2 U
[2019-05-14] MEDS: Atorvastatin* 80 MG TAB PO SCH (16:26)
--- NOTE | 2019-05-14 16:45 | PN ---
Subjective Date of Service: 05/14/19 Interval History: Ms. Simmons is feeling well this morning. She slept very well overnight. Continues to c/o LLE pain. Good appetite. Denies CP, SOB, N/V. She is open to going to rehab at d/c. No concerns from nursing. Family History: Unchanged from Admission Social History: Unchanged from Admission Past Medical History: Unchanged from Admission Objective Active Medications: Acetaminophen (Tylenol Tab*) 650 mg PO Q6H PRN MILD PAIN or TEMP > 100.4 Apixaban (Eliquis*) 2.5 mg PO BID [facility] Atorvastatin Calcium (Lipitor*) 80 mg PO 1700 [facility] Clopidogrel Bisulfate (Plavix Tab*) 75 mg PO DAILY [facility] Docusate Sodium (Colace Cap*) 100 mg PO BID PRN CONSTIPATION Ferrous Sulfate (Ferrous Sulfate Tab*) 325 mg PO DAILY [facility] Hydralazine HCl (Apresoline Tab*) 25 mg PO TID [facility] Iron Sucrose 200 mg/ Sodium (Chloride) 110 mls @ 110 mls/hr IVPB Q48H [facility] Piperacillin Sod/Tazobactam (Sod 3.375 gm/ Sodium Chloride) 100 mls @ 25 mls/ hr IVPB Q12H [facility] Isosorbide Dinitrate (Isordil Tab*) 10 mg PO TID [facility] Metoprolol Succinate (Toprol Xl Tab*) 50 mg PO DAILY [facility] Morphine Sulfate (Morphine Inj (Syringe))*) 1 mg IV Q2H PRN PAIN - SEVERE Mupirocin (Bactroban 2 % Oint*) 1 applic TOPICAL BID [facility] Ondansetron HCl (Zofran Inj*) 4 mg IV Q6H PRN NAUSEA Throat Lozenges (Chloraseptic Janessa*) 1 janessa PO Q6H PRN SORE THROAT Vital Signs - 8 hr 05/14/19 05/14/19 05/14/19 11:29 13:58 16:26 Temperature 98.4 F Pulse Rate 77 Respiratory 20 20 20 Rate Blood Pressure 144/58 (mmHg) O2 Sat by Pulse 100 Oximetry Oxygen Devices in Use Now: None Appearance: Elderly female lying in bed in NAD Ears/Nose/Mouth/Throat: Mucous Membranes Moist Neck: NL Appearance and Movements; NL JVP, Trachea Midline Respiratory: Symmetrical Chest Expansion and Respiratory Effort, Clear to Auscultation Cardiovascular: NL Sounds; No Murmurs; No JVD Abdominal: NL Sounds; No Tenderness; No Distention Extremities: - - +2 generalized Skin: - - Large intact blister to left foot Neurological: Alert and Oriented x 3 Lines/Tubes/Other Access: Clean, Dry and Intact Peripheral IV Nutrition: Taking PO's Result Diagrams: 05/14/19 10:18 05/14/19 10:18 Assess/Plan/Problems-Billing Assessment: Ms. Simmons is a 73 yo F with PMH of CAD, afib, systolic CHF, CKD, DM, chronic respiratory failure on nighttime oxygen; who presented to the ED with BLE edema and was found to be in CHF exacerbation. - Patient Problems (1) CHF exacerbation Code(s): I50.9 - HEART FAILURE, UNSPECIFIED Comment: - Acute on chronic systolic - Reported 20-30 pounds weight gain in last few weeks - Echo shows EF 55-60% (previously 30-35%) - Strict I&O, daily weights - S/p Bumex drip on 05/10 and 05/11 with improvement - Continue to hold diuretics per Nephrology (2) Cardiorenal syndrome with renal failure Code(s): I13.10 - HYP HRT & CHR KDNY DIS W/O HRT FAIL, W STG 1-4/UNSP CHR KDNY Comment: - Baseline CKD stage 4 - Creatinine up slightly again today - Renal duplex was a poor study, but no significant findings - Appreciate Nephrology consult - Strict I&O, daily weights - Renally dose all medications - Hold diuretics today per Nephrology (3) Cellulitis Code(s): L03.90 - CELLULITIS, UNSPECIFIED Comment: - Left foot, with large intact blister - Wound consult today - Continue Zosyn (4) Inability to ambulate due to ankle or foot Code(s): R26.2 - DIFFICULTY IN WALKING, NOT ELSEWHERE CLASSIFIED Comment: - Secondary to left foot pain - PT/OT evals (5) Iron deficiency anemia Code(s): D50.9 - IRON DEFICIENCY ANEMIA, UNSPECIFIED Comment: - Superimposed on anemia of chronic disease - TSAT 6%, ferritin low normal - Continue iron sucrose (dose 3/5), ferrous sulfate (6) Afib Code(s): I48.91 - UNSPECIFIED ATRIAL FIBRILLATION Comment: - Rate controlled - Continue metoprolol, Eliquis (7) CAD (coronary artery disease) Code(s): I25.10 - ATHSCL HEART DISEASE OF [place] CORONARY ARTERY W/O ANG PCTRS Comment: - Continue atorvastatin, Plavix, metoprolol (8) HTN (hypertension) Code(s): I10 - ESSENTIAL (PRIMARY) HYPERTENSION Comment: - Normotensive - Continue Imdur, metoprolol, hydralazine PRN (9) Diabetes Code(s): E11.9 - TYPE 2 DIABETES MELLITUS WITHOUT COMPLICATIONS Comment: - Not on outpatient medication - Check A1c (previous in November was 6.9%) (10) DVT prophylaxis Code(s): Z29.9 - ENCOUNTER FOR PROPHYLACTIC MEASURES, UNSPECIFIED Comment: - Gena (11) DNR (do not resuscitate) Comment: Status and Disposition: Inpatient. Anticipate d/c to [facility] when medically stable. Attending: Robin Weber
[2019-05-14 16:47] LABS: Phospholipase A2 Receptor IFA Negative (Negative); Phospholipase A2 ReceptorELISA <2 RU/mL
--- NOTE | 2019-05-14 16:51 | CONSULT ---
Palliative / Hospice Consult Ordering Provider: Sheila Gold - Subjective Code Status: DNR Advance Directives Location: In Chart MOLST Part A Completed: Yes - DNR MOLST Part E Completed:: Yes - DNI, cont. interventions - History or Present Illness History or Present Illness: This 73 year old woman has CAD s/p recent CT, followed by drug-eluting stents to RCA (October 2018) and circumflex (November 2018), as well as CHF with EF initially 30-35%, now 55-60%, and stage 4 CKD with eGFR 20-25, AF, DM, heart block, hypoxia requiring 2 LO2 at night. She is hospitalized now for CHF exacerbation with massive edema and BMP 829 and worsening renal function. Her BUN/Creatinine swapnil from 65/2.33 to 82/3.18 during this hospitalization, with heavy proteinuria , and her creatinine clearance is 9. She also has significant anemia and was found to have elevated kappa and lambda light chains. Although her edema is much improved after having drip diuresis, she has a large 5-6 cm blister on the lateral aspect of her left foot which is very painful and which preoccupies her to the extent that she is almost unable to have a conversation about anything else. She says she was seen by people from the wound clinic today and they "promised" to return to drain the blister, but now the wound clinic is closing and no one has come. She perseverates on this throughout the visit. Lab Values: Abnormal Lab Results 05/10/19 05/13/19 05/13/19 18:49 04:50 15:34 WBC RBC Hgb Hct MCV MCH MCHC RDW Plt Count MPV Neut % (Auto) Lymph % (Auto) [place] % (Auto) Eos % (Auto) Baso % (Auto) Absolute Neuts (auto) Absolute Lymphs (auto) Absolute Monos (auto) Absolute Eos (auto) Absolute Basos (auto) Absolute Nucleated RBC Nucleated RBC % Sodium Potassium Chloride Carbon Dioxide Anion Gap BUN Creatinine Est GFR ( Amer) Est GFR (Non-Af Amer) BUN/Creatinine Ratio Glucose Hemoglobin A1c 6.4 H Calcium Total Protein (PEP) 6.3 Albumin (PEP) 3.0 L Albumin/Globulin (PEP) 0.91 Kaogb-9-Jfvhsbymz 0.5 H Rcakz-2-Ayglpvlcw 1.0 Cbmd-2-Djurcnxs 1.0 Gamma Globulins 0.9 M-Leonel Not Reportable M-Leonel 2 Not Reportable PEP Impression See comment [place] Light Chain 15.5 H Lambda Light Chain 7.05 H [place]/Lambda Ratio 2.20 H Proteinase 3 (PR3) Myeloperoxidase Ab Hep Bs Antigen Nonreactive Hepatitis C Antibody Negative Hepatitis C Ab Index 0.09 05/13/19 05/14/19 05/14/19 15:35 10:18 10:18 WBC 8.5 RBC 3.59 L Hgb 8.7 L Hct 27 L MCV 76 L MCH 24 L MCHC 32 RDW 21 H Plt Count 249 MPV 8.3 Neut % (Auto) 90.7 Lymph % (Auto) 3.3 [place] % (Auto) 5.0 Eos % (Auto) 0.6 Baso % (Auto) 0.4 Absolute Neuts (auto) 7.8 H Absolute Lymphs (auto) 0.3 L Absolute Monos (auto) 0.4 Absolute Eos (auto) 0.0 Absolute Basos (auto) 0.0 Absolute Nucleated RBC 0.0 Nucleated RBC % 0.0 Sodium 137 Potassium 4.0 Chloride 100 L Carbon Dioxide 25 Anion Gap 12 H BUN 82 H Creatinine 3.18 H Est GFR ( Amer) 17.2 Est GFR (Non-Af Amer) 14.2 BUN/Creatinine Ratio 25.8 H Glucose 195 H Hemoglobin A1c Calcium 9.1 Total Protein (PEP) Albumin (PEP) Albumin/Globulin (PEP) Glqkw-2-Hybhchygw Pbnkk-5-Kqjzkjetw Dsah-0-Bwcncquz Gamma Globulins M-Leonel M-Leonel 2 PEP Impression [place] Light Chain Lambda Light Chain [place]/Lambda Ratio Proteinase 3 (PR3) <0.2 Myeloperoxidase Ab <0.2 Hep Bs Antigen Hepatitis C Antibody Hepatitis C Ab Index Laboratory Last Values WBC 8.5 10^3/uL (3.5-10.8) 05/14/19 10:18 RBC 3.59 10^6 /uL (3.70-4.87) L 05/14/19 10:18 Hgb 8.7 g/dL (12.0-16.0) L 05/14/19 10:18 Hct 27 % (35-47) L 05/14/19 10:18 MCV 76 fL (80-97) L 05/14/19 10:18 MCH 24 pg (27-31) L 05/14/19 10:18 MCHC 32 g/dL (31-36) 05/14/19 10:18 RDW 21 % (10-15) H 05/14/19 10:18 Plt Count 249 10^3/uL (150-450) 05/14/19 10:18 MPV 8.3 fL (7.4-10.4) 05/14/19 10:18 Neut % (Auto) 90.7 % 05/14/19 10:18 Lymph % (Auto) 3.3 % 05/14/19 10:18 [place] % (Auto) 5.0 % 05/14/19 10:18 Eos % (Auto) 0.6 % 05/14/19 10:18 Baso % (Auto) 0.4 % 05/14/19 10:18 Absolute Neuts (auto) 7.8 10^3/ul (1.5-7.7) H 05/14/19 10:18 Absolute Lymphs (auto) 0.3 10^3/ul (1.0-4.8) L 05/14/19 10:18 Absolute Monos (auto) 0.4 10^3/ul (0-0.8) 05/14/19 10:18 Absolute Eos (auto) 0.0 10^3/ul (0-0.6) 05/14/19 10:18 Absolute Basos (auto) 0.0 10^3/ul (0-0.2) 05/14/19 10:18 Absolute Nucleated RBC 0.0 10^3/ul 05/14/19 10:18 Nucleated RBC % 0.0 05/14/19 10:18 Sodium 137 mmol/L (135-145) 05/14/19 10:18 Potassium 4.0 mmol/L (3.5-5.0) 05/14/19 10:18 Chloride 100 mmol/L (101-111) L 05/14/19 10:18 Carbon Dioxide 25 mmol/L (22-32) 05/14/19 10:18 Anion Gap 12 mmol/L (2-11) H 05/14/19 10:18 BUN 82 mg/dL (6-24) H 05/14/19 10:18 Creatinine 3.18 mg/dL (0.51-0.95) H 05/14/19 10:18 Est GFR ( Amer) 17.2 (>60) 05/14/19 10:18 Est GFR (Non-Af Amer) 14.2 (>60) 05/14/19 10:18 BUN/Creatinine Ratio 25.8 (8-20) H 05/14/19 10:18 Glucose 195 mg/dL (70-100) H 05/14/19 10:18 Hemoglobin A1c 6.4 % (4.0-5.6) H 05/13/19 04:50 Calcium 9.1 mg/dL (8.6-10.3) 05/14/19 10:18 Magnesium 2.0 mg/dL (1.9-2.7) 05/10/19 18:49 Iron 23 ug/dL (50-212) L 05/10/19 18:49 TIBC 381 mcg/dL (250-450) 05/10/19 18:49 % Saturation 6 % (15-55) L 05/10/19 18:49 Unsat Iron Binding < 366 ug/dL 05/10/19 18:49 Transferrin 272 mg/dL (203-362) 05/10/19 18:49 Ferritin 43.9 ng/mL (11-307) 05/10/19 18:49 Total Bilirubin 0.70 mg/dL (0.2-1.0) 05/10/19 07:55 AST 22 U/L (13-39) 05/10/19 07:55 ALT 15 U/L (7-52) 05/10/19 07:55 Alkaline Phosphatase 67 U/L (34-104) 05/10/19 07:55 Total Creatine Kinase 60 U/L (10-223) 05/10/19 18:49 Troponin I 0.03 ng/mL (<0.04) 05/10/19 07:55 B-Natriuretic Peptide 829 pg/mL (<=100) H 05/13/19 15:33 Total Protein 5.8 g/dL (6.4-8.9) L 05/10/19 07:55 Total Protein (PEP) 6.3 g/dL (6.3 - 7.9) 05/10/19 18:49 Albumin 3.3 g/dL (3.2-5.2) 05/11/19 05:21 Albumin (PEP) 3.0 g/dL (3.4-4.7) L 05/10/19 18:49 Globulin 2.6 g/dL (2-4) 05/10/19 07:55 Albumin/Globulin Ratio 1.2 (1-3) 05/10/19 07:55 Albumin/Globulin (PEP) 0.91 05/10/19 18:49 Mlgpu-2-Rerbcjmle 0.5 g/dL (0.1-0.3) H 05/10/19 18:49 Oohdl-8-Tafaravqf 1.0 g/dL (0.6-1.0) 05/10/19 18:49 Wkqx-1-Koajgzmy 1.0 g/dL (0.7-1.2) 05/10/19 18:49 Gamma Globulins 0.9 g/dL (0.6-1.6) 05/10/19 18:49 M-Leonel Not Reportable 05/10/19 18:49 M-Leonel 2 Not Reportable 05/10/19 18:49 PEP Impression See comment 05/10/19 18:49 Ur Random Microalbumin 2028.0 mg/L 05/12/19 07:15 Urine Collection Time 24 hr 05/12/19 02:30 Urine Total Volume 600 mL 05/12/19 02:30 Ur 24 Hour Volume Cancelled 05/11/19 22:20 Ur Creatinine mg/dL 41.41 mg/dL 05/12/19 07:15 Ur Creatinine Concen 54.10 mg/dL 05/11/19 22:20 Creatinine Clearance 9 mL/min (88-128) L 05/11/19 22:20 Microalb/Creat Ratio 4897.3 (<31) H 05/12/19 07:15 Ur Total Protein Conc 376 mg/dL 05/12/19 07:15 Ur Total Protein 24 Hr 2298 mg/24Hr (0-165) H 05/12/19 02:30 U Sodium Concentration 35 mmol/L 05/12/19 07:15 Urine Potassium 41.0 mmol/L 05/12/19 07:15 Ur Chloride Concentrat 49 mmol/L 05/12/19 07:15 [place] Light Chain 15.5 mg/dL H 05/10/19 18:49 Lambda Light Chain 7.05 mg/dL H 05/10/19 18:49 [place]/Lambda Ratio 2.20 H 05/10/19 18:49 Proteinase 3 (PR3) <0.2 U 05/13/19 15:35 Myeloperoxidase Ab <0.2 U 05/13/19 15:35 Hep Bs Antigen Nonreactive (Nonreactive) 05/13/19 15:34 Hepatitis C Antibody Negative (Negative) 05/13/19 15:34 Hepatitis C Ab Index 0.09 s/c 05/13/19 15:34 - Objective Active Medications: Acetaminophen (Tylenol Tab*) 650 mg PO Q6H PRN PRN Reason: MILD PAIN or TEMP > 100.4 Last Admin: 05/14/19 16:26 Dose: 650 mg Apixaban (Eliquis*) 2.5 mg PO BID [facility] Last Admin: 05/14/19 10:44 Dose: 2.5 mg Atorvastatin Calcium (Lipitor*) 80 mg PO 1700 [facility] Last Admin: 05/14/19 16:26 Dose: 80 mg Clopidogrel Bisulfate (Plavix Tab*) 75 mg PO DAILY [facility] Last Admin: 05/14/19 10:45 Dose: 75 mg Docusate Sodium (Colace Cap*) 100 mg PO BID PRN PRN Reason: CONSTIPATION Last Admin: 05/12/19 11:11 Dose: 100 mg Ferrous Sulfate (Ferrous Sulfate Tab*) 325 mg PO DAILY [facility] Last Admin: 05/14/19 10:44 Dose: 325 mg Hydralazine HCl (Apresoline Tab*) 25 mg PO TID [facility] Last Admin: 05/14/19 16:25 Dose: 25 mg Iron Sucrose 200 mg/ Sodium (Chloride) 110 mls @ 110 mls/hr IVPB Q48H [facility] Stop: 05/19/19 14:59 Last Admin: 05/13/19 14:09 Dose: 110 mls/hr Piperacillin Sod/Tazobactam (Sod 3.375 gm/ Sodium Chloride) 100 mls @ 25 mls/ hr IVPB Q12H [facility] Last Admin: 05/14/19 10:45 Dose: 25 mls/hr Isosorbide Dinitrate (Isordil Tab*) 10 mg PO TID [facility] Last Admin: 05/14/19 16:25 Dose: 10 mg Metoprolol Succinate (Toprol Xl Tab*) 50 mg PO DAILY [facility] Last Admin: 05/14/19 10:44 Dose: 50 mg Morphine Sulfate (Morphine Inj (Syringe))*) 1 mg IV Q2H PRN PRN Reason: PAIN - SEVERE Last Admin: 05/14/19 16:26 Dose: 1 mg Mupirocin (Bactroban 2 % Oint*) 1 applic TOPICAL BID [facility] Last Admin: 05/14/19 11:27 Dose: 1 applic Ondansetron HCl (Zofran Inj*) 4 mg IV Q6H PRN PRN Reason: NAUSEA Last Admin: 05/11/19 15:30 Dose: 4 mg Pharmacy Consult (Zosyn Per Pharmacy*) 1 note FOLLOW UP .ZOSYN PER PHARMACY [facility] Throat Lozenges (Chloraseptic Jansesa*) 1 janessa PO Q6H PRN PRN Reason: SORE THROAT Last Admin: 05/12/19 15:46 Dose: 1 janessa Vital Signs: Vital Signs: Temp Pulse Resp BP Pulse Ox 98.4 F 77 20 144/58 100 05/14/19 11:29 05/14/19 11:29 05/14/19 16:26 05/14/19 11:29 05/14/19 11:29 Patient Weight: Weight 186 lb Intake and Output: Intake & Output 05/12/19 05/13/19 05/14/19 05/15/19 06:59 06:59 06:59 06:59 Intake Total 836 329 4827 600 Output Total 625 400 300 Balance -135 470 715 600 Intake: IV Fluids 30 30 155 ABX - ZOSYN 30 15 110 NS (0.9%) 15 45 IVPB 100 210 200 ABX - ZOSYN 100 210 NS (0.9%) 200 Oral 360 630 660 600 Output: Urine 625 400 300 Other: Estimated Void Small Small # Bowel Movements 1 Estimated Stool Amount Small Small # Voids 1 0 ADLs: Meal Record Start: 05/10/19 12: 50 Freq: DAILY@0900,1400,1800 Status: Active Protocol: Created 05/10/19 12:50 System (Rec: 05/10/19 12:50 System [email or web address]) Document 05/10/19 14:00 [id number] (Rec: 05/10/19 14:34 [id number] TELE-C13) Document 05/10/19 18:00 [id number] (Rec: 05/10/19 18:40 [id number] TELE-C01) Document 05/11/19 09:00 [id number] (Rec: 05/11/19 09:45 [id number] TELE-C01) Document 05/11/19 14:00 [id number] (Rec: 05/11/19 14:42 [id number] TELE-C01) Document 05/11/19 18:00 [id number] (Rec: 05/11/19 19:59 [id number] TELE-C07) Document 05/12/19 09:00 [id number] (Rec: 05/12/19 09:34 [id number] TELE-C05) Document 05/12/19 13:30 [id number] (Rec: 05/12/19 13:30 [id number] TELE-C05) Document 05/12/19 17:46 [id number] (Rec: 05/12/19 17:46 [id number] TELE-C07) Document 05/13/19 09:00 [id number] (Rec: 05/13/19 09:23 [id number] TELE-C10) Document 05/13/19 14:00 [id number] (Rec: 05/13/19 14:03 [id number] TELE-C10) Document 05/13/19 18:00 [id number] (Rec: 05/13/19 19:30 [id number] TELE-C10) Document 05/14/19 09:00 [id number] (Rec: 05/14/19 10:43 [id number] TELE-C01) Document 05/14/19 14:00 [id number] (Rec: 05/14/19 14:15 [id number] TELE-C01) Intake and Output Start: 05/10/19 06: 59 Freq: Status: Active Protocol: Created 05/10/19 06:59 System (Rec: 05/10/19 06:59 System ED-C24) Document 05/13/19 03:52 [id number] (Rec: 05/13/19 03:52 [id number] TELE-C33) Document 05/13/19 22:24 [id number] (Rec: 05/13/19 22:25 [id number] TELE-C34) Intake and Output Start: 05/10/19 12: 50 Freq: DAILY@0600,1400,2200 Status: Active Protocol: Created 10/11/19 12:50 System (Rec: 05/10/19 12:50 System TELE-C10) Document 05/10/19 14:00 [id number] (Rec: 05/10/19 14:34 [id number] TELE-C13) Document 05/10/19 19:03 [id number] (Rec: 05/10/19 19:03 [id number] TELE-C01) Document 05/10/19 22:00 (Rec: 05/10/19 22:08 [id number] TELE-C01) Document 05/10/19 22:29 (Rec: 05/10/19 22:29 TELE-C01) Eyes: No Scleral Icterus Ears/Nose/Mouth/Throat: Mucous Membranes Moist Neck: NL Appearance and Movements; NL JVP, Trachea Midline Cardiovascular: RRR Respiratory: Symmetrical Chest Expansion and Respiratory Effort Abdominal: NL Sounds; No Tenderness; No Distention Extremities: - - +2 edema, with a 5-6 cm blister on the lateral aspect of left foot. Neurological: Alert and Oriented x 3 - Assessment Assessment: This patient initially stated she did not want dialysis,and was a full code, but now has decided to refuse attempts at CPR and also would not want intubation. However, she does want dialysis if her renal function deteriorates to that extent, and at this time she is also anticipating a STR stay at [facility], where her was cared forbefore his 3 years ago. If she did not want dialysis, her renal failure would qualify her for hospice, and if she did not want further hospital-based intervention, her CHF with renal failure would also qualify. She feels she is able to function fairly independently at home and is not thinking she will need much assistance. She is therefore not appropriate for hospice at this time, but would be well-advised after her STR program to have a palliative outpatient program such as [facility] or [facility], along with help managing her chronic problems with fluid balance, which must be carefully monitored and controlled. If she decides she is interested in avoiding further hospitalizations, or does not want dialysis, she would be appropriate for hospice. - Plan Consult Plan (MU): Palliative - Time On Unit Date of Evaluation: 05/14/19 Hospice Consult Time in: 16:00 Hospice Consult Time Out: 17:10 Hospice Consult Time Total: 70 > 50% of Time Spend In Counseling or Coordinating Care: Yes
--- NOTE | 2019-05-14 19:01 | CONSULT ---
Subjective Date of Service: 05/14/19 Interval History: Ms. Simmons is a 73 yo female with PMH significant for DM2, A fib, CKD, CHF, CAD, obesity, and bilateral LE edema. She presented to the hospital with complaints of bilateral LE swelling and pain. She was admitted to the hospital for a CHF exacerbation. As of 05/03/19 she was documented as having wounds to her right LE for about 2 weeks (Mid March 2019) according to the Wound Clinic notes. She was also documented to have DP pulses during her last wound clinic visit. During her hospitalization she reports developing a large blister to her left foot. Patient seen and examined at bedside. Family History: Unchanged from Admission Social History: Unchanged from Admission Past Medical History: Unchanged from Admission Review of Systems - Measurements Intake and Output: Intake and Output Last 24 Hours 05/12/19 05/13/19 05/14/19 05/15/19 06:59 06:59 06:59 06:59 Intake Total 308 653 3012 1020 Output Total 625 400 300 Balance -135 989 510 0156 Intake: IV Fluids 30 30 155 ABX - ZOSYN 30 15 110 NS (0.9%) 15 45 IVPB 100 210 200 ABX - ZOSYN 100 210 NS (0.9%) 200 Oral 360 678 067 9692 Output: Urine 625 400 300 Other: Estimated Void Small Small # Bowel Movements 1 Estimated Stool Amount Small Small # Voids 1 0 - Review of Systems Constitutional Symptoms: Negative: Fever, Other - Chills Dermatology: Positive: Other - Healing wounds to right LE and a large blister to the left foot Endocrinology: Positive: Obesity, Diabetes Mellitus Objective Active Medications: Acetaminophen (Tylenol Tab*) 650 mg PO Q6H PRN Reason: MILD PAIN or TEMP > 100.4 Apixaban (Eliquis*) 2.5 mg PO BID [facility] Atorvastatin Calcium (Lipitor*) 80 mg PO 1700 BITA Clopidogrel Bisulfate (Plavix Tab*) 75 mg PO DAILY [facility] Docusate Sodium (Colace Cap*) 100 mg PO BID PRN Reason: CONSTIPATION Ferrous Sulfate (Ferrous Sulfate Tab*) 325 mg PO DAILY [facility] Hydralazine HCl (Apresoline Tab*) 25 mg PO TID [facility] Iron Sucrose 200 mg/ Sodium (Chloride) 110 mls @ 110 mls/hr IVPB Q48H [facility] Stop: 05/19/19 14:59 Piperacillin Sod/Tazobactam (Sod 3.375 gm/ Sodium Chloride) 100 mls @ 25 mls/ hr IVPB Q12H [facility] Isosorbide Dinitrate (Isordil Tab*) 10 mg PO TID [facility] Metoprolol Succinate (Toprol Xl Tab*) 50 mg PO DAILY [facility] Morphine Sulfate (Morphine Inj (Syringe))*) 1 mg IV Q2H PRN Reason: PAIN - SEVERE Mupirocin (Bactroban 2 % Oint*) 1 applic TOPICAL BID [facility] Ondansetron HCl (Zofran Inj*) 4 mg IV Q6H PRN Reason: NAUSEA Pharmacy Consult (Zosyn Per Pharmacy*) 1 note FOLLOW UP .ZOSYN PER PHARMACY BITA Throat Lozenges (Chloraseptic Janessa*) 1 janessa PO Q6H PRN Reason: SORE THROAT Vital Signs 05/14/19 05/14/19 05/14/19 11:29 13:58 14:58 Temperature 98.4 F Pulse Rate 77 Respiratory 20 20 18 Rate Blood Pressure 144/58 (mmHg) O2 Sat by Pulse 100 Oximetry Oxygen Devices in Use Now: None Appearance: NAD, sitting up in a chair Ears/Nose/Mouth/Throat: Mucous Membranes Moist Respiratory: Symmetrical Chest Expansion and Respiratory Effort Extremities: - - 2+ bilateral LE edema, unable to palpate DP pulses due to edema Skin: - - See skin note below Neurological: Alert and Oriented x 3 Result Diagrams: 05/20/19 05:47 05/20/19 05:47 Microbiology and Other Data: Microbiology 05/11/19 14:38 Blood Culture - Preliminary Blood Venous No Growth Day 3 05/12/19 07:15 Urine Culture - Final Urine No Growth (<1,000 CFU/mL) Skin Deviation Note - Skin Deviation Findings Left dorsal foot - There is a large intact blister, measures 7 cm x 7 cm. The surrounding skin iwth erythema. No drainage. Right anterior/medial lower leg - There are several small superficial open areas. On the anterior leg wound measures 1.5 cm x 1.5 cm x 0.1 cm. The wound base is dark slough, with slightly macerated skin from 4 o'clock to 6 o'clock. Wound to medial/anterior leg, measures 3.5 cm x 3.5 cm x 0.1 cm. The wound base with pink granulation tissue, the surrounding skin is intact. There are 2 smaller areas on the posterior/medial aspect of the leg measuring 0.3 cm x 0.3 cm x 0.1 cm and 0.5 cm x 0.5 cm x 0.1 cm. The wound bases are pink granulation tissue. There is no drainage. Procedure note: Pre-procedure diagnosis: Left dorsal foot blister Post-procedure diagnosis: Left dorsal foot blister Supply Planner: Lizette Jones NP supervised the procedure Procedure: An informed consent was obtained and a time out was performed. Procedure was performed at bedside. The left foot was cleaned with betadine. Using a #15 blade a 0.5 cm incision was made in the lateral aspect of the blister. About 60 ml of clear serous fluid was drained from the blister. The blister was deflated and the top layer of skin remained intact, area of the base of the blister with dark purplish discoloration. A dry gauze dressing was applied. Pt tolerated the procedure well. Specimen: None Estimated blood loss: None Wound Problem/Plan Assessment: Ms. Simmons is a 73 yo female with PMH significant for DM2, A fib, CKD, CHF, CAD, obesity, and bilateral LE edema. She presented to the hospital with complaints of bilateral LE swelling and pain. She was admitted to the hospital for a CHF exacerbation. She presented to the hospital with open wounds to her right LE and developed a large blister to the left foot during her hospitalization. 1. Left foot blister with associated cellulitis. Unclear cause. This is very painful for the patient, she reports pain as a 10/10. This was drained at bedside (please see above for procedure note). Pain greatly improved after the blister was drained. Recommend applying a gauze dressing and change daily or as needed for drainage. She is on ABX for cellulitis. 2. Right LE wounds. Suspect secondary to venous stasis and/or edema. Recommend using Acticoat flex 7, followed by rolled gauze and change every 3 days. If Acticoat Flex 7 is not availble use silver alginate while in the hospital followed by rolled gauze. She should resume following with the wound clinic at discharge. Consider ABIs to evaluate vascular status in the extremities (has an appointment for 05/21/19 outpatient). 3. DM2. Diet controlled. HgA1C was 6.4 during this admission. Maintain good glycemic control to allow for wound healing. 4. CHF. Admitted with an acute exacerbation. 5. Obesity. BMI 38.5. 6. Heart healthy, renal diet, 1000ml fluid restriction. 7. Code Status. DNR. 8. Disposition. Inpatient, disposition per primary medicine team. TIME SPENT: Time for this wound consultation was 50 minutes and 40 minutes was spent with the patient discussing past medical history; assessing, measuring, and photographing the wounds; performing an I+D of the left foot blister; and applying dressings. Is Patient a Wound Clinic Patient: Yes - Last visit 05/[address] Weir Current Treatment: Acticoat flex 7, followed by rolled gauze, change every 3 days Attending: Lisa Christensen
[2019-05-15 09:41] LABS: ABS Eosinophils 0.1 10^3/ul (0-0.6); ABS Lymphocytes 0.3 10^3/ul (1.0-4.8); ABS Monocytes 0.4 10^3/ul (0-0.8); ABS Neutrophils 6.7 10^3/ul (1.5-7.7); Eosinophil % 1.7 %; Hematocrit 27 % (35-47); Hemoglobin 8.3 g/dL (12.0-16.0); Mean Corpuscular HGB Conc 31 g/dL (31-36); Mean Corpuscular Hemoglobin 23 pg (27-31); Mean Corpuscular Volume 76 fL (80-97); Mean Platelet Volume 7.8 fL (7.4-10.4); Nucleated Red Blood Cells % 0.1; Platelet Count 232 10^3/uL (150-450); Red Blood Count 3.53 10^6 /uL (3.70-4.87); Red Cell Distribution Width 21 % (10-15); White Blood Count 7.6 10^3/uL (3.5-10.8)
[2019-05-15] MEDS: ZOSYN 3.375 GM Q12H per EXTENDED INFUSION IVPB SCH ×4 (09:43→19:48)
[2019-05-15] MEDS: Isosorbide Dinitrate TAB* 10 MG PO SCH ×3 (10:00→21:08)
[2019-05-15] MEDS: Clopidogrel TAB* 75 MG PO SCH (10:00)
[2019-05-15] MEDS: hydrALAZINE TAB* 25 MG PO SCH ×3 (10:01→21:08)
[2019-05-15] MEDS: Metoprolol Succinate XL TAB* 50 MG PO SCH (10:01)
[2019-05-15] MEDS: Apixaban* 2.5 MG TAB PO SCH ×2 (10:02→21:08)
[2019-05-15] MEDS: Ferrous Sulfate TAB* 325 MG PO SCH (10:02)
[2019-05-15 10:04] LABS: Potassium 4.2 mmol/L (3.5-5.0)
[2019-05-15 10:09] LABS: BUN/Creatinine Ratio 25.9 (8-20); EGFR African American 16.6 (>60); EGFR Non-African American 13.7 (>60)
--- NOTE | 2019-05-15 10:18 | PN ---
Progress Note - Progress Note Date of Service: 05/15/19 Note: Nephro Progress Note Date of Service: 05/15/19 Dr. ANTHONY [facility] [address] Nephrology Massive LE edema & Lt LE pain, s/p Blister Lt foot dorsum. s/p drainage On admission had Bumex drip! Subjectively improved but swelling persisted. No SOB. Progressively worsening BUN/sCr 65/2.33--->66/2.4--->69/2.65--->78/3.04--->82/3.18--->85/3.28 Torsemide & Metolazone on hold She has been in +ve fluid balance last few days!! Of note, Hx of KT, sCr 4.4~10/2018 2/2 ACS & LHC. KT on CKD CKD: baseline sCr 2.0-2.2 since 02/2019. eGFR 20-25. CKD stage IV Severe anemia. Myeloma serology FLC 2.2. SPEP pending. Cant r/o Myeloma. Other GN serology: -ve PR3, MPO, PLA2R, HCVAb & HBSAg Proteinuria UPCR 10 g/d & UACR 5 g/d. Known DM, this could be 2/2 DM Nephropathy Hospital Meds: Acetaminophen Apixaban Atorvastatin Clopidogrel s/p 4 stents 11/2018 Docusate Ferrous Sulfate Hydralazine Iron Sucrose Piperacillin/Tazobactam Isosorbide Metoprolol Morphine Ondansetron O/E: Vital Signs Temp 97.3 F 05/15/19 07:41 Pulse 82 05/15/19 07:41 Resp 20 05/15/19 07:41 BP 125/64 05/15/19 07:41 Pulse Ox 96 05/15/19 07:41 Intake & Output 05/14/19 05/15/19 Intake Total 1134.5 285 Output Total 300 Balance 1134.5 -15 Weight 84.595 kg Resp: bibasilar faint crackles CV: NSR Extremities: 3+ edema of the legs bilaterally. Lt>Rt. Dressing Lt Foot Labs: Sodium 137 mmol/L (135-145) 05/15/19 09:28 Potassium 4.2 mmol/L (3.5-5.0) 05/15/19 09:28 BUN 85 mg/dL (6-24) H 05/15/19 09:28 Creatinine 3.28 mg/dL (0.51-0.95) H 05/15/19 09:28 Hemoglobin A1c 6.4 % (4.0-5.6) H 05/13/19 04:50 Calcium 9.0 mg/dL (8.6-10.3) 05/15/19 09:28 Magnesium 2.0 mg/dL (1.9-2.7) 05/10/19 18:49 AST 22 U/L (13-39) 05/10/19 07:55 ALT 15 U/L (7-52) 05/10/19 07:55 Assessment: Progressive KT on CKD. BUN/sCr is worse off Torsemide & Metolazone. Myeloma? GN? AIN? Cardio-Renal Syndrome. Anemia 1. KT etiology unclear? AIN 2/2 to ABx, GN with Proteinuria, Cadio-Renal?? 2. Lytes Ok & BP Ok 3. Performing Kidney Bx is indicated but will be tricky, as she's on Plavix s/p CAD 5 months ago. Bleeding risk is high on Plavix. I don't think it's safe to stop Plavix that son after ACS. Input from Cardiology re stopping Plavix & eliquis will be helpful. 4. She may need HD if sCr keep keeps getting worse. No indication for HD yet. Agreed for it once indicated 5. Lasix Challenge 60 mg IVP STAT now and record UOP. Repeat UA, BNP, CXR
[2019-05-15] MEDS ORDERED: Furosemide IV* 10 MG/ML 10 ML VIAL (100 MG) IV ONE (11:12)
[2019-05-15] MEDS: Mupirocin 2% OINT* TUBE TOPICAL SCH ×2 (11:37→21:08)
[2019-05-15] MEDS: Morphine INJ* 2 MG/ML 1 ML SYRINGE (TWO MG - NEW SYRINGE VERSION) IV PRN ×3 (13:14→19:47)
[2019-05-15] MEDS: Acetaminophen TAB* 325 MG PO PRN (13:50)
[2019-05-15] MEDS: Iron Sucrose* 200 MG in NS 0.9% 100 ML* 100 ML IVPB SCH (14:16)
[2019-05-15 14:34] LABS: Urine Appearance Cloudy; Urine Bacteria Absent (Absent); Urine Bilirubin Negative (Negative); Urine Blood 1+ (Negative); Urine Color Yellow; Urine Glucose 1+(50 mg/dL) (Negative); Urine Ketones Negative (Negative); Urine Nitrite Negative (Negative); Urine Protein 2+(100 mg/dL) (Negative); Urine Red Blood Cell Absent (Absent); Urine Specific Gravity 1.012 (1.010-1.030); Urine Squamous Epithelial Cell Present (Absent); Urine Urobilinogen Negative (Negative); Urine White Blood Cell 2+(11-20/hpf) (Absent)
[2019-05-15 15:06] LABS: Albumin 58 %; Gamma Globulin 15 %; Total Protein(PEP) Urine 340 mg/dL
--- NOTE | 2019-05-15 15:38 | PN ---
Subjective Date of Service: 05/15/19 Interval History: Ms. Simmons is not feeling well today. She had a good night and morning, but pain is now recurring in LLE. Pain had resolved after blister was drained yesterday. She is emotional about her health status. Denies CP, SOB, N/V. No concerns from nursing. Family History: Unchanged from Admission Social History: Unchanged from Admission Past Medical History: Unchanged from Admission Objective Active Medications: Acetaminophen (Tylenol Tab*) 650 mg PO Q6H PRN MILD PAIN or TEMP > 100.4 Apixaban (Eliquis*) 2.5 mg PO BID BITA Atorvastatin Calcium (Lipitor*) 80 mg PO 1700 BITA Clopidogrel Bisulfate (Plavix Tab*) 75 mg PO DAILY BITA Docusate Sodium (Colace Cap*) 100 mg PO BID PRN CONSTIPATION Ferrous Sulfate (Ferrous Sulfate Tab*) 325 mg PO DAILY BITA Hydralazine HCl (Apresoline Tab*) 25 mg PO TID BITA Iron Sucrose 200 mg/ Sodium (Chloride) 110 mls @ 110 mls/hr IVPB Q48H BITA Piperacillin Sod/Tazobactam (Sod 3.375 gm/ Sodium Chloride) 100 mls @ 25 mls/ hr IVPB Q12H BITA Isosorbide Dinitrate (Isordil Tab*) 10 mg PO TID BITA Metoprolol Succinate (Toprol Xl Tab*) 50 mg PO DAILY BITA Morphine Sulfate (Morphine Inj (Syringe))*) 1 mg IV Q2H PRN PAIN - SEVERE Mupirocin (Bactroban 2 % Oint*) 1 applic TOPICAL BID BITA Ondansetron HCl (Zofran Inj*) 4 mg IV Q6H PRN NAUSEA Throat Lozenges (Chloraseptic Janessa*) 1 janessa PO Q6H PRN SORE THROAT Vital Signs - 8 hr 05/15/19 05/15/19 05/15/19 07:41 12:30 13:14 Temperature 97.3 F 97.6 F Pulse Rate 82 81 Respiratory 20 14 14 Rate Blood Pressure 125/64 121/70 (mmHg) O2 Sat by Pulse 96 100 Oximetry Oxygen Devices in Use Now: None Appearance: Elderly female sitting in chair in NAD Ears/Nose/Mouth/Throat: Mucous Membranes Moist Neck: NL Appearance and Movements; NL JVP, Trachea Midline Respiratory: Symmetrical Chest Expansion and Respiratory Effort, Clear to Auscultation Cardiovascular: NL Sounds; No Murmurs; No JVD Abdominal: NL Sounds; No Tenderness; No Distention Extremities: - - +2 generalized Neurological: Alert and Oriented x 3 Lines/Tubes/Other Access: Clean, Dry and Intact Peripheral IV Nutrition: Taking PO's Result Diagrams: 05/15/19 09:32 05/15/19 09:28 Assess/Plan/Problems-Billing Assessment: Ms. Simmons is a 73 yo F with PMH of CAD, afib, systolic CHF, CKD, DM, chronic respiratory failure on nighttime oxygen; who presented to the ED with BLE edema and was found to be in CHF exacerbation. - Patient Problems (1) CHF exacerbation Code(s): I50.9 - HEART FAILURE, UNSPECIFIED Comment: - Acute on chronic systolic - Reported 20-30 pounds weight gain in last few weeks - Echo shows EF 55-60% (previously 30-35%) - Strict I&O, daily weights - S/p Bumex drip on 05/10 and 05/11 with improvement - Continue to hold diuretics per Nephrology (2) Cardiorenal syndrome with renal failure Code(s): I13.10 - HYP HRT & CHR KDNY DIS W/O HRT FAIL, W STG 1-4/UNSP CHR KDNY Comment: - Baseline CKD stage 4 - Creatinine up slightly again today - Renal duplex was a poor study, but no significant findings - Appreciate Nephrology consult; recommends biopsy, but YULISSA was placed 12/06/18 and patient must remain on Plavix for 6mo post-stenting; Eliquis could be held if necessary - Strict I&O, daily weights - Renally dose all medications - Hold diuretics today per Nephrology (3) Cellulitis Code(s): L03.90 - CELLULITIS, UNSPECIFIED Comment: - Left foot - Appreciate wound consult; blister drained yesterday - Continue Zosyn (4) Inability to ambulate due to ankle or foot Code(s): R26.2 - DIFFICULTY IN WALKING, NOT ELSEWHERE CLASSIFIED Comment: - Secondary to left foot pain - PT/OT evals (5) Iron deficiency anemia Code(s): D50.9 - IRON DEFICIENCY ANEMIA, UNSPECIFIED Comment: - Superimposed on anemia of chronic disease - TSAT 6%, ferritin low normal - Continue iron sucrose (dose 4/5), ferrous sulfate (6) Afib Code(s): I48.91 - UNSPECIFIED ATRIAL FIBRILLATION Comment: - Rate controlled - Continue metoprolol, Eliquis (7) CAD (coronary artery disease) Code(s): I25.10 - ATHSCL HEART DISEASE OF [place] CORONARY ARTERY W/O ANG PCTRS Comment: - Continue atorvastatin, Plavix, metoprolol (8) HTN (hypertension) Code(s): I10 - ESSENTIAL (PRIMARY) HYPERTENSION Comment: - Normotensive - Continue Imdur, metoprolol, hydralazine PRN (9) Diabetes Code(s): E11.9 - TYPE 2 DIABETES MELLITUS WITHOUT COMPLICATIONS Comment: - Not on outpatient medication - A1c 6.4% (10) DVT prophylaxis Code(s): Z29.9 - ENCOUNTER FOR PROPHYLACTIC MEASURES, UNSPECIFIED Comment: - Gena (11) DNR (do not resuscitate) Comment: Status and Disposition: Inpatient. Anticipate d/c to [facility] when medically stable. Attending: Robin Weber
[2019-05-15] MEDS: Atorvastatin* 80 MG TAB PO SCH (17:31)
[2019-05-16] MEDS: Acetaminophen TAB* 325 MG PO PRN ×2 (00:33→09:29)
[2019-05-16] MEDS: Morphine INJ* 2 MG/ML 1 ML SYRINGE (TWO MG - NEW SYRINGE VERSION) IV PRN ×2 (06:14→21:06)
[2019-05-16] MEDS ORDERED: Metolazone TAB* 5 MG PO SCH (08:30)
[2019-05-16] MEDS: Apixaban* 2.5 MG TAB PO SCH ×2 (09:17→21:05)
[2019-05-16] MEDS: Metoprolol Succinate XL TAB* 50 MG PO SCH (09:18)
[2019-05-16] MEDS: hydrALAZINE TAB* 25 MG PO SCH ×3 (09:18→21:05)
[2019-05-16] MEDS: Isosorbide Dinitrate TAB* 10 MG PO SCH ×3 (09:18→21:05)
[2019-05-16] MEDS: Ferrous Sulfate TAB* 325 MG PO SCH (09:18)
[2019-05-16] MEDS: Clopidogrel TAB* 75 MG PO SCH (09:18)
[2019-05-16] MEDS: ZOSYN 3.375 GM Q12H per EXTENDED INFUSION IVPB SCH ×4 (09:21→19:53)
[2019-05-16 10:32] LABS: BUN/Creatinine Ratio 24.1 (8-20); Calcium 8.7 mg/dL (8.6-10.3); EGFR African American 14.3 (>60); EGFR Non-African American 11.8 (>60); Potassium 3.9 mmol/L (3.5-5.0)
[2019-05-16] MEDS: Mupirocin 2% OINT* TUBE TOPICAL SCH ×2 (10:36→21:05)
--- NOTE | 2019-05-16 15:37 | PN ---
Subjective Date of Service: 05/16/19 Interval History: Ms. Simmons is feeling better today. Pain in the LLE has improved since yesterday, but still present. She was able to sleep moderately well. Denies CP, SOB, N/V. Good appetite. She is hoping to get out of the hospital soon. No concerns from nursing. Family History: Unchanged from Admission Social History: Unchanged from Admission Past Medical History: Unchanged from Admission Objective Active Medications: Acetaminophen (Tylenol Tab*) 650 mg PO Q6H PRN MILD PAIN or TEMP > 100.4 Apixaban (Eliquis*) 2.5 mg PO BID BITA Atorvastatin Calcium (Lipitor*) 80 mg PO 1700 BITA Clopidogrel Bisulfate (Plavix Tab*) 75 mg PO DAILY BITA Docusate Sodium (Colace Cap*) 100 mg PO BID PRN CONSTIPATION Ferrous Sulfate (Ferrous Sulfate Tab*) 325 mg PO DAILY BITA Hydralazine HCl (Apresoline Tab*) 25 mg PO TID BITA Iron Sucrose 200 mg/ Sodium (Chloride) 110 mls @ 110 mls/hr IVPB Q48H BITA Piperacillin Sod/Tazobactam (Sod 3.375 gm/ Sodium Chloride) 100 mls @ 25 mls/ hr IVPB Q12H BITA Isosorbide Dinitrate (Isordil Tab*) 10 mg PO TID BITA Metoprolol Succinate (Toprol Xl Tab*) 50 mg PO DAILY BITA Morphine Sulfate (Morphine Inj (Syringe))*) 1 mg IV Q2H PRN PAIN - SEVERE Mupirocin (Bactroban 2 % Oint*) 1 applic TOPICAL BID BITA Ondansetron HCl (Zofran Inj*) 4 mg IV Q6H PRN NAUSEA Throat Lozenges (Chloraseptic Janessa*) 1 janessa PO Q6H PRN SORE THROAT Vital Signs - 8 hr 05/16/19 05/16/19 08:00 11:15 Temperature 97.2 F Pulse Rate 75 Respiratory 20 20 Rate Blood Pressure 131/61 (mmHg) O2 Sat by Pulse 100 Oximetry Oxygen Devices in Use Now: Nasal Cannula - 2L Appearance: Elderly female lying in bed in NAD Ears/Nose/Mouth/Throat: Mucous Membranes Moist Neck: NL Appearance and Movements; NL JVP, Trachea Midline Respiratory: Symmetrical Chest Expansion and Respiratory Effort, Clear to Auscultation Cardiovascular: NL Sounds; No Murmurs; No JVD Abdominal: NL Sounds; No Tenderness; No Distention Extremities: - - +2 pitting generalized Neurological: Alert and Oriented x 3 Lines/Tubes/Other Access: Clean, Dry and Intact Peripheral IV Nutrition: Taking PO's Result Diagrams: 05/15/19 09:32 05/16/19 10:00 Assess/Plan/Problems-Billing Assessment: Ms. Simmons is a 73 yo F with PMH of CAD, afib, systolic CHF, CKD, DM, chronic respiratory failure on nighttime oxygen; who presented to the ED with BLE edema and was found to be in CHF exacerbation. - Patient Problems (1) Cardiorenal syndrome with renal failure Code(s): I13.10 - HYP HRT & CHR KDNY DIS W/O HRT FAIL, W STG 1-4/UNSP CHR KDNY Comment: - Baseline CKD stage 4 - Creatinine continues to trend up - Renal duplex was a poor study, but no significant findings - Appreciate Nephrology consult; recommends biopsy, but YULISSA was placed 12/06/18 and patient must remain on Plavix for at least 6mo post-stenting (would need to check with Stefek about holding after that); Eliquis could be held if necessary - Strict I&O, daily weights - Renally dose all medications - continue to hold all diuretics per Nephrology; dialysis may ultimately be necessary (2) CHF exacerbation Code(s): I50.9 - HEART FAILURE, UNSPECIFIED Comment: - Acute on chronic systolic - Reported 20-30 pounds weight gain in last few weeks - Echo shows EF 55-60% (previously 30-35%) - Strict I&O, daily weights - S/p Bumex drip on 05/10 and 05/11 with improvement - Continue to hold diuretics per Nephrology (3) Cellulitis Code(s): L03.90 - CELLULITIS, UNSPECIFIED Comment: - Left foot - Appreciate wound consult; blister drained by Wound Care - Continue Zosyn (day 6) (4) Inability to ambulate due to ankle or foot Code(s): R26.2 - DIFFICULTY IN WALKING, NOT ELSEWHERE CLASSIFIED Comment: - Secondary to left foot pain - PT/OT evals (5) Iron deficiency anemia Code(s): D50.9 - IRON DEFICIENCY ANEMIA, UNSPECIFIED Comment: - Superimposed on anemia of chronic disease - TSAT 6%, ferritin low normal - Continue iron sucrose (dose 3/5), ferrous sulfate (6) Afib Code(s): I48.91 - UNSPECIFIED ATRIAL FIBRILLATION Comment: - Rate controlled - Continue metoprolol, Eliquis (7) CAD (coronary artery disease) Code(s): I25.10 - ATHSCL HEART DISEASE OF [place] CORONARY ARTERY W/O ANG PCTRS Comment: - Continue atorvastatin, Plavix, metoprolol (8) HTN (hypertension) Code(s): I10 - ESSENTIAL (PRIMARY) HYPERTENSION Comment: - Normotensive - Continue Imdur, metoprolol, hydralazine PRN (9) Diabetes Code(s): E11.9 - TYPE 2 DIABETES MELLITUS WITHOUT COMPLICATIONS Comment: - Not on outpatient medication - A1c 6.4% (10) DVT prophylaxis Code(s): Z29.9 - ENCOUNTER FOR PROPHYLACTIC MEASURES, UNSPECIFIED Comment: - Gena (11) DNR (do not resuscitate) Comment: Status and Disposition: Inpatient. Anticipate d/c to [facility] when medically stable. Attending: Robin Weber
--- NOTE | 2019-05-16 15:48 | PN ---
Progress Note - Progress Note Date of Service: 05/16/19 Note: Nephro Progress Note Date of Service: 05/16/19 Dr. ANTHONY [facility] Nephrology Massive LE edema Blister Lt foot dorsum s/p drainage 05/14 Fluid overload and rising BNP, s/p IV Lasix 60 mg yesterday, today sCr worse. Progressively worsening BUN/sCr 65/2.33--->66/2.4--->69/2.65--->78/3.04--->82/3.18--->85/3.28--->90/3.74 Diuretics on hold. Otherwise, feels well. c/c of edema, no SOB at rest Of note, Hx of KT, sCr 4.4~10/2018 2/ ACS & LHC. baseline sCr (2.0-2.2)~02/2019. GN serology: SPEP -ve M Ptn -ve PR3, MPO, PLA2R, HCVAb & HBSAg Can't do Kidney Bx as on Plavix, see previous notes Proteinuria UPCR 10 g/d & UACR 5 g/d. Known DM, this could be 2/2 DM Nephropathy Hospital Meds: Acetaminophen Apixaban Atorvastatin Clopidogrel Docusate Ferrous Hydralazine Iron Sucrose Piperacillin/Tazobactam Isosorbide Metoprolol Morphine Ondansetron O/E: Vital Signs Temp 97.2 F 05/16/19 11:15 Pulse 75 05/16/19 11:15 Resp 20 05/16/19 11:15 BP 131/61 05/16/19 11:15 Pulse Ox 100 05/16/19 11:15 Intake & Output 05/15/19 05/16/19 05/16/19 18:59 06:59 18:59 Intake Total 692 223.4 110 Output Total 250 Balance 692 -26.6 110 Weight 86.092 kg Intake: IV Fluids 3.4 10 ABX - ZOSYN 3.4 10 IVPB 210 100 100 ABX - ZOSYN 100 100 100 Iron Sucrose 200mg 110 Oral 482 120 Output: Urine 250 Other: Estimated Stool Amount Small Resp: Dec air to bases CV: NSR Extremities: 3+ edema of the legs bilaterally. Lt>Rt. Dressing Lt Foot Labs: Sodium 136 mmol/L (135-145) 05/16/19 10:00 Potassium 3.9 mmol/L (3.5-5.0) 05/16/19 10:00 BUN 90 mg/dL (6-24) H 05/16/19 10:00 Creatinine 3.74 mg/dL (0.51-0.95) H 05/16/19 10:00 Hemoglobin A1c 6.4 % (4.0-5.6) H 05/13/19 04:50 Calcium 8.7 mg/dL (8.6-10.3) 05/16/19 10:00 Magnesium 2.0 mg/dL (1.9-2.7) 05/10/19 18:49 AST 22 U/L (13-39) 05/10/19 07:55 ALT 15 U/L (7-52) 05/10/19 07:55 Assessment: Progressive KT on CKD, s/p 60 mg IVP Lasix, clinically comfortable. Hold Diuretics. No indication for IVF Possible GN? AIN? Cardio-Renal Syndrome? DM Nephropathy? Lytes Ok BP Ok If she keeps progressing, she may need HD. No indication for HD yet. I'll evaluate daily Adjust Apixaban, Piperacillin/Tazobactam for dropping eGFR
[2019-05-16] MEDS: Atorvastatin* 80 MG TAB PO SCH (17:11)
[2019-05-16 20:04] LABS: Kappa Free Light Chain 11.7 mg/dL; Lambda Free Light Chain 6.09 mg/dL
[2019-05-17] MEDS: Morphine INJ* 2 MG/ML 1 ML SYRINGE (TWO MG - NEW SYRINGE VERSION) IV PRN (00:21)
[2019-05-17] MEDS: Acetaminophen TAB* 325 MG PO PRN (02:43)
[2019-05-17 05:37] LABS: BUN/Creatinine Ratio 22.3 (8-20); Calcium 8.4 mg/dL (8.6-10.3); EGFR African American 12.4 (>60); EGFR Non-African American 10.3 (>60); Potassium 3.8 mmol/L (3.5-5.0)
[2019-05-17] MEDS: ZOSYN 3.375 GM Q12H per EXTENDED INFUSION IVPB SCH ×4 (08:39→20:41)
[2019-05-17] MEDS: Ferrous Sulfate TAB* 325 MG PO SCH (08:45)
[2019-05-17] MEDS: Metoprolol Succinate XL TAB* 50 MG PO SCH (08:45)
[2019-05-17] MEDS: Clopidogrel TAB* 75 MG PO SCH (08:45)
[2019-05-17] MEDS: Isosorbide Dinitrate TAB* 10 MG PO SCH ×3 (08:45→20:42)
[2019-05-17] MEDS: hydrALAZINE TAB* 25 MG PO SCH ×3 (08:46→20:42)
[2019-05-17] MEDS: Apixaban* 2.5 MG TAB PO SCH (08:46)
[2019-05-17] MEDS: Mupirocin 2% OINT* TUBE TOPICAL SCH ×2 (08:46→20:41)
--- NOTE | 2019-05-17 10:56 | PN ---
Progress Note - Progress Note Date of Service: 05/17/19 Note: Nephro Progress Note Date of Service: 05/17/19 Dr. ANTHONY [facility] Nephrology Massive LE edema Lt foot dorsum [place], s/p drainage 05/14, s/p ABx Fluid overload and High BNP Progressively worsening BUN/sCr 65/2.33--->66/2.4--->69/2.65--->78/3.04--->82/3.18--->85/3.28--->90/3.74--->94/ 4.21 ATN pattern. I doubt RPGN as UA 0 RBCs! ESR 30, CRP slightly elevated Diuretics on hold, no IVF. Otherwise, feels well. c/c of edema, no SOB at rest. Agreed for HD once indicated No NVD. No NSAIDs. No recent IVC Zosyn today is last day. Of note, Hx of KT, sCr 4.4~10/2018/2 ACS & LHC. baseline sCr (2.0-2.2)~02/2019. GN serologies -ve Proteinuria UPCR 10 g/d. Albumin 2.7. PLA2R Ab -ve Hospital Meds: Acetaminophen Atorvastatin Clopidogrel Docusate Ferrous Hydralazine Iron Sucrose Piperacillin/Tazobactam 3.375 Q12H Isosorbide Metoprolol Ondansetron O/E: Vital Signs Temp 97.6 F 05/17/19 07:15 Pulse 64 05/17/19 07:15 Resp 18 05/17/19 07:15 BP 131/60 05/17/19 07:15 Pulse Ox 99 05/17/19 07:15 Intake & Output 05/16/19 05/17/19 05/17/19 18:59 06:59 18:59 Intake Total 230 446 Output Total 120 Balance 230 326 Intake: IV Fluids 10 6 ABX - ZOSYN 10 6 IVPB 100 100 ABX - ZOSYN 100 100 Oral 120 340 Output: Urine 120 Other: # Bowel Movements 1 Estimated Stool Amount Large Resp: Dec air to bases CV: NSR LE: 3+ edema of the legs bilaterally. Lt>Rt. Dressing Lt Foot Labs: Sodium 137 mmol/L (135-145) 05/17/19 05:00 Potassium 3.8 mmol/L (3.5-5.0) 05/17/19 05:00 BUN 94 mg/dL (6-24) H 05/17/19 05:00 Creatinine 4.21 mg/dL (0.51-0.95) H 05/17/19 05:00 Hemoglobin A1c 6.4 % (4.0-5.6) H 05/13/19 04:50 Calcium 8.4 mg/dL (8.6-10.3) L 05/17/19 05:00 Magnesium 2.0 mg/dL (1.9-2.7) 05/10/19 18:49 AST 22 U/L (13-39) 05/10/19 07:55 ALT 15 U/L (7-52) 05/10/19 07:55 Assessment: Progressive KT, likely ATN. Didn't respond well to high dose IV Lasix challenge I doubt RPGN as UA 0 RBCs! ESR only 30. Renal u/s showed no HN. Nephrotic syndrome with low Albumin: DM Nephropathy likely, but can't do kidney Bx safely. Lytes Ok. Note, she's on Eliquis, can't place HD Catheter. I'll add Prednisone 60 mg daily for possible primary nephrotic syndrome, although less likely. Severe nephrotic syndrome with severe proteinuria can cause KT. BP Ok May need HD soon. No indication for HD yet. Stop Apixaban/Eliquis in count of KT & possible HD Catheter
[2019-05-17 13:45] LABS: Albumin 2.7 g/dL (3.4-4.7); Albumin/Globulin Ratio 0.83; Gamma Globulin 0.8 g/dL (0.6-1.6)
[2019-05-17] MEDS: Iron Sucrose* 200 MG in NS 0.9% 100 ML* 100 ML IVPB SCH (14:11)
[2019-05-17] MEDS: predniSONE TAB* 20 MG PO SCH (15:17)
--- NOTE | 2019-05-17 15:51 | PN ---
Subjective Date of Service: 05/17/19 Interval History: Patient is feeling well today except for increase in pain in LLE in association with worsening swelling. Patient is having small frequent BMs without abdominal pain. Patient endorses Orthopnea. Patient denies F/C, CP, SOB, Dizziness, SOB with exertion, distal neuropathy, or other pain. Family History: Unchanged from Admission Social History: Unchanged from Admission Past Medical History: Unchanged from Admission Objective Active Medications: Acetaminophen (Tylenol Tab*) 650 mg PO Q6H PRN PRN Reason: MILD PAIN or TEMP > 100.4 Last Admin: 05/17/19 02:43 Dose: 650 mg Atorvastatin Calcium (Lipitor*) 80 mg PO 1700 [facility] Last Admin: 05/16/19 17:11 Dose: 80 mg Clopidogrel Bisulfate (Plavix Tab*) 75 mg PO DAILY [facility] Last Admin: 05/17/19 08:45 Dose: 75 mg Docusate Sodium (Colace Cap*) 100 mg PO BID PRN PRN Reason: CONSTIPATION Last Admin: 05/12/19 11:11 Dose: 100 mg Ferrous Sulfate (Ferrous Sulfate Tab*) 325 mg PO DAILY [facility] Last Admin: 05/17/19 08:45 Dose: 325 mg Hydralazine HCl (Apresoline Tab*) 25 mg PO TID [facility] Last Admin: 05/17/19 14:15 Dose: 25 mg Iron Sucrose 200 mg/ Sodium (Chloride) 110 mls @ 110 mls/hr IVPB Q48H [facility] Stop: 05/19/19 14:59 Last Admin: 05/17/19 14:11 Dose: 110 mls/hr Piperacillin Sod/Tazobactam (Sod 3.375 gm/ Sodium Chloride) 100 mls @ 25 mls/ hr IVPB Q12H [facility] Stop: 05/17/19 23:59 Last Admin: 05/17/19 08:39 Dose: 25 mls/hr Isosorbide Dinitrate (Isordil Tab*) 10 mg PO TID [facility] Last Admin: 05/17/19 14:15 Dose: 10 mg Metoprolol Succinate (Toprol Xl Tab*) 50 mg PO DAILY [facility] Last Admin: 05/17/19 08:45 Dose: 50 mg Mupirocin (Bactroban 2 % Oint*) 1 applic TOPICAL BID [facility] Last Admin: 05/17/19 08:46 Dose: 1 applic Ondansetron HCl (Zofran Inj*) 4 mg IV Q6H PRN PRN Reason: NAUSEA Last Admin: 05/11/19 15:30 Dose: 4 mg Prednisone (Deltasone Tab*) 60 mg PO DAILY [facility] Last Admin: 05/17/19 15:17 Dose: 60 mg Throat Lozenges (Chloraseptic Janessa*) 1 janessa PO Q6H PRN PRN Reason: SORE THROAT Last Admin: 05/12/19 15:46 Dose: 1 janessa Vital Signs - 8 hr 05/17/19 05/17/19 05/17/19 08:00 11:15 14:10 Temperature 96.8 F Pulse Rate 71 73 Respiratory 18 14 Rate Blood Pressure 126/57 115/56 (mmHg) O2 Sat by Pulse 98 Oximetry Oxygen Devices in Use Now: None Appearance: Patient is a 73yo female who appears stated age and is sitting in the bed in NAD. Eyes: No Scleral Icterus, PERRLA Ears/Nose/Mouth/Throat: NL Teeth, Lips, Gums, Clear Oropharnyx, Mucous Membranes Moist Neck: NL Appearance and Movements; NL JVP, Trachea Midline Respiratory: Symmetrical Chest Expansion and Respiratory Effort, Clear to Auscultation Cardiovascular: NL Sounds; No Murmurs; No JVD, RRR, - - 2+ B/L LE edema. Associated erythema on LLE. Abdominal: No Hepatosplenomegaly, - - Tense abdomen, negative fluid wave. Lymphatic: No Cervical Adenopathy Extremities: No Clubbing, Cyanosis Skin: No Nodules or Sclerosis, - - Large ruptured blister on dorsum of left foot with surrounding erythema. Neurological: Alert and Oriented x 3, NL Sensation, NL Muscle Strength and Tone , - - CN II-XII intact. Result Diagrams: 05/15/19 09:32 05/17/19 05:00 Microbiology and Other Data: Microbiology 05/11/19 14:38 Blood Culture - Preliminary Blood Venous No Growth Day 3 05/12/19 07:15 Urine Culture - Final Urine No Growth (<1,000 CFU/mL) Assess/Plan/Problems-Billing Assessment: Ms. Simmons is a 73 yo F with PMH of CAD, afib, systolic CHF, CKD, DM, chronic respiratory failure on nighttime oxygen; who presented to the ED with BLE edema and was found to be in CHF exacerbation. - Patient Problems (1) CHF exacerbation Current Visit: Yes Status: Acute Code(s): I50.9 - HEART FAILURE, UNSPECIFIED SNOMED Code(s): 338364095 Comment: - Acute on chronic systolic - Reported 20-30 pounds weight gain in last few weeks - Echo shows EF 55-60% (previously 30-35%) - Strict I&O, daily weights, consistently still gaining weight - S/p Bumex drip on 05/10 and 05/11 with improvement in fluid status, but worsening in Cret. - Continue to hold diuretics per Nephrology - Fluid restriction - Positive orthopnea and DAVIDSON. (2) Cardiorenal syndrome with renal failure Current Visit: Yes Status: Acute Code(s): I13.10 - HYP HRT & CHR KDNY DIS W/ O HRT FAIL, W STG 1-4/UNSP CHR KDNY SNOMED Code(s): 461909500 Comment: - Baseline CKD stage 4 - Creatinine continues to trend up - Renal duplex was a poor study, but no significant findings - Appreciate Nephrology consult; recommends biopsy, but YULISSA was placed 12/06/18 and patient must remain on Plavix for at least 6mo post-stenting (would need to check with Stefek about holding after that); Hold eliquis due to low GFR and possibility of needing dialysis catheter. - Strict I&O, daily weights - Renally dose all medications - Continue to hold all diuretics per Nephrology; dialysis may ultimately be necessary, no indication at this time. - Heavy Proteinuria, ? GN or AIN, Unable to further clarify with biopsy, Workup negative to date. - Prednisone for ? Primary Nephrotic Syndrome - Likely underlying diabetic nephropathy. (3) CAD (coronary artery disease) Current Visit: Yes Status: Acute Code(s): I25.10 - ATHSCL HEART DISEASE OF [place] CORONARY ARTERY W/O ANG PCTRS SNOMED Code(s): 36730407 Comment: - Continue atorvastatin, Plavix, metoprolol - Start Heparin Drip in 1-2 days if unable to restart Eliquis. (4) Cellulitis Current Visit: Yes Status: Acute Code(s): L03.90 - CELLULITIS, UNSPECIFIED SNOMED Code(s): 361787005 Comment: - Left foot - Appreciate wound consult; blister drained by Wound Care - Continue Zosyn (day 7/7) - Stop after today due to improvement and possibility of AIN from Zosyn (not likely per Nephrology.) (5) Diabetes Current Visit: Yes Status: Acute Code(s): E11.9 - TYPE 2 DIABETES MELLITUS WITHOUT COMPLICATIONS SNOMED Code(s): 69303772 Comment: - Not on outpatient medication - A1c 6.4% (6) Inability to ambulate due to ankle or foot Current Visit: Yes Status: Acute Code(s): R26.2 - DIFFICULTY IN WALKING, NOT ELSEWHERE CLASSIFIED SNOMED Code(s): 501422316 Comment: - Secondary to left foot pain - PT/OT evals - Pending [facility] (7) Iron deficiency anemia Current Visit: Yes Status: Acute Code(s): D50.9 - IRON DEFICIENCY ANEMIA, UNSPECIFIED SNOMED Code(s): 40628560 Comment: - Superimposed on anemia of chronic disease - TSAT 6%, ferritin low normal - Continue iron sucrose (dose 4/5), ferrous sulfate - May also be helpful for HF (8) Volume overload Current Visit: Yes Status: Acute Code(s): E87.70 - FLUID OVERLOAD, UNSPECIFIED SNOMED Code(s): 16775378 Comment: - Anasarca - Improved with bumex drip, But now worsening again - Strict I/O and weights - Fluid Restriciton, Hold Diuretics (9) Afib Current Visit: No Status: Acute Code(s): I48.91 - UNSPECIFIED ATRIAL FIBRILLATION SNOMED Code(s): 74650098 Comment: - Rate controlled - Continue metoprolol (10) HTN (hypertension) Current Visit: No Status: Acute Code(s): I10 - ESSENTIAL (PRIMARY) HYPERTENSION SNOMED Code(s): 59526380 Comment: - Normotensive - Continue Imdur, metoprolol, hydralazine - With hydralazine ? Drug induced lupus, MANNY pending (11) DNR (do not resuscitate) Current Visit: Yes Status: Acute Comment: (12) DVT prophylaxis Current Visit: No Status: Acute Code(s): Z29.9 - ENCOUNTER FOR PROPHYLACTIC MEASURES, UNSPECIFIED SNOMED Code(s): 167950169 Comment: - Eliquis held now with possibility of needing dialysis cath. - Start Heparin drip if unable to restart Eliquis in next 1-2 days. Status and Disposition: Inpatient. Anticipate d/c to [facility] when medically stable.
[2019-05-17] MEDS: Atorvastatin* 80 MG TAB PO SCH (17:38)
[2019-05-18 07:39] LABS: ABS Lymphocytes 0.3 10^3/ul (1.0-4.8); ABS Monocytes 0.1 10^3/ul (0-0.8); ABS Neutrophils 6.5 10^3/ul (1.5-7.7); Hematocrit 26 % (35-47); Hemoglobin 8.3 g/dL (12.0-16.0); Lymphocyte % 4.3 %; Mean Corpuscular HGB Conc 32 g/dL (31-36); Mean Corpuscular Hemoglobin 25 pg (27-31); Mean Corpuscular Volume 78 fL (80-97); Mean Platelet Volume 8.4 fL (7.4-10.4); Nucleated Red Blood Cells % 0.2; Platelet Count 235 10^3/uL (150-450); Red Blood Count 3.37 10^6 /uL (3.70-4.87); Red Cell Distribution Width 22 % (10-15); White Blood Count 6.9 10^3/uL (3.5-10.8)
[2019-05-18 07:51] LABS: Albumin/Globulin Ratio 0.9 (1-3); Calcium 8.7 mg/dL (8.6-10.3); EGFR African American 11.2 (>60); EGFR Non-African American 9.2 (>60); Globulin 3.2 g/dL (2-4); Potassium 4.3 mmol/L (3.5-5.0); Total Bilirubin 0.4 mg/dL (0.2-1.0); Total Protein 6.2 g/dL (6.4-8.9)
[2019-05-18] MEDS: predniSONE TAB* 20 MG PO SCH (10:12)
[2019-05-18] MEDS: hydrALAZINE TAB* 25 MG PO SCH ×3 (10:12→21:14)
[2019-05-18] MEDS: Ferrous Sulfate TAB* 325 MG PO SCH (10:12)
[2019-05-18] MEDS: Clopidogrel TAB* 75 MG PO SCH (10:12)
[2019-05-18] MEDS: Mupirocin 2% OINT* TUBE TOPICAL SCH ×2 (10:13→21:14)
[2019-05-18] MEDS: Isosorbide Dinitrate TAB* 10 MG PO SCH ×3 (10:13→21:14)
[2019-05-18] MEDS: Metoprolol Succinate XL TAB* 50 MG PO SCH (10:13)
--- NOTE | 2019-05-18 15:42 | PN ---
Subjective Date of Service: 05/18/19 Interval History: Patient is feeling well today. Patient feels as if the pain in her foot has almost entirely resolved. Patient is still making urine, but not very much. Patient denies CP, SOB, dizziness, abdominal pain, diarrhea, dysuria, other urinary symptoms, or other pain. Family History: Unchanged from Admission Social History: Unchanged from Admission Past Medical History: Unchanged from Admission Objective Active Medications: Acetaminophen (Tylenol Tab*) 650 mg PO Q6H PRN PRN Reason: MILD PAIN or TEMP > 100.4 Last Admin: 05/17/19 02:43 Dose: 650 mg Aspirin (Aspirin Ec Tab*) 81 mg PO DAILY [facility] Atorvastatin Calcium (Lipitor*) 80 mg PO 1700 [facility] Last Admin: 05/17/19 17:38 Dose: 80 mg Clopidogrel Bisulfate (Plavix Tab*) 75 mg PO DAILY [facility] Last Admin: 05/18/19 10:12 Dose: 75 mg Docusate Sodium (Colace Cap*) 100 mg PO BID PRN PRN Reason: CONSTIPATION Last Admin: 05/12/19 11:11 Dose: 100 mg Ferrous Sulfate (Ferrous Sulfate Tab*) 325 mg PO DAILY [facility] Last Admin: 05/18/19 10:12 Dose: 325 mg Hydralazine HCl (Apresoline Tab*) 25 mg PO TID [facility] Last Admin: 05/18/19 14:14 Dose: 25 mg Iron Sucrose 200 mg/ Sodium (Chloride) 110 mls @ 110 mls/hr IVPB Q48H [facility] Stop: 05/19/19 14:59 Last Admin: 05/17/19 14:11 Dose: 110 mls/hr Isosorbide Dinitrate (Isordil Tab*) 10 mg PO TID [facility] Last Admin: 05/18/19 14:14 Dose: 10 mg Metoprolol Succinate (Toprol Xl Tab*) 50 mg PO DAILY [facility] Last Admin: 05/18/19 10:13 Dose: 50 mg Mupirocin (Bactroban 2 % Oint*) 1 applic TOPICAL BID [facility] Last Admin: 05/18/19 10:13 Dose: 1 applic Ondansetron HCl (Zofran Inj*) 4 mg IV Q6H PRN PRN Reason: NAUSEA Last Admin: 05/11/19 15:30 Dose: 4 mg Prednisone (Deltasone Tab*) 60 mg PO DAILY [facility] Last Admin: 05/18/19 10:12 Dose: 60 mg Throat Lozenges (Chloraseptic Janessa*) 1 janessa PO Q6H PRN PRN Reason: SORE THROAT Last Admin: 05/12/19 15:46 Dose: 1 janessa Vital Signs - 8 hr 05/18/19 05/18/19 08:05 11:15 Temperature 97.7 F Pulse Rate 81 Respiratory 18 18 Rate Blood Pressure 116/45 (mmHg) O2 Sat by Pulse 98 Oximetry Oxygen Devices in Use Now: None Appearance: Patient is a 73yo female who appears stated age and is sitting in the bed in NAD. Eyes: No Scleral Icterus, PERRLA Ears/Nose/Mouth/Throat: NL Teeth, Lips, Gums, Clear Oropharnyx, Mucous Membranes Moist Neck: NL Appearance and Movements; NL JVP Respiratory: Symmetrical Chest Expansion and Respiratory Effort, Clear to Auscultation Cardiovascular: NL Sounds; No Murmurs; No JVD, RRR, No Edema Abdominal: NL Sounds; No Tenderness; No Distention, No Hepatosplenomegaly Lymphatic: No Cervical Adenopathy Extremities: - - 2+ Edema. Decreased redness on dorsum of left foot. Skin: No Rash or Ulcers, No Nodules or Sclerosis Neurological: Alert and Oriented x 3, NL Sensation, NL Muscle Strength and Tone , - - CN II-XII intact. Result Diagrams: 05/18/19 07:02 05/18/19 07:02 Microbiology and Other Data: Microbiology 05/11/19 14:38 Blood Culture - Preliminary Blood Venous No Growth Day 3 05/12/19 07:15 Urine Culture - Final Urine No Growth (<1,000 CFU/mL) Assess/Plan/Problems-Billing Assessment: Ms. Simmons is a 73 yo F with PMH of CAD, afib, systolic CHF, CKD, DM, chronic respiratory failure on nighttime oxygen; who presented to the ED with BLE edema and was found to be in CHF exacerbation. - Patient Problems (1) CHF exacerbation Current Visit: Yes Status: Acute Code(s): I50.9 - HEART FAILURE, UNSPECIFIED SNOMED Code(s): 396118223 Comment: - Acute on chronic systolic - Reported 20-30 pounds weight gain in last few weeks, continued weight gain inpatient (Unclear how accurate weights are.) - Echo shows EF 55-60% (previously 30-35%) - Strict I&O, daily weights, consistently still gaining weight - S/p Bumex drip on 05/10 and 05/11 with improvement in fluid status, but worsening in Cret. - Continue to hold diuretics per Nephrology - Fluid restriction to 1L - Positive orthopnea and DAVIDSON. (2) Cardiorenal syndrome with renal failure Current Visit: Yes Status: Acute Code(s): I13.10 - HYP HRT & CHR KDNY DIS W/ O HRT FAIL, W STG 1-4/UNSP CHR KDNY SNOMED Code(s): 604009011 Comment: - Baseline CKD stage 4 - Creatinine continues to trend up at rapid rate - Renal duplex was a poor study, but no significant findings - Appreciate Nephrology consult; recommends biopsy, but YULISSA was placed 12/06/18 and patient must remain on Plavix for at least 6mo post-stenting (would need to check with Stefek about holding after that); Hold eliquis due to low GFR and possibility of needing dialysis catheter. - Strict I&O, daily weights - Renally dose all medications - Continue to hold all diuretics per Nephrology; dialysis may ultimately be necessary, no indication at this time. - Heavy Proteinuria, ? GN or AIN, Unable to further clarify with biopsy, Workup negative to date. - Prednisone for ? Primary Nephrotic Syndrome - Likely underlying diabetic nephropathy. (3) CAD (coronary artery disease) Current Visit: Yes Status: Acute Code(s): I25.10 - ATHSCL HEART DISEASE OF [place] CORONARY ARTERY W/O ANG PCTRS SNOMED Code(s): 47943951 Comment: - Continue atorvastatin, Plavix, metoprolol - Start Aspirin for DAPT - If Cret stays elevated, may be able to transfer back to Coumadin and Plavix for stroke prevention in Afib as well (4) Cellulitis Current Visit: Yes Status: Acute Code(s): L03.90 - CELLULITIS, UNSPECIFIED SNOMED Code(s): 648139832 Comment: - Left foot - Appreciate wound consult; blister drained by Wound Care - Stop Zosyn after 7 day course - Possibility of AIN from Zosyn (not likely per Nephrology.) - Much improved (5) Diabetes Current Visit: Yes Status: Acute Code(s): E11.9 - TYPE 2 DIABETES MELLITUS WITHOUT COMPLICATIONS SNOMED Code(s): 96024117 Comment: - Not on outpatient medication - A1c 6.4% (6) Inability to ambulate due to ankle or foot Current Visit: Yes Status: Acute Code(s): R26.2 - DIFFICULTY IN WALKING, NOT ELSEWHERE CLASSIFIED SNOMED Code(s): 728590949 Comment: - Secondary to left foot pain - PT/OT evals - Pending [facility] (7) Iron deficiency anemia Current Visit: Yes Status: Acute Code(s): D50.9 - IRON DEFICIENCY ANEMIA, UNSPECIFIED SNOMED Code(s): 64916168 Comment: - Superimposed on anemia of chronic disease - TSAT 6%, ferritin low normal - Continue iron sucrose (dose 5/5), ferrous sulfate - May also be helpful for HF (8) Volume overload Current Visit: Yes Status: Acute Code(s): E87.70 - FLUID OVERLOAD, UNSPECIFIED SNOMED Code(s): 46876385 Comment: - Anasarca - Improved with bumex drip, But now worsening again - Strict I/O and weights - Fluid Restriciton, Hold Diuretics (9) Afib Current Visit: No Status: Acute Code(s): I48.91 - UNSPECIFIED ATRIAL FIBRILLATION SNOMED Code(s): 96931413 Comment: - Rate controlled - Continue metoprolol (10) HTN (hypertension) Current Visit: No Status: Acute Code(s): I10 - ESSENTIAL (PRIMARY) HYPERTENSION SNOMED Code(s): 62417136 Comment: - Normotensive - Continue Imdur, metoprolol, hydralazine (11) DNR (do not resuscitate) Current Visit: Yes Status: Acute Comment: (12) DVT prophylaxis Current Visit: No Status: Acute Code(s): Z29.9 - ENCOUNTER FOR PROPHYLACTIC MEASURES, UNSPECIFIED SNOMED Code(s): 837376436 Comment: - HSQ Status and Disposition: Inpatient. Anticipate d/c to [facility] when medically stable.
[2019-05-18] MEDS ORDERED: Dextrose 50% VIAL 50 ml IV PUSH PRN (15:47)
[2019-05-18] MEDS: Atorvastatin* 80 MG TAB PO SCH (17:47)
[2019-05-18] MEDS: Insulin LISPRO* 1 UNITS UNIT SUBCUT SCH ×2 (17:48→21:13)
[2019-05-18] MEDS: Heparin VIAL(*) 5000 UNITS/ML VIAL (FIVE THOUSAND) SUBCUT SCH (21:13)
--- NOTE | 2019-05-18 22:18 | PN ---
Progress Note - Progress Note Date of Service: 05/18/19 Note: Nephro Progress Note Date of Service: 05/18/19 Dr. ANTHONY [facility] Nephrology Rapidly Progressive KT. Proteinuria UPCR 10 g/d. Albumin 2.7. PLA2R Ab -ve. GN serology & Myeloma w/u -ve Massive LE edema. Nephrotic Syndrome & Low Albumin 3.0 but UA 0 RBCs. Fluid overload. High BNP. Progressively worsening BUN/sCr 65/2.33--->66/2.4--->69/2.65--->78/3.04--->82/3.18--->85/3.28--->90/3.74--->94/ 4.21---->97/4.63 Diuretics on hold. Failed IV Lasix Challenge. Started On PO Prednisone 60 mg qd for presumptive Dx of GN! Kidney Bx isn't feasible in count of Plavix for YULISSA. Otherwise, feels well. No NVD. No SOB at rest & No uremic s&s Lt foot dorsum [place], s/p drainage 05/14, s/p IV ABx Agreed for HD once indicated Of note K is Ok but HCo3 is dropping 26--->22--->20 Of note, Hx of KT, sCr 4.4~10/2018 2/2 ACS & LHC. Baseline sCr (2.0-2.2)~02/2019. GN serologies -ve Hospital Meds: Acetaminophen (Tylenol Tab*) 650 mg PO Q6H PRN PRN Reason: MILD PAIN or TEMP > 100.4 Last Admin: 05/17/19 02:43 Dose: 650 mg Aspirin (Aspirin Ec Tab*) 81 mg PO DAILY [facility] Atorvastatin Calcium (Lipitor*) 80 mg PO 1700 [facility] Last Admin: 05/18/19 17:47 Dose: 80 mg Clopidogrel Bisulfate (Plavix Tab*) 75 mg PO DAILY [facility] Last Admin: 05/18/19 10:12 Dose: 75 mg Dextrose (Dextrose 50% Vial 50 Ml*) 25 ml IV PUSH .FOR FS < 60 - SS PRN PRN Reason: FS < 60 Docusate Sodium (Colace Cap*) 100 mg PO BID PRN PRN Reason: CONSTIPATION Last Admin: 05/12/19 11:11 Dose: 100 mg Ferrous Sulfate (Ferrous Sulfate Tab*) 325 mg PO DAILY [facility] Last Admin: 05/18/19 10:12 Dose: 325 mg Heparin Sodium (Porcine) (Heparin Vial(*)) 5,000 units SUBCUT Q12HR [facility] Last Admin: 05/18/19 21:13 Dose: 5,000 units Hydralazine HCl (Apresoline Tab*) 25 mg PO TID [facility] Last Admin: 05/18/19 21:14 Dose: 25 mg Iron Sucrose 200 mg/ Sodium (Chloride) 110 mls @ 110 mls/hr IVPB Q48H [facility] Stop: 05/19/19 14:59 Last Admin: 05/17/19 14:11 Dose: 110 mls/hr Insulin Human Lispro (Humalog*) 0 units SUBCUT ACHS [facility]; Protocol Last Admin: 05/18/19 21:13 Dose: 15 unit Isosorbide Dinitrate (Isordil Tab*) 10 mg PO TID [facility] Last Admin: 05/18/19 21:14 Dose: 10 mg Metoprolol Succinate (Toprol Xl Tab*) 50 mg PO DAILY [facility] Last Admin: 05/18/19 10:13 Dose: 50 mg Mupirocin (Bactroban 2 % Oint*) 1 applic TOPICAL BID [facility] Last Admin: 05/18/19 21:14 Dose: 1 applic Ondansetron HCl (Zofran Inj*) 4 mg IV Q6H PRN PRN Reason: NAUSEA Last Admin: 05/11/19 15:30 Dose: 4 mg Prednisone (Deltasone Tab*) 60 mg PO DAILY [facility] Last Admin: 05/18/19 10:12 Dose: 60 mg Throat Lozenges (Chloraseptic Noelle*) 1 noelel PO Q6H PRN PRN Reason: SORE THROAT Last Admin: 05/12/19 15:46 Dose: 1 noelle O/E: Temp Pulse Resp BP Pulse Ox 97.4 F 73 18 127/56 100 05/18/19 19:01 05/18/19 19:01 05/18/19 20:15 05/18/19 19:01 05/18/19 19:01 Resp: Dec air to bases CV: NSR LE: 3+ edema of the legs Labs: Sodium 135 mmol/L (135-145) 05/18/19 07:02 Potassium 4.3 mmol/L (3.5-5.0) 05/18/19 07:02 BUN 97 mg/dL (6-24) H 05/18/19 07:02 Creatinine 4.63 mg/dL (0.51-0.95) H 05/18/19 07:02 Hemoglobin A1c 6.4 % (4.0-5.6) H 05/13/19 04:50 Calcium 8.7 mg/dL (8.6-10.3) 05/18/19 07:02 Magnesium 2.0 mg/dL (1.9-2.7) 05/18/19 07:02 AST 23 U/L (13-39) 05/18/19 07:02 ALT 24 U/L (7-52) 05/18/19 07:02 Assessment: Rapidly progressive renal failure over last few days. Likely ATN. ATN is reported in cases of severe nephrotic syndrome. Renal U/S no HN. Lytes Ok, but HCo3 dropping Last Eliquis dose 05/17 at 8am HD Catheter can be placed safely 2-3 days after last dose of Eliquis. Possible primary nephrotic syndrome, although less likely, but keep prednisone BP Ok May need HD very soon, she agreed No indication for HD today May start ASA with regard to YULISSA.
[2019-05-19 07:06] LABS: ABS Lymphocytes 0.3 10^3/ul (1.0-4.8); ABS Monocytes 0.3 10^3/ul (0-0.8); ABS Neutrophils 6.3 10^3/ul (1.5-7.7); Hematocrit 26 % (35-47); Hemoglobin 8.2 g/dL (12.0-16.0); Lymphocyte % 4.7 %; Mean Corpuscular HGB Conc 31 g/dL (31-36); Mean Corpuscular Hemoglobin 24 pg (27-31); Mean Corpuscular Volume 78 fL (80-97); Mean Platelet Volume 8.3 fL (7.4-10.4); Nucleated Red Blood Cells % 0.2; Platelet Count 240 10^3/uL (150-450); Red Blood Count 3.38 10^6 /uL (3.70-4.87); Red Cell Distribution Width 23 % (10-15); White Blood Count 6.9 10^3/uL (3.5-10.8)
[2019-05-19 07:22] LABS: Calcium 8.8 mg/dL (8.6-10.3); EGFR African American 9.4 (>60); EGFR Non-African American 7.7 (>60); Magnesium 2.1 mg/dL (1.9-2.7); Potassium 4.3 mmol/L (3.5-5.0)
[2019-05-19] MEDS: Ferrous Sulfate TAB* 325 MG PO SCH (08:53)
[2019-05-19] MEDS: Clopidogrel TAB* 75 MG PO SCH (08:53)
[2019-05-19] MEDS: hydrALAZINE TAB* 25 MG PO SCH ×3 (08:53→21:38)
[2019-05-19] MEDS: Isosorbide Dinitrate TAB* 10 MG PO SCH ×3 (08:53→21:38)
[2019-05-19] MEDS: predniSONE TAB* 20 MG PO SCH (08:53)
[2019-05-19] MEDS: Aspirin EC TAB* 81 MG TAB.EC PO SCH (08:53)
[2019-05-19] MEDS: Insulin LISPRO* 1 UNITS UNIT SUBCUT SCH ×4 (08:54→21:37)
[2019-05-19] MEDS: Metoprolol Succinate XL TAB* 50 MG PO SCH (08:54)
[2019-05-19] MEDS: Heparin VIAL(*) 5000 UNITS/ML VIAL (FIVE THOUSAND) SUBCUT SCH ×2 (08:55→21:38)
[2019-05-19] MEDS: Mupirocin 2% OINT* TUBE TOPICAL SCH ×2 (09:24→21:38)
[2019-05-19] MEDS: Iron Sucrose* 200 MG in NS 0.9% 100 ML* 100 ML IVPB SCH (14:31)
--- NOTE | 2019-05-19 16:13 | PN ---
Subjective Date of Service: 05/19/19 Interval History: Patient tells me her left foot pain is improving. She has not needed pain medication today. Denies fever/chills, chest pain, difficulty breathing, abd pain. She has had 2-3 BMs today. She understands plan for placement of temporary dialysis catheter tomorrow. Family History: Unchanged from Admission Social History: Unchanged from Admission Past Medical History: Unchanged from Admission Objective Active Medications: Acetaminophen (Tylenol Tab*) 650 mg PO Q6H PRN PRN Reason: MILD PAIN or TEMP > 100.4 Last Admin: 05/17/19 02:43 Dose: 650 mg Aspirin (Aspirin Ec Tab*) 81 mg PO DAILY [facility] Last Admin: 05/19/19 08:53 Dose: 81 mg Atorvastatin Calcium (Lipitor*) 80 mg PO 1700 [facility] Last Admin: 05/18/19 17:47 Dose: 80 mg Clopidogrel Bisulfate (Plavix Tab*) 75 mg PO DAILY [facility] Last Admin: 05/19/19 08:53 Dose: 75 mg Dextrose (Dextrose 50% Vial 50 Ml*) 25 ml IV PUSH .FOR FS < 60 - SS PRN PRN Reason: FS < 60 Docusate Sodium (Colace Cap*) 100 mg PO BID PRN PRN Reason: CONSTIPATION Last Admin: 05/12/19 11:11 Dose: 100 mg Ferrous Sulfate (Ferrous Sulfate Tab*) 325 mg PO DAILY [facility] Last Admin: 05/19/19 08:53 Dose: 325 mg Heparin Sodium (Porcine) (Heparin Vial(*)) 5,000 units SUBCUT Q12HR [facility] Last Admin: 05/19/19 08:55 Dose: 5,000 units Hydralazine HCl (Apresoline Tab*) 25 mg PO TID [facility] Last Admin: 05/19/19 14:30 Dose: 25 mg Insulin Human Lispro (Humalog*) 0 units SUBCUT ACHS [facility]; Protocol Last Admin: 05/19/19 12:45 Dose: 9 unit Isosorbide Dinitrate (Isordil Tab*) 10 mg PO TID [facility] Last Admin: 05/19/19 13:15 Dose: 10 mg Metoprolol Succinate (Toprol Xl Tab*) 50 mg PO DAILY [facility] Last Admin: 05/19/19 08:54 Dose: 50 mg Mupirocin (Bactroban 2 % Oint*) 1 applic TOPICAL BID [facility] Last Admin: 05/19/19 09:24 Dose: 1 applic Ondansetron HCl (Zofran Inj*) 4 mg IV Q6H PRN PRN Reason: NAUSEA Last Admin: 05/11/19 15:30 Dose: 4 mg Prednisone (Deltasone Tab*) 60 mg PO DAILY [facility] Last Admin: 05/19/19 08:53 Dose: 60 mg Throat Lozenges (Chloraseptic Janessa*) 1 janessa PO Q6H PRN PRN Reason: SORE THROAT Last Admin: 05/12/19 15:46 Dose: 1 janesas Vital Signs - 8 hr 05/19/19 11:15 Temperature 97 F Pulse Rate 72 Respiratory 18 Rate Blood Pressure 120/55 (mmHg) O2 Sat by Pulse 99 Oximetry Oxygen Devices in Use Now: None Appearance: Obese, elderly white female, sitting in chair, appearing in NAD Eyes: No Scleral Icterus Ears/Nose/Mouth/Throat: Mucous Membranes Moist Neck: NL Appearance and Movements; NL JVP Respiratory: Symmetrical Chest Expansion and Respiratory Effort, Clear to Auscultation Cardiovascular: NL Sounds; No Murmurs; No JVD, RRR Abdominal: - - abd soft, nontender, nondistended Extremities: - - +3 pitting edema pretibially bilaterally, +1 pitting edema extends to bilateraly thighs Skin: - - skin warm and dry Neurological: Alert and Oriented x 3, NL Muscle Strength and Tone Result Diagrams: 05/19/19 06:45 05/19/19 06:45 Microbiology and Other Data: Microbiology 05/11/19 14:38 Blood Culture - Preliminary Blood Venous No Growth Day 3 05/12/19 07:15 Urine Culture - Final Urine No Growth (<1,000 CFU/mL) Assess/Plan/Problems-Billing Assessment: Ms. Simmons is a 73 yo F with PMH of CAD, afib, systolic CHF, CKD, DM, chronic respiratory failure on nighttime oxygen; who presented to the ED with BLE edema and was found to be in CHF exacerbation. - Patient Problems (1) Renal failure Current Visit: Yes Status: Acute Comment: - Creatinine continues to trend up at rapid rate. Unclear etiology. - Baseline CKD stage 4, likely underlying diabetic nephropathy - Renal duplex was a poor study, but no significant findings - Appreciate Nephrology consult; recommends biopsy, but drug-eluting stent was placed 12/07/18 and patient must remain on Plavix for at least 6mo post-stenting (would need to check with Dr. Taylor about holding after that time) - Plan for temporary dialysis catheter placement tomorrow, eliquis has been held and tomorrow with be 3rd day. Will perhaps need dialysis until renal biopsy can be performed and biopsy resulted - Strict I&O, daily weights - Renally dose all medications - Continue to hold all diuretics per Nephrology - Heavy Proteinuria, possibly GN or AIN. Unable to obtain biopsy at this time as described above. Workup negative to date. - Prednisone for possible Primary Nephrotic Syndrome (2) CAD (coronary artery disease) Current Visit: Yes Status: Acute Code(s): I25.10 - ATHSCL HEART DISEASE OF [place] CORONARY ARTERY W/O ANG PCTRS SNOMED Code(s): 16663581 Comment: - Continue atorvastatin, Plavix, metoprolol - Start Aspirin for DAPT - If Cret stays elevated, may be able to transfer back to Coumadin and Plavix for stroke prevention in Afib as well - Drug eluting stent placed on 12/07/18 as previously mentioned (3) CHF exacerbation Current Visit: Yes Status: Acute Code(s): I50.9 - HEART FAILURE, UNSPECIFIED SNOMED Code(s): 355408123 Comment: - Acute on chronic systolic HF - Reported 20-30 pounds weight gain in last few weeks, continued weight gain inpatient (Unclear how accurate weights are.) - Echo shows EF 55-60% (previously 30-35%) - Strict I&O, daily weights, consistently still gaining weight - S/p Bumex drip on 05/10 and 05/11 with improvement in fluid status, but worsening in Cr - Continue to hold diuretics per Nephrology - Fluid restriction to 1L - Positive orthopnea and DAVIDSON. Significant LE edema (4) Cellulitis Current Visit: Yes Status: Acute Code(s): L03.90 - CELLULITIS, UNSPECIFIED SNOMED Code(s): 024936963 Comment: - Left foot bullous with surrounding cellulitis. Bullous has since been drained by Wound Care - Received 7 day course of zosyn - Afebrile and leukocytosis improved (5) Volume overload Current Visit: Yes Status: Acute Code(s): E87.70 - FLUID OVERLOAD, UNSPECIFIED SNOMED Code(s): 94206156 Comment: - Improved with bumex drip, But now worsening again - Strict I/O and weights - Fluid Restriciton, Hold Diuretics due to RF - Hopeful for improvement with dialysis once TDC placed tomorrow (6) Diabetes Current Visit: Yes Status: Acute Code(s): E11.9 - TYPE 2 DIABETES MELLITUS WITHOUT COMPLICATIONS SNOMED Code(s): 19010098 Comment: - Not on outpatient medication - A1c 6.4%, indicating good control for her age (7) Iron deficiency anemia Current Visit: Yes Status: Acute Code(s): D50.9 - IRON DEFICIENCY ANEMIA, UNSPECIFIED SNOMED Code(s): 83053343 Comment: - Superimposed on anemia of chronic disease - TSAT 6%, ferritin low normal - Continue ferrous sulfate - Received 5 doses of iron sucrose - H&H stable (8) Afib Current Visit: No Status: Acute Code(s): I48.91 - UNSPECIFIED ATRIAL FIBRILLATION SNOMED Code(s): 47802305 Comment: - Rate controlled - Continue metoprolol - May consider starting warfarin for stroke prevention (9) HTN (hypertension) Current Visit: No Status: Acute Code(s): I10 - ESSENTIAL (PRIMARY) HYPERTENSION SNOMED Code(s): 18761361 Comment: - Normotensive - Continue Imdur, metoprolol, hydralazine (10) Inability to ambulate due to ankle or foot Current Visit: Yes Status: Acute Code(s): R26.2 - DIFFICULTY IN WALKING, NOT ELSEWHERE CLASSIFIED SNOMED Code(s): 896587098 Comment: - Secondary to left foot pain (in setting of cellulitis surrounding left foot wound) - PT/OT evals - Pending [facility] (11) DNR (do not resuscitate) Current Visit: Yes Status: Acute Comment: (12) DVT prophylaxis Current Visit: No Status: Acute Code(s): Z29.9 - ENCOUNTER FOR PROPHYLACTIC MEASURES, UNSPECIFIED SNOMED Code(s): 089387591 Comment: - HSQ Status and Disposition: Inpatient. Anticipate d/c to [facility] when medically stable.
[2019-05-19] MEDS: Atorvastatin* 80 MG TAB PO SCH (17:27)
[2019-05-20 05:59] LABS: ABS Lymphocytes 0.3 10^3/ul (1.0-4.8); ABS Monocytes 0.3 10^3/ul (0-0.8); ABS Neutrophils 8.3 10^3/ul (1.5-7.7); Hematocrit 27 % (35-47); Hemoglobin 8.6 g/dL (12.0-16.0); Mean Corpuscular HGB Conc 32 g/dL (31-36); Mean Corpuscular Hemoglobin 25 pg (27-31); Mean Corpuscular Volume 77 fL (80-97); Mean Platelet Volume 7.6 fL (7.4-10.4); Nucleated Red Blood Cells % 0.1; Platelet Count 228 10^3/uL (150-450); Red Blood Count 3.51 10^6 /uL (3.70-4.87); Red Cell Distribution Width 23 % (10-15)
[2019-05-20 06:14] LABS: Calcium 8.7 mg/dL (8.6-10.3); EGFR African American 8.6 (>60); EGFR Non-African American 7.1 (>60); Potassium 4.6 mmol/L (3.5-5.0)
[2019-05-20] MEDS: Isosorbide Dinitrate TAB* 10 MG PO SCH ×3 (08:49→21:13)
[2019-05-20] MEDS: hydrALAZINE TAB* 25 MG PO SCH ×3 (08:49→21:13)
[2019-05-20] MEDS: Clopidogrel TAB* 75 MG PO SCH (08:49)
[2019-05-20] MEDS: Metoprolol Succinate XL TAB* 50 MG PO SCH (08:49)
[2019-05-20] MEDS: Ferrous Sulfate TAB* 325 MG PO SCH (08:50)
[2019-05-20] MEDS: Acetaminophen TAB* 325 MG PO PRN (08:50)
[2019-05-20] MEDS: Aspirin EC TAB* 81 MG TAB.EC PO SCH (08:50)
[2019-05-20] MEDS: predniSONE TAB* 20 MG PO SCH (08:50)
[2019-05-20] MEDS: Mupirocin 2% OINT* TUBE TOPICAL SCH ×2 (08:50→21:19)
[2019-05-20] MEDS: Insulin LISPRO* 1 UNITS UNIT SUBCUT SCH ×4 (08:50→21:11)
[2019-05-20] MEDS: Heparin VIAL(*) 5000 UNITS/ML VIAL (FIVE THOUSAND) SUBCUT SCH ×2 (08:54→21:11)
[2019-05-20 09:36] LABS: Phosphorus 9.2 mg/dL (2.5-5.0)
[2019-05-20] MEDS ORDERED: ALBUMIN HUMAN 25% IV ONE ×2 (13:30)
[2019-05-20] MEDS ORDERED: Furosemide IV* 10 MG/ML 10 ML VIAL (100 MG) IV SCH (14:00)
[2019-05-20] MEDS: Furosemide IV* 10 MG/ML 10 ML VIAL (100 MG) IV SCH ×2 (15:47→22:43)
[2019-05-20] MEDS ORDERED: ALBUMIN HUMAN 25% IV SCH (16:00)
[2019-05-20] MEDS: Atorvastatin* 80 MG TAB PO SCH (17:01)
--- NOTE | 2019-05-20 19:15 | PN ---
Subjective Date of Service: 05/20/19 Interval History: Patient is without complaints. No overnight events. Patient reports urine output today, which is new since yesterday. Denies fever/chills, hematuria, chest pain, difficulty breathing, abd pain. Family History: Unchanged from Admission Social History: Unchanged from Admission Past Medical History: Unchanged from Admission Objective Active Medications: Acetaminophen (Tylenol Tab*) 650 mg PO Q6H PRN PRN Reason: MILD PAIN or TEMP > 100.4 Last Admin: 05/20/19 08:50 Dose: 650 mg Aspirin (Aspirin Ec Tab*) 81 mg PO DAILY [facility] Last Admin: 05/20/19 08:50 Dose: 81 mg Atorvastatin Calcium (Lipitor*) 80 mg PO 1700 [facility] Last Admin: 05/20/19 17:01 Dose: 80 mg Clopidogrel Bisulfate (Plavix Tab*) 75 mg PO DAILY [facility] Last Admin: 05/20/19 08:49 Dose: 75 mg Dextrose (Dextrose 50% Vial 50 Ml*) 25 ml IV PUSH .FOR FS < 60 - SS PRN PRN Reason: FS < 60 Docusate Sodium (Colace Cap*) 100 mg PO BID PRN PRN Reason: CONSTIPATION Last Admin: 05/12/19 11:11 Dose: 100 mg Ferrous Sulfate (Ferrous Sulfate Tab*) 325 mg PO DAILY [facility] Last Admin: 05/20/19 08:50 Dose: 325 mg Furosemide (Lasix Iv*) 80 mg IV TID [facility] Stop: 05/21/19 14:59 Last Admin: 05/20/19 15:47 Dose: 80 mg Heparin Sodium (Porcine) (Heparin Vial(*)) 5,000 units SUBCUT Q12HR [facility] Last Admin: 05/20/19 08:54 Dose: Not Given Hydralazine HCl (Apresoline Tab*) 25 mg PO TID [facility] Last Admin: 05/20/19 12:58 Dose: 25 mg Albumin Human (Albumin Human 25%*) 75 gm in 300 mls @ 12 mls/hr IV ONCE [facility] Stop: 05/21/19 13:59 Last Admin: 05/20/19 15:49 Dose: 12 mls/hr Insulin Human Lispro (Humalog*) 0 units SUBCUT ACHS [facility]; Protocol Last Admin: 05/20/19 17:01 Dose: 12 unit Isosorbide Dinitrate (Isordil Tab*) 10 mg PO TID [facility] Last Admin: 05/20/19 12:58 Dose: 10 mg Metoprolol Succinate (Toprol Xl Tab*) 50 mg PO DAILY [facility] Last Admin: 05/20/19 08:49 Dose: 50 mg Mupirocin (Bactroban 2 % Oint*) 1 applic TOPICAL BID [facility] Last Admin: 05/20/19 08:50 Dose: 1 applic Ondansetron HCl (Zofran Inj*) 4 mg IV Q6H PRN PRN Reason: NAUSEA Last Admin: 05/11/19 15:30 Dose: 4 mg Prednisone (Deltasone Tab*) 60 mg PO DAILY [facility] Last Admin: 05/20/19 08:50 Dose: 60 mg Sevelamer Carbonate (Renvela Tab*) 800 mg PO TID [facility] Throat Lozenges (Chloraseptic Janessa*) 1 janessa PO Q6H PRN PRN Reason: SORE THROAT Last Admin: 05/12/19 15:46 Dose: 1 janessa Vital Signs - 8 hr 05/20/19 05/20/19 05/20/19 11:15 13:42 13:55 Temperature 97.6 F 96.3 F 96.1 F Pulse Rate 65 65 68 Respiratory 15 16 16 Rate Blood Pressure 103/55 107/56 102/47 (mmHg) O2 Sat by Pulse 100 100 100 Oximetry 05/20/19 05/20/19 15:15 15:30 Temperature 97.7 F 97.6 F Pulse Rate 73 63 Respiratory 14 18 Rate Blood Pressure 122/65 112/64 (mmHg) O2 Sat by Pulse 100 99 Oximetry Oxygen Devices in Use Now: None Appearance: Obese, elderly white female, sitting in chair, appearing in NAD Eyes: No Scleral Icterus, - - PERRL Ears/Nose/Mouth/Throat: Mucous Membranes Moist Neck: NL Appearance and Movements; NL JVP Respiratory: Symmetrical Chest Expansion and Respiratory Effort, Clear to Auscultation Cardiovascular: NL Sounds; No Murmurs; No JVD, RRR Abdominal: - - abd soft, nontender, nondistended Extremities: - - +3 pitting edema pretibially bilaterally, +1 pitting edema in bilateral thighs Skin: - - wound to left foot with minimal surrounding erythema, no significant drainage Neurological: Alert and Oriented x 3, NL Muscle Strength and Tone Result Diagrams: 05/20/19 05:47 10/21/19 05:47 Microbiology and Other Data: Microbiology 05/11/19 14:38 Blood Culture - Preliminary Blood Venous No Growth Day 3 05/12/19 07:15 Urine Culture - Final Urine No Growth (<1,000 CFU/mL) Assess/Plan/Problems-Billing Assessment: Ms. Simmons is a 73 yo F with PMH of CAD, afib, systolic CHF, CKD, DM, chronic respiratory failure on nighttime oxygen; who presented to the ED with BLE edema and was found to be in CHF exacerbation. - Patient Problems (1) Renal failure Current Visit: Yes Status: Acute Comment: - Creatinine continues to trend up at rapid rate. Unclear etiology. - Baseline CKD stage 4, likely underlying diabetic nephropathy - Renal duplex was a poor study, but no significant findings - Appreciate Nephrology consult; recommends biopsy, but drug-eluting stent was placed 12/07/18 and patient must remain on Plavix for at least 6mo post-stenting (would need to check with Dr. Taylor about holding after that time). Discussed with Dr. Mcnair today and affirms that the risk for ACS is quite high and would need to be weighed against other risks before stopping plavix prior to 6 months. - Plan for tunneled dialysis catheter placement tomorrow, eliquis has been held. Will perhaps need dialysis until renal biopsy can be performed and biopsy resulted - Strict I&O, daily weights - Renally dose all medications - Starting albumin assisted diuresis with IV lasix 80mg TID considering patient has urine output today per Dr. Dolan suggestion - Heavy Proteinuria, possibly GN or AIN. Unable to obtain biopsy at this time as described above. Workup negative to date. - Prednisone for possible Primary Nephrotic Syndrome (2) CAD (coronary artery disease) Current Visit: Yes Status: Acute Code(s): I25.10 - ATHSCL HEART DISEASE OF [place] CORONARY ARTERY W/O ANG PCTRS SNOMED Code(s): 92387590 Comment: - Continue atorvastatin, Plavix, metoprolol - Start Aspirin for DAPT - If Cret stays elevated, may be able to transfer back to Coumadin and Plavix for stroke prevention in Afib as well - Drug eluting stent placed on 12/07/18 as previously mentioned (3) CHF exacerbation Current Visit: Yes Status: Acute Code(s): I50.9 - HEART FAILURE, UNSPECIFIED SNOMED Code(s): 875869218 Comment: - Acute on chronic systolic HF - Reported 20-30 pounds weight gain in last few weeks, continued weight gain inpatient (Unclear how accurate weights are.) - Echo shows EF 55-60% (previously 30-35%) - Strict I&O, daily weights, consistently still gaining weight - S/p Bumex drip on 05/10 and 05/11 with improvement in fluid status, but worsening in Cr - Fluid restriction to 1L - Positive orthopnea and DAVIDSON. Significant LE edema. Lungs are clear today (4) Cellulitis Current Visit: Yes Status: Acute Code(s): L03.90 - CELLULITIS, UNSPECIFIED SNOMED Code(s): 461760422 Comment: - Left foot bullous with surrounding cellulitis. Bullous has since been drained by Wound Care - Received 7 day course of zosyn - Afebrile and leukocytosis improved (5) Volume overload Current Visit: Yes Status: Acute Code(s): E87.70 - FLUID OVERLOAD, UNSPECIFIED SNOMED Code(s): 27728452 Comment: - Initially improved with bumex drip but then worsened - Strict I/O and weights - Fluid Restriciton - Hopeful for improvement albumin-assisted diuresis (6) Diabetes Current Visit: Yes Status: Acute Code(s): E11.9 - TYPE 2 DIABETES MELLITUS WITHOUT COMPLICATIONS SNOMED Code(s): 64035148 Comment: - Not on outpatient medication - A1c 6.4%, indicating good control for her age (7) Iron deficiency anemia Current Visit: Yes Status: Acute Code(s): D50.9 - IRON DEFICIENCY ANEMIA, UNSPECIFIED SNOMED Code(s): 15455361 Comment: - Superimposed on anemia of chronic disease - TSAT 6%, ferritin low normal - Continue ferrous sulfate - Received 5 doses of iron sucrose - H&H stable (8) Afib Current Visit: No Status: Acute Code(s): I48.91 - UNSPECIFIED ATRIAL FIBRILLATION SNOMED Code(s): 49837137 Comment: - Rate controlled - Continue metoprolol - May consider starting warfarin for stroke prevention (9) HTN (hypertension) Current Visit: No Status: Acute Code(s): I10 - ESSENTIAL (PRIMARY) HYPERTENSION SNOMED Code(s): 25515570 Comment: - Normotensive - Continue Imdur, metoprolol, hydralazine (10) Inability to ambulate due to ankle or foot Current Visit: Yes Status: Acute Code(s): R26.2 - DIFFICULTY IN WALKING, NOT ELSEWHERE CLASSIFIED SNOMED Code(s): 636021702 Comment: - Secondary to left foot pain (in setting of cellulitis surrounding left foot wound) - PT/OT evals - Pending [facility] (11) DNR (do not resuscitate) Current Visit: Yes Status: Acute Comment: (12) DVT prophylaxis Current Visit: No Status: Acute Code(s): Z29.9 - ENCOUNTER FOR PROPHYLACTIC MEASURES, UNSPECIFIED SNOMED Code(s): 512771912 Comment: - HSQ Status and Disposition: Inpatient. Anticipate d/c to [facility] when medically stable.
[2019-05-20] MEDS: Sevelamer TAB* 800 MG PO SCH (21:12)
--- NOTE | 2019-05-20 21:25 | PN ---
PROGRESS NOTE: DATE OF VISIT: 05/20/19 SUBJECTIVE: The patient reports feeling better, reports that she feels a lot better compared to when she came to the hospital. Reports that her energy is improved, her pain is not hurting as much, her lower leg is not hurting as much , and her lower extremity edema has improved. Vitals and labs have been reviewed. PHYSICAL EXAM: HEENT: NC/AT. Heart: S1, S2 present. Regular at the time of exam. Lungs: Decreased breath sounds bilaterally. No crackles auscultated. Abdomen: Distended with some edema. Minimal ascites. Extremities: Noted to have bilateral edema, which has improved compared to a week ago. ASSESSMENT AND PLAN: 1. Acute kidney injury on chronic kidney disease in a patient with recent myocardial infarction. Some component of cardiorenal syndrome, but worsening acute kidney injury of unclear etiology with nephrotic syndrome being an consideration. The patient would benefit from a kidney biopsy; however, the patient is on Plavix and Eliquis. The Eliquis is currently on hold for possible line placement. 2. The patient was also grossly volume overloaded when she initially came and continues to be volume overloaded. 3. The patient's kidney function has slowly worsened over the last week despite not being on diuretics for [address] Hairston had discussed dialysis with the patient and this has been discussed again with the patient, the patient is agreeable to dialysis if she needs it. 5. We will request Interventional Radiology to place a tunneled dialysis catheter in the next 24 to 48 hours and initiate on dialysis if the patient's kidney function does not improve or the patient develops any indications. 6. The patient does not have any emergent indications to be dialyzed acutely today. 7. As last possible effort to help with her volume overload, we will try albumin bolus at 1 g/kg and a 3 g albumin drip with 80 mg IV t.i.d. of Lasix. We will monitor her kidney function. The patient also has started to make urine today, hence we will monitor in the next 24 hours and decide on further plan. 8. The patient has also been started on prednisone empirically at 60 mg a couple of days ago. The patient reports that she has more energy currently. We will continue it for now and we will consider further kidney biopsy if the patient's condition does not improve. The patient's drug-eluting stent being only in the last 6 months, it would not be prudent to hold off on the Plavix. We will follow with the primary team and be available for any questions. Case has also been discussed with VICK Albarran. [id number]/[facility] #: [id number] [place]
[2019-05-21 06:33] LABS: ABS Lymphocytes 0.2 10^3/ul (1.0-4.8); ABS Monocytes 0.4 10^3/ul (0-0.8); ABS Neutrophils 8.7 10^3/ul (1.5-7.7); Hematocrit 27 % (35-47); Hemoglobin 8.4 g/dL (12.0-16.0); Lymphocyte % 2.6 %; Mean Corpuscular HGB Conc 32 g/dL (31-36); Mean Corpuscular Hemoglobin 25 pg (27-31); Mean Corpuscular Volume 79 fL (80-97); Mean Platelet Volume 8.3 fL (7.4-10.4); Nucleated Red Blood Cells % 0.2; Platelet Count 211 10^3/uL (150-450); Red Blood Count 3.35 10^6 /uL (3.70-4.87); Red Cell Distribution Width 24 % (10-15); White Blood Count 9.4 10^3/uL (3.5-10.8)
[2019-05-21 06:35] LABS: INR 1.22 (0.82-1.09)
[2019-05-21 06:51] LABS: Calcium 8.9 mg/dL (8.6-10.3); EGFR African American 8.4 (>60); EGFR Non-African American 6.9 (>60); Phosphorus 9.4 mg/dL (2.5-5.0); Potassium 4.7 mmol/L (3.5-5.0)
[2019-05-21 07:21] LABS: BUN/Creatinine Ratio 22.5 (8-20)
[2019-05-21] MEDS: predniSONE TAB* 20 MG PO SCH (08:20)
[2019-05-21] MEDS: Insulin LISPRO* 1 UNITS UNIT SUBCUT SCH ×4 (08:20→21:55)
[2019-05-21] MEDS: Metoprolol Succinate XL TAB* 50 MG PO SCH (08:21)
[2019-05-21] MEDS: Ferrous Sulfate TAB* 325 MG PO SCH (08:21)
[2019-05-21] MEDS: hydrALAZINE TAB* 25 MG PO SCH ×3 (08:21→21:09)
[2019-05-21] MEDS: Aspirin EC TAB* 81 MG TAB.EC PO SCH (08:22)
[2019-05-21] MEDS: Isosorbide Dinitrate TAB* 10 MG PO SCH (08:22)
[2019-05-21] MEDS: Clopidogrel TAB* 75 MG PO SCH (08:22)
[2019-05-21] MEDS: Sevelamer TAB* 800 MG PO SCH ×3 (08:22→21:10)
[2019-05-21] MEDS: Furosemide IV* 10 MG/ML 10 ML VIAL (100 MG) IV SCH ×2 (08:23→14:32)
[2019-05-21] MEDS ORDERED: ceFAZolin 1 GM in Dextrose (*) 1 GM/50 ML BAG IVPB ONE (09:00)
[2019-05-21] MEDS: Mupirocin 2% OINT* TUBE TOPICAL SCH ×2 (11:27→21:10)
[2019-05-21 12:28] LABS: ABS Lymphocytes 0.2 10^3/ul (1.0-4.8); ABS Monocytes 0.6 10^3/ul (0-0.8); ABS Neutrophils 10.6 10^3/ul (1.5-7.7); Hematocrit 27 % (35-47); Hemoglobin 8.7 g/dL (12.0-16.0); Lymphocyte % 1.9 %; Mean Corpuscular HGB Conc 32 g/dL (31-36); Mean Corpuscular Hemoglobin 25 pg (27-31); Mean Corpuscular Volume 79 fL (80-97); Mean Platelet Volume 8.3 fL (7.4-10.4); Nucleated Red Blood Cells % 0.1; Platelet Count 228 10^3/uL (150-450); Red Blood Count 3.42 10^6 /uL (3.70-4.87); Red Cell Distribution Width 25 % (10-15); White Blood Count 11.4 10^3/uL (3.5-10.8)
[2019-05-21 12:48] LABS: Calcium 8.9 mg/dL (8.6-10.3); EGFR African American 8.3 (>60); EGFR Non-African American 6.9 (>60); Magnesium 2.1 mg/dL (1.9-2.7); Potassium 4.6 mmol/L (3.5-5.0)
[2019-05-21] MEDS: Sodium Bicarbonate (ANTACID)* 650 MG TAB PO SCH ×2 (13:02→18:58)
[2019-05-21] MEDS: Isosorbide Dinitrate TAB* 20 MG PO SCH ×2 (13:02→21:07)
[2019-05-21 13:15] LABS: TSH (Thyroid Stimulating Horm) 6.57 mcIU/mL (0.34-5.60)
[2019-05-21 13:18] LABS: BUN/Creatinine Ratio 23.1 (8-20)
--- NOTE | 2019-05-21 14:46 | PN ---
PROGRESS NOTE: DATE OF VISIT: 05/21/19 SUBJECTIVE: The patient reports feeling well, reports that she feels better than yesterday, makes small amount of urine. Vitals and labs have been reviewed. PHYSICAL EXAM: HEENT: NC/AT. Heart: S1, S2 present. Regular at the time of exam. Lungs: Clear to auscultation. Abdomen: Distended with some ascites. Extremities: Noted to have edema, which significantly improved compared to before. ASSESSMENT AND PLAN: 1. Acute kidney injury of unclear etiology with nephrotic syndrome, being in consideration, have the component of cardiorenal syndrome, recent myocardial infarction in October of this year. 2. Unable to obtain a biopsy as the patient's Plavix cannot be stopped with her drug-eluting stent recently placed. 3. At this time, the patient's creatinine continues to worsen, but appears to be plateauing with slow decline, which shows some promise. However, the patient continues to be volume overloaded, is severely acidotic and BUN noted to be elevated. In light of this, we will continue with tunneled line placement as per plan today and we will plan to initiate the patient on dialysis tomorrow. 4. Hoping that the kidney function recovers in 2 to 3 weeks and the patient do not need dialysis beyond this; however, we will follow clinical course and decide. 5. This has been discussed with the patient and the patient agrees on dialysis if she needs it and reports that she is leaving it up to us to decide about the dialysis and her treatment and reports that she feels significantly better compared to when she initially came to the hospital. 6. Metabolic acidosis. For today, we will place her on sodium bicarbonate and we will transition her to dialysis tomorrow temporarily. 7. Hyperphosphatemia. Started on sevelamer. 8. Iron deficiency anemia, completed her Venofer infusion. Tsat was only 6%. 9. Discussed with outpatient dialysis unit and the patient has outpatient dialysis planned for Monday, and Monday, waiting on the final paperwork. We will evaluate progress. We will plan for first dialysis tomorrow based on her clinical condition. If the patient goes to rehab, can go to rehab and come to the dialysis unit as an outpatient. First outpatient treatments are generally started on weekday. 10. Case discussed with the primary medical team and we will follow with the team. [id number]/[facility] #: [id number] [place]
[2019-05-21 16:50] LABS: Free T3 1.7 pg/mL (2.5-3.9)
[2019-05-21 16:51] LABS: Free T4 0.64 ng/dL (0.61-1.12)
[2019-05-21 17:11] LABS: Urine Appearance Cloudy; Urine Bacteria 1+ (Absent); Urine Bilirubin Negative (Negative); Urine Blood 1+ (Negative); Urine Color Yellow; Urine Glucose 1+(50 mg/dL) (Negative); Urine Ketones Negative (Negative); Urine Nitrite Negative (Negative); Urine Protein 2+(100 mg/dL) (Negative); Urine Red Blood Cell Trace(0-2/hpf) (Absent); Urine Specific Gravity 1.016 (1.010-1.030); Urine Squamous Epithelial Cell Present (Absent); Urine Urobilinogen Negative (Negative); Urine White Blood Cell Trace(0-5/hpf) (Absent)
[2019-05-21] MEDS: Atorvastatin* 80 MG TAB PO SCH (18:19)
--- NOTE | 2019-05-21 19:16 | PN ---
Subjective Date of Service: 05/21/19 Interval History: Alerted that patient had rectal temp of 93.1 fahrenheit and feeling cold to touch. Dr. Chu arrived to bedside prior to my assessment and ordered blood culture, CBC, CMP, TSH and started warm blanket and bear hugger. This occurred after patient arrived back to floor after tunneled dialysis catheter placement. Patient is feeling like her normal self at time of evaluation and has no complaints. Denies feeling fever/chills, chest pain, difficulty breathing, abd pain, or pain otherwise. She complains only of hunger. Family History: Unchanged from Admission Social History: Unchanged from Admission Past Medical History: Unchanged from Admission Objective Active Medications: Acetaminophen (Tylenol Tab*) 650 mg PO Q6H PRN PRN Reason: MILD PAIN or TEMP > 100.4 Last Admin: 05/20/19 08:50 Dose: 650 mg Aspirin (Aspirin Ec Tab*) 81 mg PO DAILY [facility] Last Admin: 05/21/19 08:22 Dose: 81 mg Atorvastatin Calcium (Lipitor*) 80 mg PO 1700 [facility] Last Admin: 05/21/19 18:19 Dose: 80 mg Clopidogrel Bisulfate (Plavix Tab*) 75 mg PO DAILY [facility] Last Admin: 05/21/19 08:22 Dose: 75 mg Dextrose (Dextrose 50% Vial 50 Ml*) 25 ml IV PUSH .FOR FS < 60 - SS PRN PRN Reason: FS < 60 Docusate Sodium (Colace Cap*) 100 mg PO BID PRN PRN Reason: CONSTIPATION Last Admin: 05/12/19 11:11 Dose: 100 mg Ferrous Sulfate (Ferrous Sulfate Tab*) 325 mg PO DAILY [facility] Last Admin: 05/21/19 08:21 Dose: 325 mg Heparin Sodium (Porcine) (Heparin Vial(*)) 5,000 units SUBCUT Q12H [facility] Hydralazine HCl (Apresoline Tab*) 25 mg PO TID [facility] Last Admin: 05/21/19 13:02 Dose: 25 mg Insulin Human Lispro (Humalog*) 0 units SUBCUT ACHS [facility]; Protocol Last Admin: 05/21/19 18:19 Dose: 9 unit Isosorbide Dinitrate (Isordil Tab*) 10 mg PO TID [facility] Last Admin: 05/21/19 13:02 Dose: 10 mg Metoprolol Succinate (Toprol Xl Tab*) 50 mg PO DAILY [facility] Last Admin: 05/21/19 08:21 Dose: 50 mg Mupirocin (Bactroban 2 % Oint*) 1 applic TOPICAL BID [facility] Last Admin: 05/21/19 11:27 Dose: Not Given Ondansetron HCl (Zofran Inj*) 4 mg IV Q6H PRN PRN Reason: NAUSEA Last Admin: 05/11/19 15:30 Dose: 4 mg Prednisone (Deltasone Tab*) 60 mg PO DAILY [facility] Last Admin: 05/21/19 08:20 Dose: 60 mg Sevelamer Carbonate (Renvela Tab*) 800 mg PO TID [facility] Last Admin: 05/21/19 13:02 Dose: 800 mg Sodium Bicarbonate (Sodium Bicarbonate (Antacid)*) 650 mg PO Q6HR [facility] Last Admin: 05/21/19 18:58 Dose: 650 mg Throat Lozenges (Chloraseptic Janessa*) 1 janessa PO Q6H PRN PRN Reason: SORE THROAT Last Admin: 05/12/19 15:46 Dose: 1 janessa Vital Signs - 8 hr 05/21/19 05/21/19 05/21/19 11:29 11:43 12:35 Temperature 93.1 F 93.3 F 93.4 F Pulse Rate 64 66 Respiratory 18 20 Rate Blood Pressure 124/90 119/61 (mmHg) O2 Sat by Pulse 100 98 Oximetry 05/21/19 05/21/19 05/21/19 13:22 13:43 14:44 Temperature 93.7 F 94.1 F Pulse Rate 73 Respiratory 16 Rate Blood Pressure 98/52 96/58 (mmHg) O2 Sat by Pulse 98 Oximetry 05/21/19 05/21/19 15:15 16:06 Temperature 94.3 F Pulse Rate 64 Respiratory 16 Rate Blood Pressure 123/60 (mmHg) O2 Sat by Pulse 97 Oximetry Oxygen Devices in Use Now: None Appearance: Obese, elderly female, laying in bed with bear hugger and feeling warm to touch by time of my evaluation, appearing in NAD, no lip cyanosis Eyes: No Scleral Icterus, - - PERRL Ears/Nose/Mouth/Throat: NL Teeth, Lips, Gums, Mucous Membranes Moist Neck: NL Appearance and Movements; NL JVP Respiratory: Symmetrical Chest Expansion and Respiratory Effort, Clear to Auscultation Cardiovascular: NL Sounds; No Murmurs; No JVD, RRR Abdominal: - - abd soft, nontender, nondistended Extremities: No Clubbing, Cyanosis, - - +3 pitting edema to bilateral LEs pretibially, +1 pitting edema to bilateral thighs Skin: - - petechiae noted to breasts Neurological: Alert and Oriented x 3, NL Muscle Strength and Tone Result Diagrams: 05/21/19 12:14 05/21/19 12:14 Microbiology and Other Data: Microbiology 05/11/19 14:38 Blood Culture - Preliminary Blood Venous No Growth Day 3 05/12/19 07:15 Urine Culture - Final Urine No Growth (<1,000 CFU/mL) Assess/Plan/Problems-Billing Assessment: Ms. Simmons is a 73 yo F with PMH of CAD, afib, systolic CHF, CKD, DM, chronic respiratory failure on nighttime oxygen; who presented to the ED with BLE edema and was found to be in CHF exacerbation. Poor response to diuresis and now in renal failure with a likely cardiorenal component. - Patient Problems (1) Hypothermia Current Visit: Yes Status: Acute Code(s): T68.XXXA - HYPOTHERMIA, INITIAL ENCOUNTER SNOMED Code(s): 582521441 Comment: -concern for sepsis however not meeting sepsis criteria as vitals are otherwise normal and leukocytosis is <12,000 -TSH elevated but representing subclinical hypothyroidism as FT4 normal -temperature is improving with bear hugger and will avoid empiric coverage for now unless these metrics worsen -blood culture and urine culture pending -lactic acid wnl (2) Renal failure Current Visit: Yes Status: Acute Comment: - Creatinine continues to trend up at rapid rate. Unclear etiology. - Baseline CKD stage 4, likely underlying diabetic nephropathy - Renal duplex was a poor study, but no significant findings - Appreciate Nephrology consult; recommends biopsy, but drug-eluting stent was placed 12/07/18 and patient must remain on Plavix for at least 6mo post-stenting (would need to check with Dr. Taylor about holding after that time). Discussed with Dr. Mcnair today and affirms that the risk for ACS is quite high and would need to be weighed against other risks before stopping plavix prior to 6 months. - Plan for tunneled dialysis catheter placement tomorrow, eliquis has been held. Will perhaps need dialysis until renal biopsy can be performed and biopsy resulted - Strict I&O, daily weights - Renally dose all medications - Discontinuing albumin assisted diuresis per Dr. Dolan - Heavy Proteinuria, possibly GN or AIN. Unable to obtain biopsy at this time as described above. Workup negative to date. - Prednisone for possible Primary Nephrotic Syndrome - Tunneled dialysis catheter placed today. Planning for dialysis tomorrow - Phosphorus elevated and bicitra has been started. K+ stable (3) CAD (coronary artery disease) Current Visit: Yes Status: Acute Code(s): I25.10 - ATHSCL HEART DISEASE OF [place] CORONARY ARTERY W/O ANG PCTRS SNOMED Code(s): 13495840 Comment: - Continue atorvastatin, Plavix, metoprolol - Changing to Coumadin plus Plavix for stroke prevention in Afib and d/c aspirin - Drug eluting stent placed on 12/07/18 as previously mentioned (4) CHF exacerbation Current Visit: Yes Status: Acute Code(s): I50.9 - HEART FAILURE, UNSPECIFIED SNOMED Code(s): 248289421 Comment: - Acute on chronic systolic HF - Reported 20-30 pounds weight gain in last few weeks, continued weight gain inpatient (Unclear how accurate weights are.) - Echo shows EF 55-60% (previously 30-35%) - Strict I&O, daily weights, consistently still gaining weight - S/p Bumex drip on 05/10 and 05/11 with improvement in fluid status, but worsening in Cr - Fluid restriction to 1L - Positive orthopnea and DAVIDSON. Significant LE edema. Lungs are clear today (5) Cellulitis Current Visit: Yes Status: Acute Code(s): L03.90 - CELLULITIS, UNSPECIFIED SNOMED Code(s): 876965005 Comment: - Left foot bullous with surrounding cellulitis. Bullous has since been drained by Wound Care - Received 7 day course of zosyn - Afebrile and leukocytosis improved (6) Volume overload Current Visit: Yes Status: Acute Code(s): E87.70 - FLUID OVERLOAD, UNSPECIFIED SNOMED Code(s): 47726557 Comment: - Initially improved with bumex drip but then worsened, little response to albumin-assisted diuresis - Strict I/O and weights - Fluid Restriciton (7) Diabetes Current Visit: Yes Status: Acute Code(s): E11.9 - TYPE 2 DIABETES MELLITUS WITHOUT COMPLICATIONS SNOMED Code(s): 19081081 Comment: - Not on outpatient medication - A1c 6.4%, indicating good control for her age (8) Iron deficiency anemia Current Visit: Yes Status: Acute Code(s): D50.9 - IRON DEFICIENCY ANEMIA, UNSPECIFIED SNOMED Code(s): 16220309 Comment: - Superimposed on anemia of chronic disease - TSAT 6%, ferritin low normal - Continue ferrous sulfate - Received 5 doses of iron sucrose - H&H stable (9) Afib Current Visit: No Status: Acute Code(s): I48.91 - UNSPECIFIED ATRIAL FIBRILLATION SNOMED Code(s): 35901676 Comment: - Rate controlled - Continue metoprolol - Starting warfarin for stroke prevention, bridging with subQ heparin as lovenox is contrainidcated in renal failure. Starting with 3mg and will adjust based on INRs (10) HTN (hypertension) Current Visit: No Status: Acute Code(s): I10 - ESSENTIAL (PRIMARY) HYPERTENSION SNOMED Code(s): 04894491 Comment: - Someone hypotensive while hypothermic but resolved without intervention - Continue Imdur, metoprolol, hydralazine (11) Inability to ambulate due to ankle or foot Current Visit: Yes Status: Acute Code(s): R26.2 - DIFFICULTY IN WALKING, NOT ELSEWHERE CLASSIFIED SNOMED Code(s): 089633941 Comment: - Secondary to left foot pain (in setting of cellulitis surrounding left foot wound) - PT/OT evals - Pending [facility] (12) DNR (do not resuscitate) Current Visit: Yes Status: Acute Comment: (13) DVT prophylaxis Current Visit: No Status: Acute Code(s): Z29.9 - ENCOUNTER FOR PROPHYLACTIC MEASURES, UNSPECIFIED SNOMED Code(s): 040697877 Comment: - HSQ and starting warfarin Status and Disposition: Inpatient. Anticipate d/c to [facility] when medically stable.
[2019-05-21] MEDS ORDERED: Warfarin TAB(*) 3 MG PO ONE (20:00)
[2019-05-21 20:30] LABS: INR 1.25 (0.82-1.09)
[2019-05-21] MEDS: Heparin VIAL(*) 5000 UNITS/ML VIAL (FIVE THOUSAND) SUBCUT SCH (21:09)
[2019-05-22] MEDS: Sodium Bicarbonate (ANTACID)* 650 MG TAB PO SCH ×5 (00:22→23:59)
[2019-05-22 06:31] LABS: ABS Lymphocytes 0.3 10^3/ul (1.0-4.8); ABS Monocytes 0.4 10^3/ul (0-0.8); ABS Neutrophils 10.8 10^3/ul (1.5-7.7); Hematocrit 25 % (35-47); Lymphocyte % 2.2 %; Mean Corpuscular HGB Conc 31 g/dL (31-36); Mean Corpuscular Hemoglobin 25 pg (27-31); Mean Corpuscular Volume 78 fL (80-97); Mean Platelet Volume 8.3 fL (7.4-10.4); Nucleated Red Blood Cells % 0.1; Platelet Count 188 10^3/uL (150-450); Red Blood Count 3.24 10^6 /uL (3.70-4.87); Red Cell Distribution Width 25 % (10-15); White Blood Count 11.4 10^3/uL (3.5-10.8)
[2019-05-22 06:50] LABS: Calcium 8.8 mg/dL (8.6-10.3); EGFR African American 7.6 (>60); EGFR Non-African American 6.3 (>60); Phosphorus 9.9 mg/dL (2.5-5.0); Potassium 4.8 mmol/L (3.5-5.0)
[2019-05-22 07:06] LABS: BUN/Creatinine Ratio 21.8 (8-20)
[2019-05-22] MEDS: hydrALAZINE TAB* 25 MG PO SCH ×3 (08:39→21:44)
[2019-05-22] MEDS: Clopidogrel TAB* 75 MG PO SCH (08:39)
[2019-05-22] MEDS: Sevelamer TAB* 800 MG PO SCH ×3 (08:39→21:44)
[2019-05-22] MEDS: predniSONE TAB* 20 MG PO SCH (08:40)
[2019-05-22] MEDS: Ferrous Sulfate TAB* 325 MG PO SCH (08:40)
[2019-05-22] MEDS: Metoprolol Succinate XL TAB* 50 MG PO SCH (08:40)
[2019-05-22] MEDS: Insulin LISPRO* 1 UNITS UNIT SUBCUT SCH ×4 (08:41→21:46)
[2019-05-22] MEDS: Isosorbide Dinitrate TAB* 20 MG PO SCH ×3 (08:42→21:44)
[2019-05-22] MEDS: Heparin VIAL(*) 5000 UNITS/ML VIAL (FIVE THOUSAND) SUBCUT SCH ×2 (08:42→21:47)
[2019-05-22] MEDS ORDERED: Heparin DIALYSIS ONLY(*) 1,000 UNITS/ML VIAL DIALYSIS ONE (11:00)
--- NOTE | 2019-05-22 11:57 | PN ---
PROGRESS NOTE: DATE OF VISIT: 05/22/19 SUBJECTIVE: The patient was seen and examined during dialysis, tolerating the procedure well. Vitals and labs have been reviewed. PHYSICAL EXAMINATION: HEENT: NC/AT. Heart: S1 and S2 present. Regular at the time of exam. Lungs: Decreased breath sounds bilaterally. Abdomen: Distended with some ascites. Extremities: Noted to have significant lower extremity edema, which has improved. ASSESSMENT AND PLAN: 1. Acute kidney injury needing initiation of dialysis. Please refer to my prior notes for full details. 2. The patient has a tunnel dialysis catheter and this is her first dialysis session today, tolerating her session well. 3. As it is her first session, we will run around low blood flows and dialysate flow and we will plan for UF of 1 L as she tolerates this and this can be increased further with further sessions. 4. Hyperphosphatemia. Continue Sevelamer and her dialysis and can adjust this further based on her phosphate numbers, which may take few days to improve. 5. Iron deficiency anemia, completed a round of Nancy. 6. Anemia of chronic disease. Now that her iron stores are replete, we will also start her on 4000 of Epogen with her dialysis sessions and titrate as needed. 7. We will follow with the medical team. 8. The patient has an outpatient dialysis spot for Monday, , Monday , but cannot be started newly in the outpatient unit on Monday. If the patient continues to stay in the hospital, we will discuss with the hospitalist team and she can possibly be discharged later in the week and come to her first dialysis as an outpatient on Monday. 9. We will follow with the medical team. [id number]/[facility] #: [id number] [place]
[2019-05-22] MEDS ORDERED: EPOETIN ALFA-EPBX * 4,000 UNIT/ML VIAL IV ONE (13:00)
[2019-05-22] MEDS: Mupirocin 2% OINT* TUBE TOPICAL SCH (14:42)
[2019-05-22] MEDS ORDERED: Warfarin TAB(*) 3 MG PO SCH (17:00)
[2019-05-22] MEDS: Atorvastatin* 80 MG TAB PO SCH (17:27)
--- NOTE | 2019-05-22 17:46 | PN ---
Subjective Date of Service: 05/22/19 Interval History: Patient feels tired at time of evaluation which she attributes to dialysis treatment today. She reports feeling sad because her dog yesterday. No acute events overnight. Denies fever/chills, chest pain, difficulty breathing , abd pain, nausea. She urinated today. Family History: Unchanged from Admission Social History: Unchanged from Admission Past Medical History: Unchanged from Admission Objective Active Medications: Acetaminophen (Tylenol Tab*) 650 mg PO Q6H PRN PRN Reason: MILD PAIN or TEMP > 100.4 Last Admin: 05/20/19 08:50 Dose: 650 mg Atorvastatin Calcium (Lipitor*) 80 mg PO 1700 [facility] Last Admin: 05/22/19 17:27 Dose: 80 mg Clopidogrel Bisulfate (Plavix Tab*) 75 mg PO DAILY [facility] Last Admin: 05/22/19 08:39 Dose: 75 mg Dextrose (Dextrose 50% Vial 50 Ml*) 25 ml IV PUSH .FOR FS < 60 - SS PRN PRN Reason: FS < 60 Docusate Sodium (Colace Cap*) 100 mg PO BID PRN PRN Reason: CONSTIPATION Last Admin: 05/12/19 11:11 Dose: 100 mg Ferrous Sulfate (Ferrous Sulfate Tab*) 325 mg PO DAILY [facility] Last Admin: 05/22/19 08:40 Dose: 325 mg Heparin Sodium (Porcine) (Heparin Vial(*)) 5,000 units SUBCUT Q12H [facility] Last Admin: 05/22/19 08:42 Dose: 5,000 units Hydralazine HCl (Apresoline Tab*) 25 mg PO TID [facility] Last Admin: 05/22/19 14:56 Dose: 25 mg Insulin Human Lispro (Humalog*) 0 units SUBCUT ACHS [facility]; Protocol Last Admin: 05/22/19 17:27 Dose: 6 unit Isosorbide Dinitrate (Isordil Tab*) 10 mg PO TID [facility] Last Admin: 05/22/19 14:56 Dose: 10 mg Metoprolol Succinate (Toprol Xl Tab*) 50 mg PO DAILY [facility] Last Admin: 05/22/19 08:40 Dose: 50 mg Ondansetron HCl (Zofran Inj*) 4 mg IV Q6H PRN PRN Reason: NAUSEA Last Admin: 05/11/19 15:30 Dose: 4 mg Prednisone (Deltasone Tab*) 60 mg PO DAILY [facility] Last Admin: 05/22/19 08:40 Dose: 60 mg Sevelamer Carbonate (Renvela Tab*) 800 mg PO TID [facility] Last Admin: 05/22/19 14:56 Dose: 800 mg Sodium Bicarbonate (Sodium Bicarbonate (Antacid)*) 650 mg PO Q6HR [facility] Last Admin: 05/22/19 17:27 Dose: 650 mg Throat Lozenges (Chloraseptic Janessa*) 1 janessa PO Q6H PRN PRN Reason: SORE THROAT Last Admin: 05/12/19 15:46 Dose: 1 janessa Warfarin Sodium (Coumadin Tab(*)) 3 mg PO DAILY@1700 [facility]; Protocol Last Admin: 05/22/19 17:26 Dose: 3 mg Vital Signs - 8 hr 05/22/19 05/22/19 05/22/19 11:15 14:53 15:35 Temperature 97.3 F 97.3 F Pulse Rate 80 76 Respiratory 16 18 18 Rate Blood Pressure 128/56 124/59 (mmHg) O2 Sat by Pulse 98 98 Oximetry Oxygen Devices in Use Now: None Appearance: Obese, elderly white female, laying upright in bed, appearing in NAD Eyes: No Scleral Icterus, - - PERRL Ears/Nose/Mouth/Throat: Mucous Membranes Moist Neck: NL Appearance and Movements; NL JVP Respiratory: Symmetrical Chest Expansion and Respiratory Effort, Clear to Auscultation Cardiovascular: NL Sounds; No Murmurs; No JVD, RRR Abdominal: - - abd soft, nontender, nondistended; some trace pitting edema to lower abdomen in gravity dependent regions Extremities: No Clubbing, Cyanosis, - - +3 pitting edema to bilateral LEs pretibially and +1 pitting edema to thighs, unchanged Skin: - - petechiae noted diffusely throughout trunk Neurological: Alert and Oriented x 3, NL Muscle Strength and Tone Result Diagrams: 05/22/19 05:48 05/22/19 05:48 Microbiology and Other Data: Microbiology 05/11/19 14:38 Blood Culture - Preliminary Blood Venous No Growth Day 3 05/12/19 07:15 Urine Culture - Final Urine No Growth (<1,000 CFU/mL) Assess/Plan/Problems-Billing Assessment: Ms. Simmons is a 73 yo F with PMH of CAD, afib, systolic CHF, CKD, DM, chronic respiratory failure on nighttime oxygen; who presented to the ED with BLE edema and was found to be in CHF exacerbation. Poor response to diuresis and now in renal failure with a likely cardiorenal component. - Patient Problems (1) Hypothermia Current Visit: Yes Status: Acute Code(s): T68.XXXA - HYPOTHERMIA, INITIAL ENCOUNTER SNOMED Code(s): 151192105 Comment: -resolved today -Unclear etiology. concern for sepsis however not meeting sepsis criteria as vitals are otherwise normal and leukocytosis is <12,000. Blood culture no growth to date and urine culture negative -subclinical hypothyroidism is not contributory -bear hugger has been discontinued -Leukocytosis has increased after tunneled dialysis catheter placement and continuing to monitor (2) Renal failure Current Visit: Yes Status: Acute Comment: - Creatinine continues to trend up at rapid rate. Unclear etiology. Possibly cardiorenal - Baseline CKD stage 4, likely underlying diabetic nephropathy - Renal duplex was a poor study, but no significant findings - Appreciate Nephrology consult; recommends biopsy, but drug-eluting stent was placed 12/07/18 and patient must remain on Plavix for at least 6mo post-stenting (would need to check with Dr. Taylor about holding after that time). Discussed with Dr. Mcnair previously and affirms that the risk for ACS is quite high and would need to be weighed against other risks before stopping plavix prior to 6 months. - Heavy Proteinuria, possibly GN or AIN. - Prednisone for possible Primary Nephrotic Syndrome - Tunneled dialysis catheter in place. Dialysis today - Phosphorus elevated and bicitra has been started. K+ stable - Strict I&O, daily weights - Renally dose all medications (3) CHF exacerbation Current Visit: Yes Status: Acute Code(s): I50.9 - HEART FAILURE, UNSPECIFIED SNOMED Code(s): 123721645 Comment: - Acute on chronic systolic HF - Reported 20-30 pounds weight gain in last few weeks, continued weight gain inpatient (Unclear how accurate weights are.) - Echo shows EF 55-60% (previously 30-35%) - Strict I&O, daily weights, consistently still gaining weight - S/p Bumex drip on 05/10 and 05/11 with improvement in fluid status, but worsening in Cr. Did not respond well to albumin-assisted diuresis either. - Fluid restriction to 1L - Positive orthopnea and DAVIDSON. Significant LE edema. Lungs are clear today (4) CAD (coronary artery disease) Current Visit: Yes Status: Acute Code(s): I25.10 - ATHSCL HEART DISEASE OF [place] CORONARY ARTERY W/O ANG PCTRS SNOMED Code(s): 40543683 Comment: - Continue atorvastatin, Plavix, metoprolol - Changing to Coumadin plus Plavix for stroke prevention in Afib and d/c aspirin - Drug eluting stent placed on 12/07/18 as previously mentioned (5) Petechiae Current Visit: Yes Status: Acute Code(s): R23.3 - SPONTANEOUS ECCHYMOSES SNOMED Code(s): 620537796 Comment: -on trunk -unclear etiology, but platelet count is wnl and have low concern at this time -no septic emboli in extremities present (6) Cellulitis Current Visit: Yes Status: Acute Code(s): L03.90 - CELLULITIS, UNSPECIFIED SNOMED Code(s): 106213145 Comment: - Left foot bullous with surrounding cellulitis. Bullous has since been drained by Wound Care - Received 7 day course of zosyn - Afebrile and leukocytosis improved after treatment. Leukocytosis has increased after tunneled dialysis catheter placement and continuing to monitor (7) Volume overload Current Visit: Yes Status: Acute Code(s): E87.70 - FLUID OVERLOAD, UNSPECIFIED SNOMED Code(s): 17273569 Comment: - Initially improved with bumex drip but then worsened, little response to albumin-assisted diuresis - Strict I/O and weights - Fluid Restriciton (8) Diabetes Current Visit: Yes Status: Acute Code(s): E11.9 - TYPE 2 DIABETES MELLITUS WITHOUT COMPLICATIONS SNOMED Code(s): 37386040 Comment: - Not on outpatient medication - A1c 6.4%, indicating good control for her age (9) Iron deficiency anemia Current Visit: Yes Status: Acute Code(s): D50.9 - IRON DEFICIENCY ANEMIA, UNSPECIFIED SNOMED Code(s): 51810148 Comment: - Superimposed on anemia of chronic disease - TSAT 6%, ferritin low normal - Continue ferrous sulfate - Received 5 doses of iron sucrose - H&H stable (10) Afib Current Visit: No Status: Acute Code(s): I48.91 - UNSPECIFIED ATRIAL FIBRILLATION SNOMED Code(s): 05230944 Comment: - Rate controlled - Continue metoprolol - Starting warfarin for stroke prevention, bridging with subQ heparin as lovenox is contrainidcated in renal failure. Starting with 3mg and will adjust based on INRs (11) HTN (hypertension) Current Visit: No Status: Acute Code(s): I10 - ESSENTIAL (PRIMARY) HYPERTENSION SNOMED Code(s): 85380185 Comment: - Someone hypotensive while hypothermic but resolved without intervention - Continue Imdur, metoprolol, hydralazine (12) Inability to ambulate due to ankle or foot Current Visit: Yes Status: Acute Code(s): R26.2 - DIFFICULTY IN WALKING, NOT ELSEWHERE CLASSIFIED SNOMED Code(s): 558045189 Comment: - Secondary to left foot pain (in setting of cellulitis surrounding left foot wound) - PT/OT evals - Pending [facility] (13) DNR (do not resuscitate) Current Visit: Yes Status: Acute Comment: (14) DVT prophylaxis Current Visit: No Status: Acute Code(s): Z29.9 - ENCOUNTER FOR PROPHYLACTIC MEASURES, UNSPECIFIED SNOMED Code(s): 060085152 Comment: - HSQ and starting warfarin Status and Disposition: If medically ready tomorrow, could be discharged to [facility] as dialysis chair time could begin 11:30AM. To be determined tomorrow.
[2019-05-22 19:25] LABS: Urine Appearance Turbid; Urine Bacteria Absent (Absent); Urine Bilirubin Negative (Negative); Urine Blood 1+ (Negative); Urine Color Amber; Urine Glucose Negative (Negative); Urine Ketones Negative (Negative); Urine Nitrite Negative (Negative); Urine Protein 2+(100 mg/dL) (Negative); Urine Red Blood Cell 1+(3-5/hpf) (Absent); Urine Specific Gravity 1.016 (1.010-1.030); Urine Squamous Epithelial Cell Present (Absent); Urine Transitional Epithelial Present (Absent); Urine Urobilinogen Negative (Negative); Urine White Blood Cell 3+(>20/hpf) (Absent)
[2019-05-22 21:19] LABS: INR 1.64 (0.82-1.09)
[2019-05-23 04:53] LABS: Hematocrit 25 % (35-47); Hemoglobin 7.9 g/dL (12.0-16.0); Mean Corpuscular HGB Conc 32 g/dL (31-36); Mean Corpuscular Hemoglobin 25 pg (27-31); Mean Corpuscular Volume 79 fL (80-97); Mean Platelet Volume 8.4 fL (7.4-10.4); Platelet Count 153 10^3/uL (150-450); Red Blood Count 3.14 10^6 /uL (3.70-4.87); Red Cell Distribution Width 29 % (10-15); White Blood Count 8.3 10^3/uL (3.5-10.8)
[2019-05-23 05:08] LABS: BUN/Creatinine Ratio 21.6 (8-20); Calcium 8.7 mg/dL (8.6-10.3); EGFR African American 9.9 (>60); EGFR Non-African American 8.2 (>60); Phosphorus 8.3 mg/dL (2.5-5.0); Potassium 4.3 mmol/L (3.5-5.0)
[2019-05-23 05:42] LABS: ABS Lymphocytes 0.3 10^3/ul (1.0-4.8); ABS Monocytes 0.4 10^3/ul (0-0.8); ABS Neutrophils 7.6 10^3/ul (1.5-7.7); Acanthocytes 1+; Lymphocyte % 3.5 %; Nucleated Red Blood Cells % 0.1
[2019-05-23] MEDS: Sodium Bicarbonate (ANTACID)* 650 MG TAB PO SCH (06:13)
[2019-05-23] MEDS ORDERED: Apixaban* 2.5 MG TAB PO SCH (09:00)
[2019-05-23] MEDS ORDERED: Ferrous Sulfate TAB* 325 MG PO SCH (09:00)
[2019-05-23] MEDS: predniSONE TAB* 20 MG PO SCH (09:19)
[2019-05-23] MEDS: Metoprolol Succinate XL TAB* 50 MG PO SCH (09:19)
[2019-05-23] MEDS: Clopidogrel TAB* 75 MG PO SCH (09:19)
[2019-05-23] MEDS: hydrALAZINE TAB* 25 MG PO SCH (09:19)
[2019-05-23] MEDS: Sevelamer TAB* 800 MG PO SCH (09:20)
[2019-05-23] MEDS: Heparin VIAL(*) 5000 UNITS/ML VIAL (FIVE THOUSAND) SUBCUT SCH (09:20)
[2019-05-23] MEDS: Insulin LISPRO* 1 UNITS UNIT SUBCUT SCH (09:21)
[2019-05-23] MEDS: Isosorbide Dinitrate TAB* 20 MG PO SCH (09:21)
[2019-05-23 09:24] VITALS: BP 128/87
--- NOTE | 2019-05-23 11:45 | DS ---
CC: Dr. Kennedy; Dr. Hairston; Dr. Dolan* DISCHARGE SUMMARY: DATE OF ADMISSION: 05/11/19. DATE OF DISCHARGE: 05/23/19. PROVIDER: VICK Albarran ATTENDING PHYSICIAN WHILE IN THE HOSPITAL: Dr. Estuardo Chu* (dictated by VICK Albarran) PRIMARY CARE PROVIDER: Dr. Kennedy. CONSULTING BENCH BORING MACHINE OPERATOR: Dr. Hairston and Dr. Dolan. PRIMARY DIAGNOSES: 1. Renal failure, unclear etiology, possibly cardiorenal, now receiving hemodialysis. 2. Iron deficiency anemia. 3. Episode of hypothermia, unclear etiology, resolved. 4. Left foot cellulitis, improved. SECONDARY DIAGNOSES: 1. Coronary artery disease, status post myocardial infarction, receiving drug- eluting stent on 12/07/18 as well as in October 2018. 2. Atrial fibrillation, on Eliquis. 3. Heart failure with reduced ejection fraction, ejection fraction of 30% to 35 %. 4. Underlying chronic kidney disease. 5. Diabetes mellitus type 2. 6. Chronic oxygen use at night, 2 L. 7. History of heart block, status post pacemaker. PROCEDURES WHILE IN THE HOSPITAL: Tunnel dialysis catheter placed on 05/21/[address] Alonso. STUDIES WHILE IN THE HOSPITAL: 05/13/19, bilateral renal artery Doppler, impression: Nondiagnostic study, the renal arteries were not well visualized. The kidneys are mildly increased in echogenicity suggestive of medical renal disease. No hydronephrosis is seen. HISTORY OF PRESENT ILLNESS/HOSPITAL COURSE: Brenda Simmons is a 73-year-old white female with past medical history significant for CKD, coronary artery disease, recent PCI in October and November 2018, atrial fibrillation, and heart failure with reduced ejection fraction, who presented to emergency department on 05/10/19 due to bilateral lower extremity swelling and pain. For further details, please see the admitting history and physical written by Dr. Jennifer Trujillo. The lower extremity edema in the setting of the patient's heart failure was thought to be a decompensation of congestive heart failure and initially IV diuresis was pursued. Considering the patient's baseline kidney disease, Nephrology was consulted as well. Initially, IV Bumex drip was initiated. The patient initially had good response; however, then her creatinine started to rise and eventually progressed to the point of renal failure. The workup regarding her renal failure has thus far been negative. She does have proteinuria. Prednisone was empirically started for the concern of possible primary nephrotic syndrome. She was started on phosphate binders. Overall, her potassium was normal during her hospital stay. Ultimately, due to the progressive renal failure, the patient and the nephrology team decided upon pursuing dialysis. Because the patient had a drug-eluting stent for an NSTEMI on 12/07/18, it would be unsafe to stop Plavix for renal biopsy until 06/09/19 at the earliest, especially considering the patient had a STEMI with a drug- eluting stent placement in October 2018. The high risk of ACS and stopping Plavix likely does not outweigh the benefit of the renal biopsy. Hemodialysis will be continued in outpatient phase. Tunneled dialysis catheter was placed on 05/21/[address] Alonso. Upon return to the medical floor after this procedure , which she tolerated well, Nursing noted the patient to be hypothermic with a temperature of 93.1 degrees Fahrenheit. Immediate labs were drawn including blood cultures. Lactic acid was in the normal limits. The patient had a minimally elevated leukocytosis to 11,400. Blood cultures thus far no growth to date. Urine culture thus far no growth to date. The patient had repeat rectal temperatures, a July Hugger ,and warm blankets in place and ultimately did start to have improvement of her core body temperature. Within approximately 8 hours, the patient's temperature returned to normal via rectal temperature. During the entirety of this period of hypothermia, the patient was feeling well. At this time, it is unclear the cause of this episode. The patient had her first hemodialysis session on 05/22/19, which left the patient feeling fatigued, though overall well. On date of discharge, the patient is feeling well. The patient's labs are discussed with Dr. Dolan, who agrees with discharge of the patient. She was comfortable with the discharge as well. Dr. Dolan additionally agreed that restarting the patient's Eliquis at a renally adjusted dose was safe considering she will be having ongoing hemodialysis. She additionally recommended tapering the prednisone with ultimate discontinuation. Additionally, the patient had ongoing anemia during her hospital stay. Her hemoglobin did not fall below 7. She never required packed red blood cells. It is determined to be iron deficiency pattern and she did already have chronic anemia leading up to this hospital stay and iron supplementation was started during her hospital stay. Additionally, petechiae developed around the time of her hypothermia; however, her platelet count within normal limits and this was diffusely throughout her chest. There are no septic emboli present in her extremities. On date of discharge, the patient is feeling well. She has no chest pain, difficulty breathing. She was able to urinate this morning. The patient was evaluated by physical therapy during her hospital stay and determined that she would benefit from skilled physical therapy through acute rehab. PHYSICAL EXAM ON DATE OF DISCHARGE: General: Obese, elderly white female, lying upright in hospital bed, appearing comfortable, in no acute distress. Eyes: PERRL. Sclerae anicteric. ENT: Mucous membranes moist. Lungs: Clear to auscultation throughout. Cardio: Regular rate and rhythm without murmurs, rubs, or gallops. Abdomen: Trace pitting edema in lower abdomen and dependent regions. Abdomen otherwise soft, nontender, nondistended. Extremities: +3 pitting edema, bilateral lower extremities pretibially as well as +1 pitting edema bilateral thighs. Wound to left dorsum of foot is approximately 4 cm in diameter and with no surrounding erythema, overall unchanged. Neuro: The patient is alert and oriented x3. No focal deficits. Able to move all extremities. Skin: Diffuse petechiae throughout trunk; otherwise skin warm, dry, and intact. Tunnel dialysis catheter at right anterior chest. DISCHARGE PLAN: Diet: Renal diet, carbohydrate consistent diet. 1000 mL fluid restriction Activity: The patient may return to normal activity as tolerated. DISCHARGE INSTRUCTIONS: The patient will be going to [facility] for subacute rehab. She will be having hemodialysis on Monday, , Monday schedule. She will be following up with Dr. Dolan in outpatient setting. It will be decided whether a renal biopsy will be pursued. The patient will participate in physical therapy while she is subacute rehab at [facility]. The patient should have her blood glucose monitored and perhaps some long- acting insulin should be added to her regimen in addition to the standing insulin at meals that I have recommended, if needed. The patient should complete a prednisone taper as per recommendation by Dr. Dolan as below. The patient's blood culture that was drawn on 05/10/19 should be followed up to ensure there is ultimately no growth. The sutures placed at the tunnel dialysis catheter should be removed between 05/26/19 and 05/28/19. If these cannot removed at dialysis center, please refer the patient to the interventional radiology department for suture removal or this could be completed by his provider at [facility]. The patient should return to emergency department if she is experiencing fever, hypothermia, chills, difficulty breathing, chest pain, altered mental status, hematuria, or other concerning symptoms. The patient should follow up with her primary care provider within 7 days after discharge from [facility]. DISCHARGE MEDICATIONS: 1. Hydralazine 25 mg p.o. t.i.d. 2. Plavix 75 mg p.o. daily. 3. Metoprolol succinate 50 mg p.o. daily. 4. Lipitor 80 mg p.o. daily. 5. Isosorbide dinitrate 10 mg p.o. t.i.d. 6. Prednisone 40 mg x3 days, 20 mg x3 days, 10 mg x3 days, and then discontinue. Please begin 40 mg prednisone on 05/24/19. 7. Sodium bicarbonate 650 mg p.o. q.6 hours. 8. Sevelamer 800 mg p.o. t.i.d. 9. Insulin lispro 3 units subcu a.c. 10. Ferrous sulfate 325 mg p.o. t.i.d. 11. Colace 100 mg p.o. b.i.d. p.r.n. constipation. 12. Eliquis 2.5 mg p.o. b.i.d. 13. Tylenol 650 mg p.o. q.6 hours p.r.n. pain. CONDITION ON DISCHARGE: Fair. DISPOSITION: To outpatient dialysis for hemodialysis session, then to [facility] for subacute rehab. TIME SPENT: Approximately 40 minutes was spent on this discharge, approximately half of this time was spent at bedside evaluating the patient and discussing the plan of care. VICK ALBARRAN [id number]/[facility] #: [id number] MTDJoe
== END 2019-05-23 10:45 | DRG 291 ==
LOC: ED 06:53 → MEDTELE 10:46 → OBSVTOIN 05-11 11:23 → ICU 05-21 17:00 → MEDTELE 05-21 18:40
PROVIDERS: ADMIT Internal Medicine; ATTEND Internal Medicine
PROC: 0JH63XZ Insertion of Tunneled Vascular Access Device into Chest Subcutaneous Tissue and Fascia, Percutaneous Approach (ICD-10-PCS; principal; 2019-05-21)
PROC: 06H033Z Insertion of Infusion Device into Inferior Vena Cava, Percutaneous Approach (ICD-10-PCS; 2019-05-21)
PROC: B519ZZA Fluoroscopy of Inferior Vena Cava, Guidance (ICD-10-PCS; 2019-05-21)
PROC: 5A1D70Z Performance of Urinary Filtration, Intermittent, Less than 6 Hours Per Day (ICD-10-PCS; 2019-05-22)
DX: I13.0 Hypertensive heart and chronic kidney disease with heart failure and stage 1 through stage 4 chronic kidney disease, or unspecified chronic kidney disease (principal); I50.43 Acute on chronic combined systolic (congestive) and diastolic (congestive) heart failure; Z68.41 Body mass index [BMI] 40.0-44.9, adult; L03.116 Cellulitis of left lower limb; N17.9 Acute kidney failure, unspecified; E87.2 Acidosis; N18.4 Chronic kidney disease, stage 4 (severe); E11.9 Type 2 diabetes mellitus without complications; I25.10 Atherosclerotic heart disease of native coronary artery without angina pectoris; M47.9 Spondylosis, unspecified; M16.10 Unilateral primary osteoarthritis, unspecified hip; E11.22 Type 2 diabetes mellitus with diabetic chronic kidney disease; I45.9 Conduction disorder, unspecified; I48.91 Unspecified atrial fibrillation; E11.36 Type 2 diabetes mellitus with diabetic cataract; Z66 Do not resuscitate; E66.9 Obesity, unspecified; S90.822A Blister (nonthermal), left foot, initial encounter; I87.8 Other specified disorders of veins; D50.9 Iron deficiency anemia, unspecified; R80.9 Proteinuria, unspecified; E83.39 Other disorders of phosphorus metabolism; R68.0 Hypothermia, not associated with low environmental temperature; Z95.5 Presence of coronary angioplasty implant and graft; Z90.710 Acquired absence of both cervix and uterus; Z95.0 Presence of cardiac pacemaker; I25.2 Old myocardial infarction; Z87.442 Personal history of urinary calculi; Z23 Encounter for immunization; Z99.81 Dependence on supplemental oxygen; Z79.02 Long term (current) use of antithrombotics/antiplatelets; Z79.4 Long term (current) use of insulin; Z79.01 Long term (current) use of anticoagulants
CPT/HCPCS: 36415; 36558; 71045; 71046; 76937; 77001; 80048; 80053; 81003; 81015; 82040; 82043; 82436; 82550; 82570; 82575; 82728; 83036; 83516; 83540; 83550; 83605; 83735; 83880; 83883; 84100; 84133; 84145; 84155; 84156; 84165; 84166; 84300; 84439; 84443; 84481; 84484; 85025; 85610; 85652; 86038; 86140; 86225; 86255; 86256; 86803; 87040; 87086; 87106; 87340; 90686; 90935; 93005; 93306; 93975; 96365; 96375; 96376; 99156; 99157; 99285; A9270-GY; C1750; G0257; G8978-GP-CL; G8979-GP-CI; G8987-GO-CL; G8988-GO-CI; J0690; J0696; J1642; J1644; J1756; J1940; J2250; J2270; J2310; J2405; J2543; J3010; J7512; P9047; Q5106

== ENCOUNTER 2019-06-08 13:08 | Inpatient (IN) | payer MEDICARE, OTHER ==
[2019-06-08] MEDS ORDERED: NS 0.9% 1000 ML** 1,000 ML IV ONE ×3 (13:10→14:19)
--- NOTE | 2019-06-08 13:16 | ED ---
Neurological HPI - HPI Summary HPI Summary: This patient is a 73 year old female brought in by EMS from Dialysis with a chief complaint of altered mental status. EMS states the patient was hypotensive and experiencing confusion. The patient can answer questions and is alert to person and place but not time. The patient is on blood thinners. Medications reviewed, allergies noted. - History of Current Complaint Stated Complaint: LOW BP PER EMS Time Seen by Provider: 06/08/19 13:10 Hx Obtained From: Patient, EMS Onset/Duration: Started minutes ago Character: Confusion - Additional Pertinent History Primary Care Physician: VAMSHI - Allergy/Home Medications Allergies/Adverse Reactions: Allergies Allergy/AdvReac Type Severity Reaction Status Date / Time No Known Allergies Allergy Verified 05/10/19 07:00 PMH/Surg Hx/FS Hx/Imm Hx Endocrine/Hematology History: Reports: Hx Diabetes Denies: Hx Anticoagulant Therapy, Hx Thyroid Disease Cardiovascular History: Reports: Hx Angina, Hx Coronary Artery Disease, Hx Hypercholesterolemia, Hx Hypertension, Hx Myocardial Infarction, Hx Pacemaker/ ICD - 04/2019 Denies: Hx Valvular Heart Disease, Other Cardiovascular Problems/Disorders Respiratory History: Denies: Hx Asthma, Hx Chronic Obstructive Pulmonary Disease (COPD), Other Respiratory Problems/Disorders GI History: Reports: Hx Gall Bladder Disease - removed History: Reports: Hx Kidney Stones - PASSED ON THEIR OWN Denies: Hx Renal Disease Musculoskeletal History: Reports: Hx Arthritis - LOW BACK, Other Musculoskeletal History - hip arthritis Sensory History: Reports: Hx Cataracts - KARRIE, Hx Contacts or Glasses Denies: Hx Hearing Aid Opthamlomology History: Reports: Hx Cataracts - KARRIE, Hx Contacts or Glasses Neurological History: Denies: Hx Dementia, Hx Seizures Psychiatric History: Denies: Hx Substance Abuse - Surgical History Surgery Procedure, Year, and Place: 1974, 1978, C SECTION, [facility]. 1979, [place] [facility] [place]. [place], [place] [facility] [place]. [place], [facility] [place] [facility]. 1999, RIGHT HAND CTR, [facility]. Hx Anesthesia Reactions: Yes - NAUSEA Infectious Disease History: Denies: Hx Hepatitis, Hx Human Immunodeficiency Virus (HIV) - Social History Alcohol Use: None Substance Use Type: Reports: None Smoking Status (MU): Never Smoked Tobacco Review of Systems Positive: Other - Low Blood Pressure Neurological: Other - Confusion Positive: Slurred Speech All Other Systems Reviewed And Are Negative: Yes Physical Exam - Summary Physical Exam Summary: Constitutional: Well-developed, Well-nourished, Alert. (-) Distressed Skin: Warm, Dry HENT: Normocephalic; Atraumatic Eyes: Conjunctiva normal Neck: Musculoskeletal ROM normal neck. (-) JVD, (-) Stridor, (-) Tracheal deviation Cardio: Rhythm regular, rate normal, Heart sounds normal; Intact distal pulses. Radial pulses are 2+ and symmetric. (-) Murmur Pulmonary/Chest wall: Effort normal. (-) Respiratory distress, (-) Wheezes, (-) Rales Abd: Soft. (-) Tenderness, (-) Distension, (-) Guarding, (-) Rebound Musculoskeletal: (-) Edema Lymph: (-) Cervical adenopathy Neuro: Alert, Oriented x3, Strength normal, Cranial nerves II-XII are grossly intact. (-) Dysmetria, (-) Nystagmus, (-) Ataxia by finger to nose testing, Slurred speech, alert to place and person. minor right facial droop, right arm drift. No effort against gravity in bilateral lower extremities. Sensation in tact. Limited testing in visual field due to patient noncompliance Patient has difficulty saying no "ifs and or busts" patient able to name objects. Psych: Mood and affect Normal Triage Information Reviewed: Yes Vital Signs On Initial Exam: Temp Pulse Resp BP Pulse Ox 97.5 F 75 19 82/59 92 06/08/19 13:34 06/08/19 13:34 06/08/19 13:34 06/08/19 13:34 06/08/19 13:34 Vital Signs Reviewed: Yes Procedures - Sedation Patient Received Moderate/Deep Sedation with Procedure: No - Central Line Left Jugular Central Line Lumen: triple Central Line Position: internal jugular (L) Complications: none - 7 paraguayan triple lumen 20 cm cathether, 2 attempts made Central Line Post Position: position confirmed w/ CXR Diagnostics - Laboratory Result Diagrams: 06/08/19 13:45 06/08/19 13:45 Lab Statement: Any lab studies that have been ordered have been reviewed, and results considered in the medical decision making process. - Radiology CXR Radiology Interpretation Completed By: Radiologist Summary of Radiographic Findings: 1. Lines and tubes as above. 2. Pulmonary interstitial edema with low lung volumes. ED Provider has reviewed this report. - CT Brain CT Interpretation Completed By: Radiologist Summary of CT Findings: No acute intracranial pathology. ED Provider has reviewed this report. Head CTA CT Interpretation Completed By: Radiologist Summary of CT Findings: 1. Atheromatous Disease. 2. Approximately 30% stenosis of the proximal right internal carotid artery. No significant left inernal carotid artery stenosis by Nascet criteria. 3. No aneurysm. Vascular malformation, occlusion, or stenosis of the visualized intracranial circulation. 4. Chronic small vessel ischemic change. 5. Right pleural effusion. ED Provider has reviewed this report. - EKG 1336 Cardiac Rate: NL - 77 BPM EKG Rhythm: Sinus Rhythm ST Segment: Non-Specific Summary of EKG Findings: T-wave inversion in V4-V6 II, III, IV, aVF. ED Physician has reviewed and interpreted this EKG. NIH Scale - NIH Scale Level of Consciousness: Responds to Minor Stimulation Ask Patient the Month and His/Her Age: Neither Correct/Aphasic Ask Pt to Open/Close Eyes and Forestry Foreman/Release Non-Paretic Hand: One Correctly Best Gaze (Only Horizontal Eye Movement): Normal Visual Field Testing: No Visual Loss - Unknown Facial Paresis-Pt to Smile & Close Eyes or Grimace Symmetry: Minor Paralysis Motor Function - Right Arm: Drifts LT 10 seconds Motor Function - Left Arm: No Drift-Holds 10 Seconds Motor Function - Right Leg: No Effort Against [place] Motor Function - Left Leg: No Effort Against [place] Limb Ataxia-Must be out of Proportion to Weakness Present: Absent - Unknown Sensory (Use Pinprick to Test Arms/Legs/Trunk/Face): Normal Best Language (Describe Picture, Name Items): No Aphasia Dysarthria (Read Several Words): Slurs Some Words Extinction and Inattention: No Abnormality Total Score: 13 Course/Dx - Course Course Of Treatment: Patient was brought in with altered mental status, slurred speech, hypotensive from dialysis. Upon arrival, patient's slurred speech, minor right facial droop, right arm drip so a gera abdalla was called. Patient was in the TPA window but is on Alquist so she was not a TPA candidate. Patient had emergent CT brain and CTA performed which are both negative. The [facility] was called and they agree with not giving TPA. Patient had progressively worsening hypotension with an elevated lactate and leukocytosis. Patient was treated empirically with cefepime for suspected sepsis. Patient's blood pressure did not improve so she was started on levophed and a central line was placed. Patient was admitted to the ICU. - Diagnoses Provider Diagnoses: Sepsis, Septic shock, CVA (cerebral vascular accident), ESRD on dialysis During the Visit The Following Alert/Code Occurred: Code Santos - Physician Notifications Discussed Care Of Patient With: Sahil Tanner - Neurology [place] Time Discussed With Above Provider: 13:50 - No TPA because she is on blood thinners. No transfer because no large vessel occlusion. - Critical Care Time Critical Care Time: 30-74 min - 60 Mins Discharge ED - Sign-Out/Discharge Documenting (check all that apply): Patient Departure - Admission to ICU, accepted by Dr. Rousseau, Transportation Inspector - Discharge Plan Condition: Stable Disposition: ADMITTED TO [facility] - Billing Disposition and Condition Condition: STABLE Disposition: Admitted to [facility] - Attestation Statements Document Initiated by Elianee: Yes Documenting Scribe: Miller Gilmore Provider For Whom Scribe is Documenting (Include Credential): Germain Stoner MD Scribe Attestation: Miller Gonzalez, scribed for Germain Stoner MD on 06/08/19 at 2151. Scribe Documentation Reviewed: Yes Provider Attestation: The documentation as recorded by the Miller johnston accurately reflects the service I personally performed and the decisions made by , Germain Stoner MD Status of Scribe Document: Viewed Review of Systems - Review of Systems Cardiology: Reports: other - Hypotension Neurological: Reports: other - Confusion, slurred speech
[2019-06-08] MEDS ORDERED: Iodixanol* (CONTRAST) 320 MG/ML 100 ML SDV IV ONE (13:17)
[2019-06-08 14:06] LABS: Activated Partial Thrombo Time 47.8 seconds (26.0-38.0); INR 3.13 (0.82-1.09)
[2019-06-08 14:08] LABS: Hematocrit 26 % (35-47); Hemoglobin 8.1 g/dL (12.0-16.0); Mean Corpuscular HGB Conc 31 g/dL (31-36); Mean Corpuscular Hemoglobin 26 pg (27-31); Mean Corpuscular Volume 84 fL (80-97); Red Blood Count 3.09 10^6 /uL (3.70-4.87); Red Cell Distribution Width 27 % (10-15); White Blood Count 3.7 10^3/uL (3.5-10.8)
--- OUTSIDE RECORDS SUMMARY | 2019-06-08 14:08 | XMS REPORT | Continuity of Care Document ---
:1945 External Reference #:[id number] Author Name Padmini Kruse M.D. (transmitted by agent of provider Caitlyn Mendez) Address [address] [place] [address] Care Team Providers Name Role Phone Gagan Patel MD - Family Medicine Care Team Information Load Haul Dump Operator [phone] W[facility] Clinic - Clinic/Center Care Team Information Load Haul Dump Operator [phone] Problems Active Problems Provider Date Acute ST segment elevation myocardial Parisa Castellanos MD, [facility], Onset: infarction due to right coronary [facility] artery occlusion Acute subendocardial infarction Eric Taylor M.D., [facility], Onset: 12/11/2018 [facility] Chronic kidney disease Eric Taylor M.D., [facility], Onset: 12/11/2018 [facility] Encounter for planned postprocedural Eric Taylor M.D., [facility], Onset: 2018 wound closure [facility] Hyperlipidemia Padmini Kruse M.D. Onset: 12/14/2018 Coronary [...] Use Denies Drug Use Smoking Status Reviewed: 05/08/19 Patient has never smoked Exercise Type/Frequency Exercises regularly Allergies, Adverse Reactions, Alerts Description No Known Drug Allergies Medications Active Medications SIG Qnty Indications Ordering Date Provider Ferrous Gluconate 1 tab by mouth 90tabs I12.9 Mohammad A. 05/08/2019 every other day MD Marika 239(27Fe) mg Tablets Potassium Chloride ER 1 by mouth every 90caps Padmini Kruse, 04/30/2019 day and as M.D. 10Meq Capsules ER directed. Oxygen 2l via nasal 1units Amy Christensen, 02/22/2019 Misc cannula at night N.P. Eliquis 1 by mouth twice 180tabs I48.0 Amy Christensen, 02/11/2019 5mg Tablets a day N.P. Clopidogrel Bisulfate 1 by mouth every 90tabs Amy SKathia Christensen, 02/11/2019 day N.P. 75mg Tablets Hydralazine HCL 1 by mouth three 90tabs Amy Christensen, 12/08/2018 25mg times a day N.P. Tablets Isosorbide Dinitrate 1 by mouth three 90tabs Amy SKathia Christensen, 12/08/2018 10mg times a day N.P. Tablets Nitroglycerin 1 sl q5mins x3 60tabs Eric Taylor, 12/08/2018 0.4mg as needed for M.D., FACC, Tablets Sub chest pain FSCAI Atorvastatin Calcium 1 by mouth every Eric Taylor, 11/19/2018 80mg day M.D., FACC, Tablets FSCAI Metoprolol Succinate Take 1 Tablet By Unknown ER Mouth Once Daily 50mg Tablets ER 24HR Torsemide 2 tab by mouth 180tabs Amy Christensen, 20mg Tablets every day and as N.P. directed. History Medications Multaq 1 by mouth twice a 180tabs Amy Christensen, 03/05/2019 - 400mg day N.P. 03/12/2019 Tablets Lasix 1 by mouth Monday 45tabs R60.0 Padmini Kruse, 12/14/2018 - 20mg Tablets Monday M.D. 03/28/2019 Metoprolol 1 by mouth bid Parisa Wade 12/03/2018 - Succinate ER MD Jasmin, 02/17/2019 50mg FACC, FSCAI Tablets ER 24HR Brilinta 1 tab by mouth 60tabs Parias Wade 11/19/2018 - 90mg twice a day MD Jasmin, 02/11/2019 Tablets FACC, FSCAI Aspirin 1 by mouth every 90tabs Parisa Wade 11/19/2018 - 81mg day MD Jasmin, 02/11/2019 Tablets KAMRAN JONES FACC Immunizations Description No Information Available Vital Signs Date Vital Result Comment 05/08/2019 1:46pm Height 59 inches 4'11" Weight 178.00 lb Heart Rate 77 /min BP Systolic Sitting 142 mmHg L arm BP Diastolic Sitting 79 mmHg L arm O2 % BldC Oximetry 99 % BMI (Body Mass Index) 35.9 kg/m2 05/06/2019 1:44pm Height 59 inches 4'11" Weight 180.00 lb per pt in wheelchair Heart Rate 88 /min BP Systolic Sitting 140 mmHg BP Diastolic Sitting 80 mmHg O2 % BldC Oximetry 98 % BMI (Body Mass Index) 36.4 kg/m2 Neck Circumference in inches 15 Results Test Date Facility Test Result H/L Range Note Laboratory test 05/04/2019 [facility] Blood Urea <pending> finding [address] [place] [address] [phone] Creatine Kinase(CK) 73 U/L Normal 10-223 CBC Auto 05/04/2019 [facility] White Blood 9.3 10^3/uL Normal 3.5-10.[address] [place] [address] [phone] Red Blood Count 3.58 10^6/uL Low 3.70-4.87 [...] Blood Cells % 0.0 Laboratory test 05/04/2019 [facility] Prealbumin 11 mg/dL Low 18-38 finding [address] [place] [address] [phone] Comp Metabolic 05/04/2019 [facility] Sodium 135 mmol/L Normal 135-145 Panel [address] [place] [address] [phone] Potassium 4.3 mmol/L Normal 3.5-5.0 Chloride 100 [...] Egfr 27.9 >60 1 Laboratory test 05/04/2019 [facility] Magnesium 1.9 mg/dL Normal 1.9-2.7 finding [address] [place] [address] [phone] Laboratory test 04/30/2019 [facility] Magnesium 1.8 mg/dL Low 1.9-2.7 2 finding [address] [place] [address] [phone] Comp Metabolic 04/30/2019 [facility] Sodium 137 mmol/L Normal 135-145 Panel [address] [place] [address] [phone] Potassium 4.0 mmol/L Normal 3.5-5.0 Chloride 102 [...] Egfr 29.1 >60 3 Basic Metabolic 04/05/2019 [facility] Sodium 137 mmol/L Normal 135-145 Panel [address] [place] [address] [phone] Potassium 3.7 mmol/L Normal 3.5-5.0 Chloride 102 mmol/L Normal 101-111 Co2 Carbon Dioxide 25 mmol/L Normal 22-32 Anion Gap 10 mmol/L Normal 2-11 Glucose 173 mg/dL High 70-100 Blood Urea Nitrogen 46 mg/dL High 6-24 Creatinine 1.84 mg/dL High 0.51-0.95 BUN/Creatinine Ratio 25.0 High 8-20 Calcium 8.6 mg/dL Normal 8.6-10.3 Egfr Non- 26.7 >60 Egfr 32.4 >60 4 Comp Metabolic 03/12/2019 [facility] Sodium 136 mmol/L Normal 135-145 Panel [address] [place] [address] [phone] Potassium 4.0 mmol/L Normal 3.5-5.0 Chloride 105 [...] Egfr 26.3 >60 5 Thyroid Panel 03/12/2019 [facility] Free T4 (Free 1.41 ng/dL High 0.61-1.[address] Thyroxine) [place] [address] [phone] Thyroxine 9.81 g/dL Normal 6.09-12.23 TSH (Thyroid Stim Horm) 2.14 mcIU/mL Normal 0.34-5.60 Basic Metabolic 12/13/2018 [facility] Sodium 141 mmol/L Normal 135-[address] [place] [address] [phone] Potassium 4.4 mmol/L Normal 3.5-5.0 Co2 Carbon [...] (or dialysis) 2 Copy Result to: GAGAN PATEL ([id number]) 3 Because ethnic data is not always [...] (or dialysis) Procedures Date Code Description Status 03/20/2019 79752 EKG, Interpretation Only Completed 02/28/2019 47355 ECHO Transthoracic, Real-Time 2D With Doppler And Color Completed Flow 02/28/2019 81564 ECHO Transthoracic, Real-Time 2D With Doppler And Color Completed Flow 02/08/2019 93584 EKG Tracing & Interpretation Completed 12/31/2018 39620 Pace Maker Eval W/Iterative Adjment Dual Lead Completed 12/31/2018 45809 Pace Maker Eval W/Iterative Adjment Dual Lead Completed 12/11/2018 61167 EKG Tracing & Interpretation Completed 12/08/2018 16981 EKG, Interpretation Only Completed 12/07/2018 31942 EKG, Interpretation Only Completed 12/06/2018 07593 Percutaneous Transcatheter Placement Of Intracoronary Completed Stent 12/06/2018 01884 EKG, Interpretation Only Completed 12/06/2018 20928 Cath PLMT&NJX L Ventriculog Img S&I Completed 12/05/2018 26596 ECHO Transthorasic Realtime 2D W Doppler & Color Flow Hosp Completed 12/05/2018 71143 EKG, Interpretation Only Completed 11/27/2018 52904 EKG Tracing & Interpretation Completed 11/15/2018 99416 Pace Maker Eval W/Iterative Adjment Dual Lead Completed 11/15/2018 54742 EKG, Interpretation Only Completed 11/14/2018 42104 EKG, Interpretation Only Completed 11/14/2018 53127 Perm Pacemaker Av Sequential Atrial And Ventricular Completed Medical Devices Description No Information Available Encounters Type Date Location Provider Dx Diagnosis Office Visit 05/08/2019 [facility] Nephrology Drew Wilson I12.9 Hypertensive chronic 1:30p MD Marika kidney disease w stg 1-4/unsp chr kdny N18.4 Chronic kidney disease, stage 4 (severe) R60.0 Localized edema E78.2 Mixed hyperlipidemia I10 Essential (primary) hypertension I25.10 Athscl heart disease of [place] coronary artery w/o ang pctrs Office Visit 05/06/2019 2:30p Pulmonology And Fatmata G47.9 Sleep disorder, Sleep Services Of MD Sheyla unspecified Medical Receptionist Assistant R09.02 Hypoxemia Office Visit 04/30/2019 10:15a [facility] Padmini Kruse, R60.0 Localized edema Of Medical Receptionist Assistant M.D. N18.3 Chronic kidney disease, stage 3 (moderate) I25.10 Athscl heart disease of [place] coronary artery w/o ang pctrs I50.32 Chronic diastolic (congestive) heart failure Office Visit 03/29/2019 1:30p [facility] Amy S. I48.0 Paroxysmal atrial Of Medical Receptionist Assistant Foster, N.P. fibrillation I50.23 Acute on chronic systolic (congestive) heart failure I25.10 Athscl heart disease of [place] coronary artery w/o ang pctrs Z95.0 Presence of cardiac pacemaker I12.9 Hypertensive chronic kidney disease w stg 1-4/unsp chr kdny E78.5 Hyperlipidemia, unspecified N18.9 Chronic kidney disease, unspecified Office Visit 03/20/2019 3:34p [facility] Tomasa Lerner, I48.0 Paroxysmal atrial Of Medical Receptionist Assistant NOTCHED BLADE LOADER fibrillation I50.23 Acute on chronic systolic (congestive) heart failure I25.10 Athscl heart disease of [place] coronary artery w/o ang pctrs I25.2 Old myocardial infarction Office Visit 02/18/2019 3:00p [facility] Padmini Kruse, Z95.0 Presence of Of [facility] M.D. cardiac pacemaker I25.10 Athscl heart disease of [place] coronary artery w/o ang pctrs I25.5 Ischemic cardiomyopathy I48.0 Paroxysmal atrial fibrillation R53.83 Other fatigue Office Visit 02/08/2019 1:30p [facility] Amy SKathia Z95.0 Presence of Fermin N.PKathia cardiac pacemaker I44.2 Atrioventricular block, complete I25.10 Athscl heart disease of [place] coronary artery w/o ang pctrs E78.5 Hyperlipidemia, unspecified I25.2 Old myocardial infarction I48.0 Paroxysmal atrial fibrillation Office Visit 12/14/2018 11:00a [facility] Padmini Kruse, I25.10 [place] heart Of [facility].D. disease of [place] coronary artery w/o ang pctrs I12.9 Hypertensive chronic kidney disease w stg 1-4/unsp chr kdny N18.3 Chronic kidney disease, stage 3 (moderate) E78.5 Hyperlipidemia, unspecified R60.0 Localized edema I44.2 Atrioventricular block, complete Z95.0 Presence of cardiac pacemaker Office Visit 12/11/2018 3:20p [facility] Eric Taylor, I21.4 Non- St elevation Of Medical Receptionist Assistant AT [facility].D, FACC, (Nstemi) FSCAI myocardial infarction Z48.1 Encounter for planned postprocedural wound closure N18.9 Chronic kidney disease, unspecified Z98.61 Coronary angioplasty status [facility]St [facility] Assoc,pc Chetan Cain, (Nstemi) Hospitalists NOTCHED BLADE LOADER myocardial infarction I10 Essential (primary) hypertension N18.3 Chronic kidney disease, stage 3 (moderate) D64.9 Anemia, unspecified E11.69 Type 2 diabetes mellitus with other specified complication E78.5 Hyperlipidemia, unspecified Z98.61 Coronary angioplasty status [facility]St [facility] Assoc,pc [facility] Doto, (Nstemi) Hospitalists NOTCHED BLADE LOADER myocardial infarction I10 Essential (primary) hypertension N18.3 Chronic kidney disease, stage 3 (moderate) Office Visit 12/07/2018 4:13p [facility] Niesha Oh I21.11 Stemi involving Francine Cruz right coronary artery I25.5 Ischemic cardiomyopathy I12.9 Hypertensive chronic kidney disease w stg 1-4/unsp chr kdny N18.9 Chronic kidney disease, unspecified E78.5 Hyperlipidemia, unspecified Office Visit 12/06/2018 9:49a [facility] Lizette I21.4 Non-St elevation Assoc,pc [facility] Ant, (Nstemi) Hospitalists NOTCHED BLADE LOADER myocardial infarction I10 Essential (primary) hypertension N18.3 Chronic kidney disease, stage 3 (moderate) Office Visit 12/05/2018 9:47a [facility] Elma I21.4 Non-St elevation Assoc,pc Laura Carreon (Nstemi) Hospitalists myocardial infarction I10 Essential (primary) hypertension N18.3 Chronic kidney disease, stage 3 (moderate) Office Visit 12/05/2018 4:05p [facility] Sal Barakat I25.10 Athmnrobert heart Janie Delgado. disease of [place] coronary artery w/o ang pctrs R79.89 Other specified abnormal findings of blood chemistry R11.0 Nausea I50.9 Heart failure, unspecified R94.31 Abnormal electrocardiogram [ECG] [EKG] I25.2 Old myocardial infarction Office Visit 12/04/2018 9:46a [facility] Bea R11.2 Nausea with Assoc,pc Rooth, DO vomiting, Hospitalists unspecified R74.8 Abnormal levels of other serum enzymes R73.9 Hyperglycemia, unspecified Z95.0 Presence of cardiac pacemaker Office Visit 11/27/2018 3:00p [facility] Parisa Wade I21.11 Stemi involving Of Medical Receptionist Assistant [facility] [place] Jasmin, right coronary FACC, FSCAI artery I25.5 Ischemic cardiomyopathy I44.1 Atrioventricular block, second degree Office Visit 11/20/2018 9:24a [facility] Eric Taylor, I21.11 Stemi involving Of Medical Receptionist Assistant [facility] Francine, FACC, right coronary FSCAI artery Z98.61 Coronary angioplasty status E11.9 Type 2 diabetes mellitus without complications Office Visit 11/19/2018 2:47p [facility] Eric Taylor, I21.11 Stemi involving Of Medical Receptionist Assistant [facility] M.[place]., FACC, right coronary FSCAI artery Z98.61 Coronary angioplasty status Office Visit 11/18/2018 2:47p [facility] Parisa Wade I21.11 Stemi involving Of Medical Receptionist Assistant AT [facility] MD Jasmin, right coronary FACC, FSCAI artery I10 Essential (primary) hypertension Office Visit 11/17/2018 2:45p [facility] Parisa Wade I21.11 Stemi involving Of Medical Receptionist Assistant AT [facility] MD Jasmin, right coronary FACC, FSCAI artery I10 Essential (primary) hypertension Office Visit 11/16/2018 12:58p [facility] Parisa Wade I21.11 Stemi involving Of Medical Receptionist Assistant [facility] MD Jasmin, right coronary FACC, FSCAI artery I25.10 Athscl heart disease of [place] coronary artery w/o ang pctrs I25.5 Ischemic cardiomyopathy Office Visit 11/15/2018 12:59p [facility] Parisa Wade I21.11 Stemi involving Of Medical Receptionist Assistant [facility] MD Jasmin, right coronary FACC, FSCAI artery I25.10 Athscl heart disease of [place] coronary artery w/o ang pctrs I25.5 Ischemic cardiomyopathy I44.1 Atrioventricular block, second degree Office Visit 11/14/2018 12:57p [facility] Tomasa Lerner, I21.11 Stemi involving Of Medical Receptionist Assistant [facility] NOTCHED BLADE LOADER right coronary artery I25.10 Athscl heart disease of [place] coronary artery w/o ang pctrs I44.2 Atrioventricular block, complete R00.1 Bradycardia, unspecified N17.9 Acute kidney failure, unspecified Office Visit 11/14/2018 12:55p [facility] Padmini Kruse, I21.11 Stemi involving Of Medical Receptionist Assistant M.D. right coronary artery I25.10 Athscl heart disease of [place] coronary artery w/o ang pctrs I44.2 Atrioventricular block, complete R00.1 Bradycardia, unspecified N17.9 Acute kidney failure, unspecified Assessments Date Code Description Provider 05/08/2019 I12.9 Hypertensive chronic kidney disease Drew Hairston MD with stage 1 through stage 4 chronic kidney disease, or unspecified chronic kidney disease 05/08/2019 N18.4 Chronic kidney disease, stage 4 Drew Hairston MD (severe) 05/08/2019 R60.0 Localized edema Drew Hairston MD 05/08/2019 E78.2 Mixed hyperlipidemia Drew Hairston MD 05/08/2019 I10 Essential (primary) hypertension Drew Hairston MD 05/08/2019 I25.10 Atherosclerotic heart disease of Drew Hairston MD [place] coronary artery without angina pectoris 05/06/2019 G47.9 Sleep disorder, unspecified Fatmata Carrion MD 05/06/2019 R09.02 Hypoxemia Fatmata Carrion MD 05/03/2019 E11.622 Type 2 diabetes mellitus with other Luann Johnson DNP , RN, skin ulcer [facility]- 05/03/2019 E46 Unspecified protein-calorie Luann Johnson DNP, RN, malnutrition POWER TOOL REPAIR TECHNICIAN-BC 05/03/2019 R09.89 Other specified symptoms and signs Luann Johnson DNP, RN, involving the circulatory and [facility]- respiratory systems 05/03/2019 S81.801A Unspecified open wound, right lower Luann Johnson DNP , RN, leg, initial encounter POWER TOOL REPAIR TECHNICIAN- 04/30/2019 R60.0 Localized edema Padmini Kruse M.D. 04/30/2019 N18.3 Chronic kidney disease, stage 3 Padmini Kruse M.D. (moderate) 04/30/2019 I25.10 Atherosclerotic heart disease of Padmini Kruse M.D. [place] coronary artery without angina pectoris 04/30/2019 I50.32 Chronic diastolic (congestive) heart Padmini Kruse M.D. failure 03/29/2019 I48.0 Paroxysmal atrial fibrillation Amy Christensen, N.P. 03/29/2019 I50.23 Acute on chronic systolic Amy Christensen, N.P. (congestive) heart failure 03/29/2019 I25.10 Atherosclerotic heart disease of Amy Christensen, N.P. [place] coronary artery without angina pectoris 03/29/2019 Z95.0 Presence of cardiac pacemaker Amy Christensen, N.P. 03/29/2019 I12.9 Hypertensive chronic kidney disease Amy S. Foster, N.P. with stage 1 through sta 03/29/2019 E78.5 Hyperlipidemia, unspecified Amy S. Foster, N.P. 03/29/2019 N18.9 Chronic kidney disease, unspecified Amy S. Foster, N.P. 03/20/2019 R94.31 Abnormal electrocardiogram [ECG] Mango Eastman M.D. [EKG] 03/20/2019 I48.0 Paroxysmal atrial fibrillation Tomasa Lerner, NOTCHED BLADE LOADER 03/20/2019 I50.23 Acute on chronic systolic Tomasa Lerner NP (congestive) heart failure 03/20/2019 I25.10 Atherosclerotic heart disease of Tomasa Lerner NP [place] coronary artery without angina pectoris 03/20/2019 I25.2 Old myocardial infarction Tomasa Lerner, NOTCHED BLADE LOADER 02/28/2019 I25.5 Ischemic cardiomyopathy Padmini Kruse M.D. 02/28/2019 I25.5 Ischemic cardiomyopathy [facility] Schedule 02/18/2019 Z95.0 Presence of cardiac pacemaker Padmini Kruse M.D. 02/18/2019 I25.10 Atherosclerotic heart disease of Padmini Kruse M.D. [place] coronary artery with 02/18/2019 I25.5 Ischemic cardiomyopathy Padmini Kruse M.D. 02/18/2019 I48.0 Paroxysmal atrial fibrillation Padmini Kruse M.D. 02/18/2019 R53.83 Other fatigue Padmini Kruse M.D. 02/08/2019 R94.31 Abnormal electrocardiogram [ECG] Padmini Kruse M.D. [EKG] 02/08/2019 Z95.0 Presence of cardiac pacemaker Amy S. Fermin, N.P. 02/08/2019 I44.2 Atrioventricular block, complete Amy S. Fermin, N.P. 02/08/2019 I25.10 Atherosclerotic heart disease of Amy S. Fermin, N.P. [place] coronary artery with 02/08/2019 E78.5 Hyperlipidemia, unspecified [...] Atherosclerotic heart disease of Padmini Kruse M.D. [place] coronary artery with 12/14/2018 I12.9 Hypertensive chronic [...] Non-St elevation (Nstemi) myocardial Eric Taylor M.D., [facility], infarction [facility] 12/11/2018 Z48.1 Encounter for planned postprocedural Eric Taylor M.D., [facility], wound closure [facility] 12/11/2018 N18.9 Chronic kidney disease, unspecified Eric Taylor M.D., [facility] , [facility] 12/11/2018 Z98.61 Coronary angioplasty status Eric Taylor M.D., [facility], [facility] 12/08/2018 R94.31 Abnormal electrocardiogram [ECG] Niesha Cruz M.D. [EKG] 12/08/2018 I21.4 Non-St elevation (Nstemi) myocardial Lizette Cain NP infarction 12/08/2018 I25.10 Atherosclerotic heart disease of Niesha Cruz M.D. [place] coronary artery with 12/08/2018 I10 Essential (primary) hypertension Lizette Cain NP 12/08/2018 I42.9 Cardiomyopathy, unspecified Niesha Cruz M.D. 12/08/2018 N18.3 Chronic kidney disease, stage 3 Lizette Cain NP (moderate) 12/08/2018 Z95.0 Presence of cardiac pacemaker Niesha Cruz M.D. 12/08/2018 D64.9 Anemia, unspecified Lizette Cain, [employer] LOADER 12/08/2018 E11.69 Type 2 diabetes mellitus with other Lizette Cain NP specified complication 12/08/2018 E78.5 Hyperlipidemia, unspecified Lizette Cain, [employer] LO[employer] 12/08/2018 Z98.61 Coronary angioplasty status Lizette Cain NP 12/07/2018 R94.31 Abnormal electrocardiogram [ECG] Niesha Cruz M.D. [EKG] 12/07/2018 I21.4 Non-St elevation (Nstemi) myocardial Lizette Cain NOTCHED BLADE LOADER infarction 12/07/[address] elevation (Stemi) myocardial Niesha Cruz M.D. infarction involving right c 12/07/2018 I10 Essential (primary) hypertension Lizette Cain, NOT[employer] BL[employer] LO[employer]ER 12/07/2018 I25.5 Ischemic cardiomyopathy Niesha Cruz M.D. [...] myocardial Eric Taylor M.D., FACC, infarction FSCAI 12/06/2018 I25.10 Atherosclerotic heart disease of Eric Taylor M.D., FACElmo, [place] coronary artery with FSCAI 12/06/2018 I21.4 Non-St elevation (Nstemi) myocardial Lizette Cain , [employer] LO[employer] infarction 12/06/2018 I10 Essential (primary) hypertension Lizette Cain, [employer] LO[employer]ER 12/06/2018 N18.3 Chronic kidney disease, stage 3 Lizette Cain, NOTCHED BLADE LOADER (moderate) 12/05/2018 R94.31 Abnormal electrocardiogram [ECG] Mango Eastman M.D. 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 [place] coronary artery without angina pectoris 12/05/2018 R79.89 [...] MD, FACC , infarction involving right c FSCAI 11/27/2018 I25.5 Ischemic cardiomyopathy Parisa Castellanos MD, FACC, FSCAI 11/27/2018 I44.1 Atrioventricular block, second degree Parisa Castellanos MD , [place], [facility] 11/20/2018 Z95.0 Presence of cardiac pacemaker Mango Eastman M.D. 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 Eric Taylor M.D., [facility], [facility] 11/20/2018 Z98.61 Coronary angioplasty status Eric Taylor M.D., [facility], [facility] 11/20/2018 E11.9 Type 2 diabetes mellitus without Eric Taylor M.D., [facility], complications [facility] 11/19/2018 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 Eric Taylor M.D., [facility], [facility] 11/19/2018 Z98.61 Coronary angioplasty status Eric Taylor M.D., [facility], [facility] 11/18/[address] elevation (Stemi) myocardial Parisa Castellanos MD, [facility] , infarction involving right c [facility] 11/18/2018 I10 Essential (primary) hypertension Parisa Castellanos MD, FACC, [facility] 11/17/2018 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 Parisa Castellanos MD, FACC, [facility] 11/17/2018 I10 Essential (primary) hypertension Parisa Castellanos MD, FACC, [facility] 11/16/2018 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 Parisa Castellanos MD, FACC, [facility] 11/16/2018 I25.10 Atherosclerotic heart disease of Parisa Castellanos MD, FACC, [place] coronary artery with [facility] 11/16/2018 I25.5 Ischemic cardiomyopathy Parisa Castellanos MD, FACC, [facility] 11/15/2018 R94.31 Abnormal electrocardiogram [ECG] Bradford Johnson DO [facility] [EKG] 11/15/2018 Z95.0 Presence of cardiac pacemaker Padmini Kruse M.D. 11/15/2018 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 Parisa Castellanos MD, FACC, [facility] 11/15/2018 I25.10 Atherosclerotic heart disease of Parisa Castellanos MD, FACC, [place] coronary artery with [facility] 11/15/2018 I25.5 Ischemic cardiomyopathy Parisa Castellanos MD, [facility], [facility] 11/15/2018 I44.1 Atrioventricular block, second degree Parisa Castellanos MD , [facility], [facility] 11/14/2018 R94.31 Abnormal electrocardiogram [ECG] Bradford Johnson, DO [facility] [facility] [EKG] 11/14/2018 I44.2 Atrioventricular block, complete Padmini Kruse M.D. 11/14/2018 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 Tomasa Lerner NP 11/14/2018 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 Padmini Kruse M.D. 11/14/2018 I25.10 Atherosclerotic heart disease of Tomasa Lerner, [place] coronary artery with 11/14/2018 I25.10 Atherosclerotic heart disease of Padmini Kruse M.D. [place] coronary artery with 11/14/2018 I44.2 Atrioventricular block, complete Tomasa Lerner, ODMIN[place] 11/14/2018 I44.2 Atrioventricular block, complete Padmini Kruse M.D. 11/14/2018 R00.1 Bradycardia, unspecified Tomasa Lerner, NOT[employer]ED [employer] 11/14/2018 R00.1 Bradycardia, unspecified Padmini Kruse M.D. 11/14/2018 N17.9 Acute kidney failure, unspecified Tomasa Lerner, NOTCHED [employer] 11/14/2018 N17.9 Acute kidney failure, unspecified Padmini Kruse M.D. Plan of Treatment Future Appointment(s):06/10/2019 1:30 pm - Drew Hairston MD at [facility] Bywsrgtkcz83/29/2019 1:45 pm - Fatmata Carrion MD at [facility]05/16/2019 1:00 pm - Ica Pacer Schedule at [facility]05/08/2019 - Drew Hairston MDI12.9 Hypertensive chronic kidney disease with stage 1 through stage 4 chronic kidney disease, or unspecified chronic kidney diseaseNew Medication:Ferrous Gluconate 239(27 Fe) mg - 1 tab by mouth every other dayFollow up:f/u in 1 moN18.4 Chronic kidney disease, stage 4 ( severe)R60.0 Localized xcczgP82.2 Mixed [id number] Essential (primary) [id number] Atherosclerotic heart disease of [place] coronary artery without angina pectoris Functional Status Description No Information Available Mental Status Description No Information Available Referrals Refer to Reason for Referral Status Appt Date Wound Clinic CKD, diastolic CHF, LE edema and oozing ulcers. Sent 05/03/[address] [place] [address] [phone] Fatmata Carrion MD hypoxemia, hx of pAF sleep study ordered already Sent [address] [place] [id number] [phone] [facility] [place] and stents October and November Sent 04/03/2019 [address] [place] [address] [phone]
[2019-06-08 14:16] LABS: ALT 32 U/L (7-52); AST 26 U/L (13-39); Albumin 2.6 g/dL (3.2-5.2); Albumin/Globulin Ratio 1.2 (1-3); Alkaline Phosphatase 78 U/L (34-104); Anion Gap 12 mmol/L (2-11); BUN/Creatinine Ratio 15.1 (8-20); Blood Urea Nitrogen 43 mg/dL (6-24); CO2 Carbon Dioxide 23 mmol/L (22-32); Calcium 8.5 mg/dL (8.6-10.3); Chloride 98 mmol/L (101-111); Cholesterol 35 mg/dL; EGFR African American 19.6 (>60); EGFR Non-African American 16.2 (>60); Globulin 2.2 g/dL (2-4); Glucose 86 mg/dL (70-100); HDL Cholesterol 13.8 mg/dL; LDL Cholesterol 11 mg/dL; Potassium 4.1 mmol/L (3.5-5.0); Sodium 133 mmol/L (135-145); Total Protein 4.8 g/dL (6.4-8.9); Triglycerides 51 mg/dL
[2019-06-08] MEDS ORDERED: Cefepime(*) 2 GM in NS 0.9% 50 ML* 50 ML IVPB ONE (14:17)
[2019-06-08 14:19] LABS: Troponin I 0.04 ng/mL (<0.04)
[2019-06-08 14:20] LABS: ABS Lymphocytes 0.2 10^3/ul (1.0-4.8); ABS Monocytes 0.1 10^3/ul (0-0.8); ABS Neutrophils 3.4 10^3/ul (1.5-7.7); Eosinophil % 0.6 %; Lymphocyte % 4.2 %
[2019-06-08 14:32] LABS: Mean Platelet Volume 10.4 fL (7.4-10.4); Platelet Count 82 10^3/uL (150-450)
[2019-06-08 14:38] LABS: Acanthocytes 2+
[2019-06-08 14:39] LABS: Polychromasia 1+; Schistocytes 1+
[2019-06-08] MEDS ORDERED: Cefepime 2 GM in Dextrose(*) 2 GM/50 ML BAG IV ONE (15:00)
[2019-06-08 15:05] LABS: Urine Appearance Cloudy; Urine Bacteria 1+ (Absent); Urine Bilirubin Negative (Negative); Urine Blood 2+ (Negative); Urine Color Amber; Urine Glucose Negative (Negative); Urine Ketones Negative (Negative); Urine Nitrite Negative (Negative); Urine Protein 3+(>=500 mg/dL) (Negative); Urine Red Blood Cell 3+(>10/hpf) (Absent); Urine Renal Epithelial Cells Present (Absent); Urine Specific Gravity 1.017 (1.010-1.030); Urine Squamous Epithelial Cell Present (Absent); Urine Urobilinogen Negative (Negative); Urine White Blood Cell 3+(>20/hpf) (Absent)
[2019-06-08] MEDS ORDERED: Norepinephrine 16MCG/ML IVPRE* 4,000 MCG/250 ML BAG IV SCH (16:00)
[2019-06-08] MEDS ORDERED: Norepinephrine 16MCG/ML IVPRE* 4,000 MCG/250 ML BAG IV ONE (16:00)
[2019-06-08] MEDS ORDERED: Acetaminophen TAB* 325 MG PO PRN (18:07)
--- NOTE | 2019-06-08 18:16 | HP ---
History of Present Illness - History of Present Illness Reason for Visit: hypotension History of Present Illness: 73 bed-bound NH patient with MMP's including recently starting HD p/w hypotension. Patient was at HD today when found hypotensive-they had removed 2 liters and then brought to the ED. Patient sent then to the ED and found to be hypotensive with SBP's in the 60's and temps of 93.9. HR 76, RR 14, and 02 sat 100%. Patient received 3 liters in the ED and now SBP's 110's on Levophed. L IJ TLC placed in the ED. In the ICU, RUBEN reviewed with HODAN Cruz, in [place], over speaker-phone with nursing present. Patient DNR/DNI and comfort measures. RUBEN signed < 2months ago. Picture of RUBEN brought in by other daughter who lives in [place]. - Past Medical History Cardiac: CAD Hepatobiliary: Other Review of Systems - Review of Systems Other: unable to get ROS. Patient confused. - Medications/Allergies Allergies/Adverse Reactions: Allergies Allergy/AdvReac Type Severity Reaction Status Date / Time No Known Allergies Allergy Verified 05/10/19 07:00 Medications: Current Medications Acetaminophen (Tylenol Tab*) 650 mg PO Q4H PRN PRN Reason: FEVER Norepinephrine Bitartrate (Levophed 16 Mcg/Ml Premix*) 4,000 mcg in 250 mls @ 18.75 mls/hr IV ED ONCE ONE; Protocol Stop: 06/09/19 05:19 Last Admin: 06/08/19 15:56 Dose: 37.5 mls/hr Norepinephrine Bitartrate (Levophed 16 Mcg/Ml Premix*) 4,000 mcg in 250 mls @ 18.75 mls/hr IV .INITIAL RATE BITA; Protocol Pharmacy Consult (Vancomycin Per Pharmacy*) 1 note FOLLOW UP .VANC PER PHARMACY BITA; Protocol Exam - Exam Vital Signs: Vital Signs (72 hours) 06/08/19 06/08/19 06/08/19 13:34 14:00 14:05 Temperature 97.5 F Pulse Rate 83 79 84 Respiratory 17 15 14 Rate Blood Pressure 82/60 74/53 (mmHg) O2 Sat by Pulse 91 100 100 Oximetry 06/08/19 06/08/19 06/08/19 14:14 14:19 14:24 Temperature Pulse Rate 76 74 77 Respiratory 18 18 16 Rate Blood Pressure 72/42 80/44 79/56 (mmHg) O2 Sat by Pulse 100 100 100 Oximetry 06/08/19 06/08/19 06/08/19 14:29 14:34 14:39 Temperature Pulse Rate 70 75 Respiratory 15 16 14 Rate Blood Pressure 75/51 84/57 84/51 (mmHg) O2 Sat by Pulse 100 100 Oximetry 06/08/19 06/08/19 06/08/19 14:44 14:49 15:00 Temperature Pulse Rate 72 74 73 Respiratory 17 16 17 Rate Blood Pressure 103/58 80/53 72/51 (mmHg) O2 Sat by Pulse 100 100 100 Oximetry 06/08/19 06/08/19 06/08/19 15:01 15:04 15:12 Temperature 94.5 F 94.5 F 94.3 F Pulse Rate 74 77 77 Respiratory 16 16 16 Rate Blood Pressure 82/51 82/55 (mmHg) O2 Sat by Pulse 100 100 100 Oximetry 06/08/19 06/08/19 06/08/19 15:14 15:19 15:24 Temperature 94.3 F 94.3 F 94.1 F Pulse Rate 77 76 78 Respiratory 17 18 17 Rate Blood Pressure 73/55 71/51 83/61 (mmHg) O2 Sat by Pulse 100 100 100 Oximetry 06/08/19 06/08/19 06/08/19 15:29 15:35 15:39 Temperature 94.1 F 94.1 F 93.9 F Pulse Rate 76 80 79 Respiratory 15 15 13 Rate Blood Pressure 69/49 77/43 61/47 (mmHg) O2 Sat by Pulse 100 100 99 Oximetry 06/08/19 06/08/19 06/08/19 15:49 15:54 15:59 Temperature 93.9 F 93.7 F 93.7 F Pulse Rate Respiratory 14 17 12 Rate Blood Pressure 76/63 88/53 116/83 (mmHg) O2 Sat by Pulse Oximetry 06/08/19 06/08/19 06/08/19 16:00 16:04 16:14 Temperature 93.7 F 93.7 F 93.7 F Pulse Rate Respiratory 12 17 10 Rate Blood Pressure 107/73 121/68 (mmHg) O2 Sat by Pulse Oximetry 06/08/19 06/08/19 06/08/19 16:19 16:24 16:29 Temperature 93.7 F 93.7 F 93.7 F Pulse Rate Respiratory 14 15 16 Rate Blood Pressure 117/93 116/75 97/77 (mmHg) O2 Sat by Pulse Oximetry 06/08/19 06/08/19 06/08/19 16:34 16:39 16:45 Temperature 93.7 F 93.9 F 93.9 F Pulse Rate 95 97 100 Respiratory 17 18 18 Rate Blood Pressure 116/65 143/86 114/80 (mmHg) O2 Sat by Pulse 99 99 95 Oximetry 06/08/19 06/08/19 06/08/19 16:50 16:54 17:00 Temperature 94.1 F 94.1 F 94.1 F Pulse Rate 96 101 101 Respiratory 17 16 15 Rate Blood Pressure 109/84 118/86 102/73 (mmHg) O2 Sat by Pulse 92 91 92 Oximetry 06/08/19 06/08/19 06/08/19 17:01 17:04 17:09 Temperature 94.3 F 94.3 F 94.5 F Pulse Rate 97 90 107 Respiratory 16 17 18 Rate Blood Pressure 110/75 116/60 (mmHg) O2 Sat by Pulse 92 92 92 Oximetry 06/08/19 06/08/19 06/08/19 17:15 17:20 17:24 Temperature 94.5 F 94.6 F 94.6 F Pulse Rate 100 95 97 Respiratory 18 18 19 Rate Blood Pressure 99/82 118/70 114/81 (mmHg) O2 Sat by Pulse 92 92 92 Oximetry 06/08/19 17:29 Temperature 94.6 F Pulse Rate 96 Respiratory 19 Rate Blood Pressure 114/81 (mmHg) O2 Sat by Pulse 98 Oximetry General: Other - Left foot lesion approx 5*8*5. sacral decubs stage 2 HEENT: Atraumatic - MM dry , Other Lungs: Other Cardiovascular: Regular rate, Normal S2 - crackles b/l Abdomen: Normal bowel sounds Extremities: No edema Neurological: Other - Ao times 2--person and place. Moving all extremities Assessment/Plan - Assessment/Plan Assessment: Septic shock UTI ESRD on HD Dementia/Delirium Lactic acidosis Sacral decubs Plan: D/W Proxy, Nancy, at length over phone, patient's condition. Patient to remain DNR/DNI. Since Vasopressors were started already she would like to continue them but to cap car--No escalation or addition of any new vasopressors. She also would like to continue ABX therapy and keep patient in the ICU. She would like to continue HD if patient could tolerate HD. She did wish to speak to Hospice/Palliative care when I offered their services. CCM 56 minutes
[2019-06-08] MEDS ORDERED: Vancomycin 1500 MG IV - x ONCE IVPB ONE ×2 (18:30)
[2019-06-08] MEDS ORDERED: Vancomycin per Pharmacy* NOTE FOLLOW UP SCH (19:00)
[2019-06-08] MEDS: Norepinephrine 16MCG/ML IVPRE* 4,000 MCG/250 ML BAG IV SCH ×2 (19:31→23:05)
[2019-06-08] MEDS: Morphine INJ* 2 MG/ML 1 ML SYRINGE (TWO MG - NEW SYRINGE VERSION) IV PRN (21:55)
[2019-06-09] MEDS: Morphine INJ* 2 MG/ML 1 ML SYRINGE (TWO MG - NEW SYRINGE VERSION) IV PRN (00:12)
[2019-06-09] MEDS: Norepinephrine 16MCG/ML IVPRE* 4,000 MCG/250 ML BAG IV SCH ×3 (02:45→08:47)
[2019-06-09] MEDS ORDERED: Vancomycin Random Level* NOTE FOLLOW UP ONE (06:00)
[2019-06-09 06:37] LABS: EGFR African American 17.5 (>60); EGFR Non-African American 14.4 (>60)
[2019-06-09 06:46] LABS: Vancomycin Random 13.9 mcg/mL
[2019-06-09] MEDS ORDERED: Morphine INJ* 2 MG/ML 1 ML SYRINGE (TWO MG - NEW SYRINGE VERSION) IV PRN (08:10)
[2019-06-09 08:36] VITALS: BP 81/52
--- NOTE | 2019-06-09 10:43 | PN ---
Date of Service: 06/09/19 Critical Care Services: patient continued to require vasopressor support last night and now breathing more labored after long d/w daughters, including proxy Nancy, they chose to withdraw all Vasopressor therapy and let patient naturally. They are aware she will soon. One daughter remains at the bedside and other remains in [place]. CCM time 45 minutes Vital Signs: Temp Pulse Resp BP SpO2 FiO2 99.9 F 119 12 81/52 96 06/09/19 08:30 06/09/19 08:30 06/09/19 08:36 06/09/19 08:30 06/09/19 08:30 Physical Exam: Gen: HEENT: Lungs: Cardiac: Abdomen: Extremities: Neuro: Fluid Balance (Past 24 Hours): I= O= Net Intake & Output 06/07/19 06/08/19 06/09/19 06/10/19 06:59 06:59 06:59 06:59 Intake Total 3160 Output Total 120 4 Balance 3040 -4 Weight 196 lb Intake: IV Fluids 2372 ABX - VANCOMYCIN 294 NS (0.9%) 28 Medicated IV 788 CC - Norepinephrine/ 788 Levophed Oral 0 Output: Luis 120 4 Labs: Laboratory Results - last 24 hr 06/08/19 06/08/19 06/08/19 13:45 13:45 13:45 WBC 3.7 RBC 3.09 L Hgb 8.1 L Hct 26 L MCV 84 MCH 26 L MCHC 31 RDW 27 H Plt Count 82 L D MPV 10.4 Neut % (Auto) 91.2 Lymph % (Auto) 4.2 [place] % (Auto) 3.9 Eos % (Auto) 0.6 Baso % (Auto) 0.1 Absolute Neuts (auto) 3.4 Absolute Lymphs (auto) 0.2 L Absolute Monos (auto) 0.1 Absolute Eos (auto) 0.0 Absolute Basos (auto) 0.0 Absolute Nucleated RBC Not Reportable Immature Gran % 26.0 H Neutrophils % 59.0 Band Neutrophils % 20.0 H Lymphocytes % 4.0 Monocytes % 9.0 Eosinophils % 2.0 Metamyelocytes % 5.0 H Myelocytes % 1.0 Nucleated RBC % Not Reportable Normal RBC Morphology Not Reportable Polychromasia 1+ Anisocytosis 3+ Acanthocytes (Spur) 2+ Schistocytes 1+ INR (Anticoag Therapy) 3.13 H APTT 47.8 H Sodium 133 L Potassium 4.1 Chloride 98 L Carbon Dioxide 23 Anion Gap 12 H BUN 43 H Creatinine 2.84 H Est GFR ( Amer) 19.6 Est GFR (Non-Af Amer) 16.2 BUN/Creatinine Ratio 15.1 Glucose 86 POC Glucose (mg/dL) Lactic Acid Calcium 8.5 L Magnesium Total Bilirubin 1.10 H AST 26 ALT 32 Alkaline Phosphatase 78 Troponin I 0.04 H* Total Protein 4.8 L Albumin 2.6 L Globulin 2.2 Albumin/Globulin Ratio 1.2 Triglycerides 51 Cholesterol 35 LDL Cholesterol 11 HDL Cholesterol 13.8 Urine Color Urine Appearance Urine pH Ur Specific [place] Urine Protein Urine Ketones Urine Blood Urine Nitrate Urine Bilirubin Urine Urobilinogen Ur Leukocyte Esterase Urine WBC (Auto) Urine RBC (Auto) Ur Squamous Epith Cells Ur Renal Epithelial Cell Urine Bacteria Hyaline Casts Urine Yeast Urine Glucose Random Vancomycin 06/08/19 06/08/19 06/08/19 13:45 14:27 16:47 WBC RBC Hgb Hct MCV MCH MCHC RDW Plt Count MPV Neut % (Auto) Lymph % (Auto) [place] % (Auto) Eos % (Auto) Baso % (Auto) Absolute Neuts (auto) Absolute Lymphs (auto) Absolute Monos (auto) Absolute Eos (auto) Absolute Basos (auto) Absolute Nucleated RBC Immature Gran % Neutrophils % Band Neutrophils % Lymphocytes % Monocytes % Eosinophils % Metamyelocytes % Myelocytes % Nucleated RBC % Normal RBC Morphology Polychromasia Anisocytosis Acanthocytes ([place]) Schistocytes INR (Anticoag Therapy) APTT Sodium Potassium Chloride Carbon Dioxide Anion Gap BUN Creatinine Est GFR ( Amer) Est GFR (Non-Af Amer) BUN/Creatinine Ratio Glucose POC Glucose (mg/dL) 94 Lactic Acid 4.0 H* Calcium Magnesium Total Bilirubin AST ALT Alkaline Phosphatase Troponin I Total Protein Albumin Globulin Albumin/Globulin Ratio Triglycerides Cholesterol LDL Cholesterol HDL Cholesterol Urine Color [place] Urine Appearance Cloudy Urine pH 6.0 Ur Specific [place] 1.017 Urine Protein 3+(>=500 mg/dl) A Urine Ketones Negative Urine Blood 2+ A Urine Nitrate Negative Urine Bilirubin Negative Urine Urobilinogen Negative Ur Leukocyte Esterase 3+ A Urine WBC (Auto) 3+(>20/hpf) A Urine RBC (Auto) 3+(>10/hpf) A Ur Squamous Epith Cells Present A Ur Renal Epithelial Cell Present A Urine Bacteria 1+ A Hyaline Casts Present A Urine Yeast Present A Urine Glucose Negative Random Vancomycin 06/08/19 06/08/19 06/09/19 21:29 21:29 00:17 WBC RBC Hgb Hct MCV MCH MCHC RDW Plt Count MPV Neut % (Auto) Lymph % (Auto) [place] % (Auto) Eos % (Auto) Baso % (Auto) Absolute Neuts (auto) Absolute Lymphs (auto) Absolute Monos (auto) Absolute Eos (auto) Absolute Basos (auto) Absolute Nucleated RBC Immature Gran % Neutrophils % Band Neutrophils % Lymphocytes % Monocytes % Eosinophils % Metamyelocytes % Myelocytes % Nucleated RBC % Normal RBC Morphology Polychromasia Anisocytosis Acanthocytes (Spur) Schistocytes INR (Anticoag Therapy) APTT Sodium Potassium Chloride Carbon Dioxide Anion Gap BUN Creatinine Est GFR ( Amer) Est GFR (Non-Af Amer) BUN/Creatinine Ratio Glucose POC Glucose (mg/dL) Lactic Acid 4.1 H* 3.8 H* Calcium Magnesium 1.4 L Total Bilirubin AST ALT Alkaline Phosphatase Troponin I Total Protein Albumin Globulin Albumin/Globulin Ratio Triglycerides Cholesterol LDL Cholesterol HDL Cholesterol Urine Color Urine Appearance Urine pH Ur Specific [place] Urine Protein Urine Ketones Urine Blood Urine Nitrate Urine Bilirubin Urine Urobilinogen Ur Leukocyte Esterase Urine WBC (Auto) Urine RBC (Auto) Ur Squamous Epith Cells Ur Renal Epithelial Cell Urine Bacteria Hyaline Casts Urine Yeast Urine Glucose Random Vancomycin 06/09/19 06/09/19 05:40 05:40 WBC RBC Hgb Hct MCV MCH MCHC RDW Plt Count MPV Neut % (Auto) Lymph % (Auto) [place] % (Auto) Eos % (Auto) Baso % (Auto) Absolute Neuts (auto) Absolute Lymphs (auto) Absolute Monos (auto) Absolute Eos (auto) Absolute Basos (auto) Absolute Nucleated RBC Immature Gran % Neutrophils % Band Neutrophils % Lymphocytes % Monocytes % Eosinophils % Metamyelocytes % Myelocytes % Nucleated RBC % Normal RBC Morphology Polychromasia Anisocytosis Acanthocytes (Spur) Schistocytes INR (Anticoag Therapy) APTT Sodium Potassium Chloride Carbon Dioxide Anion Gap BUN 47 H Creatinine 3.14 H Est GFR ( Amer) 17.5 Est GFR (Non-Af Amer) 14.4 BUN/Creatinine Ratio Glucose POC Glucose (mg/dL) Lactic Acid 3.1 H* Calcium Magnesium Total Bilirubin AST ALT Alkaline Phosphatase Troponin I Total Protein Albumin Globulin Albumin/Globulin Ratio Triglycerides Cholesterol LDL Cholesterol HDL Cholesterol Urine Color Urine Appearance Urine pH Ur Specific [place] Urine Protein Urine Ketones Urine Blood Urine Nitrate Urine Bilirubin Urine Urobilinogen Ur Leukocyte Esterase Urine WBC (Auto) Urine RBC (Auto) Ur Squamous Epith Cells Ur Renal Epithelial Cell Urine Bacteria Hyaline Casts Urine Yeast Urine Glucose Random Vancomycin 13.9 Plan: Critical Care Time:
--- NOTE | 2019-06-09 11:29 | PN ---
Date of Service: 06/09/19 Critical Care Services: Expiration Note Called to bed at 11:22 AM. Patient without pulse, no spontaneous respirations, no PERRL. Patient pronounced at 11:22 AM. Daughter and friends at the bedside. Vital Signs: Temp Pulse Resp BP SpO2 FiO2 99.9 F 119 12 81/52 96 06/09/19 08:30 06/09/19 08:30 06/09/19 08:36 06/09/19 08:30 06/09/19 08:30 Physical Exam: Gen: HEENT: Lungs: Cardiac: Abdomen: Extremities: Neuro: Fluid Balance (Past 24 Hours): I= O= Net Intake & Output 06/07/19 06/08/19 06/09/19 06/10/19 06:59 06:59 06:59 06:59 Intake Total 3160 Output Total 120 4 Balance 3040 -4 Weight 196 lb Intake: IV Fluids 2372 ABX - VANCOMYCIN 294 NS (0.9%) 28 Medicated IV 788 CC - Norepinephrine/ 788 Levophed Oral 0 Output: Luis 120 4 Labs: Laboratory Results - last 24 hr 06/08/19 06/08/19 06/08/19 13:45 13:45 13:45 WBC 3.7 RBC 3.09 L Hgb 8.1 L Hct 26 L MCV 84 MCH 26 L MCHC 31 RDW 27 H Plt Count 82 L D MPV 10.4 Neut % (Auto) 91.2 Lymph % (Auto) 4.2 [place] % (Auto) 3.9 Eos % (Auto) 0.6 Baso % (Auto) 0.1 Absolute Neuts (auto) 3.4 Absolute Lymphs (auto) 0.2 L Absolute Monos (auto) 0.1 Absolute Eos (auto) 0.0 Absolute Basos (auto) 0.0 Absolute Nucleated RBC Not Reportable Immature Gran % 26.0 H Neutrophils % 59.0 Band Neutrophils % 20.0 H Lymphocytes % 4.0 Monocytes % 9.0 Eosinophils % 2.0 Metamyelocytes % 5.0 H Myelocytes % 1.0 Nucleated RBC % Not Reportable Normal RBC Morphology Not Reportable Polychromasia 1+ Anisocytosis 3+ Acanthocytes (Spur) 2+ Schistocytes 1+ INR (Anticoag Therapy) 3.13 H APTT 47.8 H Sodium 133 L Potassium 4.1 Chloride 98 L Carbon Dioxide 23 Anion Gap 12 H BUN 43 H Creatinine 2.84 H Est GFR ( Amer) 19.6 Est GFR (Non-Af Amer) 16.2 BUN/Creatinine Ratio 15.1 Glucose 86 POC Glucose (mg/dL) Lactic Acid Calcium 8.5 L Magnesium Total Bilirubin 1.10 H AST 26 ALT 32 Alkaline Phosphatase 78 Troponin I 0.04 H* Total Protein 4.8 L Albumin 2.6 L Globulin 2.2 Albumin/Globulin Ratio 1.2 Triglycerides 51 Cholesterol 35 LDL Cholesterol 11 HDL Cholesterol 13.8 Urine Color Urine Appearance Urine pH Ur Specific [place] Urine Protein Urine Ketones Urine Blood Urine Nitrate Urine Bilirubin Urine Urobilinogen Ur Leukocyte Esterase Urine WBC (Auto) Urine RBC (Auto) Ur Squamous Epith Cells Ur Renal Epithelial Cell Urine Bacteria Hyaline Casts Urine Yeast Urine Glucose Random Vancomycin 06/08/19 06/08/19 06/08/19 13:45 14:27 16:47 WBC RBC Hgb Hct MCV MCH MCHC RDW Plt Count MPV Neut % (Auto) Lymph % (Auto) [place] % (Auto) Eos % (Auto) Baso % (Auto) Absolute Neuts (auto) Absolute Lymphs (auto) Absolute Monos (auto) Absolute Eos (auto) Absolute Basos (auto) Absolute Nucleated RBC Immature Gran % Neutrophils % Band Neutrophils % Lymphocytes % Monocytes % Eosinophils % Metamyelocytes % Myelocytes % Nucleated RBC % Normal RBC Morphology Polychromasia Anisocytosis Acanthocytes (Spur) Schistocytes INR (Anticoag Therapy) APTT Sodium Potassium Chloride Carbon Dioxide Anion Gap BUN Creatinine Est GFR ( Amer) Est GFR (Non-Af Amer) BUN/Creatinine Ratio Glucose POC Glucose (mg/dL) 94 Lactic Acid 4.0 H* Calcium Magnesium Total Bilirubin AST ALT Alkaline Phosphatase Troponin I Total Protein Albumin Globulin Albumin/Globulin Ratio Triglycerides Cholesterol LDL Cholesterol HDL Cholesterol Urine Color [place] Urine Appearance Cloudy Urine pH 6.0 Ur Specific [place] 1.017 Urine Protein 3+(>=500 mg/dl) A Urine Ketones Negative Urine Blood 2+ A Urine Nitrate Negative Urine Bilirubin Negative Urine Urobilinogen Negative Ur Leukocyte Esterase 3+ A Urine WBC (Auto) 3+(>20/hpf) A Urine RBC (Auto) 3+(>10/hpf) A Ur Squamous Epith Cells Present A Ur Renal Epithelial Cell Present A Urine Bacteria 1+ A Hyaline Casts Present A Urine Yeast Present A Urine Glucose Negative Random Vancomycin 06/08/19 06/08/19 06/09/19 21:29 21:29 00:17 WBC RBC Hgb Hct MCV MCH MCHC RDW Plt Count MPV Neut % (Auto) Lymph % (Auto) [place] % (Auto) Eos % (Auto) Baso % (Auto) Absolute Neuts (auto) Absolute Lymphs (auto) Absolute Monos (auto) Absolute Eos (auto) Absolute Basos (auto) Absolute Nucleated RBC Immature Gran % Neutrophils % Band Neutrophils % Lymphocytes % Monocytes % Eosinophils % Metamyelocytes % Myelocytes % Nucleated RBC % Normal RBC Morphology Polychromasia Anisocytosis Acanthocytes (Spur) Schistocytes INR (Anticoag Therapy) APTT Sodium Potassium Chloride Carbon Dioxide Anion Gap BUN Creatinine Est GFR ( Amer) Est GFR (Non-Af Amer) BUN/Creatinine Ratio Glucose POC Glucose (mg/dL) Lactic Acid 4.1 H* 3.8 H* Calcium Magnesium 1.4 L Total Bilirubin AST ALT Alkaline Phosphatase Troponin I Total Protein Albumin Globulin Albumin/Globulin Ratio Triglycerides Cholesterol LDL Cholesterol HDL Cholesterol Urine Color Urine Appearance Urine pH Ur Specific [place] Urine Protein Urine Ketones Urine Blood Urine Nitrate Urine Bilirubin Urine Urobilinogen Ur Leukocyte Esterase Urine WBC (Auto) Urine RBC (Auto) Ur Squamous Epith Cells Ur Renal Epithelial Cell Urine Bacteria Hyaline Casts Urine Yeast Urine Glucose Random Vancomycin 06/09/19 06/09/19 05:40 05:40 WBC RBC Hgb Hct MCV MCH MCHC RDW Plt Count MPV Neut % (Auto) Lymph % (Auto) [place] % (Auto) Eos % (Auto) Baso % (Auto) Absolute Neuts (auto) Absolute Lymphs (auto) Absolute Monos (auto) Absolute Eos (auto) Absolute Basos (auto) Absolute Nucleated RBC Immature Gran % Neutrophils % Band Neutrophils % Lymphocytes % Monocytes % Eosinophils % Metamyelocytes % Myelocytes % Nucleated RBC % Normal RBC Morphology Polychromasia Anisocytosis Acanthocytes (Sp[place]) Schistocytes INR (Anticoag Therapy) APTT Sodium Potassium Chloride Carbon Dioxide Anion Gap BUN 47 H Creatinine 3.14 H Est GFR ( Amer) 17.5 Est GFR (Non-Af Amer) 14.4 BUN/Creatinine Ratio Glucose POC Glucose (mg/dL) Lactic Acid 3.1 H* Calcium Magnesium Total Bilirubin AST ALT Alkaline Phosphatase Troponin I Total Protein Albumin Globulin Albumin/Globulin Ratio Triglycerides Cholesterol LDL Cholesterol HDL Cholesterol Urine Color Urine Appearance Urine pH Ur Specific [place] Urine Protein Urine Ketones Urine Blood Urine Nitrate Urine Bilirubin Urine Urobilinogen Ur Leukocyte Esterase Urine WBC (Auto) Urine RBC (Auto) Ur Squamous Epith Cells Ur Renal Epithelial Cell Urine Bacteria Hyaline Casts Urine Yeast Urine Glucose Random Vancomycin 13.9 Plan: Critical Care Time:
== END 2019-06-09 11:22 | disposition expired | DRG 871 ==
LOC: ED 13:08 → ICU 16:40
PROVIDERS: ADMIT Internal Medicine; ATTEND Internal Medicine
PROC: 05HN33Z Insertion of Infusion Device into Left Internal Jugular Vein, Percutaneous Approach (ICD-10-PCS; principal; 2019-06-08)
DX: A41.52 Sepsis due to Pseudomonas (principal); R65.21 Severe sepsis with septic shock; N18.6 End stage renal disease; N39.0 Urinary tract infection, site not specified; F05 Delirium due to known physiological condition; E87.2 Acidosis; L89.159 Pressure ulcer of sacral region, unspecified stage; B96.89 Other specified bacterial agents as the cause of diseases classified elsewhere; F03.90 Unspecified dementia, unspecified severity, without behavioral disturbance, psychotic disturbance, mood disturbance, and anxiety; Z66 Do not resuscitate; E11.22 Type 2 diabetes mellitus with diabetic chronic kidney disease; I12.9 Hypertensive chronic kidney disease with stage 1 through stage 4 chronic kidney disease, or unspecified chronic kidney disease; N18.9 Chronic kidney disease, unspecified; I25.10 Atherosclerotic heart disease of native coronary artery without angina pectoris; E78.00 Pure hypercholesterolemia, unspecified; M16.10 Unilateral primary osteoarthritis, unspecified hip; M47.9 Spondylosis, unspecified; Z79.1 Long term (current) use of non-steroidal anti-inflammatories (NSAID); Z79.899 Other long term (current) drug therapy; Z99.2 Dependence on renal dialysis; I25.2 Old myocardial infarction; Z95.0 Presence of cardiac pacemaker
CPT/HCPCS: 36415; 70450; 70496; 70498; 71045; 80053; 80061; 80202; 81003; 81015; 82565; 83605; 83735; 84484; 84520; 85025; 85060; 85610; 85730; 87040; 87077; 87086; 87106; 87186; 87205; 93005; 96361; 96365; 96366; 96367; 99285; A9270-GY; J0692; J2270; J3370; Q9967